=== PATIENT | male | born 1960 | race Caucasian/White ===

== ENCOUNTER 2017-01-04 17:56 | Observation (INO) | payer MEDICAID ==
[2017-01-04 17:56] VITALS: BMI 23.6
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
[2017-01-04] MEDS ORDERED: Multivitamin (MVI) 10 ML, Thiamine 100 MG, Folic Acid 1 MG in Dextrose 5% In Water 1,00... IV ONE (18:23)
[2017-01-04 19:35] LABS: ADD MANUAL DIFF? NO
[2017-01-04 19:42] LABS: BASO # 0.07 K/mm3 (0.0-2.0); BASO % 2.6 % (0.0-3.0); EOS % 1.5 % (1.5-5.0); GRAN # 1.14 (1.4-6.5); GRAN % 41.9 % (50.0-68.0); HEMATOCRIT 41.3 % (42.0-52.0); LYMPH % 37.1 % (22.0-35.0); MEAN CELL VOLUME 97.6 fL (80.0-105.0); MEAN CORPUSCULAR HGB CONC 34.9 g/dl (31.0-37.0); MONO # 0.5 (0.1-0.6); MONO % 16.9 % (1.0-6.0); PLATELET COUNT 93 10^3/uL (120.0-450.0); RED CELL DISTRIBUTION WIDTH 13.8 % (11.5-14.5)
[2017-01-04 19:47] LABS: WHITE BLOOD COUNT 2.7 10^3/ul (4.5-11.0)
[2017-01-04 19:55] LABS: ALKALINE PHOSPHATASE 103 U/L (38-133); ALT/SGPT 132 U/L (7-56); AST/SGOT 217 U/L (15-59); BILIRUBIN,TOTAL 0.8 mg/dL (0.2-1.3); BLOOD UREA NITROGEN 5 mg/dL (7-21); CALCIUM 8.8 mg/dL (8.4-10.5); CARBON DIOXIDE 30 mmol/L (21-33); CHLORIDE 94 mmol/L (98-107); GFR AFRICAN-AMERICAN > 60; GLUCOSE,RANDOM 95 mg/dL (70-110); LIPASE 144 U/L (23-300); MAGNESIUM 1.8 mg/dL (1.7-2.2); POTASSIUM 3.9 mmol/L (3.6-5.0); SODIUM 134 mmol/L (132-148); TOTAL PROTEIN 8.3 g/dL (5.8-8.3)
[2017-01-04 22:03] VITALS: RESP 18
[2017-01-05 03:13] VITALS: O2SAT 95
[2017-01-05 05:14] VITALS: BP 147/87; PULSE 88; TEMP 98.1
== END 2017-01-05 06:31 | disposition home or self-care (01) ==
LOC: ED 17:56 → EROBSV 18:23
PROVIDERS: ADMIT Emergency Medicine; ATTEND Emergency Medicine
DX: F10.129 Alcohol abuse with intoxication, unspecified (principal); Y90.8 Blood alcohol level of 240 mg/100 ml or more
CPT/HCPCS: 36415; 80053; 80320; 83690; 83735; 83880; 85025; 99285; G0378; J3411; J7070

== ENCOUNTER 2017-01-27 00:33 | Inpatient (IN) | payer MEDICAID ==
[2017-01-27 00:44] VITALS: BMI 22.9
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
[2017-01-27 01:43] LABS: INR 0.98 (0.93-1.08); PARTIAL THROMBOPLASTIN TIME 29.2 Seconds (23.7-30.8)
[2017-01-27 01:47] LABS: ALKALINE PHOSPHATASE 120 U/L (38-133); ALT/SGPT 136 U/L (7-56); AST/SGOT 217 U/L (15-59); BILIRUBIN,TOTAL 0.9 mg/dL (0.2-1.3); BLOOD UREA NITROGEN 7 mg/dL (7-21); CALCIUM 8.8 mg/dL (8.4-10.5); CARBON DIOXIDE 30 mmol/L (21-33); CHLORIDE 95 mmol/L (98-107); GFR AFRICAN-AMERICAN > 60; GLUCOSE,RANDOM 97 mg/dL (70-110); HEMATOCRIT 44.7 % (42.0-52.0); MEAN CELL VOLUME 97.6 fL (80.0-105.0); MEAN CORPUSCULAR HEMOGLOBIN 34.3 pg (25.0-35.0); MEAN CORPUSCULAR HGB CONC 35.1 g/dl (31.0-37.0); PLATELET COUNT 89 10^3/uL (120.0-450.0); POTASSIUM 4.4 mmol/L (3.6-5.0); SODIUM 135 mmol/L (132-148); TOTAL PROTEIN 8.6 g/dL (5.8-8.3)
[2017-01-27 01:58] LABS: MEAN PLATELET VOLUME 12.2 fl (7.0-11.0); WHITE BLOOD COUNT 2.8 10^3/ul (4.5-11.0)
[2017-01-27 02:04] LABS: TROPONIN I < 0.01 ng/mL
[2017-01-27 02:40] LABS: BAND 4 % (0-2); BASOPHIL 4 % (0.0-1.0); EOSINOPHIL 2 % (0.0-3.0); NEUTROPHIL 32 % (50.0-70.0); PLATELET ESTIMATE LOW (NORMAL)
[2017-01-27] MEDS ORDERED: Multivitamin (MVI) 10 ML, Thiamine 100 MG, Folic Acid 1 MG in Sodium Chloride 0.9% 1,00... IV ONE (03:24)
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
[2017-01-27 04:46] LABS: URINE BILIRUBIN NEGATIVE (NEGATIVE); URINE BLOOD TRACE-LYSED (NEGATIVE); URINE GLUCOSE (UA) NEGATIVE (NEGATIVE); URINE KETONE NEGATIVE (NEGATIVE); URINE LEUKOCYTE ESTERASE NEGATIVE Leu/uL (NEGATIVE); URINE PROTEIN NEGATIVE mg/dL (<30 mg/dL); URINE UROBILINOGEN 0.2 E.U./dL (<1 E.U./dL)
[2017-01-27 04:51] LABS: URINE APPEARANCE SL CLOUDY (CLEAR); URINE COLOR LIGHT YELLOW (YELLOW)
[2017-01-27 04:53] LABS: MAGNESIUM 1.7 mg/dL (1.7-2.2); PHOSPHOROUS 3.3 mg/dL (2.5-4.5)
[2017-01-27 05:09] LABS: URINE EPITHELIAL CELLS 0 - 2 /hpf (0-5); URINE RBC 0 - 2 /hpf (0-2); URINE WBC 0 - 2 /hpf (0-6)
[2017-01-27 07:08] LABS: TROPONIN I 0.02 ng/mL
--- NOTE | 2017-01-27 08:12 | RAD ---
HISTORY: Chest pain COMPARISON: 07/24/2016 FINDINGS: LUNGS: The lungs are hyperinflated and there is peribronchial thickening with chronic changes in both lungs. There is no focal consolidation. PLEURA: No significant pleural effusion identified, no pneumothorax apparent. CARDIOVASCULAR: Normal. OSSEOUS STRUCTURES: No significant abnormalities. VISUALIZED UPPER ABDOMEN: Normal. OTHER FINDINGS: None. IMPRESSION: No active pulmonary disease. COPD.
[2017-01-27] MEDS: Enoxaparin 40 mg Syringe SC SCH (09:08)
--- NOTE | 2017-01-27 09:49 | CARD ---
APPROVED REPORT EKG Measurement Heart [id number] <Conclusion> Normal sinus rhythm ST elevation, probably due to early repolarization No change
--- NOTE | 2017-01-27 10:01 | CARD ---
APPROVED REPORT EKG Measurement Heart [id number] <Conclusion> Normal sinus rhythm Prolonged QT ST elevation, probably early repolarization No change
[2017-01-27] MEDS: Sodium Chloride 0.9% 1,000 ML IV SCH ×2 (13:10→20:24)
[2017-01-28] MEDS: Sodium Chloride 0.9% 1,000 ML IV SCH (04:09)
[2017-01-28 07:40] LABS: ADD MANUAL DIFF? NO
[2017-01-28 07:46] LABS: BASO # 0.02 K/mm3 (0.0-2.0); BASO % 0.6 % (0.0-3.0); EOS % 1.2 % (1.5-5.0); GRAN # 2.36 (1.4-6.5); GRAN % 69.2 % (50.0-68.0); HEMATOCRIT 42.6 % (42.0-52.0); LYMPH # 0.6 (1.2-3.4); LYMPH % 16.4 % (22.0-35.0); MEAN CELL VOLUME 98.6 fL (80.0-105.0); MEAN CORPUSCULAR HEMOGLOBIN 34.3 pg (25.0-35.0); MEAN CORPUSCULAR HGB CONC 34.7 g/dl (31.0-37.0); MEAN PLATELET VOLUME 12.1 fl (7.0-11.0); MONO # 0.4 (0.1-0.6); MONO % 12.6 % (1.0-6.0); PLATELET COUNT 73 10^3/uL (120.0-450.0); RED CELL DISTRIBUTION WIDTH 13.9 % (11.5-14.5); WHITE BLOOD COUNT 3.4 10^3/ul (4.5-11.0)
[2017-01-28 08:01] LABS: ALKALINE PHOSPHATASE 111 U/L (38-133); ALT/SGPT 122 U/L (7-56); AST/SGOT 170 U/L (15-59); BILIRUBIN,TOTAL 1.5 mg/dL (0.2-1.3); BLOOD UREA NITROGEN 8 mg/dL (7-21); CARBON DIOXIDE 30 mmol/L (21-33); CHLORIDE 97 mmol/L (95-110); GFR AFRICAN-AMERICAN > 60; GLUCOSE,RANDOM 83 mg/dL (70-110); MAGNESIUM 1.7 mg/dL (1.7-2.2); PHOSPHOROUS 3.3 mg/dL (2.5-4.5); POTASSIUM 3.8 mmol/L (3.6-5.0); SODIUM 137 mmol/L (132-148); TOTAL PROTEIN 7.9 g/dL (5.8-8.3)
--- NOTE | 2017-01-28 09:30 | CON ---
DATE: 01/28/2017 INDICATIONS: Chest pain. HISTORY OF PRESENT ILLNESS: This is a 56-year-old multiple substance abuser admitted through the Emergency Room with chest pain described as left-sided, occurring for several months on and off and was apparently described as sharp. There is no chest pain today. There was no orthopnea, PND, syncope, presyncope , lightheadedness, dizziness or vertigo. There was no fever, chills, cough, sputum production, hemoptysis, abdominal pain, nausea, vomiting, diarrhea, constipation, melena. PAST MEDICAL HISTORY: Complex. He has a long history of alcohol abuse and also cigarette smoking and other drug abuse in the past. He drinks on a daily basis. He has had alcohol withdrawal. He has a history of variceal bleeding, portal hypertension, seizure disorder, intracranial hemorrhage, hepatitis B, thrombocytopenia; but no rheumatic fever, myocardial infarction, congestive heart failure, arrhythmia, stroke, TIA, diabetes or gout. MEDICATIONS AT TIME OF ADMISSION: Included multivitamin, Protonix and vitamin B1. CURRENT MEDICATIONS: Include aspirin, Ativan, folic acid, Keppra, Lovenox, Pepcid, multivitamin, thiamine. ALLERGIES: There are no known medication allergies. SOCIAL HISTORY: He is a smoker. He drinks alcohol daily. There is a history of drug abuse in the past. He is . He lives at home. 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 REVIEW OF SYSTEMS: A 10-point review of systems is otherwise unremarkable except as noted above. FAMILY HISTORY: Unknown. PHYSICAL EXAMINATION: GENERAL: He is a well-developed male lying in bed on telemetry, in no acute distress. VITAL SIGNS: Unremarkable. He is in sinus rhythm at 60 beats per minute. Blood pressure 171/103, prior to that 135/84; respirations 18, O2 sat 97% on nasal cannula. HEENT: Reveals no neck vein distention, thyromegaly, or carotid bruits. Mucous membranes are moist. Conjunctivae are pink. NECK: Supple. CHEST: Lung roth clear. HEART: Revealed normal first and second heart sounds. ABDOMEN: Soft, bowel sounds present. No mass, organomegaly, tenderness, rebound, or guarding. EXTREMITIES: Revealed no cyanosis, clubbing, or edema. NEUROLOGIC: Awake, alert and oriented. PSYCHIATRIC: Normal as to mood and affect. SKIN: Warm and dry. No rash or cellulitis. LABORATORY AND IMAGING: A chest x-ray revealed no active pulmonary disease, COPD findings. Two EKGs yesterday show sinus rhythm with J point elevation; unchanged from previous EKGs. White count low at 3400, hemoglobin 14.8, hematocrit 42.6, platelet count low at 73,000. PT, INR, PTT unremarkable. Electrolytes, BUN, creatinine, blood sugar unremarkable. LFTs are abnormal Troponins are negative x 3. Total cholesterol 154, triglycerides 98, LDL 57, HDL 72. TSH is elevated at 5.01. Urinalysis is noted. Toxic screen is noted. Alcohol level was 354. Hepatitis was negative. IMPRESSION: The patient is a 56-year-old alcoholic with complaints of chest pain, but negative enzymes and an unchanged electrocardiogram demonstrated J point elevation and chronic ST elevations. At this point, I agree with current plans. He is on telemetry. He can be out of bed. An echocardiogram is ordered. Nuclear stress test would be appropriate ; this can be arranged on an outpatient basis. He needs treatment for alcoholism and detoxification. He should avoid multiple substance abuse in the future. I will check on his echocardiogram. I will follow along with you and make additional recommendations based on his clinical course. Case discussed with Dr. Trejo. David Birmingham MD cc: [phone] TT: 01/28/2017 09:29:21 Confirmation # [id number] Dictation # [id number] yudith LEOS
[2017-01-28] MEDS: Enoxaparin 40 mg Syringe SC SCH (11:07)
[2017-01-28] MEDS: Multivitamin With Minerals Tab PO SCH (11:08)
--- NOTE | 2017-01-28 16:18 | CARD ---
APPROVED REPORT EXAM: Two-dimensional and M-mode echocardiogram with Doppler and color Doppler. INDICATION Chest Pain 2D DIMENSIONS Left Atrium (2D)3.4 (1.6-4.0cm)IVSd1.3 (0.7-1.1cm) LVDd3.7 (3.9-5.9cm)PWd1.2 (0.7-1.1cm) LVDs2.8 (2.5-4.0cm)FS (%) 25.7 % LVEF (%)51.3 (>50%) M-Mode DIMENSIONS Aortic Root2.80 (2.2-3.7cm)Aortic Cusp Exc.1.10 (1.5-2.0cm) Aortic Valve AoV Peak Jgpwtrov649.0cm/Ramez Peak GR.4mmHg Mitral Valve MV E Zwjcyyha26.1cm/sMV A Oqxlspoe03.8cm/sE/A ratio0.6 TDI E/Lateral E'0.0E/Medial E'0.0 LEFT VENTRICLE The left ventricle is normal size. There is mild concentric left ventricular hypertrophy. The left ventricular function is normal. The left ventricular ejection fraction is within the normal range. There is normal LV segmental wall motion. RIGHT VENTRICLE The right ventricle is normal size. The right ventricular systolic function is normal. ATRIA The left atrium size is normal. The right atrium size is normal. The interatrial septum is intact with no evidence for an atrial septal defect. AORTIC VALVE The aortic valve is normal in structure. No aortic regurgitation is present. There is no aortic valvular stenosis. MITRAL VALVE The mitral valve is normal in structure. Mitral regurgitation is trace. TRICUSPID VALVE The tricuspid valve is normal in structure. There is trace tricuspid regurgitation. PULMONIC VALVE The pulmonary valve is normal in structure. GREAT VESSELS The aortic root is normal in size. The IVC is normal in size and collapses >50% with inspiration. PERICARDIAL EFFUSION There is no pleural effusion. There is no pericardial effusion. <Conclusion> Normal chamber size. Normal LV systolic function. Mild concentric LVH. No valvular abnormalities noted.
--- NOTE | 2017-01-28 16:57 | CP.PCM.PN ---
Addendum entered and electronically signed by Duglas Jean DO 01/28/17 17:12: Patient became agitated and developed alcohol withdrawal symptoms. He was given ativan and due to instability, required sitter. Patient was seen trying to crawl out of bed and stumbling around in the room. His medical condition was discussed with him and he sat back in the bed. Per PT, he was not steady on his feet. Original Note: <Duglas Jean - Last Filed: 01/28/17 16:51> Subjective - Date & Time of Evaluation Date of Evaluation: 01/28/17 Time of Evaluation: 09:10 - Subjective Subjective: Dr. Jean PGY 1 Hospitalist note Patient seen and evaluated at bedside. He was eating breakfast and requesting to go home. He was made aware that physical therapy needed to evaluate him and he was scheduled for an echocardiogram. The patient stated he understood. He reports his chest pain was improved. He denied any shakes or withdrawal symptoms. He also notes the abrasion on his hand was less tender today. He also denies any fever, chills, nausea, vomiting, diarrhea, or dysuria. Per nursing, no adverse events over night. Objective - Vital Signs/Intake and Output Vital Signs (last 24 hours): Temp Pulse Resp BP Pulse Ox 98.2 F 72 19 152/91 H 97 01/28/17 12:00 01/28/17 12:00 01/28/17 12:00 01/28/17 12:00 01/28/17 06:00 Intake and Output: 01/28/17 01/28/17 06:59 18:59 Intake Total 920 840 Output Total 750 900 Balance 170 -60 - Medications Medications: Current Medications Enoxaparin Sodium (Lovenox) 40 mg SC DAILY [facility] PRN Reason: Protocol Last Admin: 01/28/17 11:07 Dose: 40 mg Famotidine (Pepcid) 40 mg PO HS [facility] Last Admin: 01/27/17 21:55 Dose: 40 mg Folic Acid (Folic Acid) 1 mg PO DAILY [facility] Last Admin: 01/28/17 11:08 Dose: 1 mg Sodium Chloride (Sodium Chloride 0.9%) 1,000 mls @ 100 mls/hr IV .Q10H [facility] Last Admin: 01/28/17 04:09 Dose: 100 mls/hr Levetiracetam (Keppra) 500 mg PO BID [facility] Last Admin: 01/28/17 11:08 Dose: 500 mg Lorazepam (Ativan) 2 mg IVP Q2H PRN; Protocol PRN Reason: Symptoms of alcohol withdrawl Last Admin: 01/28/17 13:58 Dose: 2 mg Lorazepam (Ativan) 2 mg IVP Q4H [facility] PRN Reason: Protocol Last Admin: 01/28/17 16:29 Dose: 2 mg Multivitamins/Minerals (Therapeutic-M Tab) 1 tab PO DAILY [facility] Last Admin: 01/28/17 11:08 Dose: 1 tab Mupirocin (Bactroban Ointment) 1 gm TOP BID [facility] Last Admin: 01/28/17 11:18 Dose: 1 applic Nicotine (Nicoderm Cq) 1 patch TD DAILY [facility] Last Admin: 01/28/17 15:59 Dose: 1 patch Thiamine HCl (Vitamin B1 Tab) 100 mg PO DAILY [facility] Last Admin: 01/28/17 11:08 Dose: 100 mg - Labs Labs: 01/28/17 07:00 01/28/17 07:00 PT 10.6 Seconds (9.9-11.8) 01/27/17 01:20 INR 0.98 (0.93-1.08) 01/27/17 01:20 APTT 29.2 Seconds (23.7-30.8) 01/27/17 01:20 - Constitutional Appears: Non-toxic, No Acute Distress - Head Exam Head Exam: ATRAUMATIC, NORMOCEPHALIC - Eye Exam Eye Exam: EOMI, Normal appearance, PERRL Pupil Exam: NORMAL ACCOMODATION, PERRL - ENT Exam ENT Exam: Mucous Membranes Moist. absent: Normal Exam (poor dentition) - Neck Exam Neck Exam: Normal Inspection. absent: Tenderness - Respiratory Exam Respiratory Exam: Clear to Ausculation Bilateral, NORMAL BREATHING PATTERN. absent: Rales, Rhonchi, Wheezes - Cardiovascular Exam Cardiovascular Exam: REGULAR RHYTHM, +S1, +S2. absent: Gallop, Rubs, Murmur - GI/Abdominal Exam GI & Abdominal Exam: Soft, Normal Bowel Sounds. absent: Guarding, Tenderness - Extremities Exam Extremities Exam: Normal Capillary Refill. absent: Normal Inspection (abrasion on right hand.) - Back Exam Back Exam: NORMAL INSPECTION. absent: rash noted, tenderness - Neurological Exam Neurological Exam: Alert, Awake, CN II-XII Intact, Oriented x3 - Psychiatric Exam Psychiatric exam: Normal Affect, Normal Mood - Skin Skin Exam: Dry, Intact, Normal Color, Warm Assessment and Plan - Assessment and Plan (Free Text) Assessment: 56yo male with history of hepatitis B, portal hypertension, variceal bleed and chronic etoh abuse presents c/o left-sided chest pain for the past 3 months. Patient scheduled for echo and cardiac stress test. Plan: 1. Chest pain r/o ACS * Cardiology consulted, help appreciated * Troponin negative x3 * CXR revealed no active disease * EKG reviewed; normal sinus rhythm at 83bpm with ST elevation likely due to early repolarization * Repeat EKG showed NSR with ST elevation probably due to early repolarization, no change from prior EKG * Echocardiogram showed normal chamber size, normal LV systolic function, mild concentric LVH [see full report] * TSH mildy elevated at 5.01, recommend repeat in 6-8 weeks * A1c 5.1 * Lipid panel shows: Tri 98, Chol 154, LDL 57, HDL 72 * Urinalysis shows trace blood * UDS positive for alcohol * Magnesium, phosphorus wnl * Stress test scheduled for tomorrow 2. Alcohol intoxication/withdrawal * Alcohol level 354 on arrival * [facility] protocol * Librium held due to thrombocytopenia * Ativan 2q4 scheduled and 2q2 PRN * Seizure/Aspiration precautions * Normal saline @100mls hr * Folic acid/thiamin/multivitamin * PT eval for gait stability 3. Leukopenia * yesterday WBC 2.8, currently 3.4 * likely due to chronic alcohol abuse 4. Thrombocytopenia * likely secondary to alcohol abuse * initially 89, decreased to 73 * continue to monitor for bleeding 5. Abrasion * Bactraban ointment * nurse bandaging 6 . Transaminitis * AST/ALT 170/122 * Improved from yesterday * continue to monitor * patient denies any GI symptoms 7. Nicotine Abuse * Nicoderm patch * counselled on cessation 8. GI/DVT prophylaxis * Protonix/lovenox Patient seen and case discussed with attending physician. <Marian Trejo - Last Filed: 01/28/17 17:45> Objective - Vital Signs/Intake and Output Vital Signs (last 24 hours): Temp Pulse Resp BP Pulse Ox 98.2 F 72 19 152/91 H 97 01/28/17 12:00 01/28/17 12:00 01/28/17 12:00 01/28/17 12:00 01/28/17 06:00 Intake and Output: 01/28/17 01/28/17 06:59 18:59 Intake Total 920 840 Output Total 750 900 Balance 170 -60 - Medications Medications: Current Medications Enoxaparin Sodium (Lovenox) 40 mg SC DAILY [facility] PRN Reason: Protocol Last Admin: 01/28/17 11:07 Dose: 40 mg Famotidine (Pepcid) 40 mg PO HS [facility] Last Admin: 01/27/17 21:55 Dose: 40 mg Folic Acid (Folic Acid) 1 mg PO DAILY [facility] Last Admin: 01/28/17 11:08 Dose: 1 mg Sodium Chloride (Sodium Chloride 0.9%) 1,000 mls @ 100 mls/hr IV .Q10H [facility] Last Admin: 01/28/17 04:09 Dose: 100 mls/hr Levetiracetam (Keppra) 500 mg PO BID [facility] Last Admin: 01/28/17 11:08 Dose: 500 mg Lorazepam (Ativan) 2 mg IVP Q2H PRN; Protocol PRN Reason: Symptoms of alcohol withdrawl Last Admin: 01/28/17 13:58 Dose: 2 mg Lorazepam (Ativan) 2 mg IVP Q4H [facility] PRN Reason: Protocol Last Admin: 01/28/17 16:29 Dose: 2 mg Multivitamins/Minerals (Therapeutic-M Tab) 1 tab PO DAILY [facility] Last Admin: 01/28/17 11:08 Dose: 1 tab Mupirocin (Bactroban Ointment) 1 gm TOP BID [facility] Last Admin: 01/28/17 11:18 Dose: 1 applic Nicotine (Nicoderm Cq) 1 patch TD DAILY [facility] Last Admin: 01/28/17 15:59 Dose: 1 patch Thiamine HCl (Vitamin B1 Tab) 100 mg PO DAILY [facility] Last Admin: 01/28/17 11:08 Dose: 100 mg - Labs Labs: 01/28/17 07:00 01/28/17 07:00 PT 10.6 Seconds (9.9-11.8) 01/27/17 01:20 INR 0.98 (0.93-1.08) 01/27/17 01:20 APTT 29.2 Seconds (23.7-30.8) 01/27/17 01:20 Attending/Attestation - Attestation I have personally seen and examined this patient.: Yes I have fully participated in the care of the patient.: Yes I have reviewed all pertinent clinical information, including history, physical exam and plan: Yes Notes (Text): 01/28/17 17:37 56 year old male with past medical history of chronic etoh abuse and seizure disorder who presented with alcohol intoxication and chest pain. Serial cardiac enzymes are negative and ACS is ruled out. Cardiology evaluation was appreciated who recommended stress test which can be done as outpatient. Echocardiogram was reviewed as above. Today he has some tremor with gait instability. He is on ativan for alcohol withdrawal. PT evaluation is requested. Continue with multivitamin, folic acid and thiamine. He was counselled on alcohol abstinence. He is on keppra for history of seizures. Elevated LFTs likely secondary to chronic ETOH abuse. LFTs are slowly improving. Will continue to monitor. Marian Trejo MD Hospitalist.
--- NOTE | 2017-01-28 19:30 | CP.PCM.PN ---
Subjective - Date & Time of Evaluation Date of Evaluation: 01/28/17 Time of Evaluation: 19:16 - Subjective Subjective: Patient seen at the request of his RN who stated patient is agitated inspite of getting a total of 6 mg of ativan since 1:58 pm today, last dose of 2mg given at 5:44pm. Patient had tried to get out of the bed and his gait was unsteady. He is being treated for ETOH withdrawal. VS 172/103, HR 110/min, temp 99.4f, RR 22/min O/E,Pt is alert ,awake ,unco-operative,is noted to have fine tremors Lungs clear CVS Tachycardic Impression ETOH withdrawal and agitation Plan Christopher restraint Sedation with Ativan as already ordered. Objective - Vital Signs/Intake and Output Vital Signs (last 24 hours): Temp Pulse Resp BP Pulse Ox 98 F 65 20 188/106 H 97 01/28/17 17:41 01/28/17 17:41 01/28/17 17:41 01/28/17 17:41 01/28/17 06:00 Intake and Output: 01/28/17 01/29/17 18:59 06:59 Intake Total 840 Output Total 900 Balance -60 - Medications Medications: Current Medications Enoxaparin Sodium (Lovenox) 40 mg SC DAILY [facility] PRN Reason: Protocol Last Admin: 01/28/17 11:07 Dose: 40 mg Famotidine (Pepcid) 40 mg PO HS [facility] Last Admin: 01/27/17 21:55 Dose: 40 mg Folic Acid (Folic Acid) 1 mg PO DAILY [facility] Last Admin: 01/28/17 11:08 Dose: 1 mg Sodium Chloride (Sodium Chloride 0.9%) 1,000 mls @ 100 mls/hr IV .Q10H [facility] Last Admin: 01/28/17 04:09 Dose: 100 mls/hr Levetiracetam (Keppra) 500 mg PO BID [facility] Last Admin: 01/28/17 17:40 Dose: 500 mg Lorazepam (Ativan) 2 mg IVP Q2H PRN; Protocol PRN Reason: Symptoms of alcohol withdrawl Last Admin: 01/28/17 13:58 Dose: 2 mg Lorazepam (Ativan) 2 mg IVP Q4H [facility] PRN Reason: Protocol Last Admin: 01/28/17 16:29 Dose: 2 mg Multivitamins/Minerals (Therapeutic-M Tab) 1 tab PO DAILY [facility] Last Admin: 01/28/17 11:08 Dose: 1 tab Mupirocin (Bactroban Ointment) 1 gm TOP BID [facility] Last Admin: 01/28/17 17:40 Dose: 1 applic Nicotine (Nicoderm Cq) 1 patch TD DAILY [facility] Last Admin: 01/28/17 15:59 Dose: 1 patch Thiamine HCl (Vitamin B1 Tab) 100 mg PO DAILY [facility] Last Admin: 01/28/17 11:08 Dose: 100 mg - Labs Labs: 01/28/17 07:00 01/28/17 07:00 PT 10.6 Seconds (9.9-11.8) 01/27/17 01:20 INR 0.98 (0.93-1.08) 01/27/17 01:20 APTT 29.2 Seconds (23.7-30.8) 01/27/17 01:20
[2017-01-29 07:47] LABS: ADD MANUAL DIFF? NO
[2017-01-29 07:52] LABS: BASO # 0.02 K/mm3 (0.0-2.0); BASO % 0.4 % (0.0-3.0); EOS % 0.8 % (1.5-5.0); GRAN % 75.9 % (50.0-68.0); HEMATOCRIT 46.9 % (42.0-52.0); LYMPH # 0.6 (1.2-3.4); LYMPH % 12.4 % (22.0-35.0); MEAN CELL VOLUME 97.9 fL (80.0-105.0); MEAN CORPUSCULAR HEMOGLOBIN 34.4 pg (25.0-35.0); MEAN CORPUSCULAR HGB CONC 35.2 g/dl (31.0-37.0); MEAN PLATELET VOLUME 12.4 fl (7.0-11.0); MONO # 0.5 (0.1-0.6); MONO % 10.5 % (1.0-6.0); PLATELET COUNT 74 10^3/uL (120.0-450.0); RED CELL DISTRIBUTION WIDTH 13.5 % (11.5-14.5); WHITE BLOOD COUNT 4.8 10^3/ul (4.5-11.0)
[2017-01-29 08:56] LABS: ALKALINE PHOSPHATASE 120 U/L (38-133); ALT/SGPT 229 U/L (7-56); AST/SGOT 318 U/L (15-59); BILIRUBIN,TOTAL 2.2 mg/dL (0.2-1.3); BLOOD UREA NITROGEN 7 mg/dL (7-21); CALCIUM 10.3 mg/dL (8.4-10.5); CARBON DIOXIDE 27 mmol/L (21-33); CHLORIDE 103 mmol/L (98-107); GFR AFRICAN-AMERICAN > 60; GLUCOSE,RANDOM 103 mg/dL (70-110); MAGNESIUM 1.9 mg/dL (1.7-2.2); PHOSPHOROUS 2.5 mg/dL (2.5-4.5); POTASSIUM 3.7 mmol/L (3.6-5.0); SODIUM 143 mmol/L (132-148); TOTAL PROTEIN 9.6 g/dL (5.8-8.3)
[2017-01-29] MEDS: Enoxaparin 40 mg Syringe SC SCH (09:42)
[2017-01-29] MEDS: Multivitamin With Minerals Tab PO SCH (09:43)
--- NOTE | 2017-01-29 14:02 | PN ---
DATE: 01/29/2017 SUBJECTIVE: The patient is seen lying in bed on telemetry. He is currently in wrist restraints and a Noble vest. He has received some sedation recently and is somnolent. CURRENT MEDICATIONS: Include Ativan p.r.n., clonidine p.r.n., Geodon p.r.n., Keppra 500 mg b.i.d., L ovenox, Nicoderm patch, Pepcid. OBJECTIVE: GENERAL: He is a disheveled=appearing middle-aged man. VITAL SIGNS: His blood pressure is 140/96 with a pulse of 88 in sinus, respirations are 16. He is a febrile. HEENT: No JVD. CHEST: Bilateral rhonchi heard. HEART: PMI in normal position. No pathologic murmur or gallops noted. ABDOMEN: Soft, nontender, normoactive bowel sounds. EXTREMITIES: No edema. DIAGNOSTIC DATA: Potassium 3.7, BUN and creatinine are 7 and 0.8. Hemoglobin and hematocrit ae 16.5 and 46.9 with white count of 4.8, platelet count of 74,000. AST and ALT 318 and 229. Bilirubin 2.2 . IMPRESSION: 1. Recent chest pain with no evidence of cardiac ischemia on EKG or blood work. 2. History of alcohol abuse. 3. History of portal hypertension and esophageal varices. 4. History of seizure disorder. 5. Thrombocytopenia likely secondary to liver disease. RECOMMENDATIONS: At this time, conservative cardiac management is advised. If he has symptoms sugge stive of cardiac ischemia, would not pursue further workup with stress testing as pain is likely not due to a cardiac source. Observation for impending potential delirium tremens is advised. We will be continue along and follow as needed. Lenny Turcios MD cc: [id number] TT: 01/29/2017 14:01:24 Confirmation # [id number] Dictation # [id number] tn
--- NOTE | 2017-01-29 17:25 | CP.PCM.PN ---
<Duglas Jean - Last Filed: 01/29/17 17:21> Subjective - Date & Time of Evaluation Date of Evaluation: 01/29/17 Time of Evaluation: 07:45 - Subjective Subjective: Dr. Jean PGY 1 Hospitalist note Patient seen and evaluated at bedside. He is agitated in bed and tells me the year is 1973 and we are at his sister's home. A thorough review of systems could not be obtained as the patient was confused even after redirection. Per nursing, patient's DT's worsened over night requiring him to need medical restraints for his safety. Patient was noted to be unsteady when standing prior to the DT's and continues to try crawling out of the bed and demanding a cigarette. Objective - Vital Signs/Intake and Output Vital Signs (last 24 hours): Temp Pulse Resp BP Pulse Ox 97.4 F L 88 21 144/95 H 98 01/29/17 12:43 01/29/17 12:43 01/29/17 12:43 01/29/17 12:43 01/29/17 05:28 Intake and Output: 01/29/17 01/29/17 06:59 18:59 Intake Total 0 Output Total 450 Balance -450 - Medications Medications: Current Medications Clonidine HCl (Catapres) 0.1 mg PO BID PRN PRN Reason: Systolic Blood Pressure Last Admin: 01/29/17 06:28 Dose: 0.1 mg Enoxaparin Sodium (Lovenox) 40 mg SC DAILY [facility] PRN Reason: Protocol Last Admin: 01/29/17 09:42 Dose: 40 mg Famotidine (Pepcid) 40 mg PO HS [facility] Last Admin: 01/28/17 22:25 Dose: 40 mg Folic Acid (Folic Acid) 1 mg PO DAILY [facility] Last Admin: 01/29/17 09:42 Dose: 1 mg Sodium Chloride (Sodium Chloride 0.9%) 1,000 mls @ 100 mls/hr IV .Q10H [facility] Last Admin: 01/28/17 04:09 Dose: 100 mls/hr Levetiracetam (Keppra) 500 mg PO BID [facility] Last Admin: 01/29/17 09:42 Dose: 500 mg Lorazepam (Ativan) 2 mg IVP Q2H PRN; Protocol PRN Reason: Symptoms of alcohol withdrawl Last Admin: 01/29/17 04:26 Dose: 2 mg Lorazepam (Ativan) 2 mg IVP Q4H [facility] PRN Reason: Protocol Last Admin: 01/29/17 13:46 Dose: Not Given Multivitamins/Minerals (Therapeutic-M Tab) 1 tab PO DAILY [facility] Last Admin: 01/29/17 09:43 Dose: 1 tab Mupirocin (Bactroban Ointment) 1 gm TOP BID [facility] Last Admin: 01/29/17 09:41 Dose: 1 applic Nicotine (Nicoderm Cq) 1 patch TD DAILY [facility] Last Admin: 01/29/17 09:42 Dose: 1 patch Thiamine HCl (Vitamin B1 Tab) 100 mg PO DAILY [facility] Last Admin: 01/29/17 09:43 Dose: 100 mg Ziprasidone (Geodon Inj) 10 mg IM ONCE PRN; Protocol PRN Reason: Agitation - Labs Labs: 01/29/17 06:30 01/29/17 08:35 PT 10.6 Seconds (9.9-11.8) 01/27/17 01:20 INR 0.98 (0.93-1.08) 01/27/17 01:20 APTT 29.2 Seconds (23.7-30.8) 01/27/17 01:20 - Constitutional Appears: Agitated - Head Exam Head Exam: ATRAUMATIC, NORMOCEPHALIC - Eye Exam Eye Exam: EOMI, Normal appearance, PERRL Pupil Exam: NORMAL ACCOMODATION, PERRL - ENT Exam ENT Exam: Mucous Membranes Moist. absent: Normal Oropharynx (poor dentition) - Respiratory Exam Respiratory Exam: Clear to Ausculation Bilateral, NORMAL BREATHING PATTERN. absent: Rales, Rhonchi, Wheezes - Cardiovascular Exam Cardiovascular Exam: Tachycardia, +S1, +S2. absent: Gallop, Rubs, Murmur - GI/Abdominal Exam GI & Abdominal Exam: Soft, Normal Bowel Sounds. absent: Tenderness - Extremities Exam Extremities Exam: Normal Capillary Refill. absent: Normal Inspection (abrasion on right hand healing), Pedal Edema, Tenderness - Neurological Exam Neurological Exam: Altered - Psychiatric Exam Psychiatric exam: Agitated - Skin Skin Exam: Dry, Normal Color, Warm Assessment and Plan - Assessment and Plan (Free Text) Assessment: 56yo male with history of portal hypertension, variceal bleed and chronic alcohol abuse presents c/o left-sided chest pain for the past 3 months. Patient had echo performed and scheduled for stress test; however has developed delerium tremens requiring restraints. Plan: 1. Chest pain r/o ACS * Cardiology consulted, help appreciated * Troponin negative x3 * CXR revealed no active disease * EKG reviewed; normal sinus rhythm at 83bpm with ST elevation likely due to early repolarization * Repeat EKG showed NSR with ST elevation probably due to early repolarization, no change from prior EKG * Echocardiogram showed normal chamber size, normal LV systolic function, mild concentric LVH [see full report] * TSH mildy elevated at 5.01, recommend repeat in 6-8 weeks * A1c 5.1 * Lipid panel shows: Tri 98, Chol 154, LDL 57, HDL 72 * Urinalysis shows trace blood * UDS positive for alcohol * Magnesium, phosphorus wnl * Stress test scheduled for tomorrow 2. Alcohol intoxication/withdrawal * Alcohol level 354 on arrival * CIWA protocol * Librium held due to thrombocytopenia * Ativan 2q4 scheduled and 2q2 PRN * Seizure/Aspiration precautions * Normal saline @100mls hr * Folic acid/thiamin/multivitamin * Currently requiring restraints and 1:1 sitter * Geodon for severe agitation * PT eval for gait stability 3. Leukopenia * initial WBC 2.8, currently 4.8 * likely due to chronic alcohol abuse 4. Thrombocytopenia * likely secondary to alcohol abuse * initially 89, decreased to 73 * continue to monitor for bleeding 5. Abrasion * Bactraban ointment * nurse bandaging 6 . Transaminitis * AST/ALT 318/229 * likely due to alcohol withdrawals * continue to trend 7. Nicotine Abuse * Nicoderm patch * counselled on cessation 8. GI/DVT prophylaxis * Protonix/lovenox Patient seen and case discussed with attending physician. <Marian Trejo - Last Filed: 01/30/17 06:51> Objective - Vital Signs/Intake and Output Vital Signs (last 24 hours): Temp Pulse Resp BP Pulse Ox 97.8 F 80 20 162/104 H 96 01/30/17 06:00 01/30/17 06:29 01/30/17 06:00 01/30/17 06:29 01/30/17 06:00 Intake and Output: 01/29/17 01/30/17 18:59 06:59 Intake Total 1080 Output Total 400 Balance 680 - Medications Medications: Current Medications Clonidine HCl (Catapres) 0.1 mg PO BID PRN PRN Reason: Systolic Blood Pressure Last Admin: 01/30/17 06:29 Dose: 0.1 mg Enoxaparin Sodium (Lovenox) 40 mg SC DAILY [facility] PRN Reason: Protocol Last Admin: 01/29/17 09:42 Dose: 40 mg Famotidine (Pepcid) 40 mg PO HS [facility] Last Admin: 01/29/17 22:20 Dose: Not Given Folic Acid (Folic Acid) 1 mg PO DAILY [facility] Last Admin: 01/29/17 09:42 Dose: 1 mg Sodium Chloride (Sodium Chloride 0.9%) 1,000 mls @ 100 mls/hr IV .Q10H [facility] Last Admin: 01/28/17 04:09 Dose: 100 mls/hr Levetiracetam (Keppra) 500 mg PO BID [facility] Last Admin: 01/29/17 17:42 Dose: 500 mg Lorazepam (Ativan) 2 mg IVP Q2H PRN; Protocol PRN Reason: Symptoms of alcohol withdrawl Last Admin: 01/29/17 04:26 Dose: 2 mg Lorazepam (Ativan) 2 mg IVP Q4H [facility] PRN Reason: Protocol Last Admin: 01/30/17 06:18 Dose: 2 mg Multivitamins/Minerals (Therapeutic-M Tab) 1 tab PO DAILY [facility] Last Admin: 01/29/17 09:43 Dose: 1 tab Mupirocin (Bactroban Ointment) 1 gm TOP BID [facility] Last Admin: 01/29/17 17:38 Dose: 1 applic Nicotine (Nicoderm Cq) 1 patch TD DAILY [facility] Last Admin: 01/29/17 09:42 Dose: 1 patch Thiamine HCl (Vitamin B1 Tab) 100 mg PO DAILY [facility] Last Admin: 01/29/17 09:43 Dose: 100 mg Ziprasidone (Geodon Inj) 10 mg IM ONCE PRN; Protocol PRN Reason: Agitation - Labs Labs: 01/29/17 06:30 01/29/17 08:35 PT 10.6 Seconds (9.9-11.8) 01/27/17 01:20 INR 0.98 (0.93-1.08) 01/27/17 01:20 APTT 29.2 Seconds (23.7-30.8) 01/27/17 01:20 Attending/Attestation - Attestation I have personally seen and examined this patient.: Yes I have fully participated in the care of the patient.: Yes I have reviewed all pertinent clinical information, including history, physical exam and plan: Yes Notes (Text): 01/29/17 56 year old male with past medical history of chronic etoh abuse and seizure disorder who presented with alcohol intoxication and chest pain. Serial cardiac enzymes are negative and ACS is ruled out. Cardiology evaluation was appreciated who recommended outpatient stress test. Echocardiogram was reviewed as above. Hospital course was complicated with alcohol withdrawal / delirium. Overnight he had been agitated and confused. He is on 1:1 observation, restraints as needed. This morning he is still confused but can be re-oriented. He is on ativan [facility] and prn. Geodon prn added for severe agitation. Continue with multivitamin, folic acid and thiamine. PT following for gait instability. He was counselled on alcohol abstinence. He is on keppra for history of seizures. Elevated LFTs likely secondary to chronic ETOH abuse. Hepatitis panel was negative. Will continue to monitor. Marian Trejo MD Hospitalist.
[2017-01-30 08:13] LABS: ADD MANUAL DIFF? NO
[2017-01-30 08:32] LABS: BASO # 0.02 K/mm3 (0.0-2.0); BASO % 0.5 % (0.0-3.0); EOS # 0.1 (0.0-0.7); EOS % 1.8 % (1.5-5.0); GRAN # 2.57 (1.4-6.5); GRAN % 66.8 % (50.0-68.0); HEMATOCRIT 43.4 % (42.0-52.0); LYMPH # 0.6 (1.2-3.4); LYMPH % 16.1 % (22.0-35.0); MEAN CELL VOLUME 99.1 fL (80.0-105.0); MEAN CORPUSCULAR HEMOGLOBIN 34.7 pg (25.0-35.0); MEAN PLATELET VOLUME 12.8 fl (7.0-11.0); MONO # 0.6 (0.1-0.6); MONO % 14.8 % (1.0-6.0); PLATELET COUNT 74 10^3/uL (120.0-450.0); RED CELL DISTRIBUTION WIDTH 13.9 % (11.5-14.5); WHITE BLOOD COUNT 3.9 10^3/ul (4.5-11.0)
[2017-01-30 08:47] LABS: ALB/GLOB RATIO 1.1 (1.1-1.8); ALKALINE PHOSPHATASE 101 U/L (38-133); ALT/SGPT 214 U/L (7-56); AST/SGOT 311 U/L (15-59); BLOOD UREA NITROGEN 12 mg/dL (7-21); CALCIUM 9.8 mg/dL (8.4-10.5); CARBON DIOXIDE 26 mmol/L (21-33); CHLORIDE 101 mmol/L (98-107); GFR AFRICAN-AMERICAN > 60; GLUCOSE,RANDOM 84 mg/dL (70-110); MAGNESIUM 1.9 mg/dL (1.7-2.2); PHOSPHOROUS 4.4 mg/dL (2.5-4.5); POTASSIUM 3.9 mmol/L (3.6-5.0); SODIUM 139 mmol/L (132-148); TOTAL PROTEIN 8.1 g/dL (5.8-8.3)
[2017-01-30] MEDS: Multivitamin With Minerals Tab PO SCH (10:50)
[2017-01-30] MEDS: Enoxaparin 40 mg Syringe SC SCH (10:52)
--- NOTE | 2017-01-30 17:12 | CP.PCM.PN ---
<Duglas Jean - Last Filed: 01/30/17 17:09> Subjective - Date & Time of Evaluation Date of Evaluation: 01/30/17 Time of Evaluation: 09:05 - Subjective Subjective: Dr. Jean PGY 1 Hospitalist note Patient seen and evaluated at bedside with sitter present. The patient is resting comfortably with senia vest in place and wrist restraints undone. He has no recollection of the events yesterday and currently can tell me his name and location. He reports his chest pain has resolved. He denies any nausea, vomiting, chest pain, SOB, fever, chills, or weakness. He would like to walk with PT. Objective - Vital Signs/Intake and Output Vital Signs (last 24 hours): Temp Pulse Resp BP Pulse Ox 98.2 F 91 H 21 140/95 H 96 01/30/17 11:58 01/30/17 14:00 01/30/17 11:58 01/30/17 11:58 01/30/17 06:00 Intake and Output: 01/30/17 01/30/17 06:59 18:59 Intake Total 1080 Output Total 400 Balance 680 - Medications Medications: Current Medications Amlodipine Besylate (Norvasc) 5 mg PO DAILY [facility] Last Admin: 01/30/17 10:50 Dose: 5 mg Clonidine HCl (Catapres) 0.1 mg PO BID PRN PRN Reason: Systolic Blood Pressure Last Admin: 01/30/17 06:29 Dose: 0.1 mg Enoxaparin Sodium (Lovenox) 40 mg SC DAILY [facility] PRN Reason: Protocol Last Admin: 01/30/17 10:52 Dose: 40 mg Famotidine (Pepcid) 40 mg PO HS [facility] Last Admin: 01/29/17 22:20 Dose: Not Given Folic Acid (Folic Acid) 1 mg PO DAILY [facility] Last Admin: 01/30/17 10:52 Dose: 1 mg Sodium Chloride (Sodium Chloride 0.9%) 1,000 mls @ 100 mls/hr IV .Q10H [facility] Last Admin: 01/28/17 04:09 Dose: 100 mls/hr Levetiracetam (Keppra) 500 mg PO BID [facility] Last Admin: 01/30/17 10:50 Dose: 500 mg Lorazepam (Ativan) 2 mg IVP Q2H PRN; Protocol PRN Reason: Symptoms of alcohol withdrawl Last Admin: 01/29/17 04:26 Dose: 2 mg Lorazepam (Ativan) 1 mg IVP Q4H [facility] PRN Reason: Protocol Last Admin: 01/30/17 14:08 Dose: 1 mg Multivitamins/Minerals (Therapeutic-M Tab) 1 tab PO DAILY [facility] Last Admin: 01/30/17 10:50 Dose: 1 tab Mupirocin (Bactroban Ointment) 1 gm TOP BID [facility] Last Admin: 01/30/17 10:52 Dose: 1 applic Nicotine (Nicoderm Cq) 1 patch TD DAILY [facility] Last Admin: 01/30/17 10:51 Dose: 1 patch Thiamine HCl (Vitamin B1 Tab) 100 mg PO DAILY [facility] Last Admin: 01/30/17 10:50 Dose: 100 mg Ziprasidone (Geodon Inj) 10 mg IM ONCE PRN; Protocol PRN Reason: Agitation - Labs Labs: 01/30/17 07:00 01/30/17 07:20 PT 10.6 Seconds (9.9-11.8) 01/27/17 01:20 INR 0.98 (0.93-1.08) 01/27/17 01:20 APTT 29.2 Seconds (23.7-30.8) 01/27/17 01:20 - Constitutional Appears: Non-toxic, No Acute Distress, Older Than Stated Age - Head Exam Head Exam: ATRAUMATIC, NORMOCEPHALIC - Eye Exam Eye Exam: EOMI, Normal appearance, PERRL Pupil Exam: NORMAL ACCOMODATION, PERRL - ENT Exam ENT Exam: Mucous Membranes Moist. absent: Normal Oropharynx (poor dentition) - Respiratory Exam Respiratory Exam: Clear to Ausculation Bilateral, NORMAL BREATHING PATTERN. absent: Chest Wall Tenderness, Rales, Rhonchi, Wheezes - Cardiovascular Exam Cardiovascular Exam: REGULAR RHYTHM, +S1, +S2. absent: Gallop, Rubs, Murmur - GI/Abdominal Exam GI & Abdominal Exam: Soft, Normal Bowel Sounds. absent: Tenderness - Extremities Exam Extremities Exam: Normal Capillary Refill, Normal Inspection. absent: Pedal Edema, Tenderness - Neurological Exam Neurological Exam: Altered, Awake, CN II-XII Intact. absent: Alert, Oriented x3 - Psychiatric Exam Psychiatric exam: Flat Affect - Skin Skin Exam: Dry, Intact, Warm Assessment and Plan - Assessment and Plan (Free Text) Assessment: 56yo male with history of portal hypertension, variceal bleed and chronic alcohol abuse presents c/o left-sided chest pain for the past 3 months. Patient had echo performed and scheduled for stress test; however has developed delerium tremens requiring restraints. Patient no longer requiring restraints and more oriented today. Found to continue to have HTN. Plan: 1. Chest pain r/o ACS * Cardiology consulted, help appreciated * Troponin negative x3 * CXR revealed no active disease * EKG reviewed; normal sinus rhythm at 83bpm with ST elevation likely due to early repolarization * Repeat EKG showed NSR with ST elevation probably due to early repolarization, no change from prior EKG * Echocardiogram showed normal chamber size, normal LV systolic function, mild concentric LVH [see full report] * TSH mildy elevated at 5.01, recommend repeat in 6-8 weeks * A1c 5.1 * Lipid panel shows: Tri 98, Chol 154, LDL 57, HDL 72 * Urinalysis shows trace blood * UDS positive for alcohol * Magnesium, phosphorus wnl * Stress test to be performed as an outpatient. 2. Alcohol intoxication/withdrawal * Alcohol level 354 on arrival * CIWA protocol * Librium held due to thrombocytopenia * Ativan dose reduced to 1q4 scheduled and 2q2 PRN due to somnolence. * Seizure/Aspiration precautions * Normal saline @100mls hr * Folic acid/thiamin/multivitamin * Keppra 500mg PO BID for hx of seziures * No longer requiring restraints * Cntinue 1:1 sitter * Geodon for severe agitation * PT eval for gait stability 3. Leukopenia * initial WBC 2.8, currently 3.9 * likely due to chronic alcohol abuse 4. Thrombocytopenia * likely secondary to alcohol abuse * initially 89, decreased to 77 * continue to monitor for bleeding 5. Abrasion * Bactraban ointment * nurse bandaging 6 . Transaminitis * AST/ALT 311/214 * likely due to alcohol withdrawals * continue to trend 7. HTN * BP was 162/104 * Start Norvasc 5mg PO daily * Catapres 0.1 mg PO BID PRN * possibly secondary to alcohol withdrawals 8. Nicotine Abuse * Nicoderm patch * counselled on cessation 9. GI/DVT prophylaxis * Protonix/lovenox Patient seen and case discussed with attending physician. <Neil,Anwar A - Last Filed: 01/31/17 06:47> Objective - Vital Signs/Intake and Output Vital Signs (last 24 hours): Temp Pulse Resp BP Pulse Ox 97.9 F 75 20 132/76 97 01/31/17 05:27 01/31/17 05:27 01/31/17 05:27 01/31/17 05:27 01/31/17 05:27 Intake and Output: 01/30/17 01/31/17 18:59 06:59 Intake Total 240 Output Total 700 Balance -460 - Medications Medications: Current Medications Amlodipine Besylate (Norvasc) 5 mg PO DAILY [facility] Last Admin: 01/30/17 10:50 Dose: 5 mg Clonidine HCl (Catapres) 0.1 mg PO BID PRN PRN Reason: Systolic Blood Pressure Last Admin: 01/30/17 06:29 Dose: 0.1 mg Enoxaparin Sodium (Lovenox) 40 mg SC DAILY [facility] PRN Reason: Protocol Last Admin: 01/30/17 10:52 Dose: 40 mg Famotidine (Pepcid) 40 mg PO HS [facility] Last Admin: 01/30/17 21:20 Dose: 40 mg Folic Acid (Folic Acid) 1 mg PO DAILY [facility] Last Admin: 01/30/17 10:52 Dose: 1 mg Sodium Chloride (Sodium Chloride 0.9%) 1,000 mls @ 100 mls/hr IV .Q10H [facility] Last Admin: 01/28/17 04:09 Dose: 100 mls/hr Levetiracetam (Keppra) 500 mg PO BID [facility] Last Admin: 01/30/17 17:16 Dose: 500 mg Lorazepam (Ativan) 2 mg IVP Q2H PRN; Protocol PRN Reason: Symptoms of alcohol withdrawl Last Admin: 01/29/17 04:26 Dose: 2 mg Lorazepam (Ativan) 1 mg IVP Q4H [facility] PRN Reason: Protocol Last Admin: 01/31/17 05:16 Dose: 1 mg Multivitamins/Minerals (Therapeutic-M Tab) 1 tab PO DAILY [facility] Last Admin: 01/30/17 10:50 Dose: 1 tab Mupirocin (Bactroban Ointment) 1 gm TOP BID [facility] Last Admin: 04/13/17 17:17 Dose: 1 applic Nicotine (Nicoderm Cq) 1 patch TD DAILY [facility] Last Admin: 01/30/17 10:51 Dose: 1 patch Thiamine HCl (Vitamin B1 Tab) 100 mg PO DAILY [facility] Last Admin: 01/30/17 10:50 Dose: 100 mg Ziprasidone (Geodon Inj) 10 mg IM ONCE PRN; Protocol PRN Reason: Agitation - Labs Labs: 01/30/17 07:00 01/30/17 07:20 PT 10.6 Seconds (9.9-11.8) 01/27/17 01:20 INR 0.98 (0.93-1.08) 01/27/17 01:20 APTT 29.2 Seconds (23.7-30.8) 01/27/17 01:20 Attending/Attestation - Attestation I have personally seen and examined this patient.: Yes I have fully participated in the care of the patient.: Yes I have reviewed all pertinent clinical information, including history, physical exam and plan: Yes Notes (Text): 01/30/17 56 year old male with past medical history of chronic etoh abuse and seizure disorder who presented with alcohol intoxication and chest pain. Serial cardiac enzymes were negative and ACS was ruled out. He was seen by cardiology who had recommended outpatient stress test. Echocardiogram was reviewed as above. Hospital course was complicated with alcohol withdrawal / delirium for which he was requiring restraints, 1:1 observation, and ativan. This morning he is doing better. Can begin to taper ativan and monitor off restraints. Continue with multivitamin, folic acid and thiamine. PT following for gait instability. He was counselled on alcohol abstinence. He is on keppra for history of seizures. Elevated LFTs likely secondary to chronic ETOH abuse. Hepatitis panel was negative. Will continue to monitor. Marain Trejo MD Hospitalist.
[2017-01-31 00:14] VITALS: TEMP 97.9
[2017-01-31 05:28] VITALS: O2SAT 97
[2017-01-31 07:19] LABS: ADD MANUAL DIFF? NO
[2017-01-31 07:22] LABS: BASO # 0.02 K/mm3 (0.0-2.0); BASO % 0.5 % (0.0-3.0); EOS # 0.1 (0.0-0.7); EOS % 1.6 % (1.5-5.0); GRAN # 2.18 (1.4-6.5); HEMATOCRIT 43.3 % (42.0-52.0); LYMPH # 0.8 (1.2-3.4); LYMPH % 21.4 % (22.0-35.0); MEAN CELL VOLUME 98.4 fL (80.0-105.0); MEAN CORPUSCULAR HEMOGLOBIN 34.5 pg (25.0-35.0); MEAN CORPUSCULAR HGB CONC 35.1 g/dl (31.0-37.0); MEAN PLATELET VOLUME 12.8 fl (7.0-11.0); MONO # 0.6 (0.1-0.6); MONO % 16.5 % (1.0-6.0); PLATELET COUNT 73 10^3/uL (120.0-450.0); RED CELL DISTRIBUTION WIDTH 13.6 % (11.5-14.5); WHITE BLOOD COUNT 3.6 10^3/ul (4.5-11.0)
[2017-01-31 07:39] LABS: ALKALINE PHOSPHATASE 103 U/L (38-133); ALT/SGPT 190 U/L (7-56); AST/SGOT 242 U/L (15-59); BILIRUBIN,TOTAL 1.6 mg/dL (0.2-1.3); BLOOD UREA NITROGEN 12 mg/dL (7-21); CALCIUM 9.4 mg/dL (8.4-10.5); CARBON DIOXIDE 27 mmol/L (21-33); CHLORIDE 101 mmol/L (98-107); GFR AFRICAN-AMERICAN > 60; GLUCOSE,RANDOM 93 mg/dL (70-110); POTASSIUM 3.6 mmol/L (3.6-5.0); SODIUM 136 mmol/L (132-148); TOTAL PROTEIN 7.9 g/dL (5.8-8.3)
[2017-01-31] MEDS: Multivitamin With Minerals Tab PO SCH (10:59)
[2017-01-31] MEDS: Enoxaparin 40 mg Syringe SC SCH (11:01)
[2017-01-31 11:59] VITALS: BP 135/87; PULSE 80; RESP 18
--- NOTE | 2017-01-31 12:59 | CP.PCM.DIS ---
<Duglas Jean - Last Filed: 02/01/17 16:22> Provider - Provider Date of Admission: 01/28/17 14:26 Attending physician: Marian Trejo MD Consults: Dr. David Birmingham Time Spent in preparation of Discharge (in minutes): 35 Hospital Course - Lab Results Lab Results: Most Recent Lab Values WBC 3.6 10^3/ul (4.5-11.0) L 01/31/17 06:55 RBC 4.40 10^6/uL (3.5-6.1) 01/31/17 06:55 Hgb 15.2 gm/dL (14.0-18.0) 01/31/17 06:55 Hct 43.3 % (42.0-52.0) 01/31/17 06:55 MCV 98.4 fL (80.0-105.0) 01/31/17 06:55 MCH 34.5 pg (25.0-35.0) 01/31/17 06:55 MCHC 35.1 g/dl (31.0-37.0) 01/31/17 06:55 RDW 13.6 % (11.5-14.5) 01/31/17 06:55 Plt Count 73 10^3/uL (120.0-450.0) L 01/31/17 06:55 MPV 12.8 fl (7.0-11.0) H 01/31/17 06:55 Gran % 60.0 % (50.0-68.0) 01/31/17 06:55 Lymph % (Auto) 21.4 % (22.0-35.0) L 01/31/17 06:55 Bradley % (Auto) 16.5 % (1.0-6.0) H 01/31/17 06:55 Eos % (Auto) 1.6 % (1.5-5.0) 01/31/17 06:55 Baso % (Auto) 0.5 % (0.0-3.0) 01/31/17 06:55 Gran # 2.18 (1.4-6.5) 01/31/17 06:55 Lymph # 0.8 (1.2-3.4) L 01/31/17 06:55 Bradley # 0.6 (0.1-0.6) 01/31/17 06:55 Eos # 0.1 (0.0-0.7) 01/31/17 06:55 Baso # 0.02 K/mm3 (0.0-2.0) 01/31/17 06:55 Neutrophils % (Manual) 32 % (50.0-70.0) L 01/27/17 01:20 Band Neutrophils % 4 % (0-2) H 01/27/17 01:20 Lymphocytes % (Manual) 43 % (22.0-35.0) H 01/27/17 01:20 Monocytes % (Manual) 12 % (1.0-6.0) H 01/27/17 01:20 Eosinophils % (Manual) 2 % (0.0-3.0) 01/27/17 01:20 Basophils % (Manual) 4 % (0.0-1.0) H 01/27/17 01:20 Platelet Evaluation Low (NORMAL) 01/27/17 01:20 PT 10.6 Seconds (9.9-11.8) 01/27/17 01:20 INR 0.98 (0.93-1.08) 01/27/17 01:20 APTT 29.2 Seconds (23.7-30.8) 01/27/17 01:20 Sodium 136 mmol/L (132-148) 01/31/17 06:30 Potassium 3.6 mmol/L (3.6-5.0) 01/31/17 06:30 Chloride 101 mmol/L (98-107) 01/31/17 06:30 Carbon Dioxide 27 mmol/L (21-33) 01/31/17 06:30 Anion Gap 12 (10-20) 01/31/17 06:30 BUN 12 mg/dL (7-21) 01/31/17 06:30 Creatinine 0.8 mg/dL (0.5-1.4) 01/31/17 06:30 Est GFR ( Amer) > 60 01/31/17 06:30 Est GFR (Non-Af Amer) > 60 01/31/17 06:30 Random Glucose 93 mg/dL (70-110) 01/31/17 06:30 Hemoglobin A1c 5.4 % (4.2-6.5) 01/27/17 01:20 Calcium 9.4 mg/dL (8.4-10.5) 01/31/17 06:30 Phosphorus 4.4 mg/dL (2.5-4.5) 01/30/17 07:20 Magnesium 1.9 mg/dL (1.7-2.2) 01/30/17 07:20 Total Bilirubin 1.6 mg/dL (0.2-1.3) H 01/31/17 06:30 AST 242 U/L (15-59) H 01/31/17 06:30 ALT 190 U/L (7-56) H 01/31/17 06:30 Alkaline Phosphatase 103 U/L (38-133) 01/31/17 06:30 Lactate Dehydrogenase 886 U/L (333-699) H 01/27/17 01:20 Total Creatine Kinase 538 U/L (35-230) H 01/27/17 01:20 CK-MB (CK-2) 4.3 ng/mL (0.0-3.6) H 01/27/17 01:20 CK-MB (CK-2) % Cancelled 01/27/17 01:20 Troponin I < 0.01 ng/mL D 01/27/17 11:40 Total Protein 7.9 g/dL (5.8-8.3) 01/31/17 06:30 Albumin 3.9 g/dL (3.0-4.8) 01/31/17 06:30 Globulin 4.0 gm/dL 01/31/17 06:30 Albumin/Globulin Ratio 1.0 (1.1-1.8) L 01/31/17 06:30 Triglycerides 98 mg/dL (35-160) 01/27/17 06:30 Cholesterol 154 mg/dL (130-200) 01/27/17 06:30 LDL Cholesterol Direct 57 mg/dL (0-129) 01/27/17 06:30 HDL Cholesterol 72 mg/dL (29-60) H 01/27/17 06:30 TSH 3rd Generation 5.01 mIU/mL (0.46-4.68) H 01/27/17 01:20 Urine Color Light yellow (YELLOW) 01/27/17 04:30 Urine Appearance Sl cloudy (CLEAR) 01/27/17 04:30 Urine pH 6.0 (4.7-8.0) 01/27/17 04:30 Ur Specific Meacham <= 1.005 (1.005-1.035) 01/27/17 04:30 Urine Protein Negative mg/dL (<30 mg/dL) 01/27/17 04:30 Urine Glucose (UA) Negative mg/dL (NEGATIVE) 01/27/17 04:30 Urine Ketones Negative mg/dL (NEGATIVE) 01/27/17 04:30 Urine Blood Trace-lysed (NEGATIVE) H 01/27/17 04:30 Urine Nitrate Negative (NEGATIVE) 01/27/17 04:30 Urine Bilirubin Negative (NEGATIVE) 01/27/17 04:30 Urine Urobilinogen 0.2 E.U./dL (<1 E.U./dL) 01/27/17 04:30 Ur Leukocyte Esterase Negative Gabby/uL (NEGATIVE) 01/27/17 04:30 Urine RBC 0 - 2 /hpf (0-2) 01/27/17 04:30 Urine WBC 0 - 2 /hpf (0-6) 01/27/17 04:30 Ur Epithelial Cells 0 - 2 /hpf (0-5) 01/27/17 04:30 Urine Opiates Screen Negative (NEGATIVE) 01/27/17 04:30 Urine Methadone Screen Negative (NEGATIVE) 01/27/17 04:30 Ur Barbiturates Screen Negative (NEGATIVE) 01/27/17 04:30 Ur Phencyclidine Scrn Negative (NEGATIVE) 01/27/17 04:30 Ur Amphetamines Screen Negative (NEGATIVE) 01/27/17 04:30 U Benzodiazepines Scrn Negative (NEGATIVE) 01/27/17 04:30 U Oth Cocaine Metabols Negative (NEGATIVE) 01/27/17 04:30 U Cannabinoids Screen Negative (NEGATIVE) 01/27/17 04:30 Alcohol, Quantitative 354 mg/dL (0-10) H* 01/27/17 01:20 Hepatitis A IgM Ab Negative (NEGATIVE) 01/27/17 11:40 Hep Bs Antigen Negative (NEGATIVE) 01/27/17 11:40 Hep B Core IgM Ab Negative (NEGATIVE) 01/27/17 11:40 Hepatitis C Antibody Negative (NEGATIVE) 01/27/17 11:40 - Hospital Course Hospital Course: HPI: Patient is a 56yo male with past medical history of etoh abuse, history of variceal bleed (esophageal), portal hypertension and hepatitis B that presented to [facility] c/o left-sided chest pain. Patient reports that the chest pain has been ongoing for approximately the past 3 months, intermittent and sharp in quality. He states that he occasionally uses baby aspirin which he reports relieves his pain. He reported that the pain is reproducible to palpation. Patient also admits to daily alcohol use of approximately 5 beers per day. He reported that his PMD is Dr. Alvarez and that he last followed up with her approximately 2 months ago. He also reported that if he stops drinking he begins to develop tremors and go through withdrawal. In the ED, his vitals were as follows: temperature 97.6F, heart rate 77bpm, BP 144/104, RR 18, O2 sat 94% on room air. He denied abdominal pain, nausea, vomiting, fever, chills, cough, dysuria, frequency, urgency, focal weakness, numbness, tingling. Patient is a 56 y/o M with history of alcohol abuse who presented with complaint of left sided chest pain. Initial EKG showed normal sinus rhythm at 83bpm with ST elevation likely due to early repolarization. A repeat EKG showed NSR with ST elevation probably due to early repolarization, no change from prior EKG. Cardiology was consutled. His cardiac enzymes were negative. A chest x-ray showed no active disease. An Echocardiogram showed normal chamber size, normal LV systolic function, mild concentric LVH. His TSH was mildy elevated at 5.01. A lipid panel showed: Tri 98, Chol 154, LDL 57, HDL 72. Per cardiology , he would need an outpatient stress test. On arrival, his alcohol level was 354. He was placed on Librium and Ativan and placed on seizure precuations. Due to thrombocytopenia, Librium was stopped and he was kept on Ativan taper. He began to go through withdrawals requiring a sitter and restraints. His DT's improved and he was evaluated by physical therapy who determined his gait was stable and could ambulate independently. He was determined medically stable for discharge. He was discharged with prescriptions for Keppra, multivitamin, thiamine, folic acid, iron supplement, and Norvasc. He was advised to: take medications as prescribed; follow up with your primary care physician and Dr. Birmingham the waste chopper upon discharge; refrain from alcohol, tobacco, or drug use; would need a stress test scheduled; and if your condition worsens or new symptoms occur, please return to the emergency room. He verbalized understanding and was discharged home. This is a brief summary of the patient's stay at this facility. For more detail see patient's full chart. - Date & Time of H&P Date of H&P: 01/27/17 Time of H&P: 04:07 Discharge Exam - Head Exam Head Exam: ATRAUMATIC, NORMOCEPHALIC - Eye Exam Eye Exam: EOMI, Normal appearance, PERRL Pupil Exam: NORMAL ACCOMODATION - ENT Exam ENT Exam: Mucous Membranes Moist. absent: Normal Oropharynx (poor dentitino) - Respiratory Exam Respiratory Exam: Clear to PA & Lateral, NORMAL BREATHING PATTERN. absent: Rales, Rhonchi, Wheezes - Cardiovascular Exam Cardiovascular Exam: REGULAR RHYTHM, +S1, +S2. absent: Gallop, Rubs, Systolic Murmur - GI/Abdominal Exam GI & Abdominal Exam: Normal Bowel Sounds, Soft. absent: Tenderness - Extremities Exam Extremities exam: normal capillary refill, pedal pulses present Additional comments: abrasion healing on right hand - Neurological Exam Neurological exam: Alert, CN II-XII Intact, Oriented x3 - Psychiatric Exam Psychiatric exam: Normal Affect, Normal Mood - Skin Skin Exam: Dry, Normal Color, Warm Discharge Plan - Discharge Medications Prescriptions: Multivitamin [Daily Tg] 1 each PO DAILY #30 tablet Folic Acid 1 mg PO DAILY #30 tab levETIRAcetam [Keppra] 500 mg PO BID #60 tab amLODIPine [Norvasc] 5 mg PO DAILY #30 tab Pantoprazole Sodium [Protonix] 40 mg PO BID #60 ect Ferrous Fumarate/Iron Ps Cplx [Tandem Dual Action Capsule] 106 mg PO DAILY #30 capsule Thiamine [Vitamin B1 Tab] 100 mg PO BID #30 tab - Follow Up Plan Condition: STABLE Disposition: HOME/ ROUTINE Instructions: Chest Pain (DC), How to Stop Smoking (DC), Cigarette Smoking and Your Health (GEN), Alcohol Use Disorder (DC), Chest Pain (GEN) Additional Instructions: You are medically stable for discharge. You are discharged with prescriptions for Keppra, multivitamin, thiamine, folic acid, iron supplement, and Norvasc. Please take medications as prescribed. Please follow up with your primary care physician and Dr. Birmingham the waste chopper upon discharge. You will need to be scheduled for an outpatient cardiac stress test. Please refrain from alcohol, tobacco, or drug use. If your condition worsens or new symptoms occur, please return to the emergency room. Referrals: David Birmingham MD [Staff Provider] - <Marian Trejo - Last Filed: 02/01/17 17:32> Provider - Provider Date of Admission: 01/28/17 14:26 Attending physician: Marian Trejo MD Hospital Course - Lab Results Lab Results: Most Recent Lab Values WBC 3.6 10^3/ul (4.5-11.0) L 01/31/17 06:55 RBC 4.40 10^6/uL (3.5-6.1) 01/31/17 06:55 Hgb 15.2 gm/dL (14.0-18.0) 01/31/17 06:55 Hct 43.3 % (42.0-52.0) 01/31/17 06:55 MCV 98.4 fL (80.0-105.0) 01/31/17 06:55 MCH 34.5 pg (25.0-35.0) 01/31/17 06:55 MCHC 35.1 g/dl (31.0-37.0) 01/31/17 06:55 RDW 13.6 % (11.5-14.5) 01/31/17 06:55 Plt Count 73 10^3/uL (120.0-450.0) L 01/31/17 06:55 MPV 12.8 fl (7.0-11.0) H 01/31/17 06:55 Gran % 60.0 % (50.0-68.0) 01/31/17 06:55 Lymph % (Auto) 21.4 % (22.0-35.0) L 01/31/17 06:55 Bradley % (Auto) 16.5 % (1.0-6.0) H 01/31/17 06:55 Eos % (Auto) 1.6 % (1.5-5.0) 01/31/17 06:55 Baso % (Auto) 0.5 % (0.0-3.0) 01/31/17 06:55 Gran # 2.18 (1.4-6.5) 01/31/17 06:55 Lymph # 0.8 (1.2-3.4) L 01/31/17 06:55 Bradley # 0.6 (0.1-0.6) 01/31/17 06:55 Eos # 0.1 (0.0-0.7) 01/31/17 06:55 Baso # 0.02 K/mm3 (0.0-2.0) 01/31/17 06:55 Neutrophils % (Manual) 32 % (50.0-70.0) L 01/27/17 01:20 Band Neutrophils % 4 % (0-2) H 01/27/17 01:20 Lymphocytes % (Manual) 43 % (22.0-35.0) H 01/27/17 01:20 Monocytes % (Manual) 12 % (1.0-6.0) H 01/27/17 01:20 Eosinophils % (Manual) 2 % (0.0-3.0) 01/27/17 01:20 Basophils % (Manual) 4 % (0.0-1.0) H 01/27/17 01:20 Platelet Evaluation Low (NORMAL) 01/27/17 01:20 PT 10.6 Seconds (9.9-11.8) 01/27/17 01:20 INR 0.98 (0.93-1.08) 01/27/17 01:20 APTT 29.2 Seconds (23.7-30.8) 01/27/17 01:20 Sodium 136 mmol/L (132-148) 01/31/17 06:30 Potassium 3.6 mmol/L (3.6-5.0) 01/31/17 06:30 Chloride 101 mmol/L (98-107) 01/31/17 06:30 Carbon Dioxide 27 mmol/L (21-33) 01/31/17 06:30 Anion Gap 12 (10-20) 01/31/17 06:30 BUN 12 mg/dL (7-21) 01/31/17 06:30 Creatinine 0.8 mg/dL (0.5-1.4) 01/31/17 06:30 Est GFR ( Amer) > 60 01/31/17 06:30 Est GFR (Non-Af Amer) > 60 01/31/17 06:30 Random Glucose 93 mg/dL (70-110) 01/31/17 06:30 Hemoglobin A1c 5.4 % (4.2-6.5) 01/27/17 01:20 Calcium 9.4 mg/dL (8.4-10.5) 01/31/17 06:30 Phosphorus 4.4 mg/dL (2.5-4.5) 01/30/17 07:20 Magnesium 1.9 mg/dL (1.7-2.2) 01/30/17 07:20 Total Bilirubin 1.6 mg/dL (0.2-1.3) H 01/31/17 06:30 AST 242 U/L (15-59) H 01/31/17 06:30 ALT 190 U/L (7-56) H 01/31/17 06:30 Alkaline Phosphatase 103 U/L (38-133) 01/31/17 06:30 Lactate Dehydrogenase 886 U/L (333-699) H 01/27/17 01:20 Total Creatine Kinase 538 U/L (35-230) H 01/27/17 01:20 CK-MB (CK-2) 4.3 ng/mL (0.0-3.6) H 01/27/17 01:20 CK-MB (CK-2) % Cancelled 01/27/17 01:20 Troponin I < 0.01 ng/mL D 01/27/17 11:40 Total Protein 7.9 g/dL (5.8-8.3) 01/31/17 06:30 Albumin 3.9 g/dL (3.0-4.8) 01/31/17 06:30 Globulin 4.0 gm/dL 01/31/17 06:30 Albumin/Globulin Ratio 1.0 (1.1-1.8) L 01/31/17 06:30 Triglycerides 98 mg/dL (35-160) 01/27/17 06:30 Cholesterol 154 mg/dL (130-200) 01/27/17 06:30 LDL Cholesterol Direct 57 mg/dL (0-129) 01/27/17 06:30 HDL Cholesterol 72 mg/dL (29-60) H 01/27/17 06:30 TSH 3rd Generation 5.01 mIU/mL (0.46-4.68) H 01/27/17 01:20 Urine Color Light yellow (YELLOW) 01/27/17 04:30 Urine Appearance Sl cloudy (CLEAR) 01/27/17 04:30 Urine pH 6.0 (4.7-8.0) 01/27/17 04:30 Ur Specific Meacham <= 1.005 (1.005-1.035) 01/27/17 04:30 Urine Protein Negative mg/dL (<30 mg/dL) 01/27/17 04:30 Urine Glucose (UA) Negative mg/dL (NEGATIVE) 01/27/17 04:30 Urine Ketones Negative mg/dL (NEGATIVE) 01/27/17 04:30 Urine Blood Trace-lysed (NEGATIVE) H 01/27/17 04:30 Urine Nitrate Negative (NEGATIVE) 01/27/17 04:30 Urine Bilirubin Negative (NEGATIVE) 01/27/17 04:30 Urine Urobilinogen 0.2 E.U./dL (<1 E.U./dL) 01/27/17 04:30 Ur Leukocyte Esterase Negative Gabby/uL (NEGATIVE) 01/27/17 04:30 Urine RBC 0 - 2 /hpf (0-2) 01/27/17 04:30 Urine WBC 0 - 2 /hpf (0-6) 01/27/17 04:30 Ur Epithelial Cells 0 - 2 /hpf (0-5) 01/27/17 04:30 Urine Opiates Screen Negative (NEGATIVE) 01/27/17 04:30 Urine Methadone Screen Negative (NEGATIVE) 01/27/17 04:30 Ur Barbiturates Screen Negative (NEGATIVE) 01/27/17 04:30 Ur Phencyclidine Scrn Negative (NEGATIVE) 01/27/17 04:30 Ur Amphetamines Screen Negative (NEGATIVE) 01/27/17 04:30 U Benzodiazepines Scrn Negative (NEGATIVE) 01/27/17 04:30 U Oth Cocaine Metabols Negative (NEGATIVE) 01/27/17 04:30 U Cannabinoids Screen Negative (NEGATIVE) 01/27/17 04:30 Alcohol, Quantitative 354 mg/dL (0-10) H* 01/27/17 01:20 Hepatitis A IgM Ab Negative (NEGATIVE) 01/27/17 11:40 Hep Bs Antigen Negative (NEGATIVE) 01/27/17 11:40 Hep B Core IgM Ab Negative (NEGATIVE) 01/27/17 11:40 Hepatitis C Antibody Negative (NEGATIVE) 01/27/17 11:40 Attending/Attestation - Attestation I have personally seen and examined this patient.: Yes I have fully participated in the care of the patient.: Yes I have reviewed all pertinent clinical information, including history, physical exam and plan: Yes Notes (Text): 01/31/17 56 year old male with past medical history of chronic etoh abuse and seizure disorder who presented with alcohol intoxication and chest pain. Serial cardiac enzymes were negative and ACS was ruled out. He was seen by cardiology who had recommended outpatient stress test. Echocardiogram was reviewed as above. His chest pain resolved. Hospital course was complicated with alcohol withdrawal / delirium for which he required restraints, 1:1 observation, and ativan. His symptoms improved adn his ativan was tapered. He was on multivitamin, folic acid and thiamine. He was counselled on alcohol abstinence. He initially has gait instability but this also improved with physical therapy. He is on keppra for history of seizures. He had elevated LFTs likely secondary to chronic ETOH abuse. Hepatitis panel was negative. Patient is discharged home to follow up with his pmd. Follow up with cardiology for outpatient stress test. Counselled on alcohol abstinence. Monitor LFTs closely as outpatient. Marian Trejo MD Hospitalist.
== END 2017-01-31 17:42 | disposition home or self-care (01) | DRG 750 ==
LOC: ED 00:33 → ERH 02:58 → CCU 07:15 → 2RSO 21:50 → OBSVTOIN 01-28 14:26 → 2RSO 01-28 16:56
PROVIDERS: ADMIT Internal Medicine; ATTEND Internal Medicine
DX: F10.231 Alcohol dependence with withdrawal delirium (principal); B19.10 Unspecified viral hepatitis B without hepatic coma; D69.59 Other secondary thrombocytopenia; R07.89 Other chest pain; K76.6 Portal hypertension; I85.10 Secondary esophageal varices without bleeding; G40.909 Epilepsy, unspecified, not intractable, without status epilepticus; Y90.8 Blood alcohol level of 240 mg/100 ml or more; J45.909 Unspecified asthma, uncomplicated; I10 Essential (primary) hypertension; D64.9 Anemia, unspecified; F12.90 Cannabis use, unspecified, uncomplicated; F14.90 Cocaine use, unspecified, uncomplicated; F17.210 Nicotine dependence, cigarettes, uncomplicated; R26.9 Unspecified abnormalities of gait and mobility; D72.819 Decreased white blood cell count, unspecified; Z86.74 Personal history of sudden cardiac arrest; Z78.1 Physical restraint status

== ENCOUNTER 2017-02-18 14:10 | Observation (INO) | payer MEDICAID ==
[2017-02-18 14:19] VITALS: BMI 23.6
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
--- NOTE | 2017-02-18 14:47 | CT ---
PROCEDURE: CT HEAD WITHOUT CONTRAST. HISTORY: ETOH; fell and hit head; h/o cerebral bleed COMPARISON: None available. TECHNIQUE: Axial computed tomography images were obtained through the head/brain without intravenous contrast. Radiation dose: Total exam DLP = 688.78 mGy-cm. This CT exam was performed using one or more of the following dose reduction techniques: Automated exposure control, adjustment of the mA and/or kV according to patient size, and/or use of iterative reconstruction technique. FINDINGS: HEMORRHAGE: No intracranial hemorrhage. BRAIN: There is a right inferior frontal lobe encephalomalacia, sequela of remote trauma. There is an old lacunar infarction in the right anterior limb of the internal capsule. There are mild chronic microangiopathic changes. There is no mass, mass effect or abnormal extra-axial fluid collection. VENTRICLES: There is moderate global parenchymal volume loss and proportionate enlargement of the ventricles and cortical sulci, advanced for the patient's age. CALVARIUM: There is no calvarial fracture. There is a small left frontal scalp hematoma and mild left periorbital soft tissue swelling. PARANASAL SINUSES: Unremarkable as visualized. No significant inflammatory changes. MASTOID AIR CELLS: Unremarkable as visualized. No inflammatory changes. OTHER FINDINGS: None. IMPRESSION: No acute intracranial abnormality. Small left frontal scalp hematoma and mild left periorbital soft tissue swelling. Right inferior frontal lobe encephalomalacia, sequela of remote injury. Mild chronic microangiopathic changes and old lacunar infarction in the right anterior limb of internal capsule. Moderate global parenchymal volume loss, advanced for the patient's age.
--- NOTE | 2017-02-18 14:55 | RAD ---
PROCEDURE: Left Knee Radiographs. HISTORY: Pain. COMPARISON: None. FINDINGS: BONES: Normal. No fracture. JOINTS: Normal. No osteoarthritis. JOINT EFFUSION: None. OTHER FINDINGS: None. IMPRESSION: Normal radiographs of the left knee.
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
[2017-02-18 15:28] LABS: ADD MANUAL DIFF? NO
[2017-02-18 15:42] LABS: BASO # 0.02 K/mm3 (0.0-2.0); BASO % 0.5 % (0.0-3.0); EOS # 0.1 (0.0-0.7); EOS % 3.1 % (1.5-5.0); GRAN # 2.43 (1.4-6.5); GRAN % 57.6 % (50.0-68.0); HEMATOCRIT 41.7 % (42.0-52.0); LYMPH # 1.2 (1.2-3.4); LYMPH % 28.3 % (22.0-35.0); MEAN CELL VOLUME 95.6 fL (80.0-105.0); MEAN CORPUSCULAR HEMOGLOBIN 34.6 pg (25.0-35.0); MEAN CORPUSCULAR HGB CONC 36.2 g/dl (31.0-37.0); MEAN PLATELET VOLUME 12.6 fl (7.0-11.0); MONO # 0.4 (0.1-0.6); MONO % 10.5 % (1.0-6.0); PLATELET COUNT 152 10^3/uL (120.0-450.0); RED CELL DISTRIBUTION WIDTH 13.2 % (11.5-14.5); WHITE BLOOD COUNT 4.2 10^3/ul (4.5-11.0)
[2017-02-18 15:45] LABS: ALB/GLOB RATIO 1.1 (1.1-1.8); ALKALINE PHOSPHATASE 74 U/L (38-133); ALT/SGPT 59 U/L (7-56); AST/SGOT 72 U/L (15-59); BILIRUBIN,TOTAL 0.8 mg/dL (0.2-1.3); BLOOD UREA NITROGEN 4 mg/dL (7-21); CALCIUM 8.9 mg/dL (8.4-10.5); CARBON DIOXIDE 23 mmol/L (21-33); CHLORIDE 98 mmol/L (98-107); GFR AFRICAN-AMERICAN > 60; GLUCOSE,RANDOM 90 mg/dL (70-110); LIPASE 160 U/L (23-300); MAGNESIUM 1.7 mg/dL (1.7-2.2); SODIUM 135 mmol/L (132-148); TOTAL PROTEIN 8.2 g/dL (5.8-8.3)
[2017-02-18 15:47] LABS: POTASSIUM 4.1 mmol/L (3.6-5.0)
[2017-02-18 15:49] LABS: INR 0.99 (0.93-1.08); PARTIAL THROMBOPLASTIN TIME 28.8 Seconds (23.7-30.8)
[2017-02-18 15:57] LABS: TROPONIN I < 0.01 ng/mL
[2017-02-18 15:57] LABS: URINE BILIRUBIN NEGATIVE (NEGATIVE); URINE BLOOD NEGATIVE (NEGATIVE); URINE GLUCOSE (UA) NEGATIVE (NEGATIVE); URINE KETONE NEGATIVE (NEGATIVE); URINE LEUKOCYTE ESTERASE NEGATIVE Leu/uL (NEGATIVE); URINE PROTEIN NEGATIVE mg/dL (<30 mg/dL); URINE UROBILINOGEN 0.2 E.U./dL (<1 E.U./dL)
[2017-02-18 15:59] LABS: URINE APPEARANCE CLEAR (CLEAR); URINE COLOR YELLOW (YELLOW)
[2017-02-18] MEDS ORDERED: Folic Acid 1 MG, Thiamine 100 MG, Multivitamin (MVI) 10 ML in Dextrose 5%/0.45% NS 1,00... IV ONE (16:49)
[2017-02-18 18:02] VITALS: BP 132/71; PULSE 75
--- NOTE | 2017-02-18 19:43 | CARD ---
APPROVED REPORT EKG Measurement Heart [id number] <Conclusion> Normal sinus rhythm Early repolarization Normal ECG
[2017-02-18 20:47] VITALS: RESP 16; TEMP 98.1; O2SAT 98
[2017-02-18 20:59] LABS: TROPONIN I 0.01 ng/mL
== END 2017-02-18 21:03 | disposition home or self-care (01) ==
LOC: ED 14:10 → EROBSV 14:15
PROVIDERS: ADMIT Emergency Medicine; ATTEND Emergency Medicine
DX: S09.90XA Unspecified injury of head, initial encounter (principal); V19.3XXA Pedal cyclist (driver) (passenger) injured in unspecified nontraffic accident, initial encounter; Y93.55 Activity, bike riding; R07.89 Other chest pain; F10.129 Alcohol abuse with intoxication, unspecified; Y90.8 Blood alcohol level of 240 mg/100 ml or more; F17.210 Nicotine dependence, cigarettes, uncomplicated
CPT/HCPCS: 70450; 72125; 73562; 80053; 80320; 80324; 80345; 80346; 80349; 80353; 80358; 80361; 81003; 82550; 83615; 83690; 83735; 83992; 84484; 85025; 85610; 85730; 93005; 99285; G0378; J3411; J7042

== ENCOUNTER 2017-03-02 04:08 | Emergency (ER) | payer MEDICAID ==
[2017-03-02 04:08] VITALS: BMI 23.6
[2017-03-02 04:19] VITALS: TEMP 97.9
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
[2017-03-02 04:58] LABS: ADD MANUAL DIFF? NO
[2017-03-02 05:12] LABS: ALKALINE PHOSPHATASE 166 U/L (38-133); ALT/SGPT 61 U/L (7-56); AST/SGOT 82 U/L (15-59); BILIRUBIN,TOTAL 0.9 mg/dL (0.2-1.3); BLOOD UREA NITROGEN 5 mg/dL (7-21); CALCIUM 9.1 mg/dL (8.4-10.5); CARBON DIOXIDE 30 mmol/L (21-33); CHLORIDE 100 mmol/L (98-107); GFR AFRICAN-AMERICAN > 60; GLUCOSE,RANDOM 90 mg/dL (70-110); POTASSIUM 4.9 mmol/L (3.6-5.0); SODIUM 140 mmol/L (132-148); TOTAL PROTEIN 8.8 g/dL (5.8-8.3)
[2017-03-02 05:27] LABS: BASO # 0.04 K/mm3 (0.0-2.0); BASO % 1.1 % (0.0-3.0); EOS # 0.2 (0.0-0.7); EOS % 4.7 % (1.5-5.0); GRAN # 1.19 (1.4-6.5); GRAN % 31.3 % (50.0-68.0); LYMPH # 1.8 (1.2-3.4); LYMPH % 47.4 % (22.0-35.0); MEAN CELL VOLUME 98.7 fL (80.0-105.0); MEAN CORPUSCULAR HEMOGLOBIN 35.2 pg (25.0-35.0); MEAN CORPUSCULAR HGB CONC 35.7 g/dl (31.0-37.0); MEAN PLATELET VOLUME 12.5 fl (7.0-11.0); MONO # 0.6 (0.1-0.6); MONO % 15.5 % (1.0-6.0); PLATELET COUNT 77 10^3/uL (120.0-450.0); RED CELL DISTRIBUTION WIDTH 13.5 % (11.5-14.5); WHITE BLOOD COUNT 3.8 10^3/ul (4.5-11.0)
--- NOTE | 2017-03-02 06:49 | CT ---
EXAM: CT Head Without Intravenous Contrast CLINICAL HISTORY: 56 years old, male; Pain; Headache; Headache not specified; Additional info: IVORY. HX stroke TECHNIQUE: Axial computed tomography images of the head/brain without intravenous contrast. This CT exam was performed using one or more of the following dose reduction techniques: automated exposure control, adjustment of the mA and/or kV according to patient size, and/or use of iterative reconstruction technique. COMPARISON: CT - HEAD W/O CONTRAST 02/18/2017 2:28:27 PM FINDINGS: Brain: Moderate atrophy. No intracranial hemorrhage. No mass. Mild encephalomalacia within RIGHT frontal region. Few scattered foci of decreased attenuation within periventricular/subcortical white matter. Chronic lacunar infarcts within basal ganglia/internal capsule. No definite edema. Ventricles: No hydrocephalus. Bones/joints: No acute fracture. Soft tissues: Unremarkable. Vasculature: Mild atherosclerotic disease of intracranial arteries. Few foci of air about cavernous sinus, nonspecific but possibly iatrogenic. Sinuses: No acute sinusitis. Mastoid air cells: No mastoid effusion. Orbits: Unremarkable as visualized. IMPRESSION: 1. Nonspecific white matter changes. 2. Incidental/non-acute findings are described above.
[2017-03-02 06:56] VITALS: BP 106/75; PULSE 63; RESP 19; O2SAT 98
== END 2017-03-02 07:00 | disposition home or self-care (01) ==
LOC: ED 04:08
DX: F10.10 Alcohol abuse, uncomplicated (principal)

== ENCOUNTER 2017-05-11 23:01 | Observation (INO) | payer MEDICAID ==
[2017-05-11 23:02] VITALS: BMI 23.6
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
[2017-05-12 00:12] LABS: BASO # 0.05 K/mm3 (0.0-2.0); BASO % 1.2 % (0.0-3.0); EOS # 0.1 (0.0-0.7); EOS % 2.6 % (1.5-5.0); GRAN # 1.71 (1.4-6.5); GRAN % 40.7 % (50.0-68.0); HEMOGLOBIN 14.1 gm/dL (14.0-18.0); LYMPH # 1.7 (1.2-3.4); LYMPH % 40.7 % (22.0-35.0); MEAN CELL VOLUME 99.7 fL (80.0-105.0); MEAN CORPUSCULAR HEMOGLOBIN 35.5 pg (25.0-35.0); MEAN CORPUSCULAR HGB CONC 35.6 g/dl (31.0-37.0); MEAN PLATELET VOLUME 12.6 fl (7.0-11.0); MONO # 0.6 (0.1-0.6); MONO % 14.8 % (1.0-6.0); PLATELET COUNT 109 10^3/uL (120.0-450.0); RBC 3.97 10^6/uL (3.5-6.1); RED CELL DISTRIBUTION WIDTH 13.3 % (11.5-14.5); WHITE BLOOD COUNT 4.2 10^3/ul (4.5-11.0)
[2017-05-12 00:17] LABS: URINE BILIRUBIN NEGATIVE (NEGATIVE); URINE BLOOD NEGATIVE (NEGATIVE); URINE GLUCOSE (UA) NEGATIVE (NEGATIVE); URINE LEUKOCYTE ESTERASE NEGATIVE Leu/uL (NEGATIVE); URINE NITRATE NEGATIVE (NEGATIVE); URINE PROTEIN NEGATIVE mg/dL (<30 mg/dL); URINE UROBILINOGEN 0.2 E.U./dL (<1 E.U./dL)
[2017-05-12 00:18] LABS: URINE APPEARANCE CLEAR (CLEAR); URINE COLOR STRAW (YELLOW)
[2017-05-12 00:39] LABS: ALB/GLOB RATIO 1.2 (1.1-1.8); ALBUMIN 4.3 g/dL (3.0-4.8); ALT/SGPT 54 U/L (7-56); AST/SGOT 106 U/L (15-59); BLOOD UREA NITROGEN 4 mg/dL (7-21); CALCIUM 8.8 mg/dL (8.4-10.5); GFR AFRICAN-AMERICAN > 60; GFR NON-AFRICAN AMERICAN > 60; MAGNESIUM 1.6 mg/dL (1.7-2.2)
[2017-05-12 00:53] LABS: TROPONIN I < 0.01 ng/mL
[2017-05-12 06:00] VITALS: RESP 18; TEMP 97.8
[2017-05-12 06:01] VITALS: BP 140/76; PULSE 74; O2SAT 96
--- NOTE | 2017-05-12 09:23 | RAD ---
HISTORY: cp COMPARISON: 01/27/2017 FINDINGS: LUNGS: No active pulmonary disease. PLEURA: No significant pleural effusion identified, no pneumothorax apparent. CARDIOVASCULAR: Normal. OSSEOUS STRUCTURES: No significant abnormalities. VISUALIZED UPPER ABDOMEN: Normal. OTHER FINDINGS: None. IMPRESSION: No active disease.
--- NOTE | 2017-05-12 21:14 | CARD ---
APPROVED REPORT EKG Measurement Heart [id number] <Conclusion> Normal sinus rhythm Early repolarization Normal ECG
== END 2017-05-12 06:03 | disposition home or self-care (01) ==
LOC: ED 23:01 → EROBSV 05-12 00:50
PROVIDERS: ADMIT Emergency Medicine; ATTEND Emergency Medicine
DX: F10.20 Alcohol dependence, uncomplicated (principal); R07.89 Other chest pain
CPT/HCPCS: 71010; 80053; 81003; 82550; 82553; 83615; 83735; 84484; 85025; 93005; 99284; G0378

== ENCOUNTER 2017-05-13 21:44 | Observation (INO) | payer MEDICAID ==
[2017-05-13 21:44] VITALS: BMI 23.6
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
[2017-05-13 22:56] LABS: HEMOGLOBIN 15.7 gm/dL (14.0-18.0); MEAN CELL VOLUME 101.1 fL (80.0-105.0); MEAN CORPUSCULAR HEMOGLOBIN 35.7 pg (25.0-35.0); MEAN CORPUSCULAR HGB CONC 35.3 g/dl (31.0-37.0); MEAN PLATELET VOLUME 11.6 fl (7.0-11.0); RBC 4.4 10^6/uL (3.5-6.1); RED CELL DISTRIBUTION WIDTH 13.6 % (11.5-14.5); WHITE BLOOD COUNT 3.3 10^3/ul (4.5-11.0)
[2017-05-13 23:04] LABS: ALB/GLOB RATIO 1.3 (1.1-1.8); ALBUMIN 4.6 g/dL (3.0-4.8); ALT/SGPT 76 U/L (7-56); AST/SGOT 113 U/L (15-59); BLOOD UREA NITROGEN 6 mg/dL (7-21); CALCIUM 9.4 mg/dL (8.4-10.5); GFR AFRICAN-AMERICAN > 60; GFR NON-AFRICAN AMERICAN > 60
[2017-05-13 23:05] LABS: INR 0.96 (0.93-1.08); PARTIAL THROMBOPLASTIN TIME 27.4 Seconds (23.7-30.8); PROTHROMBIN TIME 10.4 Seconds (9.9-11.8)
[2017-05-13 23:33] LABS: CK-MB 2.9 ng/mL (0.0-3.6); TROPONIN I < 0.01 ng/mL
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
[2017-05-14 06:46] LABS: URINE APPEARANCE CLEAR (CLEAR); URINE BILIRUBIN NEGATIVE (NEGATIVE); URINE BLOOD NEGATIVE (NEGATIVE); URINE COLOR STRAW (YELLOW); URINE GLUCOSE (UA) NEGATIVE (NEGATIVE); URINE LEUKOCYTE ESTERASE NEGATIVE Leu/uL (NEGATIVE); URINE NITRATE NEGATIVE (NEGATIVE); URINE PROTEIN NEGATIVE mg/dL (<30 mg/dL); URINE UROBILINOGEN 0.2 E.U./dL (<1 E.U./dL)
[2017-05-14] MEDS: Pantoprazole 40 mg EC Tab PO SCH (07:04)
--- NOTE | 2017-05-14 07:30 | RAD ---
HISTORY: chest pain COMPARISON: 05/11/2017 FINDINGS: LUNGS: No active pulmonary disease. PLEURA: No significant pleural effusion identified, no pneumothorax apparent. CARDIOVASCULAR: Normal. OSSEOUS STRUCTURES: No significant abnormalities. VISUALIZED UPPER ABDOMEN: Normal. OTHER FINDINGS: None. IMPRESSION: No active disease. No interval change
[2017-05-14 07:56] LABS: HEMOGLOBIN 14.6 gm/dL (14.0-18.0); MEAN CELL VOLUME 100.7 fL (80.0-105.0); MEAN CORPUSCULAR HEMOGLOBIN 35.2 pg (25.0-35.0); MEAN CORPUSCULAR HGB CONC 34.9 g/dl (31.0-37.0); PLATELET COUNT 93 10^3/uL (120.0-450.0); RBC 4.15 10^6/uL (3.5-6.1); RED CELL DISTRIBUTION WIDTH 13.7 % (11.5-14.5)
[2017-05-14 08:02] LABS: WHITE BLOOD COUNT 2.1 10^3/ul (4.5-11.0)
[2017-05-14 08:07] LABS: ALB/GLOB RATIO 1.2 (1.1-1.8); ALBUMIN 4.2 g/dL (3.0-4.8); ALT/SGPT 74 U/L (7-56); AST/SGOT 119 U/L (15-59); BLOOD UREA NITROGEN 4 mg/dL (7-21); GFR AFRICAN-AMERICAN > 60; GFR NON-AFRICAN AMERICAN > 60; HDL CHOLESTEROL 84 mg/dL (29-60); MAGNESIUM 1.6 mg/dL (1.7-2.2)
[2017-05-14 08:17] LABS: LDL CHOLESTEROL 68 mg/dL (0-129)
[2017-05-14 08:23] LABS: TROPONIN I < 0.01 ng/mL
[2017-05-14 09:14] LABS: BASOPHIL 1 % (0.0-1.0); EOSINOPHIL 7 % (0.0-3.0); LYMPHOCYTE 32 % (22.0-35.0); MONOCYTE 16 % (1.0-6.0); NEUTROPHIL 44 % (50.0-70.0); PLATELET ESTIMATE LOW (NORMAL)
[2017-05-14] MEDS: Multivitamin Therapeutic Tab PO SCH (09:22)
[2017-05-14] MEDS: Magnesium Oxide 400 mg Tab UD PO SCH (10:38)
--- NOTE | 2017-05-14 17:29 | CARD ---
APPROVED REPORT EKG Measurement Heart [id number] <Conclusion> Normal sinus rhythm Early repolarization vs pericarditis Normal ECG
--- NOTE | 2017-05-14 17:39 | CARD ---
APPROVED REPORT EKG Measurement Heart [id number] [id number] <Conclusion> Normal sinus rhythm Early repolarization vs pericarditis Normal ECG
--- NOTE | 2017-05-14 21:58 | CP.PCM.PN ---
<REFUGIO DOMINGUEZ - Last Filed: 05/14/17 21:53> Subjective - Date & Time of Evaluation Date of Evaluation: 05/14/17 Time of Evaluation: 11:00 - Subjective Subjective: Medicine Progress Note: Pt seen and assessed at bedside. Pt reports that he has continued R sided rib pain that is worse with deep inhalation. He reports no change in his cough but that the cough exacerbates the pain in his ribs. Pt denies headache, fever, changes in vision, shortness of breath, palpitations, abdominal pain, N/V or diarrhea. Objective - Vital Signs/Intake and Output Vital Signs (last 24 hours): Temp Pulse Resp BP Pulse Ox 98 F 113 H 18 156/84 H 97 05/14/17 18:00 05/14/17 18:00 05/14/17 18:00 05/14/17 18:00 05/14/17 18:00 Intake and Output: 05/14/17 05/15/17 18:59 06:59 Intake Total 480 Output Total 675 Balance -195 - Medications Medications: Current Medications Amlodipine Besylate (Norvasc) 5 mg PO DAILY [facility] Last Admin: 05/14/17 14:53 Dose: 5 mg Aspirin (Ecotrin) 81 mg PO DAILY [facility] Last Admin: 05/14/17 09:22 Dose: 81 mg Folic Acid (Folic Acid) 1 mg PO DAILY [facility] Last Admin: 05/14/17 09:21 Dose: 1 mg Heparin Sodium (Porcine) (Heparin) 5,000 units SC Q8 [facility] PRN Reason: Protocol Last Admin: 05/14/17 21:46 Dose: 5,000 units Levetiracetam (Keppra) 500 mg PO BID [facility] Last Admin: 05/14/17 17:19 Dose: 500 mg Lorazepam (Ativan) 1 mg IVP Q4 PRN; Protocol PRN Reason: Symptoms of alcohol withdrawl Last Admin: 05/14/17 21:46 Dose: 1 mg Magnesium Oxide (Mag-Ox) 400 mg PO DAILY [facility] Last Admin: 05/14/17 10:38 Dose: 400 mg Multivitamins (Thera Tab) 1 tab PO 0800 [facility] Last Admin: 05/14/17 09:22 Dose: 1 tab Pantoprazole Sodium (Protonix Ec Tab) 40 mg PO 0600 [facility] Last Admin: 05/14/17 07:04 Dose: 40 mg Thiamine HCl (Vitamin B1 Tab) 50 mg PO DAILY [facility] Last Admin: 05/14/17 09:21 Dose: 50 mg - Labs Labs: 05/14/17 07:20 05/14/17 07:20 PT 10.4 Seconds (9.9-11.8) 05/13/17 22:45 INR 0.96 (0.93-1.08) 05/13/17 22:45 APTT 27.4 Seconds (23.7-30.8) 05/13/17 22:45 - Constitutional Appears: No Acute Distress - Head Exam Head Exam: NORMAL INSPECTION, NORMOCEPHALIC Additional comments: [place] along R temporal laceration without signs of infection - Eye Exam Eye Exam: EOMI, Normal appearance - ENT Exam ENT Exam: Mucous Membranes Moist, Normal Exam - Neck Exam Neck Exam: Full ROM - Respiratory Exam Respiratory Exam: Chest Wall Tenderness, Wheezes, NORMAL BREATHING PATTERN. absent: Rales, Rhonchi, Respiratory Distress Additional comments: End expiratory wheezes in bilateral upper lobes; R lateral chest wall pain on deep inspiration - Cardiovascular Exam Cardiovascular Exam: REGULAR RHYTHM, RRR, +S1, +S2. absent: Tachycardia - GI/Abdominal Exam GI & Abdominal Exam: Normal Bowel Sounds. absent: Distended, Guarding, Tenderness - Extremities Exam Extremities Exam: Normal Capillary Refill - Neurological Exam Neurological Exam: Alert, Awake, Normal Gait, Oriented x3 - Psychiatric Exam Psychiatric exam: Normal Affect, Normal Mood - Skin Skin Exam: Diaphoretic, Dry, Intact, Warm Assessment and Plan - Assessment and Plan (Free Text) Assessment: Mr. Contreras is a 56 year old male, whose past medical history includes alcohol abuse, intracranial hemorrhage, seizure disorder, esophageal varices, and Hepatitis B, who presented with chest pain. Plan: 1. Chest pain -Troponin negative x3 -CXR showed no active disease -EKG showed nonspecific st, t wave changes -TSH, A1c, Lipid Panel, Magnesium, and Phosphorus all WNL -cont norvasc, ASA 2. History of alcohol abuse/withdrawal - 72 hours since last drink - ETOH level: 23 - ativan 1mg PRN - folate/thiamin/multivitamin - CIWA protocol 3. SIRS - blood culture, urine culture pending - UA negative - afebrile since admission 4. History of Seizures - continue home keppra - seizure precautions 5. History of Hypertension - cont home norvasc - will cont to monitor 6. Leukopenia, Thrombocytopenia - cont to monitor with daily CBC 7. Transaminitis -will cont to monitor with daily CMP 8. GI/DVT Prophylaxis - protonix/heparin Patient seen and case discussed in detail with attending, Dr. Rangel. <Claire LEW,[facility] - Last Filed: 05/15/17 15:48> Objective - Vital Signs/Intake and Output Vital Signs (last 24 hours): Temp Pulse Resp BP Pulse Ox 98 F 112 H 18 152/104 H 95 05/15/17 11:30 05/15/17 13:46 05/15/17 11:30 05/15/17 13:46 05/15/17 06:00 Intake and Output: 05/15/17 05/15/17 06:59 18:59 Intake Total 480 Balance 480 - Labs Labs: 05/15/17 07:30 05/15/17 07:30 PT 10.4 Seconds (9.9-11.8) 05/13/17 22:45 INR 0.96 (0.93-1.08) 05/13/17 22:45 APTT 27.4 Seconds (23.7-30.8) 05/13/17 22:45 Attending/Attestation - Attestation I have personally seen and examined this patient.: Yes I have fully participated in the care of the patient.: Yes I have reviewed all pertinent clinical information, including history, physical exam and plan: Yes Notes (Text): 05/15/17 15:39 Patient was seen and examined with medical records coder. 56 year old male, whose past medical history of alcohol abuse, seizure disorder , esophageal varices, , Hepatitis B, non compliance with medication is admitted with chest pain, EKG is negative for ischemic changes, has history of non diagnostic stress test 2 month back, will monitor in tele, will get cardiology consult.Troponins are normal.We will also watch alcohol for withdrawal.Neutropenia and thrombocytopenia is due to alcohol abuse and underlying chronic liver disease. Management plan was discussed in detail with patient Education was provided. 05/15/17 15:47
[2017-05-15] MEDS: Pantoprazole 40 mg EC Tab PO SCH (05:17)
[2017-05-15 06:02] VITALS: RESP 18; O2SAT 95
[2017-05-15 07:53] LABS: BASO # 0.03 K/mm3 (0.0-2.0); BASO % 0.8 % (0.0-3.0); EOS # 0.1 (0.0-0.7); EOS % 1.4 % (1.5-5.0); GRAN # 2.24 (1.4-6.5); GRAN % 62.4 % (50.0-68.0); HEMOGLOBIN 15.9 gm/dL (14.0-18.0); LYMPH # 0.6 (1.2-3.4); LYMPH % 17.3 % (22.0-35.0); MEAN CELL VOLUME 100.2 fL (80.0-105.0); MEAN CORPUSCULAR HEMOGLOBIN 35.2 pg (25.0-35.0); MEAN CORPUSCULAR HGB CONC 35.1 g/dl (31.0-37.0); MONO # 0.7 (0.1-0.6); MONO % 18.1 % (1.0-6.0); PLATELET COUNT 89 10^3/uL (120.0-450.0); RBC 4.52 10^6/uL (3.5-6.1); RED CELL DISTRIBUTION WIDTH 13.2 % (11.5-14.5); WHITE BLOOD COUNT 3.6 10^3/ul (4.5-11.0)
[2017-05-15 08:08] LABS: ALB/GLOB RATIO 1.2 (1.1-1.8); ALBUMIN 4.5 g/dL (3.0-4.8); ALT/SGPT 70 U/L (7-56); AST/SGOT 97 U/L (15-59); BLOOD UREA NITROGEN 6 mg/dL (7-21); CALCIUM 9.7 mg/dL (8.4-10.5); GFR AFRICAN-AMERICAN > 60; GFR NON-AFRICAN AMERICAN > 60; MAGNESIUM 1.5 mg/dL (1.7-2.2)
[2017-05-15] MEDS: Multivitamin Therapeutic Tab PO SCH (08:13)
--- NOTE | 2017-05-15 09:18 | CON ---
DATE: 05/15/2017 INDICATIONS: Chest pain. HISTORY OF PRESENT ILLNESS: This is a 56-year-old male who is known to me from a prior admission, admitted with left-sided chest pain in the setting of alcohol withdrawal. This morning, he is sedated, having been tremulous during the night. Information from the chart and my prior consultation, he had a left-sided chest pain. This morning, this seems improved. There are no events of myocardial infarction by enzymes or EKG. He had a stress test following of the last admission. This is a non-nuclear stress test, which was unremarkable. There is no orthopnea, PND, syncope, presyncope, lightheadedness, dizziness or vertigo. There is no abdominal pain, nausea, vomiting, diarrhea, constipation or melena. There is no fever, chills, cough, sputum production or hemoptysis. PAST MEDICAL HISTORY: Notable for hypertension, multiple substance abuse including cigarette smoking, alcohol, and drugs in the past. He has known varices with variceal bleeding. He has known portal hypertension, a history of hepatitis B and intracranial hemorrhage, a history of seizures and thrombocytopenia. There is no history of rheumatic fever, myocardial infarction, congestive heart failure, diabetes or gout. MEDICATIONS: At the time of admission include multivitamin, folic acid, Keppra, amlodipine, Protonix, iron supplementation and thiamine. ALLERGIES: NO MEDICATION ALLERGIES REPORTED. SOCIAL HISTORY: He smokes, he drinks. He denies current drug use. He lives at home. 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 FAMILY HISTORY: Noncontributory. He is adopted. REVIEW OF SYSTEMS: A 10-point review of systems limited by somnolence, but otherwise unremarkable except as noted above. PHYSICAL EXAMINATION: GENERAL: He is a well-developed male, lying in bed, in no acute distress. VITAL SIGNS: Notable for sinus rhythm at 64 beats per minute, he is afebrile, blood pressure 137/68, respirations 18-20, O2 saturation 94% to 97% on room air. HEENT AND NECK: Reveals no neck vein distention, thyromegaly or carotid bruits. Mucous membranes are moist. Conjunctivae pink. Neck is supple. LUNGS: Nance are clear. HEART: Examination of the heart revealed normal first and second heart sounds. EXTREMITIES: Revealed no cyanosis, clubbing or edema. Abrasions on the legs are noted. NEUROLOGICAL: He is sedated. PSYCHIATRIC: Sedated. SKIN: Warm and dry. Abrasions of the lower extremities. LABORATORY AND IMAGING: A portable chest x-ray revealed no active disease, no interval change. EKG demonstrated regular sinus rhythm, early repolarization changes, no change from the prior EKG. White count today 3600, hemoglobin 15.9, hematocrit 45.3 and platelet count low at 89,000. PT/INR and PTT unremarkable. Electrolytes, BUN, creatinine and blood sugar unremarkable. Elevated LFTs noted. Magnesium 1.5. Three troponins are negative. Initial CK was 266. Total cholesterol 164, triglycerides 34, LDL 68. TSH normal. Urinalysis noted. IMPRESSION: Tl Contreras is a 56-year-old male admitted for chest pain in the setting of alcohol withdrawal. He had had prior admissions for chest pain and a fairly recent non-nuclear stress test (non-nuclear because the insurance company denied a nuclear stress test). PLAN: At this point, I agree with current plans. He is being treated with sedatives for impending alcohol withdrawal. He is getting aspirin, subcutaneous heparin, magnesium supplementation, amlodipine, Protonix, multivitamin and thiamine. He is getting Ativan. I will review his old records and follow along with you. Obviously, he needs to discontinue smoking and alcohol abuse. If chest pain continues, we can consider a nuclear stress test as an inpatient. Blood cultures and urine cultures are pending. David Birmingham MD MTDD
[2017-05-15] MEDS: Magnesium Oxide 400 mg Tab UD PO SCH (09:55)
[2017-05-15] MEDS ORDERED: Magnesium Sulfate 2 GM in Sodium Chloride 0.9% 100 ML IVPB ONE (10:40)
[2017-05-15 11:35] VITALS: TEMP 98
[2017-05-15 13:46] VITALS: BP 152/104; PULSE 112
--- NOTE | 2017-05-15 20:52 | CARD ---
APPROVED REPORT EKG Measurement Heart [id number] [id number] <Conclusion> Sinus tachycardia Otherwise normal ECG
== END 2017-05-15 15:06 | disposition left against medical advice (07) ==
LOC: ED 21:44 → ERH 23:36 → 2RSO 05-14 06:43
PROVIDERS: ADMIT Internal Medicine; ATTEND Internal Medicine
DX: R07.89 Other chest pain (principal); F10.239 Alcohol dependence with withdrawal, unspecified; I10 Essential (primary) hypertension; K76.6 Portal hypertension; B19.10 Unspecified viral hepatitis B without hepatic coma; G40.909 Epilepsy, unspecified, not intractable, without status epilepticus; I85.00 Esophageal varices without bleeding; D69.6 Thrombocytopenia, unspecified; D70.9 Neutropenia, unspecified; K21.9 Gastro-esophageal reflux disease without esophagitis; F17.210 Nicotine dependence, cigarettes, uncomplicated; Z91.14 Patient's other noncompliance with medication regimen
CPT/HCPCS: 36415; 71010; 80053; 80061; 81003; 82550; 82553; 83036; 83615; 83735; 84100; 84443; 84484; 85025; 85027; 85610; 85730; 87040; 87086; 93005; 99284; G0378; J1644; J2060; J3475

== ENCOUNTER 2017-06-11 01:59 | Observation (INO) | payer MEDICAID ==
[2017-06-11 01:59] VITALS: BMI 23.6
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
[2017-06-11 02:38] VITALS: BP 135/80; PULSE 83; RESP 18; TEMP 98.9; O2SAT 96
== END 2017-06-11 06:23 | disposition home or self-care (01) ==
LOC: ED 01:59 → EROBSV 02:25
PROVIDERS: ADMIT Emergency Medicine; ATTEND Emergency Medicine
DX: F10.129 Alcohol abuse with intoxication, unspecified (principal); F17.210 Nicotine dependence, cigarettes, uncomplicated
CPT/HCPCS: 99283; G0378

== ENCOUNTER 2017-07-12 00:08 | Emergency (ER) | payer MEDICAID ==
[2017-07-12 00:08] VITALS: BMI 23.6
[2017-07-12 00:24] VITALS: TEMP 97.7
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
[2017-07-12 02:09] LABS: BASO # 0.02 K/mm3 (0.0-2.0); BASO % 0.5 % (0.0-3.0); EOS # 0.1 (0.0-0.7); GRAN # 1.8 (1.4-6.5); GRAN % 49.1 % (50.0-68.0); LYMPH # 1.3 (1.2-3.4); LYMPH % 35.7 % (22.0-35.0); MEAN CELL VOLUME 100.2 fl (80.0-105.0); MEAN CORPUSCULAR HEMOGLOBIN 35.5 pg (25.0-35.0); MEAN CORPUSCULAR HGB CONC 35.4 g/dl (31.0-37.0); MEAN PLATELET VOLUME 11.8 fl (7.0-11.0); MONO # 0.4 (0.1-0.6); MONO % 11.7 % (1.0-6.0); RED CELL DISTRIBUTION WIDTH 13.4 % (11.5-14.5); WHITE BLOOD COUNT 3.7 10^3/ul (4.5-11.0)
--- NOTE | 2017-07-12 02:20 | CT ---
EXAM: CT Head Without Intravenous Contrast EXAM DATE/TIME: 07/12/2017 1:02 AM CLINICAL HISTORY: The patient age is 56 years old and is male; Pain; Headache; Additional info: R/O ich Facility exam id and description: Ct heads head w/o contrast TECHNIQUE: Axial computed tomography images of the head/brain without intravenous contrast. All CT scans at this facility use one or more dose reduction techniques, viz.: automated exposure control; ma/kV adjustment per patient size (including targeted exams where dose is matched to indication; i.e. head); or iterative reconstruction technique. COMPARISON: CT - HEAD W/O CONTRAST 03/02/2017 6:09:40 AM FINDINGS: Brain: Small hypodense chronic lacunar infarcts are identified within the bilateral basal ganglia. There are scattered foci of hypodensity within the cerebral white matter, likely representing small vessel ischemic disease in a patient this age. The acuity of the white matter disease is indeterminate. There is stable hypodense encephalomalacia within the inferior right frontal lobe, consistent with old infarct or brain insult. Minimal encephalomalacia is visualized within the inferior left frontal lobe. The white-childress differentiation is otherwise preserved demonstrating no acute territorial type infarct. There is prominence of the ventricles and sulci, compatible with atrophy. No acute intracranial hemorrhage is seen. Midline shift: There is no midline shift. Ventricles: See above. Bones/joints: The calvarium demonstrates no evidence for a depressed fracture. Soft tissues: No acute abnormality. Vasculature: There is atherosclerotic calcification of the cavernous internal carotid arteries and distal vertebral arteries. Sinuses: Unremarkable as visualized. No acute sinusitis. Mastoid air cells: No mastoid effusion. IMPRESSION: 1. No acute intracranial hemorrhage or acute territorial type infarct. 2. Small hypodense chronic lacunar infarcts are identified within the bilateral basal ganglia. 3. There are scattered foci of hypodensity within the cerebral white matter, likely representing small vessel ischemic disease in a patient this age. 4. Stable atrophy. 5. There is stable hypodense encephalomalacia within the inferior right frontal lobe, consistent with old infarct or brain insult. Minimal encephalomalacia is visualized within the inferior left frontal lobe.
[2017-07-12 02:22] LABS: ALB/GLOB RATIO 1.3 (1.1-1.8); ALKALINE PHOSPHATASE 107 U/L (38-126); ALT/SGPT 83 U/L (7-56); AST/SGOT 138 U/L (17-59); BILIRUBIN,TOTAL 0.8 mg/dL (0.2-1.3); BLOOD UREA NITROGEN 6 mg/dL (7-21); CALCIUM 9.1 mg/dL (8.4-10.5); CARBON DIOXIDE 28 mmol/L (21-33); CHLORIDE 103 mmol/L (98-107); GFR AFRICAN-AMERICAN > 60; GLUCOSE,RANDOM 87 mg/dL (70-110); MAGNESIUM 1.5 mg/dL (1.7-2.2); POTASSIUM 4.1 mmol/L (3.6-5.0); SODIUM 144 mmol/L (132-148); TOTAL PROTEIN 7.8 g/dL (5.8-8.3)
[2017-07-12 02:34] LABS: TROPONIN I < 0.01 ng/mL
[2017-07-12 05:49] VITALS: BP 122/70; PULSE 82; RESP 17; O2SAT 97
--- NOTE | 2017-07-12 08:34 | RAD ---
HISTORY: chest pain COMPARISON: 05/13/2017. FINDINGS: LUNGS: The lungs are well inflated and clear. PLEURA: No significant pleural effusion identified, no pneumothorax apparent. CARDIOVASCULAR: Normal. OSSEOUS STRUCTURES: No significant abnormalities. VISUALIZED UPPER ABDOMEN: Normal. OTHER FINDINGS: None. IMPRESSION: No active pulmonary disease.
--- NOTE | 2017-07-12 19:32 | CARD ---
APPROVED REPORT EKG Measurement Heart [id number] <Conclusion> Normal sinus rhythm Early repolarization vs pericarditis
== END 2017-07-12 05:55 | disposition home or self-care (01) ==
LOC: ED 00:08
DX: F10.129 Alcohol abuse with intoxication, unspecified (principal); Y90.8 Blood alcohol level of 240 mg/100 ml or more; I10 Essential (primary) hypertension; G40.909 Epilepsy, unspecified, not intractable, without status epilepticus; Z86.73 Personal history of transient ischemic attack (TIA), and cerebral infarction without residual deficits; F17.210 Nicotine dependence, cigarettes, uncomplicated

== ENCOUNTER 2017-10-28 16:44 | Emergency (ER) | payer MEDICAID ==
[2017-10-28 16:45] VITALS: BMI 23.6
[2017-10-28 17:34] VITALS: BP 128/73; PULSE 87; RESP 18; TEMP 98.3; O2SAT 98
--- NOTE | 2017-10-28 18:16 | RAD ---
HISTORY: chest pain COMPARISON: Chest x-ray performed 07/12/17 TECHNIQUE: Chest, one view. FINDINGS: LUNGS: Bilateral hilar prominence. 9 mm nodular density at the level of the left lower chest 4th anterior rib ; pulmonary nodule is not excluded. Please note that chest x-ray has limited sensitivity for the detection of pulmonary masses. PLEURA: No significant pleural effusion identified. No definite pneumothorax . CARDIOVASCULAR: Heart size appears within normal limits. OSSEOUS STRUCTURES: Degenerative changes of the spine. Chronic deformity of the left distal clavicle. VISUALIZED UPPER ABDOMEN: Unremarkable. OTHER FINDINGS: None. IMPRESSION: Bilateral hilar prominence. 9 mm nodular density at the level of the left lower chest 4th anterior rib ; pulmonary nodule is not excluded. Recommend CT of the chest with IV contrast for further evaluation if indicated.
[2017-10-28 18:42] LABS: BASO # 0.07 K/mm3 (0.0-2.0); BASO % 1.3 % (0.0-3.0); EOS # 0.1 (0.0-0.7); EOS % 1.5 % (1.5-5.0); GRAN # 3.22 (1.4-6.5); HEMOGLOBIN 14.3 g/dL (14.0-18.0); LYMPH # 1.4 (1.2-3.4); LYMPH % 25.6 % (22.0-35.0); MEAN CELL VOLUME 101.5 fl (80.0-105.0); MEAN CORPUSCULAR HGB CONC 34.5 g/dl (31.0-37.0); MEAN PLATELET VOLUME 12.1 fl (7.0-11.0); MONO # 0.6 (0.1-0.6); MONO % 10.6 % (1.0-6.0); RBC 4.09 10^6/uL (3.5-6.1); RED CELL DISTRIBUTION WIDTH 13.7 % (11.5-14.5); WHITE BLOOD COUNT 5.3 10^3/ul (4.5-11.0)
[2017-10-28 18:48] LABS: ALB/GLOB RATIO 1.1 (1.1-1.8); ALBUMIN 4.3 g/dL (3.0-4.8); ALT/SGPT 53 U/L (7-56); AST/SGOT 79 U/L (17-59); BLOOD UREA NITROGEN 5 mg/dL (7-21); CALCIUM 9.3 mg/dL (8.4-10.5); GFR AFRICAN-AMERICAN > 60; GFR NON-AFRICAN AMERICAN > 60; MAGNESIUM 1.8 mg/dL (1.7-2.2)
[2017-10-28 19:00] LABS: URINE BILIRUBIN NEGATIVE (NEGATIVE); URINE BLOOD NEGATIVE (NEGATIVE); URINE GLUCOSE (UA) NEGATIVE (NEGATIVE); URINE LEUKOCYTE ESTERASE NEGATIVE Leu/uL (NEGATIVE); URINE NITRATE NEGATIVE (NEGATIVE); URINE PROTEIN NEGATIVE mg/dL (<30 mg/dL); URINE UROBILINOGEN 0.2 E.U./dL (<1 E.U./dL)
[2017-10-28 19:00] LABS: TROPONIN I < 0.01 ng/mL
[2017-10-28 19:05] LABS: URINE APPEARANCE CLEAR (CLEAR); URINE COLOR YELLOW (YELLOW)
[2017-10-28 19:19] LABS: CK-MB 2.5 ng/mL (0.0-3.6)
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
--- NOTE | 2017-10-28 21:44 | CARD ---
APPROVED REPORT EKG Measurement Heart [id number] <Conclusion> Normal sinus rhythm Early repolarization vs pericarditis
== END 2017-10-28 19:20 | disposition home or self-care (01) ==
LOC: ED 16:44
DX: R07.89 Other chest pain (principal); F17.210 Nicotine dependence, cigarettes, uncomplicated; I10 Essential (primary) hypertension; Z86.73 Personal history of transient ischemic attack (TIA), and cerebral infarction without residual deficits

== ENCOUNTER 2017-10-29 22:19 | Observation (INO) | payer MEDICAID ==
[2017-10-29 22:19] VITALS: BMI 23.6
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
[2017-10-30] LABS: MEAN CELL VOLUME 102.4 fl (80.0-105.0); MEAN CORPUSCULAR HEMOGLOBIN 34.2 pg (25.0-35.0); MEAN CORPUSCULAR HGB CONC 33.4 g/dl (31.0-37.0); RBC 4.09 10^6/uL (3.5-6.1); RED CELL DISTRIBUTION WIDTH 13.7 % (11.5-14.5); WHITE BLOOD COUNT 6.8 10^3/ul (4.5-11.0)
[2017-10-30 00:06] LABS: INR 0.92 (0.93-1.08); PARTIAL THROMBOPLASTIN TIME 35.5 Seconds (25.1-36.5); PROTHROMBIN TIME 10.5 SECONDS (9.4-12.5)
[2017-10-30 00:15] LABS: TROPONIN I < 0.01 ng/mL
[2017-10-30 00:19] LABS: ALB/GLOB RATIO 1.1 (1.1-1.8); ALBUMIN 4.4 g/dL (3.0-4.8); ALT/SGPT 68 U/L (7-56); AST/SGOT 98 U/L (17-59); BLOOD UREA NITROGEN 8 mg/dL (7-21); CALCIUM 9.3 mg/dL (8.4-10.5); GFR AFRICAN-AMERICAN > 60; GFR NON-AFRICAN AMERICAN > 60
[2017-10-30 01:31] LABS: CK-MB 1.9 ng/mL (0.0-3.6)
[2017-10-30] MEDS ORDERED: Potassium Chloride 20 mEq ER Tab PO STA (02:41)
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
[2017-10-30 05:58] LABS: BASO # 0.04 K/mm3 (0.0-2.0); BASO % 0.9 % (0.0-3.0); EOS # 0.1 (0.0-0.7); EOS % 2.6 % (1.5-5.0); GRAN # 2.63 (1.4-6.5); GRAN % 62.3 % (50.0-68.0); HEMOGLOBIN 13.3 g/dL (14.0-18.0); LYMPH # 0.9 (1.2-3.4); MEAN CELL VOLUME 101.8 fl (80.0-105.0); MEAN CORPUSCULAR HEMOGLOBIN 33.8 pg (25.0-35.0); MEAN CORPUSCULAR HGB CONC 33.3 g/dl (31.0-37.0); MEAN PLATELET VOLUME 12.3 fl (7.0-11.0); MONO # 0.6 (0.1-0.6); MONO % 13.2 % (1.0-6.0); RBC 3.93 10^6/uL (3.5-6.1); RED CELL DISTRIBUTION WIDTH 13.8 % (11.5-14.5); WHITE BLOOD COUNT 4.2 10^3/ul (4.5-11.0)
[2017-10-30 06:03] LABS: ALB/GLOB RATIO 1.2 (1.1-1.8); ALBUMIN 4.1 g/dL (3.0-4.8); ALT/SGPT 61 U/L (7-56); AST/SGOT 86 U/L (17-59); BLOOD UREA NITROGEN 7 mg/dL (7-21); CALCIUM 9.4 mg/dL (8.4-10.5); GFR AFRICAN-AMERICAN > 60; GFR NON-AFRICAN AMERICAN > 60
[2017-10-30 06:12] LABS: TROPONIN I < 0.01 ng/mL
[2017-10-30] MEDS: Pantoprazole 40 mg EC Tab PO SCH (06:31)
--- NOTE | 2017-10-30 08:22 | RAD ---
HISTORY: chest pain COMPARISON: 10/28/2017 FINDINGS: LUNGS: No active pulmonary disease. PLEURA: No significant pleural effusion identified, no pneumothorax apparent. CARDIOVASCULAR: Normal. OSSEOUS STRUCTURES: No significant abnormalities. VISUALIZED UPPER ABDOMEN: Normal. OTHER FINDINGS: None. IMPRESSION: No active disease.
[2017-10-30] MEDS: Multivitamin With Minerals Tab PO SCH (12:54)
--- NOTE | 2017-10-30 17:59 | CARD ---
APPROVED REPORT EKG Measurement Heart [id number] <Conclusion> Normal sinus rhythm Voltage criteria for left ventricular hypertrophy Inferior infarct, age undetermined Abnormal ECG
[2017-10-31 04:59] VITALS: BP 147/83; RESP 20; TEMP 98.1; O2SAT 96
[2017-10-31] MEDS: Pantoprazole 40 mg EC Tab PO SCH (05:53)
[2017-10-31 06:35] LABS: BASO # 0.03 K/mm3 (0.0-2.0); BASO % 0.6 % (0.0-3.0); EOS # 0.1 (0.0-0.7); EOS % 2.4 % (1.5-5.0); GRAN # 2.83 (1.4-6.5); GRAN % 61.3 % (50.0-68.0); HEMOGLOBIN 14.2 g/dL (14.0-18.0); LYMPH # 0.9 (1.2-3.4); LYMPH % 18.4 % (22.0-35.0); MEAN CELL VOLUME 103.4 fl (80.0-105.0); MEAN CORPUSCULAR HEMOGLOBIN 34.3 pg (25.0-35.0); MEAN CORPUSCULAR HGB CONC 33.2 g/dl (31.0-37.0); MEAN PLATELET VOLUME 12.8 fl (7.0-11.0); MONO # 0.8 (0.1-0.6); MONO % 17.3 % (1.0-6.0); RBC 4.14 10^6/uL (3.5-6.1); RED CELL DISTRIBUTION WIDTH 13.9 % (11.5-14.5); WHITE BLOOD COUNT 4.6 10^3/ul (4.5-11.0)
[2017-10-31 07:09] LABS: ALB/GLOB RATIO 1.1 (1.1-1.8); ALBUMIN 4.1 g/dL (3.0-4.8); ALT/SGPT 52 U/L (7-56); AST/SGOT 66 U/L (17-59); BLOOD UREA NITROGEN 10 mg/dL (7-21); CALCIUM 9.6 mg/dL (8.4-10.5); GFR AFRICAN-AMERICAN > 60; GFR NON-AFRICAN AMERICAN > 60
[2017-10-31] MEDS: Multivitamin With Minerals Tab PO SCH (08:37)
[2017-10-31 11:41] VITALS: PULSE 58
--- NOTE | 2017-10-31 12:22 | CP.PCM.DIS ---
<Dennys Dobbs - Last Filed: 10/31/17 12:19> Provider - Provider Date of Admission: 10/30/17 01:32 Attending physician: Chiqui Rangel MD Primary care physician: Clair Alvarez MD Time Spent in preparation of Discharge (in minutes): 45 Diagnosis - Discharge Diagnosis (1) Atypical chest pain Status: Chronic Priority: Medium (2) Alcoholism Status: Chronic Priority: Medium (3) Hepatitis B Status: Chronic Priority: Medium Hospital Course - Lab Results Lab Results: Most Recent Lab Values WBC 4.6 10^3/ul (4.5-11.0) 10/31/17 05:30 RBC 4.14 10^6/uL (3.5-6.1) 10/31/17 05:30 Hgb 14.2 g/dL (14.0-18.0) 10/31/17 05:30 Hct 42.8 % (42.0-52.0) 10/31/17 05:30 MCV 103.4 fl (80.0-105.0) 10/31/17 05:30 MCH 34.3 pg (25.0-35.0) 10/31/17 05:30 MCHC 33.2 g/dl (31.0-37.0) 10/31/17 05:30 RDW 13.9 % (11.5-14.5) 10/31/17 05:30 Plt Count 125 10^3/uL (120.0-450.0) 10/31/17 05:30 MPV 12.8 fl (7.0-11.0) H 10/31/17 05:30 Gran % 61.3 % (50.0-68.0) 10/31/17 05:30 Lymph % (Auto) 18.4 % (22.0-35.0) L 10/31/17 05:30 [place] % (Auto) 17.3 % (1.0-6.0) H 10/31/17 05:30 Eos % (Auto) 2.4 % (1.5-5.0) 10/31/17 05:30 Baso % (Auto) 0.6 % (0.0-3.0) 10/31/17 05:30 Gran # 2.83 (1.4-6.5) 10/31/17 05:30 Lymph # 0.9 (1.2-3.4) L 10/31/17 05:30 [place] # 0.8 (0.1-0.6) H 10/31/17 05:30 Eos # 0.1 (0.0-0.7) 10/31/17 05:30 Baso # 0.03 K/mm3 (0.0-2.0) 10/31/17 05:30 PT 10.5 SECONDS (9.4-12.5) 10/29/17 23:39 INR 0.92 (0.93-1.08) L 10/29/17 23:39 APTT 35.5 Seconds (25.1-36.5) 10/29/17 23:39 Sodium 141 mmol/L (132-148) 10/31/17 05:30 Potassium 4.6 mmol/L (3.6-5.0) 10/31/17 05:30 Chloride 105 mmol/L (98-107) 10/31/17 05:30 Carbon Dioxide 27 mmol/L (21-33) 10/31/17 05:30 Anion Gap 13 (10-20) 10/31/17 05:30 BUN 10 mg/dL (7-21) 10/31/17 05:30 Creatinine 0.9 mg/dl (0.8-1.5) 10/31/17 05:30 Est GFR ( Amer) > 60 10/31/17 05:30 Est GFR (Non-Af Amer) > 60 10/31/17 05:30 Random Glucose 95 mg/dL (70-110) 10/31/17 05:30 Calcium 9.6 mg/dL (8.4-10.5) 10/31/17 05:30 Total Bilirubin 0.8 mg/dL (0.2-1.3) 10/31/17 05:30 AST 66 U/L (17-59) H D 10/31/17 05:30 ALT 52 U/L (7-56) 10/31/17 05:30 Alkaline Phosphatase 68 U/L (38-126) 10/31/17 05:30 Lactate Dehydrogenase 620 U/L (333-699) 10/29/17 23:39 Total Creatine Kinase 279 U/L (35-230) H 10/29/17 23:39 CK-MB (CK-2) 1.9 ng/mL (0.0-3.6) 10/29/17 23:39 CK-MB (CK-2) % Cancelled 10/29/17 23:39 Troponin I < 0.01 ng/mL 10/30/17 12:16 Total Protein 7.7 g/dL (5.8-8.3) 10/31/17 05:30 Albumin 4.1 g/dL (3.0-4.8) 10/31/17 05:30 Globulin 3.6 gm/dL 10/31/17 05:30 Albumin/Globulin Ratio 1.1 (1.1-1.8) 10/31/17 05:30 - Hospital Course Hospital Course: Patient is a 56 year old male with a past medical history significant for alcohol abuse/withdrawal, history of esophageal variceal bleed, portal hypertension, hepatitis B, intracranial hemorrhage, and seizure disorder who was admitted for evaluation and treatment of intermittent chest tightness with associated intermittent shortness of breath. With the use of physical examinations, lab work, and imaging the patient was diagnosed with and treated for atypical chest pain along with the patients chronic medical conditions. During their hospital stay the patient was seen by cardiology and their recommendations were both appreciated and utilized in the care for this patient. During their hospital stay the patient underwent chest xray and electrocardiogram which were reviewed, appreciated, and utilized in the management of the patients clinical course. The chest xray showed no active disease. Acute coronary syndrome was ruled out. Patient was treated with benzodiazepines amongst other empiric/therapeutic medications At this time the patient is medically stable for discharge. Patient understands and appreciates discharge plan. Patient instructed to follow up with primary care physicians and referrals within three to five days from discharge. Furthermore, the patient is instructed to take medications as prescribed and to return to emergency room for evaluation of intractable headache, fever, chills, dizziness, chest pain, shortness of breath, abdominal pain, nausea, vomiting, diarrhea, constipation, and urinary symptoms. This is a brief summary of the patients hospital course. Please see patient chart for full details. Discharge Exam - Head Exam Head Exam: ATRAUMATIC, NORMAL INSPECTION, NORMOCEPHALIC - Additional Findings Additional findings: - Constitutional Appears: Non-toxic, No Acute Distress - Head Exam Head Exam: ATRAUMATIC, NORMAL INSPECTION, NORMOCEPHALIC - Eye Exam Eye Exam: EOMI, Normal appearance - Neck Exam Neck exam: Positive for: Full Rom, Normal Inspection. Negative for: Lymphadenopathy, Meningismus, Tenderness, Thyromegaly - Respiratory Exam Respiratory Exam: Clear to Auscultation Bilateral, NORMAL BREATHING PATTERN. - Cardiovascular Exam Cardiovascular Exam: REGULAR RHYTHM, RRR, +S1, +S2. - GI/Abdominal Exam GI & Abdominal Exam: Normal Bowel Sounds - Extremities Exam Extremities exam: Positive for: full ROM, normal capillary refill, normal inspection, pedal pulses present. - Neurological Exam Neurological exam: Alert, CN II-XII Intact, Normal Gait, Oriented x3 - Psychiatric Exam Psychiatric exam: Normal Affect, Normal Mood - Skin Skin Exam: Dry, Intact, Normal Color, Warm Discharge Plan - Discharge Medications Prescriptions: Folic Acid 1 mg PO DAILY 7 Days tab Thiamine [Vitamin B1 Tab] 50 mg PO DAILY 7 Days tab - Follow Up Plan Condition: STABLE Disposition: HOME/ ROUTINE Patient education suggested?: Yes Instructions: Chest Pain (DC), How to Stop Smoking (DC), Cigarette Smoking and Your Health (GEN), Alcohol Intoxication (DC), Abuse of Alcohol (DC), Dyspnea ( GEN) Additional Instructions: Patient Instructions: 1. Take medications as prescribed. 2. Follow up with PMD and technology education instructor within three to five days from discharge. 3. Return to the emergency room for evaluation of intractable headache, fever, chills, dizziness, chest pain, shortness of breath, abdominal pain, nausea, vomiting, diarrhea, constipation, and urinary symptoms. Referrals: Clair Alvarez MD [Primary Care Provider] - <Chiqui Rangel - Last Filed: 10/31/17 17:16> Provider - Provider Date of Admission: 10/30/17 01:32 Attending physician: Chiqui Rangel MD Primary care physician: Clair Alvarez MD Hospital Course - Lab Results Lab Results: Most Recent Lab Values WBC 4.6 10^3/ul (4.5-11.0) 10/31/17 05:30 RBC 4.14 10^6/uL (3.5-6.1) 10/31/17 05:30 Hgb 14.2 g/dL (14.0-18.0) 10/31/17 05:30 Hct 42.8 % (42.0-52.0) 10/31/17 05:30 MCV 103.4 fl (80.0-105.0) 10/31/17 05:30 MCH 34.3 pg (25.0-35.0) 10/31/17 05:30 MCHC 33.2 g/dl (31.0-37.0) 10/31/17 05:30 RDW 13.9 % (11.5-14.5) 10/31/17 05:30 Plt Count 125 10^3/uL (120.0-450.0) 10/31/17 05:30 MPV 12.8 fl (7.0-11.0) H 10/31/17 05:30 Gran % 61.3 % (50.0-68.0) 10/31/17 05:30 Lymph % (Auto) 18.4 % (22.0-35.0) L 10/31/17 05:30 [place] % (Auto) 17.3 % (1.0-6.0) H 10/31/17 05:30 Eos % (Auto) 2.4 % (1.5-5.0) 10/31/17 05:30 Baso % (Auto) 0.6 % (0.0-3.0) 10/31/17 05:30 Gran # 2.83 (1.4-6.5) 10/31/17 05:30 Lymph # 0.9 (1.2-3.4) L 10/31/17 05:30 [place] # 0.8 (0.1-0.6) H 10/31/17 05:30 Eos # 0.1 (0.0-0.7) 10/31/17 05:30 Baso # 0.03 K/mm3 (0.0-2.0) 10/31/17 05:30 PT 10.5 SECONDS (9.4-12.5) 10/29/17 23:39 INR 0.92 (0.93-1.08) L 10/29/17 23:39 APTT 35.5 Seconds (25.1-36.5) 10/29/17 23:39 Sodium 141 mmol/L (132-148) 10/31/17 05:30 Potassium 4.6 mmol/L (3.6-5.0) 10/31/17 05:30 Chloride 105 mmol/L (98-107) 10/31/17 05:30 Carbon Dioxide 27 mmol/L (21-33) 10/31/17 05:30 Anion Gap 13 (10-20) 10/31/17 05:30 BUN 10 mg/dL (7-21) 10/31/17 05:30 Creatinine 0.9 mg/dl (0.8-1.5) 10/31/17 05:30 Est GFR ( Amer) > 60 10/31/17 05:30 Est GFR (Non-Af Amer) > 60 10/31/17 05:30 Random Glucose 95 mg/dL (70-110) 10/31/17 05:30 Calcium 9.6 mg/dL (8.4-10.5) 10/31/17 05:30 Total Bilirubin 0.8 mg/dL (0.2-1.3) 10/31/17 05:30 AST 66 U/L (17-59) H D 10/31/17 05:30 ALT 52 U/L (7-56) 10/31/17 05:30 Alkaline Phosphatase 68 U/L (38-126) 10/31/17 05:30 Lactate Dehydrogenase 620 U/L (333-699) 10/29/17 23:39 Total Creatine Kinase 279 U/L (35-230) H 10/29/17 23:39 CK-MB (CK-2) 1.9 ng/mL (0.0-3.6) 10/29/17 23:39 CK-MB (CK-2) % Cancelled 10/29/17 23:39 Troponin I < 0.01 ng/mL 10/30/17 12:16 Total Protein 7.7 g/dL (5.8-8.3) 10/31/17 05:30 Albumin 4.1 g/dL (3.0-4.8) 10/31/17 05:30 Globulin 3.6 gm/dL 10/31/17 05:30 Albumin/Globulin Ratio 1.1 (1.1-1.8) 10/31/17 05:30 Attending/Attestation - Attestation I have personally seen and examined this patient.: Yes I have fully participated in the care of the patient.: Yes I have reviewed all pertinent clinical information, including history, physical exam and plan: Yes Notes (Text): 10/31/17 17:13 Patient was seen and examined with medical chemist. Agreed with resident assessment and plan. 56 year old male with a past medical history significant for alcohol abuse/ withdrawal, history of esophageal variceal bleed, portal hypertension, hepatitis B, intracranial hemorrhage, and seizure disorder was admitted with atypical chest pain, has chest wall tenderness, patient was monitored in telemetry, serial troponins are normal.Patient was evaluated by cardiology, no inpatient work up is needed.Patient will be discharged home and will follow up with PCP and cardiology.There is no sign of alcohol withdrawal at this time. Prognosis is guarded due to non compliance and ongoing alcohol abuse. Management plan was discussed in detail with patient Education was provided.
--- NOTE | 2017-11-03 08:38 | CON ---
DATE: 10/31/2017 LOCATION: The patient is in room 367, bed 1. REASON FOR CONSULTATION: Chest pain. HISTORY OF PRESENT ILLNESS: A 56-year-old male who is known to have tobacco abuse, alcohol abuse, admitted with chest pain on the left chest at a localized point. He states this pain is off and on since last more than 1 year. It had no relation with exertion. When he touches the area, he has a pain, sometimes it is dull, sometimes it is sharp. Denies any shortness of breath, nausea, vomiting associated with this episode. Denies any relation to exertion. No PND. No swelling of the legs. PAST MEDICAL HISTORY: Positive for hypertension, multiple substance abuse including tobacco abuse, alcohol abuse and known to have varices with variceal bleeding, known portal hypertension, history of hepatitis B and intracranial hemorrhage, history of seizure disorder and thrombocytopenia. ALLERGIES: PATIENT DENIES ANY ALLERGIES. PERSONAL HISTORY: As mentioned. Patient has tobacco abuse, alcohol abuse. He has previous history of using drugs. Denies now using drugs. FAMILY HISTORY: Not significant. HOME MEDICATIONS: Included vitamin B1 50 mg daily, folic acid 1 mg daily. REVIEW OF SYSTEMS: All the system reviewed, positive as mentioned in the history. PHYSICAL EXAMINATION: VITAL SIGNS: Blood pressure 147/83, respirations 20, pulse 61, temperature 98.1. HEENT: Head: Normocephalic. Eyes: Pupils are normal. Conjunctivae normal. Nose and throat normal. NECK: JVP low. Carotids are equal. THORAX: AP diameter is normal. LUNGS: Clear. CARDIOVASCULAR: S1, S2. ABDOMEN: Soft. No tenderness. No organomegaly. EXTREMITIES: No clubbing, no cyanosis. No edema. LABORATORY DATA: WBC 4.6, hemoglobin 14.2, hematocrit 42.8, platelets 125. Sodium 141, potassium 4.6, BUN 10, creatinine 0.9. AST 66, ALT 52, total protein 7.7, albumin 4.1, troponin x3 negative. Chest x-ray, no active disease. EKG shows sinus rhythm, voltage criteria for LVH. Q in III and aVF suggestive of old inferior wall AL, ST-T change of early repolarization. DIAGNOSIS: Patient has tenderness to the area of the pain, so patient's chest pain is musculoskeletal. Patient had a stress test on 03/07/2017, which was negative. Echocardiogram was done on 01/28/2017, which showed normal chamber sizes, normal left ventricular systolic function, mild concentric left ventricular hypertrophy, no significant valvular disease. Patient has history of tobacco abuse, alcohol abuse, hepatitis B, esophageal varices, history of esophageal varices bleeding. In the past had thrombocytopenia, now the platelet count is normal. Patient is getting folic acid 1 mg daily, Protonix 40 daily, thiamine 50 daily. I will suggest to treat musculoskeletal chest pain symptomatically with analgesics. We will continue to . Chiqui Pisano MD
== END 2017-10-31 18:44 | disposition home or self-care (01) ==
LOC: ED 22:19 → ERH 10-30 01:32 → 3RNO 10-30 17:40
PROVIDERS: ADMIT Internal Medicine; ATTEND Internal Medicine
DX: R07.89 Other chest pain (principal); F10.20 Alcohol dependence, uncomplicated; B19.10 Unspecified viral hepatitis B without hepatic coma; I85.00 Esophageal varices without bleeding; K76.6 Portal hypertension; G40.909 Epilepsy, unspecified, not intractable, without status epilepticus; E87.6 Hypokalemia; Z91.19 Patient's noncompliance with other medical treatment and regimen; Z87.891 Personal history of nicotine dependence; Z86.73 Personal history of transient ischemic attack (TIA), and cerebral infarction without residual deficits
CPT/HCPCS: 36415; 71045; 80053; 82550; 82553; 83615; 84484; 85025; 85027; 85610; 85730; 93005; 99285; G0378; J2060; J2405

== ENCOUNTER 2017-11-07 18:50 | Emergency (ER) | payer MEDICAID ==
[2017-11-07 18:50] VITALS: BMI 23.6
--- NOTE | 2017-11-07 19:25 | ED PDOC ---
Arrival/HPI - General Chief Complaint: Chest Pain Time Seen by Provider: 11/07/17 19:08 Historian: Patient - History of Present Illness Narrative History of Present Illness (Text): 11/07/17 19:17 A 56 year old male smoker, whose past medical history includes alcohol abuse, intracranial hemorrhage, seizure disorder, esophageal varices, and hepatitis B, presents to the emergency department complaining of sharp chest pain. Patient reports he normally experiences chest pain every day which comes and goes. Today , patient states chest pain feels sharp and describes it as a squeezing sensation. Patient takes aspiring and medications prescribed to him. PMD: Dr. Alvarez Past Medical History - Provider Review Nursing Documentation Reviewed: Yes - Infectious Disease Hx of Infectious Diseases: None - Tetanus Immunization Tetanus Immunization: Unknown - Cardiac Hx Cardiac Disorders: Yes Hx Hypertension: Yes - Pulmonary Hx Respiratory Disorders: Yes Hx Asthma: Yes - Neurological Hx Neurological Disorder: Yes Hx Seizures: Yes Other/Comment: Intracranial Hemmorhage - HEENT Hx HEENT Disorder: No - Renal Hx Renal Disorder: No - Endocrine/Metabolic Hx Endocrine Disorders: No - Hematological/Oncological Hx Blood Disorders: Yes Hx Anemia: Yes Hx Hepatitis B: Yes (carrier) - Integumentary Hx Dermatological Disorder: No - Musculoskeletal/Rheumatological Hx Musculoskeletal Disorders: Yes Hx Arthritis: Yes Hx Falls: No Hx Fractures: Yes (jaw/ wrist) - Gastrointestinal Hx Gastrointestinal Disorders: Yes Other/Comment: GI Bleed - Genitourinary/Gynecological Hx Genitourinary Disorders: No - Psychiatric Hx Psychophysiologic Disorder: No Hx Substance Use: No - Past Surgical History Past Surgical History: No Previous - Surgical History Hx Orthopedic Surgery: Yes Other/Comment: Tonsils removed - Anesthesia Hx Anesthesia: Yes Hx Anesthesia Reactions: No Hx Malignant Hyperthermia: No - Suicidal Assessment Feels Threatened In Home Enviroment: No Family/Social History - Physician Review Nursing Documentation Reviewed: Yes Family/Social History: No Known Family HX Smoking Status: Heavy Smoker > 10 Cigarettes Daily Hx Alcohol Use: Yes Hx Substance Use: No Hx Substance Use Treatment: No Allergies/Home Meds Allergies/Adverse Reactions: Allergies No Known Allergies Allergy (Verified 10/28/17 17:14) Review of Systems - Review of Systems Constitutional: Normal Eyes: Normal ENT: Normal Respiratory: Normal Cardiovascular: Chest Pain (sharp squeezing chest pain (L-side)) Gastrointestinal: Normal Genitourinary Male: Normal Musculoskeletal: Normal Skin: Normal Neurological: Normal Endocrine: Normal Hemo/Lymphatic: Normal Psychiatric: Normal Physical Exam Vital Signs Temp Pulse Resp BP Pulse Ox 11/07/17 18:54 97.2 F L 82 18 118/80 99 Appearance: Positive for: Well-Appearing (well hydrated), Other (poor hygiene). No: Non-Toxic (mildly intoxicated) Mental Status: Positive for: Alert and Oriented X 3 - Systems Exam Respiratory/Chest: Present: Clear to Auscultation, Good Air Exchange. No: Respiratory Distress, Accessory Muscle Use Cardiovascular: Present: Regular Rate and Rhythm, Normal S1, S2. No: Murmurs Abdomen: Present: Normal Bowel Sounds. No: Tenderness, Distention, Peritoneal Signs Neurological: Present: GCS=15, CN II-XII Intact, Speech Normal, Gait Normal ( ambulatory with stable gait), Other (no neurological deficits) Skin: Present: Warm, Dry, Normal Color. No: Rashes Psychiatric: Present: Alert, Oriented x 3 Medical Decision Making ED Course and Treatment: 11/07/17 19:19 Impression: 56 year old male with sharp left-sided chest pain. No acute findings on physical examination. Plan: -- Labs -- Reassess and disposition Prior Visits: Notes and results from previous visits were reviewed. Patient was last seen in the emergency department on 10/29/2017 for intermittent chest tightness. Patient was admitted. Progress Notes: - Lab Interpretations Narrative Lab Interpretation (Text): 11/07/17 20:34 Non-cardiac chest pain. Patient is awake ambulatory and stable. Says he has had a recent stress test and was told his heart is fine. Lab Results: 11/07/17 19:20 11/07/17 19:20 Lab Results 11/07/17 19:20: Alcohol, Quantitative 279 H 11/07/17 19:20: Sodium 141, Potassium 4.4, Chloride 100, Carbon Dioxide 29, Anion Gap 16, BUN 6 L, Creatinine 0.7 L, Est GFR ( Amer) > 60, Est GFR ( Non-Af Amer) > 60, Random Glucose 96, Calcium 9.4, Total Bilirubin 0.6, AST 81 H D, ALT 58 H, Alkaline Phosphatase 77, Troponin I < 0.01, Total Protein 8.2, Albumin 4.4, Globulin 3.8, Albumin/Globulin Ratio 1.2 11/07/17 19:20: WBC 5.4, RBC 4.10, Hgb 14.1, Hct 41.8 L, MCV 102.0, MCH 34.4, MCHC 33.7, RDW 13.6, Plt Count 163, MPV 11.6 H, Gran % 60.0, Lymph % (Auto) 24.6 , [place] % (Auto) 12.1 H, Eos % (Auto) 2.2, Baso % (Auto) 1.1, Gran # 3.26, Lymph # 1.3, [place] # 0.7 H, Eos # 0.1, Baso # 0.06 - Medication Orders Current Medication Orders: Discontinued Medications Al Hydrox/Mg Hydrox/Simethicone (Maalox Plus 30 Ml) 30 ml PO STAT STA Stop: 11/07/17 19:29 Last Admin: 11/07/17 19:49 Dose: 30 ml - Scribe Statement The provider has reviewed the documentation as recorded by the Willow Wesley Provider Scribe Attestation: All medical record entries made by the Rejiibsiria were at my direction and personally dictated by me. I have reviewed the chart and agree that the record accurately reflects my personal performance of the history, physical exam, medical decision making, and the department course for this patient. I have also personally directed, reviewed, and agree with the discharge instructions and disposition. Disposition/Present on Arrival - Present on Arrival Any Indicators Present on Arrival: No History of DVT/PE: No History of Uncontrolled Diabetes: No Urinary Catheter: No History of Decub. Ulcer: No History Surgical Site Infection Following: None - Disposition Have Diagnosis and Disposition been Completed?: Yes Diagnosis: Chest pain not due to acute coronary syndrome, Alcoholism /alcohol abuse Disposition: HOME/ ROUTINE Disposition Time: 20:45 Patient Plan: Discharge Condition: STABLE Discharge Instructions (ExitCare): Chest Pain (ED) Referrals: Clair Alvarez MD [Primary Care Provider] - Follow up with primary Forms: [employer] ([place]an)
[2017-11-07] MEDS ORDERED: Alum-Mag Hydrox-Simethicone Susp (30 mL) PO STA (19:28)
[2017-11-07 19:40] LABS: BASO # 0.06 K/mm3 (0.0-2.0); BASO % 1.1 % (0.0-3.0); EOS # 0.1 (0.0-0.7); EOS % 2.2 % (1.5-5.0); GRAN # 3.26 (1.4-6.5); HEMOGLOBIN 14.1 g/dL (14.0-18.0); LYMPH # 1.3 (1.2-3.4); LYMPH % 24.6 % (22.0-35.0); MEAN CORPUSCULAR HEMOGLOBIN 34.4 pg (25.0-35.0); MEAN CORPUSCULAR HGB CONC 33.7 g/dl (31.0-37.0); MEAN PLATELET VOLUME 11.6 fl (7.0-11.0); MONO # 0.7 (0.1-0.6); MONO % 12.1 % (1.0-6.0); RBC 4.1 10^6/uL (3.5-6.1); RED CELL DISTRIBUTION WIDTH 13.6 % (11.5-14.5); WHITE BLOOD COUNT 5.4 10^3/ul (4.5-11.0)
[2017-11-07 19:51] LABS: ALB/GLOB RATIO 1.2 (1.1-1.8); ALBUMIN 4.4 g/dL (3.0-4.8); ALT/SGPT 58 U/L (7-56); AST/SGOT 81 U/L (17-59); BLOOD UREA NITROGEN 6 mg/dL (7-21); CALCIUM 9.4 mg/dL (8.4-10.5); GFR AFRICAN-AMERICAN > 60; GFR NON-AFRICAN AMERICAN > 60
[2017-11-07 20:01] LABS: TROPONIN I < 0.01 ng/mL
[2017-11-07 20:43] VITALS: RESP 17; O2SAT 98
[2017-11-07 22:30] VITALS: BP 115/82; PULSE 86; TEMP 98
--- NOTE | 2017-11-11 07:22 | CARD ---
APPROVED REPORT EKG Measurement Heart [id number] <Conclusion> Normal sinus rhythm Minimal voltage criteria for LVH, may be normal variant Early repolarization
== END 2017-11-07 22:34 | disposition home or self-care (01) ==
LOC: ED 18:50
DX: R07.9 Chest pain, unspecified (principal); F10.20 Alcohol dependence, uncomplicated; I10 Essential (primary) hypertension; F17.210 Nicotine dependence, cigarettes, uncomplicated

== ENCOUNTER 2017-11-11 20:47 | Emergency (ER) | payer MEDICAID ==
[2017-11-11 20:48] VITALS: BMI 23.6
[2017-11-11 21:05] VITALS: BP 122/81; PULSE 75; RESP 18; TEMP 97.8; O2SAT 96
== END 2017-11-12 01:20 | disposition left against medical advice (07) ==
LOC: ED 20:47
DX: Z02.89 Encounter for other administrative examinations (principal); R10.9 Unspecified abdominal pain

== ENCOUNTER 2017-11-14 17:08 | Emergency (ER) | payer MEDICAID ==
[2017-11-14 17:08] VITALS: BMI 23.6
[2017-11-14 17:23] VITALS: TEMP 97.8
--- NOTE | 2017-11-14 17:34 | ED PDOC ---
Arrival/HPI - General Chief Complaint: Chest Pain Time Seen by Provider: 11/14/17 17:13 Historian: Patient - History of Present Illness Narrative History of Present Illness (Text): 11/14/17 17:27 A 56 year old male, whose past medical history includes alcohol abuse, intracranial hemorrhage, seizure disorder, esophageal varices, and hepatitis B, presents to the emergency department complaining of chst pain. Patient reports having cardiac catheter procedure performed 11/10, which showed 80% blockage of LCx. Patient also notes experiencing groin pain. No other complaints mentioned by patient. PMD: Dr. Alvarez Past Medical History - Provider Review Nursing Documentation Reviewed: Yes - Infectious Disease Hx of Infectious Diseases: None - Tetanus Immunization Tetanus Immunization: Unknown - Cardiac Hx Cardiac Disorders: Yes Hx Hypertension: Yes - Pulmonary Hx Respiratory Disorders: Yes Hx Asthma: Yes - Neurological Hx Neurological Disorder: Yes Hx Seizures: Yes Other/Comment: Intracranial Hemmorhage - HEENT Hx HEENT Disorder: No - Renal Hx Renal Disorder: No - Endocrine/Metabolic Hx Endocrine Disorders: No - Hematological/Oncological Hx Blood Disorders: Yes Hx Anemia: Yes Hx Hepatitis B: Yes (carrier) - Integumentary Hx Dermatological Disorder: No - Musculoskeletal/Rheumatological Hx Musculoskeletal Disorders: Yes Hx Arthritis: Yes Hx Falls: No Hx Fractures: Yes (jaw/ wrist) - Gastrointestinal Hx Gastrointestinal Disorders: Yes Other/Comment: GI Bleed - Genitourinary/Gynecological Hx Genitourinary Disorders: No - Psychiatric Hx Psychophysiologic Disorder: No Hx Substance Use: No - Past Surgical History Past Surgical History: No Previous - Surgical History Hx Cardiac Catheterization: Yes (4 days ago with stent) Hx Orthopedic Surgery: Yes Other/Comment: Tonsils removed - Anesthesia Hx Anesthesia: Yes Hx Anesthesia Reactions: No Hx Malignant Hyperthermia: No - Suicidal Assessment Feels Threatened In Home Enviroment: No Family/Social History - Physician Review Nursing Documentation Reviewed: Yes Family/Social History: No Known Family HX Smoking Status: Heavy Smoker > 10 Cigarettes Daily Hx Alcohol Use: Yes Hx Substance Use: No Hx Substance Use Treatment: No Allergies/Home Meds Allergies/Adverse Reactions: Allergies No Known Allergies Allergy (Verified 10/28/17 17:14) Home Medications: Home Meds Medication Instructions Recorded Confirmed Levetiracetam [Keppra] 750 mg PO DAILY 11/11/17 11/14/17 Montelukast [Singulair] 10 mg PO DAILY 11/11/17 11/14/17 Ranitidine HCl [Sunmark Acid 150 mg PO BID 11/11/17 11/14/17 Principal Account Clerk] Aspirin [Ecotrin] 81 mg PO DAILY 11/14/17 11/14/17 Atorvastatin [Lipitor] 40 mg PO DAILY 11/14/17 11/14/17 Clopidogrel [Plavix] 75 mg PO DAILY 11/14/17 11/14/17 Metoprolol Tartrate [Lopressor] 25 mg PO BID 11/14/17 11/14/17 Review of Systems - Physician Review All systems were reviewed & negative as marked: Yes - Review of Systems Cardiovascular: Chest Pain Genitourinary Male: Other (groin pain) Physical Exam Vital Signs Reviewed: Yes Vital Signs Temp Pulse Resp BP Pulse Ox 11/14/17 19:31 80 20 114/65 96 11/14/17 17:52 92 H 135/90 11/14/17 17:08 97.8 F 101 H 22 137/90 98 Temperature: Afebrile Blood Pressure: Normal Pulse: Regular Respiratory Rate: Normal Appearance: Positive for: Unkept, Other (smells of tobacco) Pain Distress: None Mental Status: Positive for: Alert and Oriented X 3 - Systems Exam Head: Present: Atraumatic, Normocephalic Pupils: Present: PERRL Extroacular Muscles: Present: EOMI Conjunctiva: Present: Normal Mouth: Present: Moist Mucous Membranes Neck: Present: Normal Range of Motion Respiratory/Chest: Present: Clear to Auscultation, Good Air Exchange. No: Respiratory Distress, Accessory Muscle Use Cardiovascular: Present: Regular Rate and Rhythm, Normal S1, S2. No: Murmurs Abdomen: Present: Normal Bowel Sounds. No: Tenderness, Distention, Peritoneal Signs Genitourinary Male: Present: Other (tender, swollen right groin) Back: Present: Normal Inspection Upper Extremity: Present: Normal Inspection. No: Cyanosis, Edema Lower Extremity: Present: Normal Inspection. No: Edema Neurological: Present: GCS=15, CN II-XII Intact, Speech Normal Skin: Present: Warm, Dry, Normal Color. No: Rashes Psychiatric: Present: Alert, Oriented x 3, Normal Insight, Normal Concentration Medical Decision Making ED Course and Treatment: 11/14/17 17:30 Impression: 56 year old male with chest pain and groin pain. Plan: -- Chest X-ray -- Lower Extremity Ultrasound -- Labs -- Aspirin -- Lopressor -- Nitrostat -- Zofran -- Oxycodone -- Reassess and disposition Prior Visits: Notes and results from previous visits were reviewed. Patient was last seen in the emergency department on 11/07/2017 for sharp chest pain. Patient was d/c home. Progress Notes: 11/14/2017 18:40 Lower Extremity Ultrasound IMPRESSION: 1. No sonographic evidence for pseudoaneurysm or AV fistula in the right groin. Dictator: Marc Elizabeth MD EKG: Ordered, reviewed, and independently interpreted the EKG. Rate : 89 BPM Rhythm : Sinus rhythm with occasional premature ventricular complexes. Interpretation : No ST-segment elevations or depressions, no T-wave inversions, normal intervals. Comparison : No previous EKG for comparison. - Lab Interpretations Lab Results: 11/14/17 17:50 11/14/17 17:50 Lab Results 11/14/17 20:05: Lactate Dehydrogenase Pending, Total Creatine Kinase Pending, Troponin I 0.03 D 11/14/17 17:50: Sodium 134, Potassium 4.1, Chloride 98, Carbon Dioxide 30, Anion Gap 10, BUN 7, Creatinine 0.7 L, Est GFR ( Amer) > 60, Est GFR (Non -Af Amer) > 60, Random Glucose 95, Calcium 9.1, Total Bilirubin 0.5, AST 63 H D , ALT 50, Alkaline Phosphatase 79, Lactate Dehydrogenase 555, Total Creatine Kinase 441 H, CK-MB (CK-2) 3.2, CK-MB (CK-2) % Cancelled, Troponin I 0.02 D, NT -Pro-B Natriuret Pep 81.9, Total Protein 7.5, Albumin 4.0, Globulin 3.5, Albumin /Globulin Ratio 1.2 11/14/17 17:50: PT 11.9, INR 1.04 11/14/17 17:50: WBC 5.6, RBC 3.67, Hgb 12.6 L, Hct 36.6 L, MCV 99.7, MCH 34.3, MCHC 34.4, RDW 12.9, Plt Count 139, MPV 12.4 H, Gran % 73.5 H, Lymph % (Auto) 11.9 L, [place] % (Auto) 12.8 H, Eos % (Auto) 1.1 L, Baso % (Auto) 0.7, Gran # 4.12 , Lymph # 0.7 L, [place] # 0.7 H, Eos # 0.1, Baso # 0.04 - RAD Interpretation Radiology Orders: 11/14/17 17:29 CHEST PORTABLE [RAD] Stat DUPLEX LOWER EXT ART RT LMTD [US] Stat - Medication Orders Current Medication Orders: Discontinued Medications Aspirin (Aspirin Chewable) 324 mg PO STAT STA Stop: 11/14/17 17:37 Last Admin: 11/14/17 17:49 Dose: 324 mg Metoprolol Tartrate (Lopressor) 25 mg PO STAT STA Stop: 11/14/17 17:37 Last Admin: 11/14/17 17:52 Dose: 25 mg [facility] Pulse and Blood Pressure Document 11/14/17 17:52 MS (Rec: 11/14/17 17:52 [place] [id number] Pulse Pulse Rate (60-90) 92 Blood Pressure Blood Pressure (100/60-150/90) 135/90 Nitroglycerin (Nitrostat Sl Tab) 0.4 mg SL STAT STA Stop: 11/14/17 17:37 Last Admin: 11/14/17 17:53 Dose: 0.4 mg Ondansetron HCl (Zofran Odt) 4 mg PO STAT STA Stop: 11/14/17 17:37 Last Admin: 11/14/17 17:51 Dose: 4 mg Oxycodone/Acetaminophen (Percocet 5/325 Mg Tab) 2 tab PO STAT STA Stop: 11/14/17 17:37 Last Admin: 11/14/17 17:51 Dose: 2 tab MAR Pain Assessment Document 11/14/17 17:51 MS (Rec: 11/14/17 17:52 MS [id number]) Pain Reassessment Is this a pain reassessment? No Sleep Is patient sleeping during reassessment? No Presence of Pain Presence of Pain Yes Pain Scale Used Pain Scale Used Numeric Location Pain Location Body Site Chest Description Description Intermittent - PA / ESOL TEACHER / Resident Statement MD/DO has reviewed & agrees with the documentation as recorded. - Scribe Statement The provider has reviewed the documentation as recorded by the Willow Wesley Provider Scribe Attestation: All medical record entries made by the Scribe were at my direction and personally dictated by me. I have reviewed the chart and agree that the record accurately reflects my personal performance of the history, physical exam, medical decision making, and the department course for this patient. I have also personally directed, reviewed, and agree with the discharge instructions and disposition. Disposition/Present on Arrival - Present on Arrival Any Indicators Present on Arrival: No History of DVT/PE: No History of Uncontrolled Diabetes: No Urinary Catheter: No History of Decub. Ulcer: No History Surgical Site Infection Following: None - Disposition Have Diagnosis and Disposition been Completed?: Yes Diagnosis: Atypical chest pain, Coronary artery disease, Hematoma of groin Disposition: HOME/ ROUTINE Disposition Time: 20:51 Patient Plan: Discharge Condition: GOOD Discharge Instructions (ExitCare): Chest Pain (ED), Hematoma (ED) Additional Instructions: Mr Contreras- So sorry that you are not feeling well. You just have a hematoma in your groin. Your EKG's and CXR as well as blood work are normal Follow up with your docotor next week. Return to us if worse. Koby- Dr. Juan Smith Forms: [employer] (Bahamian)
[2017-11-14] MEDS ORDERED: Oxycodone/Acetaminophen 5/325 mg Tab PO STA (17:36)
[2017-11-14 17:59] LABS: BASO # 0.04 K/mm3 (0.0-2.0); BASO % 0.7 % (0.0-3.0); EOS # 0.1 (0.0-0.7); EOS % 1.1 % (1.5-5.0); GRAN # 4.12 (1.4-6.5); GRAN % 73.5 % (50.0-68.0); HEMOGLOBIN 12.6 g/dL (14.0-18.0); LYMPH # 0.7 (1.2-3.4); LYMPH % 11.9 % (22.0-35.0); MEAN CELL VOLUME 99.7 fl (80.0-105.0); MEAN CORPUSCULAR HEMOGLOBIN 34.3 pg (25.0-35.0); MEAN CORPUSCULAR HGB CONC 34.4 g/dl (31.0-37.0); MEAN PLATELET VOLUME 12.4 fl (7.0-11.0); MONO # 0.7 (0.1-0.6); MONO % 12.8 % (1.0-6.0); RBC 3.67 10^6/uL (3.5-6.1); RED CELL DISTRIBUTION WIDTH 12.9 % (11.5-14.5); WHITE BLOOD COUNT 5.6 10^3/ul (4.5-11.0)
[2017-11-14 18:04] LABS: INR 1.04 (0.93-1.08); PROTHROMBIN TIME 11.9 SECONDS (9.4-12.5)
[2017-11-14 18:18] LABS: B-TYPE NATRIURETIC PEPTIDE 81.9 pg/mL (0-450); TROPONIN I 0.02 ng/mL
--- NOTE | 2017-11-14 18:42 | US ---
PROCEDURE: Duplex arterial ultrasound of the right groin. HISTORY: Recent cardiac catheterization. Pain and pulsatile mass in the right groin. Evaluate for pseudoaneurysm or fistula. PHYSICIAN(S): Marc Elizabeth MD. FINDINGS: The exam is limited by edema and hematoma. No sonographic evidence of pseudoaneurysm or AV fistula seen. Limited imaging of the right common femoral artery and vein are patent and normal. IMPRESSION: 1. No sonographic evidence for pseudoaneurysm or AV fistula in the right groin.
[2017-11-14 18:43] LABS: ALB/GLOB RATIO 1.2 (1.1-1.8); ALT/SGPT 50 U/L (7-56); AST/SGOT 63 U/L (17-59); BLOOD UREA NITROGEN 7 mg/dL (7-21); CALCIUM 9.1 mg/dL (8.4-10.5); GFR AFRICAN-AMERICAN > 60; GFR NON-AFRICAN AMERICAN > 60
[2017-11-14 18:45] LABS: CK-MB 3.2 ng/mL (0.0-3.6)
[2017-11-14 19:31] VITALS: BP 114/65; PULSE 80; RESP 20; O2SAT 96
[2017-11-14 20:43] LABS: TROPONIN I 0.03 ng/mL
--- NOTE | 2017-11-15 08:24 | RAD ---
HISTORY: Chest pain COMPARISON: 10/30/2017. FINDINGS: LUNGS: The lungs are well inflated and clear. PLEURA: No significant pleural effusion identified, no pneumothorax apparent. CARDIOVASCULAR: Normal. OSSEOUS STRUCTURES: No significant abnormalities. VISUALIZED UPPER ABDOMEN: Normal. OTHER FINDINGS: None. IMPRESSION: No active pulmonary disease.
--- NOTE | 2017-11-15 16:05 | CARD ---
APPROVED REPORT EKG Measurement Heart [id number] <Conclusion> Sinus rhythm with occasional premature ventricular complexes Otherwise normal ECG
== END 2017-11-14 21:18 | disposition home or self-care (01) ==
LOC: ED 17:08
DX: I25.10 Atherosclerotic heart disease of native coronary artery without angina pectoris (principal); R07.89 Other chest pain; S30.1XXA Contusion of abdominal wall, initial encounter; X58.XXXA Exposure to other specified factors, initial encounter; Y92.9 Unspecified place or not applicable; I10 Essential (primary) hypertension; F17.210 Nicotine dependence, cigarettes, uncomplicated

== ENCOUNTER 2017-11-14 23:43 | Emergency (ER) | payer MEDICAID ==
[2017-11-14 23:44] VITALS: BMI 23.6
[2017-11-15 00:59] VITALS: BP 124/76; PULSE 72; RESP 18; O2SAT 98
--- NOTE | 2017-11-15 01:26 | ED PDOC ---
Arrival/HPI - General Chief Complaint: Chest Pain Time Seen by Provider: 11/14/17 23:45 Historian: Patient - History of Present Illness Narrative History of Present Illness (Text): 11/14/17 23:45 56 year old male, whose past medical history includes alcohol abuse, intracranial hemorrhage, seizure disorder, esophageal varices, and hepatitis B, presents to the Emergency department complaining of chest pain for the past several days. Patient has no other complaints. Patient was seen in the [facility] ER several hours ago for the same complaint. A complete work up was done as well as a Troponin x2 with negative results. Patient denies any fevers, chills, shortness of breath, abdominal pain, nausea, vomiting, diarrhea, back pain, neck pain, urinary/bowel changes, headache, dizziness, or any other complaint. PMD: Dr. Alvarez Time/Duration: Other (several days) Symptom Course: Unchanged Activities at Onset: Light Context: Home Past Medical History - Provider Review Nursing Documentation Reviewed: Yes - Infectious Disease Hx of Infectious Diseases: None - Tetanus Immunization Tetanus Immunization: Unknown - Cardiac Hx Cardiac Disorders: Yes Hx Hypertension: Yes - Pulmonary Hx Respiratory Disorders: Yes Hx Asthma: Yes - Neurological Hx Neurological Disorder: Yes Hx Seizures: Yes Other/Comment: Intracranial Hemmorhage - HEENT Hx HEENT Disorder: No - Renal Hx Renal Disorder: No - Endocrine/Metabolic Hx Endocrine Disorders: No - Hematological/Oncological Hx Blood Disorders: Yes Hx Anemia: Yes Hx Hepatitis B: Yes (carrier) - Integumentary Hx Dermatological Disorder: No - Musculoskeletal/Rheumatological Hx Musculoskeletal Disorders: Yes Hx Arthritis: Yes Hx Falls: No Hx Fractures: Yes (jaw/ wrist) - Gastrointestinal Hx Gastrointestinal Disorders: Yes Other/Comment: GI Bleed - Genitourinary/Gynecological Hx Genitourinary Disorders: No - Psychiatric Hx Psychophysiologic Disorder: No Hx Substance Use: No - Past Surgical History Past Surgical History: No Previous - Surgical History Hx Cardiac Catheterization: Yes (4 days ago with stent) Hx Orthopedic Surgery: Yes Other/Comment: Tonsils removed - Anesthesia Hx Anesthesia: Yes Hx Anesthesia Reactions: No Hx Malignant Hyperthermia: No - Suicidal Assessment Feels Threatened In Home Enviroment: No Family/Social History - Physician Review Nursing Documentation Reviewed: Yes Family/Social History: No Known Family HX Smoking Status: Heavy Smoker > 10 Cigarettes Daily Hx Alcohol Use: Yes Hx Substance Use: No Hx Substance Use Treatment: No Allergies/Home Meds Allergies/Adverse Reactions: Allergies No Known Allergies Allergy (Verified 10/28/17 17:14) Home Medications: Home Meds Medication Instructions Recorded Confirmed Levetiracetam [Keppra] 750 mg PO DAILY 11/11/17 11/15/17 Montelukast [Singulair] 10 mg PO DAILY 11/11/17 11/15/17 Ranitidine HCl [Sunmark Acid 150 mg PO BID 11/11/17 11/15/17 Facility Practice Specialist] Aspirin [Ecotrin] 81 mg PO DAILY 11/14/17 11/15/17 Atorvastatin [Lipitor] 40 mg PO DAILY 11/14/17 11/15/17 Clopidogrel [Plavix] 75 mg PO DAILY 11/14/17 11/15/17 Metoprolol Tartrate [Lopressor] 25 mg PO BID 11/14/17 11/15/17 Review of Systems - Physician Review All systems were reviewed & negative as marked: Yes - Review of Systems Constitutional: absent: Fevers, Other Respiratory: absent: SOB Cardiovascular: Chest Pain Gastrointestinal: absent: Abdominal Pain, Diarrhea, Nausea, Vomiting Genitourinary Male: absent: Dysuria, Frequency, Hematuria Musculoskeletal: absent: Back Pain, Neck Pain Neurological: absent: Headache, Dizziness Physical Exam Vital Signs Reviewed: Yes Vital Signs Pulse Resp BP Pulse Ox 11/15/17 00:58 72 18 124/76 98 11/15/17 00:26 72 Blood Pressure: Normal Pulse: Regular Respiratory Rate: Normal Appearance: Positive for: Well-Appearing, Non-Toxic, Comfortable Pain Distress: None Mental Status: Positive for: Alert and Oriented X 3 - Systems Exam Head: Present: Atraumatic, Normocephalic Pupils: Present: PERRL Extroacular Muscles: Present: EOMI Conjunctiva: Present: Normal Mouth: Present: Moist Mucous Membranes Neck: Present: Normal Range of Motion Respiratory/Chest: Present: Clear to Auscultation, Good Air Exchange. No: Respiratory Distress, Accessory Muscle Use Cardiovascular: Present: Regular Rate and Rhythm, Normal S1, S2. No: Murmurs Abdomen: Present: Normal Bowel Sounds. No: Tenderness, Distention, Peritoneal Signs Back: Present: Normal Inspection Upper Extremity: Present: Normal Inspection, Other (Multiple hospital bandages on wrist. ). No: Cyanosis, Edema Lower Extremity: Present: Normal Inspection. No: Edema Neurological: Present: GCS=15, CN II-XII Intact, Speech Normal Skin: Present: Warm, Dry, Normal Color. No: Rashes Psychiatric: Present: Alert, Oriented x 3, Normal Insight, Normal Concentration Medical Decision Making ED Course and Treatment: 11/14/17 23:56 Impression: 56 year old male presents complaining of chest pain that began several days ago. Patient was recently seen a few hours with a full work up done. Plan: -- EKG -- Reassess and disposition Prior Visits: Notes and results from previous visits were reviewed. Patient was last seen in the emergency department on 11/14/17 presents complaining of chest pain. Patient was discharged. Progress Notes: Patient states he was here couple days ago and [place] [facility] [place]. Records do not show this. EKG shows NSR at 72 BPM. Interpreted by me. - EKG Interpretation Interpreted by ED Physician: Yes Type: 12 lead EKG - Scribe Statement The provider has reviewed the documentation as recorded by the Rejiibsiria Duron Provider Scribe Attestation: All medical record entries made by the Scribe were at my direction and personally dictated by me. I have reviewed the chart and agree that the record accurately reflects my personal performance of the history, physical exam, medical decision making, and the department course for this patient. I have also personally directed, reviewed, and agree with the discharge instructions and disposition. Disposition/Present on Arrival - Present on Arrival Any Indicators Present on Arrival: No History of DVT/PE: No History of Uncontrolled Diabetes: No Urinary Catheter: No History of Decub. Ulcer: No History Surgical Site Infection Following: None - Disposition Have Diagnosis and Disposition been Completed?: Yes Diagnosis: Non-cardiac chest pain Disposition: HOME/ ROUTINE Disposition Time: 00:45 Condition: STABLE Discharge Instructions (ExitCare): Chest Pain (ED) Additional Instructions: Thank you for letting us take care of you today. The emergency medical care you received today was directed at your acute symptoms. If you were prescribed any medication, please fill it and take as directed. It may take several days for your symptoms to resolve. Return to the Emergency Department if your symptoms worsen, do not improve, or if you have any other problems. Please contact your doctor or call one of the physicians/clinics you have been referred to that are listed on the Patient Visit Information form that is included in your discharge packet. Bring any paperwork you were given at discharge with you along with any medications you are taking to your follow up visit. Our treatment cannot replace ongoing medical care by a primary care provider (PCP) outside of the emergency department. Thank you for allowing the [facility] team to be part of your care today. Follow up with your primary doctor and your cartographic drafter in 2-3 days for re- evaluation and further management. Referrals: Clair Alvarez MD [Primary Care Provider] - Follow up with primary Forms: [employer] (Azeri)
--- NOTE | 2017-11-15 15:57 | CARD ---
APPROVED REPORT EKG Measurement Heart [id number] <Conclusion> Normal sinus rhythm Possible Left atrial enlargement ST elevation, Early repolarization vs pericarditis vs injury Borderline ECG
== END 2017-11-15 01:30 | disposition home or self-care (01) ==
LOC: ED 23:43
DX: R07.89 Other chest pain (principal); I10 Essential (primary) hypertension; F17.210 Nicotine dependence, cigarettes, uncomplicated

== ENCOUNTER 2017-11-16 20:53 | Observation (INO) | payer MEDICAID ==
[2017-11-16 20:56] VITALS: BMI 22.9
[2017-11-16] MEDS ORDERED: Nitroglycerin 2% Ointment Foilpak UD TOP STA (21:19)
--- NOTE | 2017-11-16 21:25 | ED PDOC ---
Arrival/HPI - General Chief Complaint: Chest Pain Time Seen by Provider: 11/16/17 20:57 Historian: Patient - History of Present Illness Narrative History of Present Illness (Text): 11/16/17 21:22 pt p/w + substernal/left sided chest pain since he was discharged from the hospital recently; pt states pain today was severe and worse with + lightheadedness/weakness/dizziness, + sob, + diaphoresis, + nausea, no vomiting ; pt states this pain felt worse than before; pt denied LOC, no fever/chills, no palpitations, no abd pain, no numbness/tingling, no urinary/bowel changes, no fall/trauma/sick contact, 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 pt states he drank some alcohol prior to ED arrival Time/Duration: Prior to Arrival Symptom Onset: Gradual Symptom Course: Worsening Quality: Tightness, Stabbing Severity Level: 8, Severe Activities at Onset: Other (walking) Context: Walking Past Medical History - Provider Review Nursing Documentation Reviewed: Yes - Travel History Have you recently traveled outside [place] w/in the past 3 mons?: No - Past History Past History: No Previous - Infectious Disease Hx of Infectious Diseases: None - Tetanus Immunization Tetanus Immunization: Unknown - Cardiac Hx Cardiac Disorders: Yes Hx Hypertension: Yes - Pulmonary Hx Respiratory Disorders: Yes Hx Asthma: Yes - Neurological Hx Neurological Disorder: Yes Hx Seizures: Yes Other/Comment: Intracranial Hemmorhage - HEENT Hx HEENT Disorder: No - Renal Hx Renal Disorder: No - Endocrine/Metabolic Hx Endocrine Disorders: No - Hematological/Oncological Hx Blood Disorders: Yes Hx Anemia: Yes Hx Hepatitis B: Yes (carrier) - Integumentary Hx Dermatological Disorder: No - Musculoskeletal/Rheumatological Hx Musculoskeletal Disorders: Yes Hx Arthritis: Yes Hx Falls: No Hx Fractures: Yes (jaw/ wrist) - Gastrointestinal Hx Gastrointestinal Disorders: Yes Other/Comment: GI Bleed - Genitourinary/Gynecological Hx Genitourinary Disorders: No - Psychiatric Hx Psychophysiologic Disorder: No Hx Substance Use: No - Past Surgical History Past Surgical History: No Previous - Surgical History Hx Cardiac Catheterization: Yes (4 days ago with stent) Hx Orthopedic Surgery: Yes Hx Tonsillectomy: Yes - Anesthesia Hx Anesthesia: Yes Hx Anesthesia Reactions: No Hx Malignant Hyperthermia: No - Suicidal Assessment Feels Threatened In Home Enviroment: No Family/Social History - Physician Review Nursing Documentation Reviewed: Yes Family/Social History: No Known Family HX Smoking Status: Heavy Smoker > 10 Cigarettes Daily Hx Alcohol Use: Yes (heavy drinker) Hx Substance Use: No Hx Substance Use Treatment: No Allergies/Home Meds Allergies/Adverse Reactions: Allergies No Known Allergies Allergy (Verified 10/28/17 17:14) Home Medications: Home Meds Medication Instructions Recorded Confirmed Levetiracetam [Keppra] 750 mg PO DAILY 11/11/17 11/16/17 Montelukast [Singulair] 10 mg PO DAILY 11/11/17 11/16/17 Ranitidine HCl [Sunmark Acid 150 mg PO BID 11/11/17 11/16/17 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] Aspirin [Ecotrin] 81 mg PO DAILY 11/14/17 11/16/17 Atorvastatin [Lipitor] 40 mg PO DAILY 11/14/17 11/16/17 Clopidogrel [Plavix] 75 mg PO DAILY 11/14/17 11/16/17 Metoprolol Tartrate [Lopressor] 25 mg PO BID 11/14/17 11/16/17 Review of Systems - Review of Systems Constitutional: Fatigue Eyes: Normal ENT: Normal Respiratory: SOB Cardiovascular: Chest Pain Gastrointestinal: Normal Genitourinary Male: Normal Musculoskeletal: Normal Skin: Normal Neurological: Dizziness Endocrine: Diaphoresis Hemo/Lymphatic: Normal Psychiatric: Normal Physical Exam Vital Signs Reviewed: Yes Vital Signs Temp Pulse Resp BP Pulse Ox 11/16/17 23:06 88 18 120/75 98 11/16/17 21:11 98.1 F 83 18 134/86 99 Temperature: Afebrile Blood Pressure: Normal Pulse: Regular Respiratory Rate: Normal Appearance: Positive for: Well-Appearing, Other (mildly uncomfortable, resting in bed, alert/awake, GCS = 15, oriented x 3, + mild ETOH noted on breath, cooperative, follows commands with ease) Pain Distress: None Mental Status: Positive for: Alert and Oriented X 3 - Systems Exam Head: Present: Atraumatic, Normocephalic Pupils: Present: PERRL, Other (no photophobia, sclera anicteric) Extroacular Muscles: Present: EOMI Conjunctiva: Present: Normal Ears: Present: Normal Mouth: Present: Other (fair dentitions, no drooling/stridor, no exudate/lesions , uvula/tongue are midline) Pharnyx: Present: Normal Nose (External): Present: Atraumatic Nose (Internal): Present: Normal Inspection Neck: Present: Normal Range of Motion, Trachea Midline. No: MIDLINE TENDERNESS Respiratory/Chest: Present: Clear to Auscultation, Good Air Exchange, Tender to Palpation (noted to left chest wall region, no crepitus), Other (CTA b/l, no w/r /r, no accessory muscle use noted, no tachypenia) Cardiovascular: Present: Regular Rate and Rhythm, Normal S1, S2. No: Murmurs Abdomen: Present: Normal Bowel Sounds, Other (well nourished male, no focal tenderness, no masses/rebound/guarding/rigidity, no kaye's sign, no mcburney' s point tenderness) Back: Present: Normal Inspection Upper Extremity: Present: Normal Inspection, Normal ROM, NORMAL PULSES, Neurovascularly Intact, Capillary Refill < 2s Lower Extremity: Present: Normal Inspection, NORMAL PULSES, Neurovascularly Intact Neurological: Present: GCS=15, CN II-XII Intact, Speech Normal Skin: Present: Warm, Normal Color Psychiatric: Present: Alert Medical Decision Making ED Course and Treatment: 11/16/17 21:24 Impression: chest pain - atypical vs ACS i have consider all the differential diagnosis regarding pt's chief medical complaints/clinical findings, including but are not limited to: chest pain A/P: chest pain - labs - iv - xray - ekg - acs eval - observe - supportive care 11/16/17 22:21 pt currently with intermittent chest pain I spoke to Dr Alvarez, pt's PCP, and would like patient admitted to hospitalists 22:[address] NELSON, he would like to see patient prior to admission Dr nelson is currently at bedside 11/16/17 23:20 Dr nelson states he does not see a reason to admit the patient, i told him i disagree due to pt's moderate-high risk factor for ACS; Dr nelson express disagreement, Dr nelson can discharge patient if he feels patient can be discharged home 11/16/17 23:22 pt is made aware of his medical results pt is in agreement with my recommendation for admission/observation Re-evaluation Time: 23:13 Reassessment Condition: Unchanged - Lab Interpretations Lab Results: 11/16/17 22:00 Lab Results 11/16/17 22:00: Alcohol, Quantitative 237 H 11/16/17 22:00: Urine Opiates Screen Negative, Urine Methadone Screen Negative, Ur Barbiturates Screen Negative, Ur Phencyclidine Scrn Negative, Ur Amphetamines Screen Negative, U Benzodiazepines Scrn Negative, U Oth Cocaine Metabols Negative, U Cannabinoids Screen Negative 11/16/17 22:00: Sodium 140, Potassium 4.2, Chloride 100, Carbon Dioxide 28, Anion Gap 16, BUN 8, Creatinine 0.7 L, Est GFR ( Amer) > 60, Est GFR (Non -Af Amer) > 60, Random Glucose 76, Calcium 9.6, Magnesium 1.8, Total Bilirubin 0.6, AST 65 H, ALT 60 H, Alkaline Phosphatase 77, Lactate Dehydrogenase 565, Total Creatine Kinase 200, Troponin I 0.01 D, NT-Pro-B Natriuret Pep 218, Total Protein 7.6, Albumin 4.0, Globulin 3.5, Albumin/Globulin Ratio 1.1 I have reviewed the lab results: Yes Interpretation: Abnormal lab values (+ ETOH) - RAD Interpretation Narrative RAD Interpretations (Text): 11/16/17 23:16 CXR - hyperinflation no widen mediastinum Radiology Orders: 11/16/17 21:19 CHEST PORTABLE [RAD] Stat Metal Tile Lather: ED Physician - EKG Interpretation EKG Interpretation (Text): 11/16/17 21:25 NSR at 85 bpm, normal axis, no ectopy, diffuse faint ST elevation are noted, abnl EKG; unchanged compare with old ekg 10/2017 Interpreted by ED Physician: Yes Type: 12 lead EKG Comparison: Similar to previous EKG - Medication Orders Current Medication Orders: Discontinued Medications Aspirin (Aspirin) 325 mg PO STAT STA Stop: 11/16/17 21:20 Last Admin: 11/16/17 22:13 Dose: 325 mg Nitroglycerin (Nitro-Bid 2% Oint) 1 ea TOP STAT STA Stop: 11/16/17 21:20 Last Admin: 11/16/17 22:13 Dose: 1 ea Disposition/Present on Arrival - Present on Arrival Any Indicators Present on Arrival: No History of DVT/PE: No History of Uncontrolled Diabetes: No Urinary Catheter: No History of Decub. Ulcer: No History Surgical Site Infection Following: None - Disposition Have Diagnosis and Disposition been Completed?: Yes Diagnosis: Chest pain with moderate risk for cardiac etiology, Alcohol intoxication Disposition: HOSPITALIZED Disposition Time: 23:19 Patient Plan: Observation Patient Problems: Current Active Problems Problem Status Onset Chest pain with moderate risk for cardiac etiology Acute Condition: STABLE Discharge Instructions (ExitCare): Chest Pain (ED) Forms: [employer] (Pashto)
[2017-11-16 22:29] LABS: ALB/GLOB RATIO 1.1 (1.1-1.8); ALT/SGPT 60 U/L (7-56); AST/SGOT 65 U/L (17-59); BLOOD UREA NITROGEN 8 mg/dL (7-21); CALCIUM 9.6 mg/dL (8.4-10.5); GFR AFRICAN-AMERICAN > 60; GFR NON-AFRICAN AMERICAN > 60; MAGNESIUM 1.8 mg/dL (1.7-2.2)
[2017-11-16 22:38] LABS: BARBITURATES, UR NEGATIVE (NEGATIVE); BENZODIAZEPINES, UR NEGATIVE (NEGATIVE); OPIATES, UR NEGATIVE (NEGATIVE); PHENCYCLIDINE, UR NEGATIVE (NEGATIVE)
[2017-11-16 22:43] LABS: BASO # 0.05 K/mm3 (0.0-2.0); BASO % 0.8 % (0.0-3.0); EOS # 0.1 (0.0-0.7); EOS % 1.3 % (1.5-5.0); GRAN # 3.78 (1.4-6.5); GRAN % 59.1 % (50.0-68.0); HEMOGLOBIN 12.5 g/dL (14.0-18.0); LYMPH # 1.7 (1.2-3.4); LYMPH % 26.1 % (22.0-35.0); MEAN CELL VOLUME 101.6 fl (80.0-105.0); MEAN CORPUSCULAR HEMOGLOBIN 33.2 pg (25.0-35.0); MEAN CORPUSCULAR HGB CONC 32.7 g/dl (31.0-37.0); MEAN PLATELET VOLUME 12.8 fl (7.0-11.0); MONO # 0.8 (0.1-0.6); MONO % 12.7 % (1.0-6.0); RBC 3.76 10^6/uL (3.5-6.1); RED CELL DISTRIBUTION WIDTH 13.3 % (11.5-14.5); WHITE BLOOD COUNT 6.4 10^3/ul (4.5-11.0)
[2017-11-16 22:47] LABS: B-TYPE NATRIURETIC PEPTIDE 218 pg/mL (0-450); TROPONIN I 0.01 ng/mL
[2017-11-16 23:02] LABS: URINE BILIRUBIN NEGATIVE (NEGATIVE); URINE BLOOD NEGATIVE (NEGATIVE); URINE GLUCOSE (UA) NEGATIVE (NEGATIVE); URINE LEUKOCYTE ESTERASE NEGATIVE Leu/uL (NEGATIVE); URINE NITRATE NEGATIVE (NEGATIVE); URINE PROTEIN NEGATIVE mg/dL (<30 mg/dL); URINE UROBILINOGEN 0.2 E.U./dL (<1 E.U./dL)
[2017-11-16 23:10] LABS: URINE APPEARANCE CLEAR (CLEAR); URINE COLOR YELLOW (YELLOW)
[2017-11-16] MEDS ORDERED: Multivitamin (MVI) 10 ML, Thiamine 100 MG, Folic Acid 1 MG in Sodium Chloride 0.9% 1,00... IV ONE (23:49)
--- NOTE | 2017-11-16 23:55 | CP.PCM.HP ---
<Bladimir Hendrickson - Last Filed: 11/17/17 00:06> History of Present Illness - History of Present Illness History of Present Illness: 56 year old male whose past medical history includes ETOH abuse, history of variceal bleed, portal hypertension, hepatitis B, intracranial hemorrhage, seizure disorder who presents to the Emergency department complaining of localized left sided chest pain which is reproducible on palpation. He states he was walking on [place] around 5 pm in the afternoon when he felt a stabbing sensation in the left side of his chest which did not radiate, and was a 6/10 for pain severity. He says he has felt similar symptoms before. He stated the pain is now currently reduced and feels more like a dull pain. He did not take anything to alleviate the pain and he had no additional symptoms such as shortness of breath, nausea, vomiting, excessive sweating, dizziness. PMD: Dr. Alvarez PMH: Alcohol abuse/withdrawal, history of esophageal variceal bleed, portal hypertension, hepatitis B, intracranial hemorrhage, and seizure disorder PSH: tonsillectomy, jaw repair Family History: Adopted; unknown to patient Social History: admits to smoking 10 cigarettes a day for past 20 years , chronic alcohol use (2 beers a day), and denies illicit drug use Allergies: NKDA Home Medications: As per MAR Present on Admission - Present on Admission Any Indicators Present on Admission: No Review of Systems - Constitutional Constitutional: absent: Chills, Excessive Sweating, Fever, Headache - EENT Eyes: absent: Blurred Vision, Change in Vision Ears: absent: Dizziness Nose/Mouth/Throat: absent: Nasal Congestion - Cardiovascular Cardiovascular: Chest Pain. absent: Dyspnea - Respiratory Respiratory: absent: Cough, Dyspnea - Gastrointestinal Gastrointestinal: absent: Abdominal Pain, Nausea, Vomiting - Genitourinary Genitourinary: absent: Difficulty Urinating - Musculoskeletal Additional comments: Pain on oeft side of chest, increases with palpation - Neurological Neurological: absent: Dizziness, Loss of Vision, Paresthesias, Tingling, Vertigo , Weakness Past Patient History - Infectious Disease Hx of Infectious Diseases: None - Tetanus Immunizations Tetanus Immunization: Unknown - Past Social History Smoking Status: Heavy Smoker > 10 Cigarettes Daily - CARDIAC Hx Cardiac Disorders: Yes Hx Hypertension: Yes - PULMONARY Hx Respiratory Disorders: Yes Hx Asthma: Yes - NEUROLOGICAL Hx Neurological Disorder: Yes Hx Seizures: Yes Other/Comment: Intracranial Hemmorhage - HEENT Hx HEENT Problems: No - RENAL Hx Chronic Kidney Disease: No - ENDOCRINE/METABOLIC Hx Endocrine Disorders: No - HEMATOLOGICAL/ONCOLOGICAL Hx Blood Disorders: Yes Hx Anemia: Yes Hx Hepatitis B: Yes (carrier) - INTEGUMENTARY Hx Dermatological Problems: No - MUSCULOSKELETAL/RHEUMATOLOGICAL Hx Musculoskeletal Disorders: Yes Hx Arthritis: Yes Hx Falls: No Hx Fractures: Yes (jaw/ wrist) - GASTROINTESTINAL Hx Gastrointestinal Disorders: Yes Other/Comment: GI Bleed - GENITOURINARY/GYNECOLOGICAL Hx Genitourinary Disorders: No - PSYCHIATRIC Hx Psychophysiologic Disorder: No Hx Substance Use: No - SURGICAL HISTORY Hx Cardiac Catheterization: Yes (4 days ago with stent) Hx Orthopedic Surgery: Yes Hx Tonsillectomy: Yes - ANESTHESIA Hx Anesthesia: Yes Hx Anesthesia Reactions: No Hx Malignant Hyperthermia: No Meds Allergies/Adverse Reactions: Allergies Allergy/AdvReac Type Severity Reaction Status Date / Time No Known Allergies Allergy Verified 10/28/17 17:14 Physical Exam - Constitutional Appears: Non-toxic, No Acute Distress, Unkempt - Head Exam Head Exam: ATRAUMATIC, NORMAL INSPECTION - Eye Exam Eye Exam: Normal appearance - ENT Exam ENT Exam: Mucous Membranes Moist - Neck Exam Neck exam: Negative for: Lymphadenopathy - Respiratory Exam Respiratory Exam: Clear to Auscultation Bilateral, NORMAL BREATHING PATTERN - Cardiovascular Exam Cardiovascular Exam: REGULAR RHYTHM - GI/Abdominal Exam GI & Abdominal Exam: Soft. absent: Tenderness - Extremities Exam Extremities exam: Negative for: normal inspection - Neurological Exam Neurological exam: Alert, Oriented x3 - Additional Findings Additional findings: Chest pain reproiducible when palpated with digit Results - Vital Signs Recent Vital Signs: Last Vital Signs Temp 98.1 F 11/16/17 21:11 Pulse 88 11/16/17 23:06 Resp 18 11/16/17 23:06 BP 120/75 11/16/17 23:06 Pulse Ox 98 11/16/17 23:06 - Labs Result Diagrams: 11/16/17 22:00 11/16/17 22:00 Assessment & Plan - Assessment and Plan (Free Text) Assessment: 56 year old male whose past medical history includes ETOH abuse, history of variceal bleed, portal hypertension, hepatitis B, intracranial hemorrhage, seizure disorder who presents to the Emergency department complaining of localized left sided chest pain which is reproducible on palpation. Plan: 1. Chest Pain-likely muscoskeletal, rule out ACS -Chest X-Ray pending official read -EKG showing NSR, no changes from prior EKG -Initial troponin negative with two serial troponins Q6H pending -ASA 325mg PO STAT given in ED -AM EKG -Heart Healthy Diet -Nitroglycerine patch given in ED -continue home metoprolol -Aspirin 81mg -pain was reproducible when palpated -Motrin PRN 2. History of Alcohol Abuse -alcohol level 237 -Banana bag -CIWA protocol -Ativan PRN -Fall and Seizure precautions -monitor for signs of withdrawal -Magnesium and Phosphate levels pending 3. Seizure disorder-Chronic -continue Keppra 4. Groin Discomfort -CT without contrast pending GI/DVT Prophylaxis -Protonix -SCD <Enzo Ruiz Q - Last Filed: 11/17/17 00:26> Results - Vital Signs Recent Vital Signs: Last Vital Signs Temp 98.1 F 11/16/17 21:11 Pulse 88 11/16/17 23:06 Resp 18 11/16/17 23:06 BP 120/75 11/16/17 23:06 Pulse Ox 98 11/16/17 23:06 - Labs Result Diagrams: 11/16/17 22:00 11/16/17 22:00 Attending/Attestation - Attestation I have personally seen and examined this patient.: Yes I have fully participated in the care of the patient.: Yes I have reviewed all pertinent clinical information: Yes Notes (Text): 11/17/17 00:24 56 y/o male with a PMHx Alcoholism, Seizure disorder, Hep B, Esophageal varices , Htn presents to the ED the 7th time this month with the complaint of chest pain. Patient was admitted 2.5 weeks ago, ruled out for ACS, evaluated by cardiology and sent home with the diagnosis of musculoskeletal chest pain. He has had a stress test in 02/2017 which was negative. He has never mounted a positive troponin in the past 5 years. Initially the plan was to discharge him home, however the patient reports that he underwent a cardiac catheterization less than 1 week ago at [facility]. He reports increased pain to the groin site and there is slight ecchymoses and tenderness present. This was worked up by Dr. Hickman (ED Physician) 2 days prior with an ultrasound that did not reveal any large hematoma and he was sent home. The patient however is a poor historian and continuously changes his story stating that he did have a catheterization done with placement of 1 stent, however reports he was never given a card indicating the type of stent or location of said stent. He also reports worsening of his groin pain which needs to be evaluated further. I also believe the patient is malingering as he repeatedly changed his story and constantly asked for food during the history and physical. He will be placed on observation for a noncontrast CT of his right groin to evaluate for any possible growing hematoma that needs to be monitored, ruled out with serial markers and managed for his comorbidities. In reviewing his EKG there are no acute changes when comparing to previous EKG's from last year. It would be ideal to locate and secure the cardiac catherization records from [facility] to obtain some clarity on whether the patient actually did have a stent placed or if he is being untruthful. This could help avoid future unnecessary admissions if we can document that catheterization in his discharge summary. In all likelihood this chest pain may be musculoskeletal in nature as it was reproducible with point tenderness and he stated it worsens with inspiration.
[2017-11-17 04:37] LABS: BASO # 0.04 K/mm3 (0.0-2.0); EOS # 0.2 (0.0-0.7); EOS % 3.7 % (1.5-5.0); GRAN # 1.92 (1.4-6.5); GRAN % 46.8 % (50.0-68.0); HEMOGLOBIN 12.1 g/dL (14.0-18.0); LYMPH # 1.5 (1.2-3.4); LYMPH % 35.5 % (22.0-35.0); MEAN CELL VOLUME 100.8 fl (80.0-105.0); MEAN CORPUSCULAR HEMOGLOBIN 33.9 pg (25.0-35.0); MEAN CORPUSCULAR HGB CONC 33.6 g/dl (31.0-37.0); MEAN PLATELET VOLUME 11.8 fl (7.0-11.0); MONO # 0.5 (0.1-0.6); RBC 3.57 10^6/uL (3.5-6.1); RED CELL DISTRIBUTION WIDTH 13.2 % (11.5-14.5); WHITE BLOOD COUNT 4.1 10^3/ul (4.5-11.0)
[2017-11-17 04:52] LABS: ALB/GLOB RATIO 1.1 (1.1-1.8); ALBUMIN 3.6 g/dL (3.0-4.8); ALT/SGPT 55 U/L (7-56); AST/SGOT 53 U/L (17-59); BLOOD UREA NITROGEN 5 mg/dL (7-21); CALCIUM 9.5 mg/dL (8.4-10.5); GFR AFRICAN-AMERICAN > 60; GFR NON-AFRICAN AMERICAN > 60; MAGNESIUM 1.8 mg/dL (1.7-2.2)
[2017-11-17 05:01] LABS: TROPONIN I < 0.01 ng/mL
[2017-11-17] MEDS: Pantoprazole 40 mg EC Tab PO SCH (06:46)
--- NOTE | 2017-11-17 08:37 | RAD ---
HISTORY: chest pain COMPARISON: 11/14/2017. FINDINGS: LUNGS: The lungs are hyperinflated and there is peribronchial thickening with chronic changes in both lungs. No focal consolidation. PLEURA: No significant pleural effusion identified, no pneumothorax apparent. CARDIOVASCULAR: Normal. OSSEOUS STRUCTURES: No significant abnormalities. VISUALIZED UPPER ABDOMEN: Normal. OTHER FINDINGS: None. IMPRESSION: No active pulmonary disease. COPD.
--- NOTE | 2017-11-17 09:21 | CT ---
PROCEDURE: CT Abdomen and Pelvis without intravenous contrast HISTORY: groin pain ?hematoma COMPARISON: None. TECHNIQUE: Without. Contrast Dose: Radiation dose: Total exam DLP = 466 mGy-cm. This CT exam was performed using one or more of the following dose reduction techniques: Automated exposure control, adjustment of the mA and/or kV according to patient size, and/or use of iterative reconstruction technique. FINDINGS: LOWER THORAX: Unremarkable. LIVER: Unremarkable. No gross lesion or ductal dilatation. GALLBLADDER AND BILE DUCTS: Unremarkable. PANCREAS: Unremarkable. No gross lesion or ductal dilatation. SPLEEN: Unremarkable. ADRENALS: Unremarkable. No mass. KIDNEYS AND URETERS: Unremarkable. No hydronephrosis. No solid mass. VASCULATURE: There is loss of the normal fat planes around the right femoral artery and vein most likely due to a small amount of edema and hemorrhage at the site of recent catheterization. Small lymph nodes are also seen in the right inguinal region. There is no evidence of a significant hematoma. BOWEL: Unremarkable. No obstruction. No gross mural thickening. APPENDIX: Unremarkable. Normal appendix. PERITONEUM: Unremarkable. No free fluid. No free air. LYMPH NODES: Unremarkable. No enlarged lymph nodes. BLADDER: Unremarkable. REPRODUCTIVE: Unremarkable. BONES: No acute fracture. OTHER FINDINGS: None. IMPRESSION: There is loss of the normal fat planes around the right femoral artery and vein most likely due to a small amount of edema and hemorrhage at the site of recent catheterization. Small lymph nodes are also seen in the right inguinal region. There is no evidence of a significant hematoma.
--- NOTE | 2017-11-17 17:21 | CARD ---
APPROVED REPORT EKG Measurement Heart [id number] <Conclusion> Normal sinus rhythm Minimal voltage criteria for LVH, may be normal variant Borderline ECG
--- NOTE | 2017-11-17 19:04 | CP.PCM.PN ---
<Montserrat Youngblood - Last Filed: 11/17/17 19:00> Subjective - Date & Time of Evaluation Date of Evaluation: 11/17/17 Time of Evaluation: 07:30 - Subjective Subjective: Montserrat Youngblood Do PGY1 - IM Progress Note Patient seen and examined at bedside. No acute events overnight. Patient reports some mild left sided chest/rib pain, reproducible with palpation. Denies shortness of breath, abdominal pain, diaphoresis. Patient reports recent cardiac catheterization with stent placements at [facility] 4 days ago. He is also complaining of right groin pain from the procedure done at [facility]. Objective - Vital Signs/Intake and Output Vital Signs (last 24 hours): Temp Pulse Resp BP Pulse Ox 97.9 F 74 19 126/80 97 11/17/17 16:00 11/17/17 16:00 11/17/17 16:00 11/17/17 16:00 11/17/17 16:00 - Medications Medications: Current Medications Aspirin (Ecotrin) 81 mg PO DAILY [facility] Last Admin: 11/17/17 09:39 Dose: 81 mg Atorvastatin Calcium (Lipitor) 40 mg PO DAILY [facility] Last Admin: 11/17/17 09:39 Dose: 40 mg Clopidogrel Bisulfate (Plavix) 75 mg PO DAILY [facility] Last Admin: 11/17/17 13:41 Dose: 75 mg Heparin Sodium (Porcine) (Heparin) 5,000 units SC Q12 [facility] PRN Reason: Protocol Last Admin: 11/17/17 09:38 Dose: 5,000 units Ibuprofen (Motrin Tab) 400 mg PO Q6H PRN PRN Reason: Pain, Mild (1-3) Last Admin: 11/17/17 00:38 Dose: 400 mg Levetiracetam (Keppra) 750 mg PO DAILY [facility] Last Admin: 11/17/17 09:39 Dose: 750 mg Lorazepam (Ativan) 1 mg IVP Q4H PRN; Protocol PRN Reason: Anxiety Metoprolol Tartrate (Lopressor) 25 mg PO BID [facility] Last Admin: 11/17/17 17:01 Dose: 25 mg Montelukast Sodium (Singulair) 10 mg PO HS [facility] Pantoprazole Sodium (Protonix Ec Tab) 40 mg PO 0600 [facility] Last Admin: 11/17/17 06:46 Dose: 40 mg Thiamine HCl (Vitamin B1 Tab) 100 mg PO DAILY [facility] Last Admin: 11/17/17 13:41 Dose: 100 mg - Constitutional Appears: Non-toxic, No Acute Distress - Head Exam Head Exam: ATRAUMATIC, NORMOCEPHALIC - Eye Exam Eye Exam: EOMI, Normal appearance, PERRL - ENT Exam ENT Exam: Mucous Membranes Moist - Neck Exam Neck Exam: Normal Inspection - Respiratory Exam Respiratory Exam: Clear to Ausculation Bilateral, NORMAL BREATHING PATTERN - Cardiovascular Exam Cardiovascular Exam: RRR, +S1, +S2 Additional comments: Left sided chest tenderness; reproduces the same chest pain he is complaining of - GI/Abdominal Exam GI & Abdominal Exam: Soft, Normal Bowel Sounds. absent: Tenderness - Extremities Exam Extremities Exam: absent: Calf Tenderness, Pedal Edema - Neurological Exam Neurological Exam: Alert, Awake, Oriented x3 Additional comments: Faint tremor - Psychiatric Exam Psychiatric exam: Normal Affect, Normal Mood - Skin Skin Exam: Dry, Intact, Normal Color Assessment and Plan - Assessment and Plan (Free Text) Assessment: 56 year old male whose past medical history includes ETOH abuse, history of variceal bleed, portal hypertension, hepatitis B, intracranial hemorrhage, seizure disorder who presents to the Emergency department complaining of localized left sided chest pain which is reproducible on palpation. Plan: 1. Chest Pain-likely muscoskeletal, rule out ACS -Chest X-Ray negative -EKG showing NSR, no changes from prior EKG; repeat EKG unchanged -Troponins negative x3 -Continue ASA, statin, BB, plavix -Will request record from [facility] -pain was reproducible when palpated -Motrin PRN -Cardiology consulted; recs appreciated 2. History of Alcohol Abuse -Patient appears to have very mild symptoms of withdrawal -Banana bag -CIWA protocol -Ativan PRN; has not yet required it -Fall and Seizure precautions -Magnesium and Phosphate levels wnl 3. Seizure disorder-Chronic -continue Keppra 4. Groin Discomfort -CT shows small post-op hemorrhage; no significant hematoma GI/DVT Prophylaxis -Protonix -SCD <Leander Ceballos - Last Filed: 11/18/17 15:43> Objective - Vital Signs/Intake and Output Vital Signs (last 24 hours): Temp Pulse Resp BP Pulse Ox 97.6 F 143 H 18 136/85 96 11/18/17 08:44 11/18/17 14:18 11/18/17 08:44 11/18/17 09:03 11/18/17 08:44 Intake and Output: 11/18/17 11/18/17 06:59 18:59 Intake Total 420 120 Balance 420 120 - Labs Labs: 11/18/17 05:45 11/18/17 05:45 Attending/Attestation - Attestation I have personally seen and examined this patient.: Yes I have fully participated in the care of the patient.: Yes I have reviewed all pertinent clinical information, including history, physical exam and plan: Yes Notes (Text): I have seen and examined the patient at bedside. Agree with the above note with the following additions/ exceptions: Briefly this is 56 year old male with history of alcohol abuse, variceal bleed, portal hypertension, Hep B (known and untreated), intracranial hemorrhage, seizure disorder who came for evaluation of left sided reproducible chest pain. Cardiac iso and ekg did not show any changes. Continue aspirin, plavix, beta damaso and statins. Record reviewed from [facility] [place].Patient had TIMBO placed in [facility]. Will discuss with paper cup machine tender. Will monitor patient for alcohol withdrawal. Continue ativan prn. PT eval pending. CT pelvis revealed small post op hemorrhage. Upon discharge patient will follow up with Dr Wheatley and PMD of choice. Dr Leander Ceballos
--- NOTE | 2017-11-17 19:45 | CON ---
DATE: CARDIOLOGY CONSULT REASON FOR CONSULTATION: Chest pain. HISTORY OF PRESENT ILLNESS: The patient is a 56-year-old male, who has a history of ETOH abuse, history of portal hypertension, variceal bleed, history of hepatitis C, questionable history of intracranial hemorrhage in the past. Most recent CAT scan revealed encephalomalacia of the anterior right frontal lobe, history of seizure disorder and history of thrombocytopenia in the past. The patient states that he underwent coronary stenting at [facility] few days ago and he is on medications. He claims to be compliant with the medications, but does not other medications. He present because of chest discomfort. At this time, the patient is chest pain free. SOCIAL HISTORY: The patient is smoker and ETOH abuser. PAST MEDICAL HISTORY: Portal hypertension, variceal bleed, hepatitis B, intracranial hemorrhage with residual right frontal lobe encephalomalacia and seizure disorder. MEDICATIONS: Ativan 1 mg intravenous q. 4 hours p.r.n., aspirin 81 mg once a day, subcutaneous heparin 5000 units q. 12 hours, Keppra 750 mg once a day, Lipitor 40 mg once a day, Lopressor 25 mg once a day. PHYSICAL EXAMINATION: GENERAL: The patient is a middle-aged male who does not appear to be in acute distress. VITAL SIGNS: Blood pressure 103/62, heart rate 81, temperature 97.6, respirations 20. HEENT: Normocephalic. CHEST: Clear. HEART: S1, S2 regular. EXTREMITIES: No edema. LABORATORY DATA: Hemoglobin and hematocrit are 12.1 and 36, white count 4.1, platelet counts 162,000. SMA-7 is within normal limits except for BUN and creatinine of 5 and 0.7. Three sets of troponins are not elevated. Alcohol level on admission is 237. Urine drug screen is negative. EKG revealed sinus rhythm with nonspecific lateral ST segment changes, minimal voltage criteria for LVH. Abdomen and pelvis CT scan revealed around the right femoral artery and vein most likely due to small amount of edema and hemorrhage at the site of recent catheterization. There is no evidence of significant hematoma. Recent Duplex of the lower extremity on 11/14, during the most recent admission revealed no sonographic evidence for pseudoaneurysm or AV fistula in the right groin. ASSESSMENT: 1. Coronary artery disease with history of recent coronary stenting according to the patient. 2. Alcohol intoxication. 3. Portal hypertension. CONDITIONS: Continue aspirin 81 mg once a day, subcutaneous heparin 5000 units q. 12 hours, Lipitor 40 mg once daily, Lopressor 25 mg once a day, Protonix 40 mg p.o. once a day, start Plavix 75 mg once a day. Obtained PCI report from [facility]. Start thiamine 100 mg orally once a day. Rory Godwin MD
[2017-11-18] MEDS: Pantoprazole 40 mg EC Tab PO SCH (05:46)
[2017-11-18 06:31] LABS: BASO # 0.06 K/mm3 (0.0-2.0); BASO % 1.2 % (0.0-3.0); EOS # 0.2 (0.0-0.7); GRAN # 2.86 (1.4-6.5); GRAN % 58.1 % (50.0-68.0); HEMOGLOBIN 12.5 g/dL (14.0-18.0); LYMPH # 1.2 (1.2-3.4); LYMPH % 24.5 % (22.0-35.0); MEAN CELL VOLUME 101.8 fl (80.0-105.0); MEAN CORPUSCULAR HGB CONC 32.4 g/dl (31.0-37.0); MEAN PLATELET VOLUME 12.4 fl (7.0-11.0); MONO # 0.7 (0.1-0.6); MONO % 13.2 % (1.0-6.0); RBC 3.79 10^6/uL (3.5-6.1); RED CELL DISTRIBUTION WIDTH 13.4 % (11.5-14.5); WHITE BLOOD COUNT 4.9 10^3/ul (4.5-11.0)
[2017-11-18 07:06] LABS: ALB/GLOB RATIO 1.1 (1.1-1.8); ALBUMIN 3.7 g/dL (3.0-4.8); ALT/SGPT 60 U/L (7-56); AST/SGOT 50 U/L (17-59); BLOOD UREA NITROGEN 10 mg/dL (7-21); CALCIUM 9.8 mg/dL (8.4-10.5); GFR AFRICAN-AMERICAN > 60; GFR NON-AFRICAN AMERICAN > 60; MAGNESIUM 1.7 mg/dL (1.7-2.2)
[2017-11-18 08:46] VITALS: BP 136/85; RESP 18; TEMP 97.6; O2SAT 96
[2017-11-18 14:18] VITALS: PULSE 143
--- NOTE | 2017-11-18 16:26 | CP.PCM.DIS ---
Provider - Provider Date of Admission: 11/16/17 23:18 Attending physician: Leander Ceballos MD Primary care physician: Clair Alvarez MD Consults: Cardio: Tato Time Spent in preparation of Discharge (in minutes): 45 Diagnosis - Discharge Diagnosis (1) Alcohol intoxication Status: Acute (2) Chest pain Status: Acute Hospital Course - Lab Results Lab Results: Most Recent Lab Values WBC 4.9 10^3/ul (4.5-11.0) 11/18/17 05:45 RBC 3.79 10^6/uL (3.5-6.1) 11/18/17 05:45 Hgb 12.5 g/dL (14.0-18.0) L 11/18/17 05:45 Hct 38.6 % (42.0-52.0) L 11/18/17 05:45 MCV 101.8 fl (80.0-105.0) 11/18/17 05:45 MCH 33.0 pg (25.0-35.0) 11/18/17 05:45 MCHC 32.4 g/dl (31.0-37.0) 11/18/17 05:45 RDW 13.4 % (11.5-14.5) 11/18/17 05:45 Plt Count 182 10^3/uL (120.0-450.0) 11/18/17 05:45 MPV 12.4 fl (7.0-11.0) H 11/18/17 05:45 Gran % 58.1 % (50.0-68.0) 11/18/17 05:45 Lymph % (Auto) 24.5 % (22.0-35.0) 11/18/17 05:45 Leon % (Auto) 13.2 % (1.0-6.0) H 11/18/17 05:45 Eos % (Auto) 3.0 % (1.5-5.0) 11/18/17 05:45 Baso % (Auto) 1.2 % (0.0-3.0) 11/18/17 05:45 Gran # 2.86 (1.4-6.5) 11/18/17 05:45 Lymph # 1.2 (1.2-3.4) 11/18/17 05:45 Leon # 0.7 (0.1-0.6) H 11/18/17 05:45 Eos # 0.2 (0.0-0.7) 11/18/17 05:45 Baso # 0.06 K/mm3 (0.0-2.0) 11/18/17 05:45 Sodium 143 mmol/L (132-148) 11/18/17 05:45 Potassium 4.0 mmol/L (3.6-5.0) 11/18/17 05:45 Chloride 106 mmol/L (98-107) 11/18/17 05:45 Carbon Dioxide 28 mmol/L (21-33) 11/18/17 05:45 Anion Gap 14 (10-20) 11/18/17 05:45 BUN 10 mg/dL (7-21) 11/18/17 05:45 Creatinine 0.8 mg/dl (0.8-1.5) 11/18/17 05:45 Est GFR ( Amer) > 60 11/18/17 05:45 Est GFR (Non-Af Amer) > 60 11/18/17 05:45 Random Glucose 87 mg/dL (70-110) 11/18/17 05:45 Calcium 9.8 mg/dL (8.4-10.5) 11/18/17 05:45 Phosphorus 4.1 mg/dL (2.5-4.5) 11/18/17 05:45 Magnesium 1.7 mg/dL (1.7-2.2) 11/18/17 05:45 Total Bilirubin 0.7 mg/dL (0.2-1.3) 11/18/17 05:45 AST 50 U/L (17-59) 11/18/17 05:45 ALT 60 U/L (7-56) H 11/18/17 05:45 Alkaline Phosphatase 78 U/L (38-126) 11/18/17 05:45 Lactate Dehydrogenase 565 U/L (333-699) 11/16/17 22:00 Total Creatine Kinase 200 U/L (35-230) 11/16/17 22:00 Troponin I < 0.01 ng/mL 11/17/17 10:00 NT-Pro-B Natriuret Pep 218 pg/mL (0-450) 11/16/17 22:00 Total Protein 6.9 g/dL (5.8-8.3) 11/18/17 05:45 Albumin 3.7 g/dL (3.0-4.8) 11/18/17 05:45 Globulin 3.3 gm/dL 11/18/17 05:45 Albumin/Globulin Ratio 1.1 (1.1-1.8) 11/18/17 05:45 Urine Color Yellow (YELLOW) 11/16/17 22:00 Urine Appearance Clear (CLEAR) 11/16/17 22:00 Urine pH 6.0 (4.7-8.0) 11/16/17 22:00 Ur Specific [place] <= 1.005 (1.005-1.035) 11/16/17 22:00 Urine Protein Negative mg/dL (<30 mg/dL) 11/16/17 22:00 Urine Glucose (UA) Negative mg/dL (NEGATIVE) 11/16/17 22:00 Urine Ketones Negative mg/dL (NEGATIVE) 11/16/17 22:00 Urine Blood Negative (NEGATIVE) 11/16/17 22:00 Urine Nitrate Negative (NEGATIVE) 11/16/17 22:00 Urine Bilirubin Negative (NEGATIVE) 11/16/17 22:00 Urine Urobilinogen 0.2 E.U./dL (<1 E.U./dL) 11/16/17 22:00 Ur Leukocyte Esterase Negative Gabby/uL (NEGATIVE) 11/16/17 22:00 Urine Opiates Screen Negative (NEGATIVE) 11/16/17 22:00 Urine Methadone Screen Negative (NEGATIVE) 11/16/17 22:00 Ur Barbiturates Screen Negative (NEGATIVE) 11/16/17 22:00 Ur Phencyclidine Scrn Negative (NEGATIVE) 11/16/17 22:00 Ur Amphetamines Screen Negative (NEGATIVE) 11/16/17 22:00 U Benzodiazepines Scrn Negative (NEGATIVE) 11/16/17 22:00 U Oth Cocaine Metabols Negative (NEGATIVE) 11/16/17 22:00 U Cannabinoids Screen Negative (NEGATIVE) 11/16/17 22:00 Alcohol, Quantitative 237 mg/dL (0-10) H 11/16/17 22:00 - Hospital Course Hospital Course: 56 year old male whose past medical history includes ETOH abuse, history of variceal bleed, portal hypertension, hepatitis B, intracranial hemorrhage, seizure disorder, and CAD s/p stent last week who initially presented to the ER complaining of left sided chest pain. At the time, chest pain was reproducible on exam, and initial troponin was negative, but given patient's questionable cardiac history, he was admitted to r/o ACS. Patient was acutely intoxicated at that time and was acting as a poor historian. During his admission, he was also monitored and treated for alcohol withdrawal. Yesterday, his records were requested from [facility] and obtained today, which revealed that he had a stent placed on 11/10/2016. He had returned to their ER complaining of chest pain, and was eventually discharged on the after ACS had been ruled out. He presented here that same day, intoxicated, unsure of whether he had taken his medications and was not providing a thorough history. Today, his chest pain is slightly better, serial troponins have been negative, and repeat EKGs show no changes. He was instructed to adhere to his medications strictly, and the importance of compliance was stressed repeatedly, and the consequences of noncompliance explained repeatedly as well. During his hospitalization, the patient also endorsed hematochezia, though his H&H remained stable, and he refused rectal exam and reported a history of hemorrhoids. Patient was given instructions on follow up. All questions were answered to his satisfaction and he was discharged to home. Discharge Exam - Head Exam Head Exam: ATRAUMATIC, NORMOCEPHALIC - Eye Exam Eye Exam: EOMI, Normal appearance, PERRL - ENT Exam ENT Exam: Mucous Membranes Moist - Neck Exam Neck exam: Normal Inspection - Respiratory Exam Respiratory Exam: Chest Wall Tenderness, Clear to PA & Lateral, UNREMARKABLE - Cardiovascular Exam Cardiovascular Exam: REGULAR RHYTHM, RRR, +S1, +S2. absent: JVD - GI/Abdominal Exam GI & Abdominal Exam: Normal Bowel Sounds, Soft. absent: Tenderness - Extremities Exam Extremities exam: full ROM, normal inspection, pedal pulses present - Neurological Exam Neurological exam: Alert, Oriented x3 - Psychiatric Exam Psychiatric exam: Normal Affect, Normal Mood - Skin Skin Exam: Dry, Intact, Normal Color Discharge Plan - Follow Up Plan Condition: STABLE Disposition: HOME/ ROUTINE Instructions: Chest Pain (DC), Anemia (DC) Additional Instructions: 1. Continue to take Aspirin, Plavix, Metoprolol, Atorvastatin and Keppra daily 2. Follow up with your roll dough divider with 1-2 weeks 3. Follow up with your primary care doctor within one week, or with the [facility] clinic 4. Abstain from alcohol completely as discussed 5. For any new or worsening concerns, contact your PCP immediately or return to the ER Referrals: Clair Alvarez MD [Primary Care Provider] -
== END 2017-11-18 14:21 | disposition home or self-care (01) ==
LOC: ED 20:53 → ERH 23:18 → 3RNO 23:45 → ERH 11-17 00:30 → 3RNO 11-17 01:36 → INTOOBSV 11-17 14:59 → OBSVTOIN 11-17 14:59
PROVIDERS: ADMIT Internal Medicine; ATTEND Hospitalist
DX: R07.89 Other chest pain (principal); F10.239 Alcohol dependence with withdrawal, unspecified; Y90.8 Blood alcohol level of 240 mg/100 ml or more; I25.10 Atherosclerotic heart disease of native coronary artery without angina pectoris; K76.6 Portal hypertension; I85.00 Esophageal varices without bleeding; G40.909 Epilepsy, unspecified, not intractable, without status epilepticus; Z86.19 Personal history of other infectious and parasitic diseases; Z95.5 Presence of coronary angioplasty implant and graft
CPT/HCPCS: 36415; 71045; 74176; 80053; 80320; 80324; 80345; 80346; 80349; 80353; 80358; 80361; 81003; 82550; 83615; 83735; 83880; 83992; 84100; 84484; 85025; 93005; 99285; G0378; J1644; J3411; J7040

== ENCOUNTER 2017-11-19 14:29 | Emergency (ER) | payer MEDICAID ==
[2017-11-19 14:57] VITALS: BMI 24.3
[2017-11-19 14:58] VITALS: BP 138/74; PULSE 101; RESP 18; TEMP 98.1; O2SAT 96
[2017-11-19] MEDS ORDERED: Aspirin 325 mg EC Tablets PO STA (15:45)
[2017-11-19] MEDS ORDERED: Nitroglycerin 2% Ointment Foilpak UD TOP STA (15:48)
[2017-11-19] MEDS ORDERED: Folic Acid 1 MG, Thiamine 100 MG, Multivitamin (MVI) 10 ML in Dextrose 5% In Water 1,00... IV ONE (15:49)
[2017-11-19 16:02] LABS: BASO # 0.06 K/mm3 (0.0-2.0); BASO % 0.9 % (0.0-3.0); EOS # 0.1 (0.0-0.7); GRAN # 5.23 (1.4-6.5); GRAN % 74.6 % (50.0-68.0); HEMOGLOBIN 14.1 g/dL (14.0-18.0); LYMPH # 1.3 (1.2-3.4); LYMPH % 19.1 % (22.0-35.0); MEAN CELL VOLUME 102.4 fl (80.0-105.0); MEAN CORPUSCULAR HEMOGLOBIN 34.5 pg (25.0-35.0); MEAN CORPUSCULAR HGB CONC 33.7 g/dl (31.0-37.0); MEAN PLATELET VOLUME 12.1 fl (7.0-11.0); MONO # 0.3 (0.1-0.6); MONO % 4.4 % (1.0-6.0); RBC 4.09 10^6/uL (3.5-6.1); RED CELL DISTRIBUTION WIDTH 13.7 % (11.5-14.5)
[2017-11-19 16:12] LABS: INR 0.93 (0.93-1.08); PARTIAL THROMBOPLASTIN TIME 31.6 Seconds (25.1-36.5); PROTHROMBIN TIME 10.6 SECONDS (9.4-12.5)
--- NOTE | 2017-11-20 16:21 | CARD ---
APPROVED REPORT EKG Measurement Heart [id number] <Conclusion> Normal sinus rhythm Normal ECG
--- NOTE | 2017-12-12 12:42 | ED PDOC ---
Arrival/HPI - General Chief Complaint: Chest Pain Time Seen by Provider: 11/19/17 14:59 - History of Present Illness Narrative History of Present Illness (Text): 56 y/o undomiciled male w/ pmhx of Hep B, chronic alcoholism, variceal bleed, portal hypertension, CAD s/p pci presented c/o chest pain , at times postprandially exacerbated and induced, alternately reproducibl e w/ direct palpation and shoulder girdle movement, pt denying any exertional exacerbation, nor associated palpitations/MONCADA//Diaphoresis/hhemoptysis/hematochezia, and states that the pain is dissimilar to past episodes of ACS. Pt. also hungry and asking for food and drinks, HPI often difficult to obtain as patient sleepy and not interested in waking for interview. 12/12/17 12:36 Past Medical History - Provider Review Nursing Documentation Reviewed: Yes - Past History Past History: No Previous - Infectious Disease Hx of Infectious Diseases: None - Tetanus Immunization Tetanus Immunization: Unknown - Cardiac Hx Cardiac Disorders: Yes Hx Hypertension: Yes - Pulmonary Hx Respiratory Disorders: Yes Hx Asthma: Yes - Neurological Hx Neurological Disorder: Yes Hx Seizures: Yes Other/Comment: Intracranial Hemmorhage - HEENT Hx HEENT Disorder: No - Renal Hx Renal Disorder: No - Endocrine/Metabolic Hx Endocrine Disorders: No - Hematological/Oncological Hx Blood Disorders: Yes Hx Anemia: Yes Hx Hepatitis B: Yes (carrier) - Integumentary Hx Dermatological Disorder: No - Musculoskeletal/Rheumatological Hx Falls: Yes - Gastrointestinal Hx Gastrointestinal Disorders: Yes Other/Comment: GI Bleed - Genitourinary/Gynecological Hx Genitourinary Disorders: No - Psychiatric Hx Psychophysiologic Disorder: No Hx Substance Use: No - Past Surgical History Past Surgical History: No Previous - Surgical History Hx Cardiac Catheterization: Yes (4 days ago with stent) Hx Orthopedic Surgery: Yes Hx Tonsillectomy: Yes - Anesthesia Hx Anesthesia: Yes Hx Anesthesia Reactions: No Hx Malignant Hyperthermia: No - Suicidal Assessment Feels Threatened In Home Enviroment: No Family/Social History - Physician Review Nursing Documentation Reviewed: Yes Family/Social History: No Known Family HX Smoking Status: Current Some Days Smoker Hx Alcohol Use: Yes Hx Substance Use: No Hx Substance Use Treatment: No Allergies/Home Meds Allergies/Adverse Reactions: Allergies No Known Allergies Allergy (Verified 11/19/17 18:50) Home Medications: Home Meds Medication Instructions Recorded Confirmed Levetiracetam [Keppra] 750 mg PO DAILY 11/11/17 11/19/17 Montelukast [Singulair] 10 mg PO DAILY 11/11/17 11/19/17 Ranitidine HCl [Acid Social Services Technician] 150 mg PO BID 11/11/17 11/19/17 Aspirin [Ecotrin] 81 mg PO DAILY 11/14/17 11/19/17 Atorvastatin [Lipitor] 40 mg PO DAILY 11/14/17 11/19/17 Clopidogrel [Plavix] 75 mg PO DAILY 11/14/17 11/19/17 Metoprolol Tartrate [Lopressor] 25 mg PO BID 11/14/17 11/19/17 Review of Systems - Physician Review All systems were reviewed & negative as marked: Yes - Review of Systems Constitutional: Normal Eyes: Normal ENT: Normal Respiratory: Normal Cardiovascular: Chest Pain Gastrointestinal: Abdominal Pain Genitourinary Male: Normal Musculoskeletal: Normal Skin: Normal Neurological: Normal Endocrine: Normal Hemo/Lymphatic: Normal Psychiatric: Normal Physical Exam Vital Signs Reviewed: Yes Vital Signs Temp Pulse Resp BP Pulse Ox 11/19/17 14:57 98.1 F 101 H 18 138/74 96 Temperature: Afebrile Blood Pressure: Normal Pulse: Regular Respiratory Rate: Normal Appearance: Positive for: Well-Appearing, Non-Toxic, Comfortable Pain Distress: None Mental Status: Positive for: Alert and Oriented X 3 - Systems Exam Head: Present: Atraumatic, Normocephalic Pupils: Present: PERRL Extroacular Muscles: Present: EOMI Conjunctiva: Present: Normal Mouth: Present: Moist Mucous Membranes, Other (+etob) Neck: Present: Normal Range of Motion Respiratory/Chest: Present: Clear to Auscultation, Good Air Exchange. No: Respiratory Distress, Accessory Muscle Use Cardiovascular: Present: Regular Rate and Rhythm, Normal S1, S2, Other (ttp llsb , reproducible with shoulder girdle movement ). No: Murmurs Abdomen: Present: Normal Bowel Sounds, Other (mild xiphosternal discomfort w/ deep palpation ). No: Tenderness, Distention, Peritoneal Signs Back: Present: Normal Inspection Upper Extremity: Present: Normal Inspection. No: Cyanosis, Edema Lower Extremity: Present: Normal Inspection. No: Edema Neurological: Present: GCS=15, CN II-XII Intact, Speech Normal, Motor Func Grossly Intact, Normal Sensory Function, Normal Cerebellar Funct Skin: Present: Warm, Dry, Normal Color. No: Rashes Psychiatric: Present: Alert, Oriented x 3, Normal Insight, Normal Concentration Medical Decision Making ED Course and Treatment: nsr @93 , qtc:457 mS, no new acute ischemic st-t segment changes, no arrythmogenic intervals. CXR(-): acute rib fracture, and airspace disease. 11/19/17 12:47 11/19/17 12:50 Pt expressing desire to leave and had to be counseled on the importance of awaiting resultation of investigation and observation on telemetry monitors which he was receiving. - Lab Interpretations Lab Results: 11/19/17 15:50 Lab Results 11/19/17 15:50: PT 10.6, INR 0.93, APTT 31.6 11/19/17 15:50: WBC 7.0 D, RBC 4.09, Hgb 14.1, Hct 41.9 L, MCV 102.4, MCH 34.5 , MCHC 33.7, RDW 13.7, Plt Count 227, MPV 12.1 H, Gran % 74.6 H, Lymph % (Auto) 19.1 L, [place] % (Auto) 4.4, Eos % (Auto) 1.0 L, Baso % (Auto) 0.9, Gran # 5.23, Lymph # (Auto) 1.3, [place] # (Auto) 0.3, Eos # (Auto) 0.1, Baso # (Auto) 0.06 - Medication Orders Current Medication Orders: Discontinued Medications Aspirin (Ecotrin) 325 mg PO STAT STA Stop: 11/19/17 15:46 Clopidogrel Bisulfate (Plavix) 300 mg PO STAT STA Stop: 11/19/17 15:46 Folic Acid 1 mg/ Thiamine HCl 100 mg/ Multivitamins/Vitamin C 10 ml/ Dextrose 1 ,011.2 mls @ 100 mls/hr IV ONCE ONE Stop: 11/20/17 01:55 Nitroglycerin (Nitro-Bid 2% Oint) 1 ea TOP STAT STA Stop: 11/19/17 15:49 Disposition/Present on Arrival - Present on Arrival Any Indicators Present on Arrival: No History of DVT/PE: No History of Uncontrolled Diabetes: No Urinary Catheter: No History of Decub. Ulcer: No History Surgical Site Infection Following: None - Disposition Have Diagnosis and Disposition been Completed?: Yes Diagnosis: Chest pain Disposition: AGAINST MEDICAL ADVICE Disposition Time: 16:15 Patient Plan: Discharge Condition: STABLE Discharge Instructions (ExitCare): Chest Pain (ED) Referrals: Dwain Barrera MD [Primary Care Provider] - Follow up with primary Forms: [employer] (Ugandan)
== END 2017-11-19 16:11 | disposition left against medical advice (07) ==
LOC: ED 14:29
DX: R07.9 Chest pain, unspecified (principal); I10 Essential (primary) hypertension; F17.210 Nicotine dependence, cigarettes, uncomplicated

== ENCOUNTER 2017-11-19 18:41 | Emergency (ER) | payer MEDICAID ==
[2017-11-19 18:42] VITALS: BMI 24.3
[2017-11-19 18:55] VITALS: BP 121/64; PULSE 100; RESP 16; TEMP 98.6; O2SAT 99
== END 2017-11-19 19:40 | disposition left against medical advice (07) ==
LOC: ED 18:41
DX: Z02.89 Encounter for other administrative examinations (principal); R42 Dizziness and giddiness

== ENCOUNTER 2017-11-20 22:35 | Emergency (ER) | payer MEDICAID ==
[2017-11-20 22:36] VITALS: BMI 24.3
[2017-11-20 22:46] VITALS: BP 126/68; PULSE 88; RESP 18; TEMP 98.1; O2SAT 99
--- NOTE | 2017-11-20 22:46 | ED PDOC ---
Arrival/HPI - General Chief Complaint: Medical Clearance Time Seen by Provider: 11/20/17 22:40 Historian: Patient - History of Present Illness Narrative History of Present Illness (Text): 11/20/17 22:43 56yo male bib BLS for homelessness . Patient was picked up from the street. Patient denies any somatic complaint in ED. He has being seen in this ED multiple times. the last time was yesterday twice. Past Medical History - Provider Review Nursing Documentation Reviewed: Yes - Past History Past History: No Previous - Infectious Disease Hx of Infectious Diseases: None - Tetanus Immunization Tetanus Immunization: Unknown - Cardiac Hx Cardiac Disorders: Yes Hx Hypertension: Yes - Pulmonary Hx Respiratory Disorders: Yes Hx Asthma: Yes - Neurological Hx Neurological Disorder: Yes Hx Seizures: Yes Other/Comment: Intracranial Hemmorhage - HEENT Hx HEENT Disorder: No - Renal Hx Renal Disorder: No - Endocrine/Metabolic Hx Endocrine Disorders: No - Hematological/Oncological Hx Blood Disorders: Yes Hx Anemia: Yes Hx Hepatitis B: Yes (carrier) - Integumentary Hx Dermatological Disorder: No - Musculoskeletal/Rheumatological Hx Falls: Yes - Gastrointestinal Hx Gastrointestinal Disorders: Yes Other/Comment: GI Bleed - Genitourinary/Gynecological Hx Genitourinary Disorders: No - Psychiatric Hx Psychophysiologic Disorder: No Hx Substance Use: No - Past Surgical History Past Surgical History: No Previous - Surgical History Hx Cardiac Catheterization: Yes (stents) Hx Orthopedic Surgery: Yes Hx Tonsillectomy: Yes - Anesthesia Hx Anesthesia: Yes Hx Anesthesia Reactions: No Hx Malignant Hyperthermia: No - Suicidal Assessment Feels Threatened In Home Enviroment: No Family/Social History - Physician Review Nursing Documentation Reviewed: Yes Family/Social History: Unknown Family HX Smoking Status: Current Some Days Smoker Hx Alcohol Use: Yes Hx Substance Use: No Hx Substance Use Treatment: No Allergies/Home Meds Allergies/Adverse Reactions: Allergies No Known Allergies Allergy (Verified 11/19/17 18:50) Home Medications: Home Meds Medication Instructions Recorded Confirmed Levetiracetam [Keppra] 750 mg PO DAILY 11/11/17 11/19/17 Montelukast [Singulair] 10 mg PO DAILY 11/11/17 11/19/17 Ranitidine HCl [Acid Food And Beverage Server] 150 mg PO BID 11/11/17 11/19/17 Aspirin [Ecotrin] 81 mg PO DAILY 11/14/17 11/19/17 Atorvastatin [Lipitor] 40 mg PO DAILY 11/14/17 11/19/17 Clopidogrel [Plavix] 75 mg PO DAILY 11/14/17 11/19/17 Metoprolol Tartrate [Lopressor] 25 mg PO BID 11/14/17 11/19/17 Review of Systems - Physician Review All systems were reviewed & negative as marked: Yes - Review of Systems Constitutional: Normal, Other (Homeless) Eyes: Normal ENT: Normal Respiratory: Normal Cardiovascular: Normal Gastrointestinal: Normal Genitourinary Male: Normal Musculoskeletal: Normal Skin: Normal Neurological: Normal Endocrine: Normal Hemo/Lymphatic: Normal Psychiatric: Normal Physical Exam Vital Signs Reviewed: Yes Temperature: Afebrile Blood Pressure: Normal Pulse: Regular Respiratory Rate: Normal Appearance: Positive for: Well-Appearing, Non-Toxic, Comfortable Pain Distress: None Mental Status: Positive for: Alert and Oriented X 3 - Systems Exam Head: Present: Atraumatic, Normocephalic Pupils: Present: PERRL Extroacular Muscles: Present: EOMI Conjunctiva: Present: Normal Mouth: Present: Moist Mucous Membranes Neck: Present: Normal Range of Motion Respiratory/Chest: Present: Clear to Auscultation, Good Air Exchange. No: Respiratory Distress, Accessory Muscle Use Cardiovascular: Present: Regular Rate and Rhythm, Normal S1, S2. No: Murmurs Abdomen: Present: Normal Bowel Sounds. No: Tenderness, Distention, Peritoneal Signs Back: Present: Normal Inspection Upper Extremity: Present: Normal Inspection. No: Cyanosis, Edema Lower Extremity: Present: Normal Inspection. No: Edema Neurological: Present: GCS=15, CN II-XII Intact, Speech Normal Skin: Present: Warm, Dry, Normal Color. No: Rashes Psychiatric: Present: Alert, Oriented x 3, Normal Insight, Normal Concentration Disposition/Present on Arrival - Present on Arrival Any Indicators Present on Arrival: No History of DVT/PE: No History of Uncontrolled Diabetes: No Urinary Catheter: No History Surgical Site Infection Following: None - Disposition Have Diagnosis and Disposition been Completed?: Yes Diagnosis: Homeless Disposition: HOME/ ROUTINE Disposition Time: 22:50 Patient Plan: Discharge Condition: STABLE Additional Instructions: Go to a detention Return to ED for any new symptoms follow up with your doctor Referrals: [facility] [place] [Outside] - Follow up with primary
--- NOTE | 2017-11-21 16:13 | CARD ---
APPROVED REPORT EKG Measurement Heart [id number] <Conclusion> Sinus tachycardia Minimal voltage criteria for LVH, may be normal variant ST elevation, consider early repolarization, pericarditis, or injury Abnormal ECG
== END 2017-11-20 23:30 | disposition home or self-care (01) ==
LOC: ED 22:35
DX: Z59.0 Homelessness (principal); I10 Essential (primary) hypertension

== ENCOUNTER 2018-01-20 20:31 | Inpatient (IN) | payer MEDICAID ==
--- NOTE | 2018-01-20 20:58 | ED PDOC ---
Arrival/HPI - General Chief Complaint: Chest Pain Time Seen by Provider: 01/20/18 20:48 Historian: Patient - History of Present Illness Narrative History of Present Illness (Text): 01/20/18 21:02 pt p/w + near 1 month onset of left sided chest pain/pressure, waxing and waning , at most pain is 10/10; pt states over the last few days noted worsening pain, with increasing exertional sob, + lightheadedness, and noted sometimes with pain radiating to left arm; pt felt mild left arm numbness/tingling as well; pt states no LOC, no wheezing, no fever/chills/sweats, no palpitations, no abd pain , no n/v, no focal weakness, no urinary/bowel changes, no fall/trauma/sick contact, no travel; pt does admit to drinking alcohol daily; pt also smokes daily; pt was last seen by his cardiologists > 6 months ago and was told he was to f/u in another 6months; pt states no jitteriness, no other complaints pt denied SI/HI pt denied hallucinations pt is here for further eval pt's without other complaints. PCP: Dr Alvarez cards: [facility] – [place], [place]? Time/Duration: Other (1 month) Symptom Onset: Gradual Symptom Course: Worsening Quality: Tightness, Cramping Severity Level: 10, Severe Activities at Onset: Rest Context: Home Past Medical History - Provider Review Nursing Documentation Reviewed: Yes - Travel History Have you recently traveled outside [place] w/in the past 3 mons?: No - Past History Past History: No Previous - Infectious Disease Hx of Infectious Diseases: None - Tetanus Immunization Tetanus Immunization: Unknown - Cardiac Hx Cardiac Disorders: Yes Hx Hypertension: Yes - Pulmonary Hx Respiratory Disorders: Yes Hx Asthma: Yes - Neurological Hx Neurological Disorder: Yes Hx Seizures: Yes Other/Comment: Intracranial Hemmorhage - HEENT Hx HEENT Disorder: No - Renal Hx Renal Disorder: No - Endocrine/Metabolic Hx Endocrine Disorders: No - Hematological/Oncological Hx Blood Disorders: Yes Hx Anemia: Yes Hx Hepatitis B: Yes (carrier) - Integumentary Hx Dermatological Disorder: No - Musculoskeletal/Rheumatological Hx Falls: Yes - Gastrointestinal Hx Gastrointestinal Disorders: Yes Other/Comment: GI Bleed - Genitourinary/Gynecological Hx Genitourinary Disorders: No - Psychiatric Hx Psychophysiologic Disorder: No Hx Substance Use: No - Past Surgical History Past Surgical History: No Previous - Surgical History Hx Cardiac Catheterization: Yes (stents) - Anesthesia Hx Anesthesia: Yes Hx Anesthesia Reactions: No Hx Malignant Hyperthermia: No - Suicidal Assessment Feels Threatened In Home Enviroment: No Family/Social History - Physician Review Nursing Documentation Reviewed: Yes Family/Social History: No Known Family HX Smoking Status: Current Some Days Smoker Hx Alcohol Use: Yes (drinks daily) Hx Substance Use: No Hx Substance Use Treatment: No Allergies/Home Meds Allergies/Adverse Reactions: Allergies No Known Allergies Allergy (Verified 01/20/18 20:52) Home Medications: Home Meds Medication Instructions Recorded Confirmed Levetiracetam [Keppra] 750 mg PO DAILY 11/11/17 01/20/18 Montelukast [Singulair] 10 mg PO DAILY 11/11/17 01/20/18 Ranitidine HCl [Acid Automation Operator] 150 mg PO BID 11/11/17 01/20/18 Aspirin [Ecotrin] 81 mg PO DAILY 11/14/17 01/20/18 Atorvastatin [Lipitor] 40 mg PO DAILY 11/14/17 01/20/18 Clopidogrel [Plavix] 75 mg PO DAILY 11/14/17 01/20/18 Metoprolol Tartrate [Lopressor] 25 mg PO BID 11/14/17 01/20/18 Review of Systems - Review of Systems Constitutional: Normal Eyes: Normal ENT: Normal Respiratory: SOB Cardiovascular: Chest Pain Gastrointestinal: Normal Genitourinary Male: Normal Musculoskeletal: Normal Skin: Normal Neurological: Dizziness Endocrine: Normal Hemo/Lymphatic: Normal Psychiatric: Normal Physical Exam Vital Signs Reviewed: Yes Vital Signs Temp Pulse Resp BP Pulse Ox 01/20/18 20:58 97.9 F 90 14 143/96 H 96 Temperature: Afebrile Blood Pressure: Hypertensive Pulse: Regular Respiratory Rate: Normal Appearance: Positive for: Well-Appearing, Non-Toxic, Uncomfortable, Other (+ resting in bed, cooperative, + etoh on breath, NAD, uncomfortable, alerta/wake, GCS = 15; oriented x 3) Pain Distress: None Mental Status: Positive for: Alert and Oriented X 3 - Systems Exam Head: Present: Atraumatic, Normocephalic, Other (mild bi-temporal wasting) Pupils: Present: PERRL, Other (no photophobia, sclera anicteric) Extroacular Muscles: Present: EOMI Conjunctiva: Present: Normal Ears: Present: Normal Mouth: Present: Moist Mucous Membranes, Other (poor dentitions, no drooling/ stridor, no exudate/lesions) Pharnyx: Present: Normal Nose (External): Present: Atraumatic Nose (Internal): Present: Normal Inspection Neck: Present: Normal Range of Motion, Trachea Midline, Other (no step off, no midline tenderness). No: Meningeal Signs, MIDLINE TENDERNESS, JVD Respiratory/Chest: Present: Clear to Auscultation, Good Air Exchange, Other ( coarse basiliar breath sounds, no w/r/r, no tachypenia, no accessory muscle use noted) Cardiovascular: Present: Regular Rate and Rhythm, Normal S1, S2. No: Murmurs Abdomen: Present: Normal Bowel Sounds, Other (well nourished male, no focal tenderness, no masses/rebound/guarding/rigidity) Back: Present: Normal Inspection. No: CVA Tenderness, Midline Tenderness Upper Extremity: Present: Normal Inspection, Normal ROM, NORMAL PULSES, Neurovascularly Intact, Capillary Refill < 2s Lower Extremity: Present: Normal Inspection, NORMAL PULSES, Normal ROM, Neurovascularly Intact, Other (+ ambulatory, no pitting edema noted b/l) Neurological: Present: GCS=15, CN II-XII Intact, Other (slightly slurr speech, no facial asymmetries) Skin: Present: Warm, Dry, Normal Color, Other (cap refill < 1sec, no ulcertions , no petechiae, no rashes) Psychiatric: Present: Alert, Oriented x 3 Medical Decision Making ED Course and Treatment: 01/20/18 21:02 Impression: chest pain, etoh i have consider all the differential diagnosis regarding pt's chief medical complaints/clinical findings, including but are not limited to: chest pain, r/o acs A/P: chest pain, etoh? - labs - iv - xray - observe - supportive care 01/20/18 22:37 pt is re-eval, pt states he doesnt feel like he needs to stay any longer, as the ED is too noisy for him and is making him uncomfortable pt is made aware of his medical results, and i made patient aware that he is acutely intoxicated and for the moment is not deem able to leave AMA pt expressed understanding pt states his cp is less noticeable but remains i recommend the patient that given his cardiac risk factors, that he should be admitted to the hospital pt now agrees pt is made aware of his medical results pt agrees with admission [id number] Alvarez, made aware, would like the hospitalists to admit I spoke to Dr Pryor, hospitalists sales compensation analyst, made aware, will see patient, will admit patient; would like pt to be given plavix in the ED as pt likely has not been compliant with his medication regiment Re-evaluation Time: 22:30 Reassessment Condition: Improving,but remains with symptoms - Lab Interpretations Lab Results: 01/20/18 21:33 01/20/18 21:33 Lab Results 01/20/18 22:10: Urine Opiates Screen Negative, Urine Methadone Screen Negative, Ur Barbiturates Screen Negative, Ur Phencyclidine Scrn Negative, Ur Amphetamines Screen Negative, U Benzodiazepines Scrn Negative, U Oth Cocaine Metabols Negative, U Cannabinoids Screen Negative 01/20/18 22:10: Urine Color Yellow, Urine Appearance Clear, Urine pH 6.5, Ur Specific [place] <= 1.005, Urine Protein Negative, Urine Glucose (UA) Negative, Urine Ketones Negative, Urine Blood Negative, Urine Nitrate Negative, Urine Bilirubin Negative, Urine Urobilinogen 0.2, Ur Leukocyte Esterase Negative 01/20/18 21:33: Alcohol, Quantitative 398 H* 01/20/18 21:33: Sodium 148, Potassium 4.5, Chloride 104, Carbon Dioxide 33, Anion Gap 16, BUN 5 L, Creatinine 0.8, Est GFR ( Amer) > 60, Est GFR (Non -Af Amer) > 60, Random Glucose 95, Calcium 9.5, Magnesium 2.0, Total Bilirubin 0.5, AST 73 H D, ALT 33, Alkaline Phosphatase 84, Lactate Dehydrogenase 622, Total Creatine Kinase 392 H, CK-MB (CK-2) 2.1, CK-MB (CK-2) % Cancelled, Troponin I < 0.01, NT-Pro-B Natriuret Pep 44.1, Total Protein 8.5 H, Albumin 4.4 , Globulin 4.2, Albumin/Globulin Ratio 1.1 01/20/18 21:33: PT 10.6, INR 0.93, APTT 32.4 04/03/18 21:33: WBC 3.1 L D, RBC 4.55, Hgb 13.4 L, Hct 39.8 L, MCV 87.5 D, MCH 29.5, MCHC 33.7, RDW 15.5 H, Plt Count 171, MPV 11.1 H, Gran % 40.9 L, Lymph % ( Auto) 42.1 H, [place] % (Auto) 12.2 H, Eos % (Auto) 3.2, Baso % (Auto) 1.6, Gran # 1.27 L, Lymph # (Auto) 1.3, [place] # (Auto) 0.4, Eos # (Auto) 0.1, Baso # (Auto) 0.05 I have reviewed the lab results: Yes Interpretation: All labs normal - RAD Interpretation Narrative RAD Interpretations (Text): 01/20/18 21:58 hyperinflation no free air flattening of diaphragm Radiology Orders: 01/20/18 20:59 CHEST PORTABLE [RAD] Stat Lead Auditor: ED Physician - EKG Interpretation EKG Interpretation (Text): 01/20/18 21:54 NSR at 95 bpm, RAD, no ectopy, no st-t changes, ABNL EKG; unchanged compare with old ekg 11/2017 Interpreted by ED Physician: Yes Type: 12 lead EKG Comparison: Similar to previous EKG - Medication Orders Current Medication Orders: Clopidogrel Bisulfate (Plavix) 300 mg PO STAT STA Stop: 01/20/18 23:14 Discontinued Medications Aspirin (Ecotrin) 81 mg PO STAT STA Stop: 01/20/18 20:59 Last Admin: 01/20/18 21:25 Dose: 81 mg Multivitamins/Vitamin C 10 ml/Thiamine HCl 100 mg/ Folic Acid 1 mg/ Dextrose 1, 011.2 mls @ 1,000 mls/hr IV .Q1H1M ONE Stop: 01/20/18 22:00 Last Admin: 01/20/18 21:55 Dose: 1,000 mls/hr eMAR Start Stop Document 01/20/18 21:55 CNR (Rec: 01/20/18 21:56 CNR [id number]) Intravenous Solution Start Date 01/20/18 Start Time 21:56 Lorazepam (Ativan) 2 mg IVP ONCE ONE PRN Reason: Protocol Stop: 01/20/18 22:22 Last Admin: 01/20/18 22:36 Dose: 2 mg IVP Administration Document 01/20/18 22:36 CNR (Rec: 01/20/18 22:36 CNR [id number]) Charges for Administration # of IVP Administrations 1 Nitroglycerin (Nitrostat Sl Tab) 0.4 mg SL STAT STA Stop: 01/20/18 20:59 Last Admin: 01/20/18 21:26 Dose: 0.4 mg Disposition/Present on Arrival - Present on Arrival Any Indicators Present on Arrival: No History of DVT/PE: No History of Uncontrolled Diabetes: No Urinary Catheter: No History Surgical Site Infection Following: None - Disposition Have Diagnosis and Disposition been Completed?: Yes Diagnosis: Chest pain with moderate risk for cardiac etiology, Alcohol intoxication, Alcohol dependence Disposition: HOSPITALIZED Disposition Time: 23:00 Patient Plan: Admission, Observation Patient Problems: Current Active Problems Problem Status Onset Chest pain with moderate risk for cardiac etiology Acute Condition: STABLE
[2018-01-20] MEDS ORDERED: Multivitamin (MVI) 10 ML, Thiamine 100 MG, Folic Acid 1 MG in Dextrose 5% In Water 1,00... IV ONE (21:00)
[2018-01-20 21:37] LABS: BASO # 0.05 K/mm3 (0.0-2.0); BASO % 1.6 % (0.0-3.0); EOS # 0.1 (0.0-0.7); EOS % 3.2 % (1.5-5.0); GRAN # 1.27 (1.4-6.5); GRAN % 40.9 % (50.0-68.0); HEMOGLOBIN 13.4 g/dL (14.0-18.0); LYMPH # 1.3 (1.2-3.4); LYMPH % 42.1 % (22.0-35.0); MEAN CELL VOLUME 87.5 fl (80.0-105.0); MEAN CORPUSCULAR HEMOGLOBIN 29.5 pg (25.0-35.0); MEAN CORPUSCULAR HGB CONC 33.7 g/dl (31.0-37.0); MEAN PLATELET VOLUME 11.1 fl (7.0-11.0); MONO # 0.4 (0.1-0.6); MONO % 12.2 % (1.0-6.0); RBC 4.55 10^6/uL (3.5-6.1); RED CELL DISTRIBUTION WIDTH 15.5 % (11.5-14.5); WHITE BLOOD COUNT 3.1 10^3/ul (4.5-11.0)
[2018-01-20 21:52] LABS: ALB/GLOB RATIO 1.1 (1.1-1.8); ALBUMIN 4.4 g/dL (3.0-4.8); ALT/SGPT 33 U/L (7-56); AST/SGOT 73 U/L (17-59); BLOOD UREA NITROGEN 5 mg/dL (7-21); CALCIUM 9.5 mg/dL (8.4-10.5); GFR AFRICAN-AMERICAN > 60; GFR NON-AFRICAN AMERICAN > 60
[2018-01-20 22:04] LABS: B-TYPE NATRIURETIC PEPTIDE 44.1 pg/mL (0-450); TROPONIN I < 0.01 ng/mL
[2018-01-20 22:10] LABS: CK-MB 2.1 ng/mL (0.0-3.6)
[2018-01-20 22:25] LABS: INR 0.93 (0.93-1.08); PARTIAL THROMBOPLASTIN TIME 32.4 Seconds (25.1-36.5); PROTHROMBIN TIME 10.6 SECONDS (9.4-12.5)
[2018-01-20 22:40] LABS: PH,URINE 6.5 (4.7-8.0); URINE BILIRUBIN NEGATIVE (NEGATIVE); URINE BLOOD NEGATIVE (NEGATIVE); URINE GLUCOSE (UA) NEGATIVE (NEGATIVE); URINE LEUKOCYTE ESTERASE NEGATIVE Leu/uL (NEGATIVE); URINE PROTEIN NEGATIVE mg/dL (<30 mg/dL); URINE UROBILINOGEN 0.2 E.U./dL (<1 E.U./dL)
[2018-01-20 22:59] LABS: BARBITURATES, UR NEGATIVE (NEGATIVE); BENZODIAZEPINES, UR NEGATIVE (NEGATIVE); OPIATES, UR NEGATIVE (NEGATIVE); PHENCYCLIDINE, UR NEGATIVE (NEGATIVE); URINE APPEARANCE CLEAR (CLEAR); URINE COLOR YELLOW (YELLOW)
[2018-01-20] MEDS ORDERED: Multivitamin (MVI) 10 ML, Thiamine 100 MG, Folic Acid 1 MG in Sodium Chloride 0.9% 1,00... IV ONE (23:11)
--- NOTE | 2018-01-20 23:27 | CP.PCM.HP ---
<Alvin Tim - Last Filed: 01/21/18 01:15> History of Present Illness - History of Present Illness History of Present Illness: CC: Chest Pain Pt is a 57 yo M with PMh of CAD s/p stents, EtOH abuse/withdrawal, esophageal variceal bleed, portal HTN, hepatitis B, intracranial hemorrhage, and seizures [place] [facility] [place] for the past week. Pt states that he went to his PMD Dr. Alvarez one week ago complaining of intermittent chest pain in the left lower chest. Pt was instructed to follow up with his powder loader, which he did not. Today, patient was cleaning his house when the chest pain became worse. In the ED, patient states that chest pain is improved with administration of nitroglycerin but still present. He states that the chest pain starts in left lower chest and radiates to left arm. Pt admits to drinking 4-20 oz beers daily. Pt denied SOB, n/v/d, abdominal pain, fever, chills, IVORY, dizziness, tremors, changes in BM, dysuria, or hematuria. Of note, patient states he had 1 stent placed 2 weeks ago, but cannot recall the powder loader's name. Catherization was likely done at [facility] [place], but patient's is unsure at this time. Per old chart, patient had stent placed in October 2017. PMD: Kim PMH: CAD s/p stents (2 weeks ago), EtOH abuse/withdrawal, esophageal variceal bleed, portal HTN, hepatitis B, intracranial hemorrhage, and seizures Surg: Tonsillectomy, jaw repair, cardiac catherization All: NKDA SH: 1/2 ppd for 20 yrs, 4-20 oz beers daily, denies illicit drug use FHx: unknown Medications as per MAR Present on Admission - Present on Admission Any Indicators Present on Admission: No Review of Systems - Review of Systems Review of Systems: 12 point ROS reviewed and is negative other than what is stated in HPI. Past Patient History - Infectious Disease Hx of Infectious Diseases: None - Tetanus Immunizations Tetanus Immunization: Unknown - Past Social History Smoking Status: Current Some Days Smoker - CARDIAC Hx Cardiac Disorders: Yes Hx Hypertension: Yes - PULMONARY Hx Respiratory Disorders: Yes Hx Asthma: Yes - NEUROLOGICAL Hx Neurological Disorder: Yes Hx Seizures: Yes Other/Comment: Intracranial Hemmorhage - HEENT Hx HEENT Problems: No - RENAL Hx Chronic Kidney Disease: No - ENDOCRINE/METABOLIC Hx Endocrine Disorders: No - HEMATOLOGICAL/ONCOLOGICAL Hx Blood Disorders: Yes Hx Anemia: Yes Hx Hepatitis B: Yes (carrier) - INTEGUMENTARY Hx Dermatological Problems: No - MUSCULOSKELETAL/RHEUMATOLOGICAL Hx Falls: Yes - GASTROINTESTINAL Hx Gastrointestinal Disorders: Yes Other/Comment: GI Bleed - GENITOURINARY/GYNECOLOGICAL Hx Genitourinary Disorders: No - PSYCHIATRIC Hx Psychophysiologic Disorder: No Hx Substance Use: No - SURGICAL HISTORY Hx Cardiac Catheterization: Yes (stents) - ANESTHESIA Hx Anesthesia: Yes Hx Anesthesia Reactions: No Hx Malignant Hyperthermia: No Meds Allergies/Adverse Reactions: Allergies Allergy/AdvReac Type Severity Reaction Status Date / Time No Known Allergies Allergy Verified 01/20/18 20:52 Physical Exam - Constitutional Appears: No Acute Distress - Head Exam Head Exam: NORMAL INSPECTION - Eye Exam Eye Exam: Normal appearance - ENT Exam ENT Exam: Mucous Membranes Moist - Neck Exam Neck exam: Positive for: Normal Inspection - Respiratory Exam Respiratory Exam: Clear to Auscultation Bilateral. absent: Rales, Rhonchi, Wheezes - Cardiovascular Exam Cardiovascular Exam: RRR, +S1, +S2. absent: Diastolic murmur, Gallop, Rubs, Systolic Murmur Additional comments: Reproducible pain left lower chest - GI/Abdominal Exam GI & Abdominal Exam: Soft. absent: Distended, Guarding, Rebound, Tenderness - Extremities Exam Extremities exam: Positive for: normal inspection - Back Exam Back exam: NORMAL INSPECTION - Neurological Exam Neurological exam: Alert, CN II-XII Intact, Oriented x3 - Psychiatric Exam Psychiatric exam: Normal Affect, Normal Mood - Skin Skin Exam: Dry, Intact, Normal Color, Warm Results - Vital Signs Recent Vital Signs: Last Vital Signs Temp 97.9 F 01/20/18 20:58 Pulse 90 01/20/18 20:58 Resp 14 01/20/18 20:58 BP 143/96 H 01/20/18 20:58 Pulse Ox 96 01/20/18 20:58 - Labs Result Diagrams: 01/20/18 21:33 01/20/18 21:33 Labs: Laboratory Results - last 24 hr 01/20/18 01/20/18 01/20/18 21:33 21:33 21:33 WBC 3.1 L D RBC 4.55 Hgb 13.4 L Hct 39.8 L MCV 87.5 D MCH 29.5 MCHC 33.7 RDW 15.5 H Plt Count 171 MPV 11.1 H Gran % 40.9 L Lymph % (Auto) 42.1 H [place] % (Auto) 12.2 H Eos % (Auto) 3.2 Baso % (Auto) 1.6 Gran # 1.27 L Lymph # (Auto) 1.3 [place] # (Auto) 0.4 Eos # (Auto) 0.1 Baso # (Auto) 0.05 PT 10.6 INR 0.93 APTT 32.4 Sodium 148 Potassium 4.5 Chloride 104 Carbon Dioxide 33 Anion Gap 16 BUN 5 L Creatinine 0.8 Est GFR ( Amer) > 60 Est GFR (Non-Af Amer) > 60 Random Glucose 95 Calcium 9.5 Magnesium 2.0 Total Bilirubin 0.5 AST 73 H D ALT 33 Alkaline Phosphatase 84 Lactate Dehydrogenase 622 Total Creatine Kinase 392 H CK-MB (CK-2) 2.1 CK-MB (CK-2) % Cancelled Troponin I < 0.01 NT-Pro-B Natriuret Pep 44.1 Total Protein 8.5 H Albumin 4.4 Globulin 4.2 Albumin/Globulin Ratio 1.1 Urine Color Urine Appearance Urine pH Ur Specific [place] Urine Protein Urine Glucose (UA) Urine Ketones Urine Blood Urine Nitrate Urine Bilirubin Urine Urobilinogen Ur Leukocyte Esterase Urine Opiates Screen Urine Methadone Screen Ur Barbiturates Screen Ur Phencyclidine Scrn Ur Amphetamines Screen U Benzodiazepines Scrn U Oth Cocaine Metabols U Cannabinoids Screen Alcohol, Quantitative 01/20/18 01/20/18 01/20/18 21:33 22:10 22:10 WBC RBC Hgb Hct MCV MCH MCHC RDW Plt Count MPV Gran % Lymph % (Auto) [place] % (Auto) Eos % (Auto) Baso % (Auto) Gran # Lymph # (Auto) [place] # (Auto) Eos # (Auto) Baso # (Auto) PT INR APTT Sodium Potassium Chloride Carbon Dioxide Anion Gap BUN Creatinine Est GFR ( Amer) Est GFR (Non-Af Amer) Random Glucose Calcium Magnesium Total Bilirubin AST ALT Alkaline Phosphatase Lactate Dehydrogenase Total Creatine Kinase CK-MB (CK-2) CK-MB (CK-2) % Troponin I NT-Pro-B Natriuret Pep Total Protein Albumin Globulin Albumin/Globulin Ratio Urine Color Yellow Urine Appearance Clear Urine pH 6.5 Ur Specific [place] <= 1.005 Urine Protein Negative Urine Glucose (UA) Negative Urine Ketones Negative Urine Blood Negative Urine Nitrate Negative Urine Bilirubin Negative Urine Urobilinogen 0.2 Ur Leukocyte Esterase Negative Urine Opiates Screen Negative Urine Methadone Screen Negative Ur Barbiturates Screen Negative Ur Phencyclidine Scrn Negative Ur Amphetamines Screen Negative U Benzodiazepines Scrn Negative U Oth Cocaine Metabols Negative U Cannabinoids Screen Negative Alcohol, Quantitative 398 H* Assessment & Plan - Assessment and Plan (Free Text) Assessment: 57 yo M with PMH of CAD s/p stents (2 weeks ago), EtOH abuse/withdrawal, esophageal variceal bleed, portal HTN, hepatitis B, intracranial hemorrhage, and seizures admitted for CP r/o ACS and likely EtOH withdrawal. Plan: 1. Chest pain r/o ACS - EKG showed NSR, no changes from past EKG - Troponin negative x1, will trend x2 - CXR showed no active disease - Echo from 01/28/17 showed EF 51.3% - Plavix 300 mg given in ED as patient is likely noncompliant with medications - Cont dual antiplatelet therapy: Plavix and ASA - Cont Lipitor - Cont Metoprolol - Nitrostat q6h prn - Cardiology consulted 2. EtOH abuse and impending withdrawal - EtOH level 398 - CIWA protocol - Ativan 2 mg q6h itzel - Ativan 1 mg q2h prn for alcohol withdrawal - Banana bag - Fall and aspiration precautions 3. H/o Seizures - Keppra lvl ordered due to questionable medication compliance - Cont Keppra 750 mg PO daily - Seizure precautions GI/DVT PPx - Protonix - SCDs Pt seen and discussed in detail with Dr. Pryor. Bubba Tim, PGY1 <Vangie Pryor - Last Filed: 01/21/18 02:05> Results - Vital Signs Recent Vital Signs: Last Vital Signs Temp 97.9 F 01/21/18 00:49 Pulse 106 H 01/21/18 00:49 Resp 20 01/21/18 00:49 BP 143/89 01/21/18 00:49 Pulse Ox 100 01/20/18 23:36 - Labs Result Diagrams: 01/20/18 21:33 01/20/18 21:33 Attending/Attestation - Attestation I have personally seen and examined this patient.: Yes I have fully participated in the care of the patient.: Yes I have reviewed all pertinent clinical information: Yes Notes (Text): 01/21/18 02:02 Addendum:Reproducible chest pain is noted to be in the L costochondral area. Agree with documentation and orders placed.
[2018-01-21] MEDS: Nitroglycerin 2% Ointment Foilpak UD TOP SCH ×4 (00:59→18:12)
[2018-01-21 01:43] VITALS: BMI 23.6
[2018-01-21 03:52] LABS: HEMOGLOBIN 13.5 g/dL (14.0-18.0); MEAN CELL VOLUME 87.7 fl (80.0-105.0); MEAN CORPUSCULAR HEMOGLOBIN 29.2 pg (25.0-35.0); MEAN CORPUSCULAR HGB CONC 33.3 g/dl (31.0-37.0); MEAN PLATELET VOLUME 11.5 fl (7.0-11.0); RBC 4.63 10^6/uL (3.5-6.1); RED CELL DISTRIBUTION WIDTH 15.8 % (11.5-14.5)
[2018-01-21 04:00] LABS: WHITE BLOOD COUNT 2.7 10^3/ul (4.5-11.0)
[2018-01-21 04:03] LABS: ALB/GLOB RATIO 1.1 (1.1-1.8); ALBUMIN 4.3 g/dL (3.0-4.8); ALT/SGPT 35 U/L (7-56); AST/SGOT 79 U/L (17-59); BLOOD UREA NITROGEN 6 mg/dL (7-21); CALCIUM 9.6 mg/dL (8.4-10.5); GFR AFRICAN-AMERICAN > 60; GFR NON-AFRICAN AMERICAN > 60
[2018-01-21 04:14] LABS: TROPONIN I < 0.01 ng/mL
[2018-01-21] MEDS: Pantoprazole 40 mg EC Tab PO SCH (05:48)
[2018-01-21] MEDS: Multivitamin Therapeutic Tab PO SCH (09:05)
--- NOTE | 2018-01-21 09:12 | RAD ---
HISTORY: chest pain COMPARISON: 11/16/2017 FINDINGS: LUNGS: No active pulmonary disease. PLEURA: No significant pleural effusion identified, no pneumothorax apparent. CARDIOVASCULAR: Normal. OSSEOUS STRUCTURES: No significant abnormalities. VISUALIZED UPPER ABDOMEN: Normal. OTHER FINDINGS: None. IMPRESSION: No active disease.
--- NOTE | 2018-01-21 12:55 | CON ---
DATE: CARDIOLOGY CONSULTATION REASON FOR CONSULTATION: Chest pain and alcohol intoxication. HISTORY OF PRESENT ILLNESS: The patient is a 57-year-old male who stated he underwent coronary stenting last month at [facility]. The patient presents because of alcohol intoxication. His alcohol level was 398 and was reporting left shoulder pain. The patient claims to have been compliant with his antiplatelet therapy regimen since discharge. At this moment, the patient denies any chest pain. The patient also has a history of seizure disorder. MEDICATIONS: Ativan 1 mg intravenously every 2 hours p.r.n., aspirin 81 mg once a day, folic acid 1 mg once a day, Keppra 750 mg daily, Lopressor 25 mg once a day, Lipitor 40 mg once a day, Nicoderm patch, Plavix 75 mg once a day, thiamine 100 mg p.o. daily. REVIEW OF SYSTEMS: No nausea or vomiting. No fever or chills. PHYSICAL EXAMINATION: GENERAL: The patient is a middle-aged male, who does not appear to be in any distress. VITAL SIGNS: Blood pressure 146/93, heart rate 89, temperature 97, respirations 19. HEENT: Normocephalic. CHEST: Clear. HEART: S1 and S2 regular. EXTREMITIES: No edema. LABORATORY DATA: Hemoglobin and hematocrit 13.5 and 40.6, white count 2.7, platelet count 160,000. SMA-7 on admission is within normal limits except for BUN of 5. Three sets of troponins are negative. EKG revealed sinus rhythm with early repolarization pattern. This was a similar pattern that was seen in an earlier EKG on 11/20/2017. ASSESSMENT: 1. Chest pain, myocardial infarction ruled out. 2. History of coronary stenting about a month ago as per the patient's history. 3. Alcohol intoxication. 4. Seizure disorder. RECOMMENDATIONS: Continue current aspirin, Plavix, Lipitor and Lopressor therapy. Continue p.r.n. Ativan as well as Keppra. Case was discussed with Dr. Rangel and the rest of the medical team. No invasive cardiac workup is indicated at this time. Rory Godwin MD
--- NOTE | 2018-01-21 20:59 | CARD ---
APPROVED REPORT EKG Measurement Heart [id number] <Conclusion> arm lead reversal, Normal sinus rhythm Early repolarization pattern vs pericarditis Borderline ECG
[2018-01-22] MEDS: Nitroglycerin 2% Ointment Foilpak UD TOP SCH ×3 (00:46→12:19)
[2018-01-22 05:30] VITALS: O2SAT 99
[2018-01-22] MEDS: Pantoprazole 40 mg EC Tab PO SCH (06:02)
[2018-01-22 06:56] LABS: HEMOGLOBIN 11.6 g/dL (14.0-18.0); MEAN CELL VOLUME 87.5 fl (80.0-105.0); MEAN CORPUSCULAR HEMOGLOBIN 28.5 pg (25.0-35.0); MEAN CORPUSCULAR HGB CONC 32.6 g/dl (31.0-37.0); MEAN PLATELET VOLUME 11.5 fl (7.0-11.0); RBC 4.07 10^6/uL (3.5-6.1); RED CELL DISTRIBUTION WIDTH 15.7 % (11.5-14.5); WHITE BLOOD COUNT 5.2 10^3/ul (4.5-11.0)
[2018-01-22 07:19] LABS: ALB/GLOB RATIO 1.1 (1.1-1.8); ALBUMIN 3.8 g/dL (3.0-4.8); ALT/SGPT 30 U/L (7-56); AST/SGOT 53 U/L (17-59); BLOOD UREA NITROGEN 7 mg/dL (7-21); CALCIUM 9.9 mg/dL (8.4-10.5); GFR AFRICAN-AMERICAN > 60; GFR NON-AFRICAN AMERICAN > 60
[2018-01-22] MEDS: Multivitamin Therapeutic Tab PO SCH (09:59)
--- NOTE | 2018-01-22 11:00 | CARD ---
APPROVED REPORT EKG Measurement Heart [id number] <Conclusion> Normal sinus rhythm Early repolarization pattern vs pericarditis Abnormal ECG
[2018-01-22 12:16] VITALS: RESP 16; TEMP 98.7
[2018-01-22 13:44] VITALS: BP 135/88; PULSE 71
--- NOTE | 2018-01-22 20:21 | CP.PCM.DIS ---
Provider - Provider Date of Admission: 01/21/18 15:23 Attending physician: Chiqui Rangel MD Primary care physician: Clair Alvarez MD Consults: Cardio: Tato Time Spent in preparation of Discharge (in minutes): 45 Diagnosis - Discharge Diagnosis (1) Alcohol intoxication Status: Acute (2) Chest pain Status: Acute Hospital Course - Lab Results Lab Results: Most Recent Lab Values WBC 5.2 10^3/ul (4.5-11.0) D 01/22/18 06:00 RBC 4.07 10^6/uL (3.5-6.1) 01/22/18 06:00 Hgb 11.6 g/dL (14.0-18.0) L 01/22/18 06:00 Hct 35.6 % (42.0-52.0) L 01/22/18 06:00 MCV 87.5 fl (80.0-105.0) 01/22/18 06:00 MCH 28.5 pg (25.0-35.0) 01/22/18 06:00 MCHC 32.6 g/dl (31.0-37.0) 01/22/18 06:00 RDW 15.7 % (11.5-14.5) H 01/22/18 06:00 Plt Count 141 10^3/uL (120.0-450.0) 01/22/18 06:00 MPV 11.5 fl (7.0-11.0) H 01/22/18 06:00 Gran % 40.9 % (50.0-68.0) L 01/20/18 21:33 Lymph % (Auto) 42.1 % (22.0-35.0) H 01/20/18 21:33 [place] % (Auto) 12.2 % (1.0-6.0) H 01/20/18 21:33 Eos % (Auto) 3.2 % (1.5-5.0) 01/20/18 21:33 Baso % (Auto) 1.6 % (0.0-3.0) 01/20/18 21:33 Gran # 1.27 (1.4-6.5) L 01/20/18 21:33 Lymph # (Auto) 1.3 (1.2-3.4) 01/20/18 21:33 [place] # (Auto) 0.4 (0.1-0.6) 01/20/18 21:33 Eos # (Auto) 0.1 (0.0-0.7) 01/20/18 21:33 Baso # (Auto) 0.05 K/mm3 (0.0-2.0) 01/20/18 21:33 PT 10.6 SECONDS (9.4-12.5) 01/20/18 21:33 INR 0.93 (0.93-1.08) 01/20/18 21:33 APTT 32.4 Seconds (25.1-36.5) 01/20/18 21:33 Sodium 139 mmol/L (132-148) 01/22/18 06:00 Potassium 3.5 mmol/L (3.6-5.0) L 01/22/18 06:00 Chloride 103 mmol/L (98-107) 01/22/18 06:00 Carbon Dioxide 29 mmol/L (21-33) 01/22/18 06:00 Anion Gap 10 (10-20) 01/22/18 06:00 BUN 7 mg/dL (7-21) 01/22/18 06:00 Creatinine 0.8 mg/dl (0.8-1.5) 01/22/18 06:00 Est GFR ( Amer) > 60 01/22/18 06:00 Est GFR (Non-Af Amer) > 60 01/22/18 06:00 Random Glucose 87 mg/dL (70-110) 01/22/18 06:00 Calcium 9.9 mg/dL (8.4-10.5) 01/22/18 06:00 Phosphorus 3.6 mg/dL (2.5-4.5) 01/21/18 03:35 Magnesium 2.0 mg/dL (1.7-2.2) 01/21/18 03:35 Total Bilirubin 1.7 mg/dL (0.2-1.3) H 01/22/18 06:00 AST 53 U/L (17-59) 01/22/18 06:00 ALT 30 U/L (7-56) 01/22/18 06:00 Alkaline Phosphatase 87 U/L (38-126) 01/22/18 06:00 Lactate Dehydrogenase 622 U/L (333-699) 01/20/18 21:33 Total Creatine Kinase 392 U/L (35-230) H 01/20/18 21:33 CK-MB (CK-2) 2.1 ng/mL (0.0-3.6) 01/20/18 21:33 CK-MB (CK-2) % Cancelled 01/20/18 21:33 Troponin I < 0.01 ng/mL 01/21/18 09:10 NT-Pro-B Natriuret Pep 44.1 pg/mL (0-450) 01/20/18 21:33 Total Protein 7.4 g/dL (5.8-8.3) 01/22/18 06:00 Albumin 3.8 g/dL (3.0-4.8) 01/22/18 06:00 Globulin 3.6 gm/dL 01/22/18 06:00 Albumin/Globulin Ratio 1.1 (1.1-1.8) 01/22/18 06:00 Urine Color Yellow (YELLOW) 01/20/18 22:10 Urine Appearance Clear (CLEAR) 01/20/18 22:10 Urine pH 6.5 (4.7-8.0) 01/20/18 22:10 Ur Specific [place] <= 1.005 (1.005-1.035) 01/20/18 22:10 Urine Protein Negative mg/dL (<30 mg/dL) 01/20/18 22:10 Urine Glucose (UA) Negative mg/dL (NEGATIVE) 01/20/18 22:10 Urine Ketones Negative mg/dL (NEGATIVE) 01/20/18 22:10 Urine Blood Negative (NEGATIVE) 01/20/18 22:10 Urine Nitrate Negative (NEGATIVE) 01/20/18 22:10 Urine Bilirubin Negative (NEGATIVE) 01/20/18 22:10 Urine Urobilinogen 0.2 E.U./dL (<1 E.U./dL) 01/20/18 22:10 Ur Leukocyte Esterase Negative [place]/uL (NEGATIVE) 01/20/18 22:10 Urine Opiates Screen Negative (NEGATIVE) 01/20/18 22:10 Urine Methadone Screen Negative (NEGATIVE) 01/20/18 22:10 Ur Barbiturates Screen Negative (NEGATIVE) 01/20/18 22:10 Ur Phencyclidine Scrn Negative (NEGATIVE) 01/20/18 22:10 Ur Amphetamines Screen Negative (NEGATIVE) 01/20/18 22:10 U Benzodiazepines Scrn Negative (NEGATIVE) 01/20/18 22:10 U Oth Cocaine Metabols Negative (NEGATIVE) 01/20/18 22:10 U Cannabinoids Screen Negative (NEGATIVE) 01/20/18 22:10 Alcohol, Quantitative 398 mg/dL (0-10) H* 01/20/18 21:33 - Hospital Course Hospital Course: Pt is a 57 yo M with PMh of CAD s/p stents, EtOH abuse/withdrawal, esophageal variceal bleed, portal HTN, hepatitis B, intracranial hemorrhage, and seizures presents to [facility] [place] due to CP for the past week. Patient was seen by cardiology and worked up for cardiac causes of chest pain. ACS was ruled out with serial troponins and repeat EKG, which were all negative. Patient was also acutely intoxicated on admission, and was treated for intoxication and then withdrawal. Today, patient was feeling better overall, requesting to leave. Patient was informed that he still had some signs of withdrawal, and would benefit from staying in the hospital for further observation and safety. Patient insisted on leaving, AMA. Patient was awake and alert, understanding of his current situation, as well as the risks and possible consequences of leaving the hospital, and the benefits of staying. Patient initially attempted to elope, with peripheral IV line and monitoring coordinator still attached, though was found in the stairwell of the hospital and brought back to his room. Patient was evaluated at the time of his AMA request and was deemed to have appropriate judgement and insight into his current medical and social situation. Patient verbalized understanding and acceptance of the risks and potential consequences of leaving AMA, and signed out and left the hospital. Discharge Exam - Head Exam Head Exam: NORMAL INSPECTION - Eye Exam Eye Exam: EOMI, Normal appearance, PERRL - ENT Exam ENT Exam: Mucous Membranes Moist - Neck Exam Neck exam: Normal Inspection - Respiratory Exam Respiratory Exam: Clear to PA & Lateral, NORMAL BREATHING PATTERN - Cardiovascular Exam Cardiovascular Exam: RRR, +S1, +S2 - GI/Abdominal Exam GI & Abdominal Exam: Normal Bowel Sounds, Soft. absent: Tenderness - Extremities Exam Extremities exam: normal inspection - Neurological Exam Neurological exam: Alert, CN II-XII Intact Additional comments: Patient was awake and alert, aware of situation, comprehending instructions and discussing plans - Psychiatric Exam Psychiatric exam: Normal Affect, Normal Mood - Skin Skin Exam: Dry, Intact, Normal Color Discharge Plan - Follow Up Plan Condition: STABLE Disposition: AGAINST MEDICAL ADVICE Instructions: Chest Pain (DC), Alcohol Abuse and Alcoholism (DC)
== END 2018-01-22 16:45 | disposition left against medical advice (07) | DRG 749 ==
LOC: ED 20:31 → ERH 22:34 → 3RSO 01-21 00:31 → OBSVTOIN 01-21 15:23
PROVIDERS: ADMIT Internal Medicine; ATTEND Internal Medicine
DX: F10.229 Alcohol dependence with intoxication, unspecified (principal); B19.10 Unspecified viral hepatitis B without hepatic coma; R07.9 Chest pain, unspecified; Y90.8 Blood alcohol level of 240 mg/100 ml or more; K76.6 Portal hypertension; I25.10 Atherosclerotic heart disease of native coronary artery without angina pectoris; G40.909 Epilepsy, unspecified, not intractable, without status epilepticus; Z79.82 Long term (current) use of aspirin; Z91.14 Patient's other noncompliance with medication regimen; Z95.5 Presence of coronary angioplasty implant and graft

== ENCOUNTER 2018-02-18 03:55 | Observation (INO) | payer MEDICAID ==
[2018-02-18 03:56] VITALS: BMI 23.6
[2018-02-18 05:48] LABS: HEMOGLOBIN 12.3 g/dL (14.0-18.0); MEAN CELL VOLUME 84.8 fl (80.0-105.0); MEAN CORPUSCULAR HEMOGLOBIN 28.3 pg (25.0-35.0); MEAN CORPUSCULAR HGB CONC 33.3 g/dl (31.0-37.0); MEAN PLATELET VOLUME 10.9 fl (7.0-11.0); RBC 4.35 10^6/uL (3.5-6.1); RED CELL DISTRIBUTION WIDTH 17.4 % (11.5-14.5); WHITE BLOOD COUNT 3.8 10^3/ul (4.5-11.0)
[2018-02-18 05:59] LABS: INR 0.98 (0.93-1.08); PARTIAL THROMBOPLASTIN TIME 31.7 Seconds (25.1-36.5); PROTHROMBIN TIME 11.3 SECONDS (9.4-12.5)
--- NOTE | 2018-02-18 06:00 | ED PDOC ---
Arrival/HPI - General Chief Complaint: Chest Pain Time Seen by Provider: 02/18/18 04:25 Historian: Patient - History of Present Illness Narrative History of Present Illness (Text): 02/18/18 05:20 Tl Contreras is a 56 year old male, whose past medical history includes alcohol abuse, intracranial hemorrhage, seizure disorder, esophageal varices, and hepatitis B, who presents to the Emergency department complaining of intermittent chest pain radiating to his left arm since yesterday. Patient was admitted to the hospital on 01/20/2018 for similar complaints and discharged home, but states chest pain returned. Patient also reports some associated parethesias to the left arm. Patient denies any fever, chills, nausea, vomiting , diarrhea, urinary symptoms, back pain, neck pain, headache, dizziness, or any other complaints. Symptom Onset: Gradual Symptom Course: Unchanged Activities at Onset: Light Context: Home Past Medical History - Provider Review Nursing Documentation Reviewed: Yes - Past History Past History: No Previous - Infectious Disease Hx of Infectious Diseases: None - Tetanus Immunization Tetanus Immunization: Unknown - Cardiac Hx Cardiac Disorders: Yes Hx Hypertension: Yes - Pulmonary Hx Respiratory Disorders: Yes Hx Asthma: Yes - Neurological Hx Neurological Disorder: Yes Hx Seizures: Yes Other/Comment: Intracranial Hemmorhage - HEENT Hx HEENT Disorder: No - Renal Hx Renal Disorder: No - Endocrine/Metabolic Hx Endocrine Disorders: No - Hematological/Oncological Hx Blood Disorders: Yes Hx Anemia: Yes Hx Hepatitis B: Yes (carrier) - Integumentary Hx Dermatological Disorder: No - Musculoskeletal/Rheumatological Hx Falls: Yes - Gastrointestinal Hx Gastrointestinal Disorders: Yes Other/Comment: GI Bleed - Genitourinary/Gynecological Hx Genitourinary Disorders: No - Psychiatric Hx Psychophysiologic Disorder: No Hx Substance Use: No - Past Surgical History Past Surgical History: No Previous - Surgical History Hx Cardiac Catheterization: Yes (stents) - Anesthesia Hx Anesthesia: Yes Hx Anesthesia Reactions: No Hx Malignant Hyperthermia: No - Suicidal Assessment Feels Threatened In Home Enviroment: No Family/Social History - Physician Review Nursing Documentation Reviewed: Yes Family/Social History: Unknown Family HX Smoking Status: Current Some Days Smoker Hx Alcohol Use: Yes (PT ADMITS TO 2 BEERS DAILY) Hx Substance Use: No Hx Substance Use Treatment: No Allergies/Home Meds Allergies/Adverse Reactions: Allergies No Known Allergies Allergy (Verified 01/20/18 20:52) Home Medications: Home Meds Medication Instructions Recorded Confirmed Levetiracetam [Keppra] 750 mg PO DAILY 11/11/17 02/18/18 Montelukast [Singulair] 10 mg PO DAILY 11/11/17 02/18/18 Ranitidine HCl [Acid Truck Engine Technician] 150 mg PO BID 11/11/17 02/18/18 Aspirin [Ecotrin] 81 mg PO DAILY 11/14/17 02/18/18 Atorvastatin [Lipitor] 40 mg PO DAILY 11/14/17 02/18/18 Clopidogrel [Plavix] 75 mg PO DAILY 11/14/17 02/18/18 Metoprolol Tartrate [Lopressor] 25 mg PO BID 11/14/17 02/18/18 Review of Systems - Physician Review All systems were reviewed & negative as marked: Yes - Review of Systems Constitutional: Normal. absent: Fevers Eyes: Normal ENT: Normal Respiratory: Normal. absent: SOB, Cough Cardiovascular: Chest Pain Gastrointestinal: Normal. absent: Abdominal Pain, Diarrhea, Nausea, Vomiting Genitourinary Male: Normal. absent: Dysuria, Frequency, Hematuria, Urinary Output Changes Musculoskeletal: Normal. absent: Back Pain, Neck Pain Skin: Normal. absent: Rash Neurological: Normal. absent: Headache, Dizziness Endocrine: Normal Hemo/Lymphatic: Normal Psychiatric: Normal Physical Exam Vital Signs Reviewed: Yes Vital Signs Temp Pulse Resp BP Pulse Ox 02/18/18 07:49 98.1 F 68 18 111/62 95 02/18/18 06:38 61 16 95 02/18/18 04:35 70 20 115/74 95 Temperature: Afebrile Blood Pressure: Normal Pulse: Regular Respiratory Rate: Normal Appearance: Positive for: Well-Appearing, Non-Toxic, Comfortable Pain Distress: None Mental Status: Positive for: Alert and Oriented X 3 - Systems Exam Head: Present: Atraumatic, Normocephalic Pupils: Present: PERRL Extroacular Muscles: Present: EOMI Conjunctiva: Present: Normal Mouth: Present: Moist Mucous Membranes Neck: Present: Normal Range of Motion Respiratory/Chest: Present: Clear to Auscultation, Good Air Exchange. No: Respiratory Distress, Accessory Muscle Use Cardiovascular: Present: Regular Rate and Rhythm, Normal S1, S2. No: Murmurs Abdomen: No: Tenderness, Distention, Peritoneal Signs Back: Present: Normal Inspection Upper Extremity: Present: Normal Inspection. No: Cyanosis, Edema Lower Extremity: Present: Normal Inspection. No: Edema Neurological: Present: GCS=15, CN II-XII Intact, Speech Normal Skin: Present: Warm, Dry, Normal Color. No: Rashes Psychiatric: Present: Alert, Oriented x 3, Normal Insight, Normal Concentration Medical Decision Making ED Course and Treatment: 02/18/18 05:20 Impression: 57 year old male complaining of chest pain radiating to left arm for since yesterday. Plan: -- EKG -- Chest X-ray -- Labs, cardiac enzymes, alcohol level -- Reassess and disposition Prior Visits: Notes and results from previous visits were reviewed. Progress Notes: Reviewed EKG, NSR at 65 bpm. Early repolarization. Non-specific T wave changes. 02/18/18 06:00 Chest X-ray reviewed, shows no acute processes. 02/18/18 06:[address] Pryor, who is aware and agrees with plan. - Lab Interpretations Lab Results: 02/18/18 05:21 02/18/18 05:21 Lab Results 02/18/18 05:21: Alcohol, Quantitative 283 H 02/18/18 05:21: WBC 3.8 L D, RBC 4.35, Hgb 12.3 L, Hct 36.9 L, MCV 84.8, MCH 28.3, MCHC 33.3, RDW 17.4 H, Plt Count 184, MPV 10.9 02/18/18 05:21: Sodium 147, Potassium 3.7, Chloride 104, Carbon Dioxide 26, Anion Gap 20, BUN 6 L, Creatinine 0.7 L, Est GFR ( Amer) > 60, Est GFR ( Non-Af Amer) > 60, Random Glucose 66 L, Calcium 8.8, Total Bilirubin 0.6, AST 72 H D, ALT 42, Alkaline Phosphatase 99, Lactate Dehydrogenase 572, Total Creatine Kinase 477 H, CK-MB (CK-2) 3.4, CK-MB (CK-2) % Cancelled, Troponin I 0.01, Total Protein 7.7, Albumin 4.3, Globulin 3.4, Albumin/Globulin Ratio 1.2 02/18/18 05:21: PT 11.3, INR 0.98, APTT 31.7 I have reviewed the lab results: Yes - RAD Interpretation Radiology Orders: 02/18/18 05:00 CHEST PORTABLE [RAD] Stat Area Manager: ED Physician - EKG Interpretation Interpreted by ED Physician: Yes Type: 12 lead EKG - Medication Orders Current Medication Orders: Discontinued Medications Albuterol/Ipratropium (Duoneb 3 Mg/0.5 Mg (3 Ml) Ud) 3 ml IH Q2H PRN PRN Reason: Shortness of Breath Aspirin (Aspirin) 325 mg PO ONCE STA Stop: 02/18/18 05:02 Last Admin: 02/18/18 05:24 Dose: 325 mg Aspirin (Ecotrin) 81 mg PO DAILY [facility] Atorvastatin Calcium (Lipitor) 40 mg PO DAILY [facility] Folic Acid (Folic Acid) 1 mg PO DAILY [facility] Heparin Sodium (Porcine) (Heparin) 5,000 units SC Q12 [facility] PRN Reason: Protocol Multivitamins/Vitamin C 10 ml/Thiamine HCl 100 mg/ Folic Acid 1 mg/ Sodium Chloride 1,011.2 mls @ 100 mls/hr IV .[id number] [facility] Levetiracetam (Keppra) 500 mg PO BID [facility] Lorazepam (Ativan) 2 mg IVP Q4H PRN PRN Reason: Symptoms of alcohol withdrawl Metoprolol Tartrate (Lopressor) 25 mg PO BID [facility] Montelukast Sodium (Singulair) 10 mg PO DAILY [facility] Multivitamins/Minerals (Therapeutic-M Tab) 1 tab PO DAILY [facility] Nicotine (Nicoderm Cq) 1 patch TD DAILY [facility] Ondansetron HCl (Zofran Inj) 4 mg IVP Q6H PRN PRN Reason: Nausea/Vomiting Pantoprazole Sodium (Protonix Ec Tab) 40 mg PO ACB [facility] Thiamine HCl (Vitamin B1 Tab) 100 mg PO DAILY [facility] - Scribe Statement The provider has reviewed the documentation as recorded by the Willow Joyce Provider Scribe Attestation: All medical record entries made by the Scribsiria were at my direction and personally dictated by me. I have reviewed the chart and agree that the record accurately reflects my personal performance of the history, physical exam, medical decision making, and the department course for this patient. I have also personally directed, reviewed, and agree with the discharge instructions and disposition. Disposition/Present on Arrival - Present on Arrival Any Indicators Present on Arrival: No History of DVT/PE: No History of Uncontrolled Diabetes: No Urinary Catheter: No History of Decub. Ulcer: No History Surgical Site Infection Following: None - Disposition Have Diagnosis and Disposition been Completed?: Yes Diagnosis: Alcohol intoxication, Chest pain with moderate risk for cardiac etiology Disposition: HOSPITALIZED Disposition Time: 06:22 Condition: STABLE
[2018-02-18 06:38] VITALS: O2SAT 95
[2018-02-18 07:00] LABS: TROPONIN I 0.01 ng/mL
[2018-02-18 07:06] LABS: ALB/GLOB RATIO 1.2 (1.1-1.8); ALBUMIN 4.3 g/dL (3.0-4.8); ALT/SGPT 42 U/L (7-56); AST/SGOT 72 U/L (17-59); BLOOD UREA NITROGEN 6 mg/dL (7-21); CALCIUM 8.8 mg/dL (8.4-10.5); GFR AFRICAN-AMERICAN > 60; GFR NON-AFRICAN AMERICAN > 60
[2018-02-18 07:11] LABS: CK-MB 3.4 ng/mL (0.0-3.6)
[2018-02-18 07:49] VITALS: BP 111/62; PULSE 68; RESP 18; TEMP 98.1
[2018-02-18] MEDS ORDERED: Albuterol-Ipratrop 3 mg / 0.5 (3 ml) UD IH PRN (07:52)
[2018-02-18] MEDS ORDERED: Multivitamin (MVI) 10 ML, Thiamine 100 MG, Folic Acid 1 MG in Sodium Chloride 0.9% 1,00... IV SCH (08:00)
--- NOTE | 2018-02-18 08:11 | CP.PCM.HP ---
Addendum entered and electronically signed by Amanda Downey DO 02/18/18 09: 30: Patient was transferred to floor and wanted to leave AMA. Discussed risks of leaving the hospital without finishing medical evaluation. Patient reports he understood and signed AMA form. Spouse was with patient and confirmed he had stent placement at [facility] and is currently taking Plavix. Original Note: <Amanda Downey - Last Filed: 02/18/18 08:18> History of Present Illness - History of Present Illness History of Present Illness: H&P for HospitalistCullen PGY2 This is a 57yo M with PMH HTN, EtOH abuse, GI bleed secondary to esophageal varices, questionable Hep B, intracranial hemorrhage, seizures, portal HTN, CAD who came to ED for chest pain x 12hrs. Patient reports drinking 3-4 large beers about 12 hours ago and started having L sided chest pain. He states it does not radiate and is intermittent. He reports that he had stents placed about 4 weeks [facility] and may be on Plavix but did not have the medication with him. Patient does have history of ICH and GI bleed. He had a stress test in January 2017 which was normal and an Echo in January 2017 which showed EF of 51% and borderline LVH. The medication he had with him today was Metoprolol 25mg BID prescribed 10/2017 AND Metoprolol 50mg BID prescribed 11/2017, ASA 81mg, Keppra 500mg BID and Lipitor 40mg daily. Patient denies shortness of breath, nausea/vomiting/diarrhea , fever/chills, tremors, seizure-like activity, dysuria, or hematuria. In ED, alcohol level was noted to be >200. His last drink was about 12 hours ago. Patient was admitted to [facility] 2 weeks ago for similar symptoms, but left AMA. Past medical history: CAD with questionable stent placement at [facility] [place] about 1 month ago, EtOH abuse, esophageal variceal bleed, portal HTN, possible hepatitis B, intracranial hemorrhage, and seizures Past Surgical History: Tonsillectomy, jaw repair, possible cardiac catherization ? Meds: Metoprolol 25mg BID prescribed 10/2017 AND Metoprolol 50mg BID prescribed , ASA 81mg, Keppra 500mg BID and Lipitor 40mg daily Allergie: VIRGIL SH: Smokes 1/2 ppd x >20yrs, drinks 3-4 large beers per day, denies illicit drug use. Patient denies being homeless Present on Admission - Present on Admission Any Indicators Present on Admission: No Review of Systems - Review of Systems All systems: reviewed and no additional remarkable complaints except Review of Systems: 12 Point ROS reviewed as per HPI Past Patient History - Infectious Disease Hx of Infectious Diseases: None - Tetanus Immunizations Tetanus Immunization: Unknown - Past Social History Smoking Status: Current Some Days Smoker - CARDIAC Hx Cardiac Disorders: Yes Hx Hypertension: Yes - PULMONARY Hx Respiratory Disorders: Yes Hx Asthma: Yes - NEUROLOGICAL Hx Neurological Disorder: Yes Hx Seizures: Yes Other/Comment: Intracranial Hemmorhage - HEENT Hx HEENT Problems: No - RENAL Hx Chronic Kidney Disease: No - ENDOCRINE/METABOLIC Hx Endocrine Disorders: No - HEMATOLOGICAL/ONCOLOGICAL Hx Blood Disorders: Yes Hx Anemia: Yes Hx Hepatitis B: Yes (carrier) - INTEGUMENTARY Hx Dermatological Problems: No - MUSCULOSKELETAL/RHEUMATOLOGICAL Hx Falls: Yes - GASTROINTESTINAL Hx Gastrointestinal Disorders: Yes Other/Comment: GI Bleed - GENITOURINARY/GYNECOLOGICAL Hx Genitourinary Disorders: No - PSYCHIATRIC Hx Psychophysiologic Disorder: No Hx Substance Use: No - SURGICAL HISTORY Hx Cardiac Catheterization: Yes (stents) - ANESTHESIA Hx Anesthesia: Yes Hx Anesthesia Reactions: No Hx Malignant Hyperthermia: No Meds Allergies/Adverse Reactions: Allergies Allergy/AdvReac Type Severity Reaction Status Date / Time No Known Allergies Allergy Verified 01/20/18 20:52 Physical Exam - Constitutional Appears: No Acute Distress - Head Exam Head Exam: ATRAUMATIC, NORMAL INSPECTION, NORMOCEPHALIC - Eye Exam Eye Exam: Normal appearance, PERRL Pupil Exam: NORMAL ACCOMODATION, PERRL - ENT Exam ENT Exam: Mucous Membranes Moist - Neck Exam Neck exam: Positive for: Normal Inspection - Respiratory Exam Respiratory Exam: Clear to Auscultation Bilateral, NORMAL BREATHING PATTERN. absent: Rales, Rhonchi, Wheezes - Cardiovascular Exam Cardiovascular Exam: REGULAR RHYTHM, +S1, +S2. absent: Gallop, Rubs, Systolic Murmur Additional comments: pain to palpation of L chest - GI/Abdominal Exam GI & Abdominal Exam: Normal Bowel Sounds, Soft, Tenderness (mild epigastric ). absent: Mass, Rebound, Rigid - Extremities Exam Extremities exam: Positive for: normal inspection. Negative for: calf tenderness, pedal edema - Neurological Exam Neurological exam: Alert, CN II-XII Intact, Oriented x3 Additional comments: no tremors noted - Psychiatric Exam Psychiatric exam: Normal Affect, Normal Mood - Skin Skin Exam: Dry, Warm Results - Vital Signs Recent Vital Signs: Last Vital Signs Temp 98.1 F 02/18/18 07:49 Pulse 68 02/18/18 07:49 Resp 18 02/18/18 07:49 BP 111/62 02/18/18 07:49 Pulse Ox 95 02/18/18 07:49 - Labs Result Diagrams: 02/18/18 05:21 02/18/18 05:21 Assessment & Plan - Assessment and Plan (Free Text) Assessment: This is a 57yo M with PMH HTN, EtOH abuse, GI bleed secondary to esophageal varices, questionable Hep B, intracranial hemorrhage, seizures, portal HTN, CAD admitted for Chest pain r/o ACS and alcohol withdrawal. Plan: 1. Chest pain r/o ACS - EKG showed NSR @65 - Troponin <0.01 x 1- will trend - Cardio consulted - Echo 2016 showed EF 51% - Stress test 2017 was normal - Questionable stent placement at [facility] 4weeks ago - Unclear if patient needs to be on Plavix - Continue ASA, Lipitor, Metoprolol - Will check TSH, Lipid panel, HgbA1c 2. Alcohol withdrawal - [facility] protocol - Ativan 2q4 prn - Patient counseled on alcohol cessation - Banana bag then multivitamin, thiamine, folic acid 3. Hx of Seizures - Continue Keppra 500 BID 4. Possible hx of Hep B - Hep panel was last done 2012 and was indeterminate - Will recheck 5. Tobacco abuse - Nicotine patch - Counseled on alcohol cessation 6. Hx of esophageal varices and ICH - Hgb stable, no overt signs of bleeding GI ppx: Protonix DVT ppx: Heparin SC Case seen, discussed and reviewed with attending. Franklin Downey PGY2 <Chiqui Rangel - Last Filed: 02/18/18 13:37> Results - Vital Signs Recent Vital Signs: Last Vital Signs Temp 98.1 F 02/18/18 07:49 Pulse 68 02/18/18 07:49 Resp 18 02/18/18 07:49 BP 111/62 02/18/18 07:49 Pulse Ox 95 02/18/18 07:49 - Labs Result Diagrams: 02/18/18 05:21 02/18/18 05:21 Labs: Laboratory Results - last 24 hr 02/18/18 08:45 Hepatitis A IgM Ab Negative Hep Bs Antigen Negative Hep B Core IgM Ab Negative Hepatitis C Antibody Negative Attending/Attestation - Attestation I have personally seen and examined this patient.: Yes I have fully participated in the care of the patient.: Yes I have reviewed all pertinent clinical information: Yes Notes (Text): 02/18/18 13:35 Medical record note made by the resident after discussion with my direction and input after the patient was personally seen and examined by me. I have reviewed the chart and agree that the record accurately reflects by personal performance of the history, physical exam, data review, and medical decision-making, in the course for the patient. I have also personally directed the plan of care. 57 yrs old male with PMH of CAD s/p stents ?, EtOH abuse, esophageal varices, portal HTN, hepatitis B, , and seizures was admitted for Chest pain. Patient has chest wall tenderness, EKG is negative for ischemic changes.Initial troponins were normal.Patient was admitted in telemetry but he has refused to stay in the hospital. He is alert,awake and has decided to leave the hospital against medical advice.He understood the risk of leaving the hospital. Prognosis is guarded due to non compliance and ongoing smoking and alcohol abuse.
--- NOTE | 2018-02-18 09:20 | RAD ---
HISTORY: Chest pain. COMPARISON: 01/20/2018 FINDINGS: LUNGS: No active pulmonary disease. PLEURA: No significant pleural effusion identified, no pneumothorax apparent. CARDIOVASCULAR: No radiographic findings to suggest acute or significant cardiovascular disease. OSSEOUS STRUCTURES: No significant abnormalities. VISUALIZED UPPER ABDOMEN: Normal. OTHER FINDINGS: None. IMPRESSION: No active disease. No significant interval change compared to the prior examination(s).
[2018-02-18] MEDS ORDERED: Multivitamin With Minerals Tab PO SCH (10:00)
[2018-02-18 12:23] LABS: HEPATITIS B SURFACE AG Negative (NEGATIVE)
[2018-02-18 12:29] LABS: HEPATITIS A IGM NEGATIVE (NEGATIVE); HEPATITIS B CORE AB NEGATIVE (NEGATIVE)
[2018-02-18 12:41] LABS: HEPATITIS C ANTIBODY NEGATIVE (NEGATIVE)
--- NOTE | 2018-02-18 19:20 | CARD ---
APPROVED REPORT EKG Measurement Heart [id number] <Conclusion> Normal sinus rhythm Early repolarization Normal ECG
[2018-02-19] MEDS ORDERED: Pantoprazole 40 mg EC Tab PO SCH (07:30)
== END 2018-02-18 09:40 | disposition left against medical advice (07) ==
LOC: ED 03:55 → ERH 06:23 → 2RNO 08:07
PROVIDERS: ADMIT Internal Medicine; ATTEND Internal Medicine
DX: F10.129 Alcohol abuse with intoxication, unspecified (principal); R07.9 Chest pain, unspecified; F17.210 Nicotine dependence, cigarettes, uncomplicated; I25.10 Atherosclerotic heart disease of native coronary artery without angina pectoris; G40.909 Epilepsy, unspecified, not intractable, without status epilepticus; Z91.19 Patient's noncompliance with other medical treatment and regimen; Z95.5 Presence of coronary angioplasty implant and graft; Z79.82 Long term (current) use of aspirin; Y90.8 Blood alcohol level of 240 mg/100 ml or more
CPT/HCPCS: 71045; 80053; 80074; 80320; 82550; 82553; 83615; 84484; 85027; 85610; 85730; 93005; 99283; G0378

== ENCOUNTER 2018-02-20 21:15 | Inpatient (IN) | payer MEDICAID ==
--- NOTE | 2018-02-20 22:27 | ED PDOC ---
Arrival/HPI - General Historian: Patient - General Chief Complaint: Chest Pain Time Seen by Provider: 02/20/18 21:39 - History of Present Illness Narrative History of Present Illness (Text): 02/20/18 22:13 57 yo M with PMH of HTN, EtOH abuse, GI bleed secondary to esophageal varices, questionable Hep B, intracranial hemorrhage, seizures, portal HTN, CAD presents to ER complaining of chest pain since yesterday. Pain is left sided, intermittent, nonexertional, no particular exacerbating or remitting factors. Pain started when he was sitting at home. Today, pain recurred while he was at home, and his girlfriend called EMS. He admits to current chest pain, stabbing in nature, intermittently radiating to left arm and left leg. He denies shortness of breath or palpitations. He has had this pain before. He also reports that he had two 16oz beers earlier today, last drink was about 8 hours ago. (Montserrat Youngblood) Past Medical History - Provider Review Nursing Documentation Reviewed: Yes - Travel History Have you recently traveled outside [place] w/in the past 3 mons?: No - Past History Past History: No Previous - Infectious Disease Hx of Infectious Diseases: None - Tetanus Immunization Tetanus Immunization: Unknown - Cardiac Hx Cardiac Disorders: Yes Hx Hypertension: Yes - Pulmonary Hx Respiratory Disorders: Yes Hx Asthma: Yes - Neurological Hx Neurological Disorder: Yes Hx Seizures: Yes Other/Comment: Intracranial Hemmorhage - HEENT Hx HEENT Disorder: No - Renal Hx Renal Disorder: No - Endocrine/Metabolic Hx Endocrine Disorders: No - Hematological/Oncological Hx Blood Disorders: Yes Hx Anemia: Yes Hx Hepatitis B: Yes (carrier) - Integumentary Hx Dermatological Disorder: No - Musculoskeletal/Rheumatological Hx Falls: Yes - Gastrointestinal Hx Gastrointestinal Disorders: Yes Other/Comment: GI Bleed - Genitourinary/Gynecological Hx Genitourinary Disorders: No - Psychiatric Hx Psychophysiologic Disorder: No Hx Substance Use: No - Past Surgical History Past Surgical History: No Previous - Surgical History Hx Cardiac Catheterization: Yes (stents) - Anesthesia Hx Anesthesia: Yes Hx Anesthesia Reactions: No Hx Malignant Hyperthermia: No - Suicidal Assessment Feels Threatened In Home Enviroment: No Family/Social History - Physician Review Nursing Documentation Reviewed: Yes Family/Social History: Unknown Family HX Smoking Status: Current Some Days Smoker Hx Alcohol Use: Yes (PT ADMITS TO 2 BEERS DAILY) Hx Substance Use: No Hx Substance Use Treatment: No Allergies/Home Meds Allergies/Adverse Reactions: Allergies No Known Allergies Allergy (Verified 01/20/18 20:52) Home Medications: Home Meds Medication Instructions Recorded Confirmed Levetiracetam [Keppra] 750 mg PO DAILY 11/11/17 02/21/18 Montelukast [Singulair] 10 mg PO DAILY 11/11/17 02/21/18 Ranitidine HCl [Acid Production Intern] 150 mg PO BID 11/11/17 02/21/18 Aspirin [Ecotrin] 81 mg PO DAILY 11/14/17 02/21/18 Atorvastatin [Lipitor] 40 mg PO DAILY 11/14/17 02/21/18 Clopidogrel [Plavix] 75 mg PO DAILY 11/14/17 02/21/18 Metoprolol Tartrate [Lopressor] 25 mg PO BID 11/14/17 02/21/18 Review of Systems - Review of Systems Constitutional: Normal Eyes: Normal ENT: Normal Respiratory: Normal Cardiovascular: Chest Pain Gastrointestinal: Normal Genitourinary Male: Normal Musculoskeletal: Normal Skin: Normal Neurological: Normal Endocrine: Normal Hemo/Lymphatic: Normal Psychiatric: Normal Physical Exam Appearance: Positive for: Well-Appearing, Non-Toxic, Comfortable Pain Distress: None Mental Status: Positive for: Alert and Oriented X 3 - Systems Exam Head: Present: Atraumatic, Normocephalic Pupils: Present: PERRL Extroacular Muscles: Present: EOMI Conjunctiva: Present: Normal Mouth: Present: Moist Mucous Membranes Neck: Present: Normal Range of Motion Respiratory/Chest: Present: Clear to Auscultation, Good Air Exchange, Tender to Palpation Cardiovascular: Present: Regular Rate and Rhythm, Normal S1, S2 Abdomen: Present: Normal Bowel Sounds. No: Tenderness, Distention Upper Extremity: Present: Normal Inspection. No: Cyanosis, Edema Lower Extremity: Present: Normal Inspection. No: Edema, CALF TENDERNESS Neurological: Present: GCS=15, CN II-XII Intact, Speech Normal Skin: Present: Warm, Dry, Normal Color Psychiatric: Present: Alert, Oriented x 3, Normal Insight, Normal Concentration Vital Signs Temp Pulse Resp BP Pulse Ox 02/21/18 02:57 80 14 113/56 L 94 L 02/21/18 02:01 87 18 112/58 L 95 05/04/18 23:59 98.5 F 91 H 18 125/69 94 L Medical Decision Making ED Course and Treatment: 02/20/18 23:56 Patient Seen With Resident: In agreement with resident note which contains more details about the patient. Patient was seen and evaluated with resident. Came up with plan and treatment together. 57 year old male presents complaining of intermittent left sided chest pain that began yesterday. Plan: -- EKG -- Labs -- Chest X-ray (Lenny Hernandez) 02/20/18 22:37 Impression: Chest pain Differential diagnoses: ACS, costochondritis; less likely pneumonia Plan: -- Labs: CBC, CMP, Cardiac ISO -- EKG -- CXR -- Reassess and dispo 02/21/18 00:39 Progress notes: -- EKG shows NSR @ 100bpm -- Trop negative -- Labs remarkable for elevated CK -- Ordered 1L NS IVF 02/21/18 04:16 -- Repeat CK remains elevated -- Ordered 250ml/hr NS -- Discussed case with Dr. Mandel who accepts patient to hospitalist service for rhabdomyolysis and chest pain (Montserrat Youngblood) - Lab Interpretations Lab Results: 02/20/18 23:30 02/20/18 23:30 Lab Results 02/21/18 02:22: Total Creatine Kinase 1136 H, CK-MB (CK-2) 3.6, CK-MB (CK-2) % Cancelled 02/20/18 23:30: Sodium 142, Potassium 3.7, Chloride 103, Carbon Dioxide 27, Anion Gap 17, BUN 5 L, Creatinine 0.8, Est GFR ( Amer) > 60, Est GFR (Non -Af Amer) > 60, Random Glucose 81, Calcium 8.5, Total Bilirubin 0.7, AST 101 H D , ALT 41, Alkaline Phosphatase 94, Lactate Dehydrogenase 734 H, Total Creatine Kinase 1277 H, CK-MB (CK-2) 4.0 H, CK-MB (CK-2) % Cancelled, Troponin I < 0.01, Total Protein 7.6, Albumin 4.2, Globulin 3.4, Albumin/Globulin Ratio 1.2 02/20/18 23:30: WBC 4.0 L, RBC 3.98, Hgb 11.1 L, Hct 33.3 L, MCV 83.7, MCH 27.9 , MCHC 33.3, RDW 17.6 H, Plt Count 137, MPV 10.7, Gran % 50.1, Lymph % (Auto) 40.0 H, Jay % (Auto) 8.1 H, Eos % (Auto) 1.3 L, Baso % (Auto) 0.5, Gran # 1.98 , Lymph # (Auto) 1.6, Jay # (Auto) 0.3, Eos # (Auto) 0.1, Baso # (Auto) 0.02 - RAD Interpretation Radiology Orders: 02/20/18 22:11 CHEST PORTABLE [RAD] Stat - Medication Orders Current Medication Orders: Sodium Chloride (Sodium Chloride 0.9%) 1,000 mls @ 250 mls/hr IV .Q4H CORWIN Last Admin: 02/21/18 03:59 Dose: 250 mls/hr eMAR Start Stop Document 02/21/18 03:59 RG (Rec: 02/21/18 03:59 [id number]) Intravenous Solution Start Date 02/21/18 Start Time 03:59 Sodium Chloride (Sodium Chloride 0.9%) 1,000 mls @ 999 mls/hr IV .Q1H1M STA Stop: 02/21/18 05:13 Discontinued Medications Sodium Chloride (Sodium Chloride 0.9%) 1,000 mls @ 999 mls/hr IV .Q1H1M STA Stop: 02/21/18 01:28 Last Admin: 02/21/18 00:37 Dose: 999 mls/hr eMAR Start Stop Document 02/21/18 00:37 (Rec: 02/21/18 00:37 [id number]) Intravenous Solution Start Date 02/21/18 Start Time 00:37 Disposition/Present on Arrival - Present on Arrival Any Indicators Present on Arrival: No History of DVT/PE: No History of Uncontrolled Diabetes: No Urinary Catheter: No History of Decub. Ulcer: No History Surgical Site Infection Following: None - Disposition Have Diagnosis and Disposition been Completed?: Yes Disposition Time: 04:19 Patient Plan: Admission, Telemetry - Disposition Diagnosis: Rhabdomyolysis, Chest pain Disposition: HOSPITALIZED Condition: GUARDED Discharge Instructions (ExitCare): Chest Pain (ED) Referrals: Dwain Barrera MD [Primary Care Provider] - Follow up with primary Forms: [employer] (Vietnamese)
[2018-02-20 23:54] LABS: BASO # 0.02 K/mm3 (0.0-2.0); BASO % 0.5 % (0.0-3.0); EOS # 0.1 (0.0-0.7); EOS % 1.3 % (1.5-5.0); GRAN # 1.98 (1.4-6.5); GRAN % 50.1 % (50.0-68.0); HEMOGLOBIN 11.1 g/dL (14.0-18.0); LYMPH # 1.6 (1.2-3.4); MEAN CELL VOLUME 83.7 fl (80.0-105.0); MEAN CORPUSCULAR HEMOGLOBIN 27.9 pg (25.0-35.0); MEAN CORPUSCULAR HGB CONC 33.3 g/dl (31.0-37.0); MEAN PLATELET VOLUME 10.7 fl (7.0-11.0); MONO # 0.3 (0.1-0.6); MONO % 8.1 % (1.0-6.0); RBC 3.98 10^6/uL (3.5-6.1); RED CELL DISTRIBUTION WIDTH 17.6 % (11.5-14.5)
[2018-02-21 00:05] LABS: TROPONIN I < 0.01 ng/mL
[2018-02-21 00:14] LABS: ALB/GLOB RATIO 1.2 (1.1-1.8); ALBUMIN 4.2 g/dL (3.0-4.8); ALT/SGPT 41 U/L (7-56); AST/SGOT 101 U/L (17-59); BLOOD UREA NITROGEN 5 mg/dL (7-21); CALCIUM 8.5 mg/dL (8.4-10.5); GFR AFRICAN-AMERICAN > 60; GFR NON-AFRICAN AMERICAN > 60
[2018-02-21] MEDS ORDERED: Sodium Chloride 0.9% 1,000 ML IV STA ×2 (00:28→04:13)
[2018-02-21 02:57] LABS: CK-MB 3.6 ng/mL (0.0-3.6)
--- NOTE | 2018-02-21 03:55 | CP.PCM.HP ---
History of Present Illness - History of Present Illness History of Present Illness: Patient is a 57 year old male with a PMHx of CAD with stent placement at [facility] about 1 month ago (On ASA/Plavix), EtOH abuse, esophageal variceal bleed, portal HTN, medication non-compliance, Asthma, intracranial hemorrhage, and seizures who presents with 5/10, non-radiating, dull, reproducible chest pain that started about 6:30PM. Chest pain started at rest after patient came home from a 2 hour bike ride. Patient found to have elevated CPK in ED. ROS: POSITIVES: Chest Pain, Headache NEGATIVES: Fever, Chills, SOB, palpitations, Abdominal pain, nausea, vomiting , diarrhea, constipation, urinary symptoms Past medical history: CAD with stent placement at [facility] [place] about 1 month ago (On ASA /Plavix), EtOH abuse, esophageal variceal bleed, portal HTN, medication non- compliance, Asthma, intracranial hemorrhage, and seizures Past Surgical History: Tonsillectomy, jaw repair, possible cardiac catherization ? Meds: Reviewed. Patient states he only has been taking his Keppra, ASA, and Metoprolol. Allergies: NKDA SH: Smokes 1/2 ppd x >20yrs, drinks 3-4 large beers per day, denies illicit drug use. Patient denies being homeless Hosp: 02/18/18 for Chest Pain, R/O ACS FamHx: Unknown, Patient is adopted. Present on Admission - Present on Admission Any Indicators Present on Admission: No History of DVT/PE: No Review of Systems - Review of Systems All systems: reviewed and no additional remarkable complaints except (As per HPI ) Review of Systems: As per HPI Past Patient History - Infectious Disease Hx of Infectious Diseases: None - Tetanus Immunizations Tetanus Immunization: Unknown - Past Social History Smoking Status: Current Some Days Smoker - CARDIAC Hx Cardiac Disorders: Yes Hx Hypertension: Yes - PULMONARY Hx Respiratory Disorders: Yes Hx Asthma: Yes - NEUROLOGICAL Hx Neurological Disorder: Yes Hx Seizures: Yes Other/Comment: Intracranial Hemmorhage - HEENT Hx HEENT Problems: No - RENAL Hx Chronic Kidney Disease: No - ENDOCRINE/METABOLIC Hx Endocrine Disorders: No - HEMATOLOGICAL/ONCOLOGICAL Hx Blood Disorders: Yes Hx Anemia: Yes Hx Hepatitis B: Yes (carrier) - INTEGUMENTARY Hx Dermatological Problems: No - MUSCULOSKELETAL/RHEUMATOLOGICAL Hx Falls: Yes - GASTROINTESTINAL Hx Gastrointestinal Disorders: Yes Other/Comment: GI Bleed - GENITOURINARY/GYNECOLOGICAL Hx Genitourinary Disorders: No - PSYCHIATRIC Hx Psychophysiologic Disorder: No Hx Substance Use: No - SURGICAL HISTORY Hx Cardiac Catheterization: Yes (stents) - ANESTHESIA Hx Anesthesia: Yes Hx Anesthesia Reactions: No Hx Malignant Hyperthermia: No Meds Allergies/Adverse Reactions: Allergies Allergy/AdvReac Type Severity Reaction Status Date / Time No Known Allergies Allergy Verified 01/20/18 20:52 Physical Exam - Constitutional Appears: No Acute Distress, Older Than Stated Age - Head Exam Head Exam: ATRAUMATIC, NORMAL INSPECTION, NORMOCEPHALIC - Eye Exam Eye Exam: EOMI, Normal appearance. absent: Periorbital swelling, Scleral icterus - ENT Exam ENT Exam: Mucous Membranes Dry - Neck Exam Neck exam: Negative for: Normal Inspection, Tenderness Additional comments: Thyroid nodule vs Ant. Cervical Lymphadenopathy - Respiratory Exam Respiratory Exam: Clear to Auscultation Bilateral - Cardiovascular Exam Cardiovascular Exam: RRR, +S1, +S2 - GI/Abdominal Exam GI & Abdominal Exam: Normal Bowel Sounds, Soft. absent: Tenderness - Extremities Exam Extremities exam: Positive for: normal inspection. Negative for: pedal edema - Neurological Exam Neurological exam: Alert, Oriented x3 Additional comments: 5/5 Muscle Strength in Upper and Lower Extremities - Skin Skin Exam: Dry, Intact, Normal Color, Warm - Additional Findings Additional findings: Prominence of right clavicle 2/2 to Clavicle fracture per patient. Left Sided Chest Wall tenderness Results - Vital Signs Recent Vital Signs: Last Vital Signs Temp 98.5 F 02/20/18 23:59 Pulse 80 02/21/18 02:57 Resp 14 02/21/18 02:57 BP 113/56 L 02/21/18 02:57 Pulse Ox 94 L 02/21/18 02:57 - Labs Result Diagrams: 02/20/18 23:30 02/20/18 23:30 Labs: Laboratory Results - last 24 hr 02/20/18 02/20/18 02/21/18 23:30 23:30 02:22 WBC 4.0 L RBC 3.98 Hgb 11.1 L Hct 33.3 L MCV 83.7 MCH 27.9 MCHC 33.3 RDW 17.6 H Plt Count 137 MPV 10.7 Gran % 50.1 Lymph % (Auto) 40.0 H [place] % (Auto) 8.1 H Eos % (Auto) 1.3 L Baso % (Auto) 0.5 Gran # 1.98 Lymph # (Auto) 1.6 [place] # (Auto) 0.3 Eos # (Auto) 0.1 Baso # (Auto) 0.02 Sodium 142 Potassium 3.7 Chloride 103 Carbon Dioxide 27 Anion Gap 17 BUN 5 L Creatinine 0.8 Est GFR ( Amer) > 60 Est GFR (Non-Af Amer) > 60 Random Glucose 81 Calcium 8.5 Total Bilirubin 0.7 AST 101 H D ALT 41 Alkaline Phosphatase 94 Lactate Dehydrogenase 734 H Total Creatine Kinase 1277 H 1136 H CK-MB (CK-2) 4.0 H 3.6 CK-MB (CK-2) % Cancelled Cancelled Troponin I < 0.01 Total Protein 7.6 Albumin 4.2 Globulin 3.4 Albumin/Globulin Ratio 1.2 Assessment & Plan - Assessment and Plan (Free Text) Assessment: 57 year old male with a PMHx of CAD with stent placement at [facility] [place] about 1 month ago (On ASA/Plavix), EtOH abuse, esophageal variceal bleed, portal HTN, intracranial hemorrhage, and seizures admitted for evaluation and treatment of chest pain and rhabdomyolysis. Plan: Chest Pain Likely 2/2 to costochondritis. Patient has severe chest wall tenderness. First Troponin - NEGATIVE, EKG - NSR with no ST or T wave changes Serial EKG x 2 Serial Troponins x 2 Toradol 30 Q6H PRN Rhabdomyolysis DDx: Strenuous Exercise (Bike Riding for 2-3 hrs), Statin induced Fluid Bolus x 2 in ED Ordered 1 more NS Bolus Then Cont. NS @ 250mls/hr Serial CPK Q6H Elevated LFTs DDx: Fatty Liver vs Statin Use vs EtOH abuse Hepatitis Panel negative on previous admission Consider Abd US Monitor Possible Thyroid Nodule TSH/Free T4 Hx of HTN Home Metoprolol Hx of CAD ASA/Plavix/Lipitor Hx of Asthma Singulair Hx of Seizures Home Keppra Proph Plavix Protonix Patient discussed with Dr. Tequila Zheng
[2018-02-21] MEDS: Sodium Chloride 0.9% 1,000 ML IV SCH ×3 (03:59→21:59)
[2018-02-21] MEDS ORDERED: Sodium Chloride 0.9% 1,000 ML IV ONE (06:30)
[2018-02-21] MEDS: Pantoprazole 40 mg EC Tab PO SCH (06:38)
[2018-02-21 08:32] LABS: BASO # 0.01 K/mm3 (0.0-2.0); BASO % 0.2 % (0.0-3.0); EOS # 0.1 (0.0-0.7); EOS % 2.1 % (1.5-5.0); GRAN # 2.77 (1.4-6.5); GRAN % 65.4 % (50.0-68.0); LYMPH # 1.1 (1.2-3.4); LYMPH % 25.2 % (22.0-35.0); MEAN CELL VOLUME 85.3 fl (80.0-105.0); MEAN CORPUSCULAR HEMOGLOBIN 27.9 pg (25.0-35.0); MEAN CORPUSCULAR HGB CONC 32.7 g/dl (31.0-37.0); MEAN PLATELET VOLUME 10.6 fl (7.0-11.0); MONO # 0.3 (0.1-0.6); MONO % 7.1 % (1.0-6.0); RBC 4.3 10^6/uL (3.5-6.1); RED CELL DISTRIBUTION WIDTH 17.9 % (11.5-14.5); WHITE BLOOD COUNT 4.2 10^3/ul (4.5-11.0)
[2018-02-21 08:46] LABS: ALB/GLOB RATIO 1.2 (1.1-1.8); ALBUMIN 4.1 g/dL (3.0-4.8); ALT/SGPT 50 U/L (7-56); AST/SGOT 103 U/L (17-59); BLOOD UREA NITROGEN 4 mg/dL (7-21); CALCIUM 8.6 mg/dL (8.4-10.5); GFR AFRICAN-AMERICAN > 60; GFR NON-AFRICAN AMERICAN > 60
[2018-02-21 08:55] LABS: TROPONIN I < 0.01 ng/mL
[2018-02-21 09:00] LABS: FREE T4 0.68 ng/dL (0.78-2.19)
--- NOTE | 2018-02-21 10:13 | RAD ---
HISTORY: chest pain COMPARISON: 02/18/2018 FINDINGS: LUNGS: No active pulmonary disease. PLEURA: No significant pleural effusion identified, no pneumothorax apparent. CARDIOVASCULAR: Normal. OSSEOUS STRUCTURES: No significant abnormalities. VISUALIZED UPPER ABDOMEN: Normal. OTHER FINDINGS: None. IMPRESSION: No active disease.
[2018-02-21 10:18] VITALS: BMI 24.6
[2018-02-21 14:47] LABS: TROPONIN I < 0.01 ng/mL
[2018-02-21 14:51] LABS: CK-MB 2.2 ng/mL (0.0-3.6)
--- NOTE | 2018-02-21 17:41 | CARD ---
APPROVED REPORT EKG Measurement Heart [id number] [place] [id number] <Conclusion> Sinus bradycardia Otherwise normal ECG
--- NOTE | 2018-02-21 17:49 | CARD ---
APPROVED REPORT EKG Measurement Heart [id number] [place] [id number] <Conclusion> Sinus rhythm with marked sinus arrhythmia Otherwise normal ECG
--- NOTE | 2018-02-21 17:55 | CARD ---
APPROVED REPORT EKG Measurement Heart [id number] [place] [id number] <Conclusion> Normal sinus rhythm Normal ECG
[2018-02-21 21:29] LABS: CK-MB 1.3 ng/mL (0.0-3.6)
[2018-02-22] MEDS: Pantoprazole 40 mg EC Tab PO SCH (06:21)
[2018-02-22] MEDS: Sodium Chloride 0.9% 1,000 ML IV SCH ×3 (06:24→10:33)
[2018-02-22 07:33] LABS: BASO # 0.01 K/mm3 (0.0-2.0); BASO % 0.2 % (0.0-3.0); EOS # 0.1 (0.0-0.7); GRAN # 4.32 (1.4-6.5); GRAN % 73.6 % (50.0-68.0); HEMOGLOBIN 11.3 g/dL (14.0-18.0); LYMPH % 17.4 % (22.0-35.0); MEAN CELL VOLUME 86.2 fl (80.0-105.0); MEAN CORPUSCULAR HEMOGLOBIN 27.8 pg (25.0-35.0); MEAN CORPUSCULAR HGB CONC 32.3 g/dl (31.0-37.0); MEAN PLATELET VOLUME 11.4 fl (7.0-11.0); MONO # 0.4 (0.1-0.6); MONO % 6.8 % (1.0-6.0); RBC 4.06 10^6/uL (3.5-6.1); RED CELL DISTRIBUTION WIDTH 18.1 % (11.5-14.5); WHITE BLOOD COUNT 5.9 10^3/ul (4.5-11.0)
[2018-02-22 07:59] LABS: ALB/GLOB RATIO 1.1 (1.1-1.8); ALBUMIN 3.4 g/dL (3.0-4.8); ALT/SGPT 39 U/L (7-56); AST/SGOT 59 U/L (17-59); BLOOD UREA NITROGEN 5 mg/dL (7-21); CALCIUM 8.5 mg/dL (8.4-10.5); GFR AFRICAN-AMERICAN > 60; GFR NON-AFRICAN AMERICAN > 60
[2018-02-22] MEDS: Multivitamin With Minerals Tab PO SCH (09:19)
--- NOTE | 2018-02-22 11:23 | CP.PCM.PN ---
<Lisa Bauman - Last Filed: 02/22/18 11:41> Subjective - Date & Time of Evaluation Date of Evaluation: 02/22/18 Time of Evaluation: 11:22 - Subjective Subjective: Internal Medicine Progress Note: Patient seen and examined at bedside. Per nursing no acute events overnight. Patient is doing well, chest pain is improving. He is ambulating and tolerating diet. CIWA was 4 this morning. He denies headaches, dizziness, cp, palpitations , sob, abdominal pain, urinary symptoms. Objective - Vital Signs/Intake and Output Vital Signs (last 24 hours): Temp Pulse Resp BP Pulse Ox 98.3 F 78 20 133/84 96 02/22/18 06:00 02/22/18 09:20 02/22/18 06:00 02/22/18 09:20 02/22/18 06:00 Intake and Output: 02/22/18 02/22/18 06:59 18:59 Intake Total 3000 Balance 3000 - Medications Medications: Current Medications Aspirin (Ecotrin) 81 mg PO DAILY [facility] Last Admin: 02/22/18 09:20 Dose: 81 mg Atorvastatin Calcium (Lipitor) 40 mg PO DAILY [facility] Last Admin: 02/21/18 09:32 Dose: 40 mg Clopidogrel Bisulfate (Plavix) 75 mg PO DAILY [facility] Last Admin: 02/22/18 09:19 Dose: 75 mg Folic Acid (Folic Acid) 1 mg PO DAILY [facility] Last Admin: 02/22/18 09:20 Dose: 1 mg Sodium Chloride (Sodium Chloride 0.9%) 1,000 mls @ 250 mls/hr IV .Q4H [facility] Last Admin: 02/22/18 10:33 Dose: 250 mls/hr Ketorolac Tromethamine (Toradol) 30 mg IVP Q6H PRN PRN Reason: Pain, severe (8-10) Levetiracetam (Keppra) 750 mg PO DAILY [facility] Last Admin: 02/22/18 09:19 Dose: 750 mg Lorazepam (Ativan) 2 mg IVP Q4H PRN; Protocol PRN Reason: Anxiety Lorazepam (Ativan) 1 mg IVP Q8 [facility] PRN Reason: Protocol Metoprolol Tartrate (Lopressor) 25 mg PO BID [facility] Last Admin: 02/22/18 09:20 Dose: 25 mg Montelukast Sodium (Singulair) 10 mg PO HS [facility] Last Admin: 02/21/18 22:00 Dose: 10 mg Multivitamins/Minerals (Therapeutic-M Tab) 1 tab PO 0800 [facility] Last Admin: 02/22/18 09:19 Dose: 1 tab Pantoprazole Sodium (Protonix Ec Tab) 40 mg PO 0600 [facility] Last Admin: 02/22/18 06:21 Dose: 40 mg Thiamine HCl (Vitamin B1 Tab) 100 mg PO DAILY [facility] Last Admin: 02/22/18 09:20 Dose: 100 mg - Labs Labs: 02/22/18 07:00 02/22/18 07:00 - Constitutional Appears: Well, Non-toxic, No Acute Distress - Head Exam Head Exam: ATRAUMATIC, NORMAL INSPECTION, NORMOCEPHALIC - Eye Exam Eye Exam: EOMI, Normal appearance Pupil Exam: NORMAL ACCOMODATION - ENT Exam ENT Exam: Mucous Membranes Moist - Neck Exam Neck Exam: Full ROM - Respiratory Exam Respiratory Exam: Clear to Ausculation Bilateral, NORMAL BREATHING PATTERN. absent: Rales, Rhonchi, Wheezes - Cardiovascular Exam Cardiovascular Exam: REGULAR RHYTHM, +S1, +S2 Additional comments: Left sided chest wall tenderness to palpation - GI/Abdominal Exam GI & Abdominal Exam: Soft, Normal Bowel Sounds. absent: Guarding, Rigid, Tenderness - Extremities Exam Extremities Exam: Normal Inspection - Back Exam Back Exam: NORMAL INSPECTION - Neurological Exam Neurological Exam: Alert, Awake, Oriented x3 - Psychiatric Exam Psychiatric exam: Normal Affect, Normal Mood - Skin Skin Exam: Dry, Normal Color, Warm Assessment and Plan - Assessment and Plan (Free Text) Assessment: 57 year old male with a PMHx of CAD with stent placement at [facility] [place] about 1 month ago (On ASA/Plavix), EtOH abuse, esophageal variceal bleed, portal HTN, intracranial hemorrhage, and seizures admitted for evaluation and treatment of chest pain and rhabdomyolysis. Plan: Chest Pain r/o ACS, History of CAD with recent stent placement -Likely 2/2 to costochondritis. Patient has severe chest wall tenderness. -Troponins negative x 3, EKG - NSR with no ST or T wave changes -Toradol 30 Q6H PRN -Continue ASA and Plavix -Lipitor on hold -Patient states that he has only been taking ASA and Keppra at home; advised him on importance of taking Plavix -Last echo was over 1 year ago -Will reach out to [facility] for medical records as patient had stent placed last month Rhabdomyolysis -Likely secondary to Strenuous Exercise (Bike Riding for 2-3 hrs), Statin induced -CPK on admission was 1277 -Lipitor on hold at this time -CPK is trending down, 484 this morning -Patient was given Fluid Bolus x 2 in ED -NS at 250cc/hr Alcohol abuse/Alcohol withdrawal -CIWA was 4 this morning -Ativan 1mg Q8H CORWIN today, then can taper to 0.5mg Q8H tomorrow -Patient is not requiring PRN Ativan at this time -Continue Folic acid, multivitamins, thiamine daily -Seizure precautions, aspiration precautions -PT evaluation ordered Elevated LFTs -Could be due to Fatty Liver vs Statin Use vs EtOH abuse -Hepatitis Panel negative on previous admission -Lipitor on hold -LFTs have normalized -Will continue to monitor Thrombocytopenia -Platelets 101 today -Could be due bone marrow suppression 2/2 ETOH abuse vs medication induced -Continue to monitor at this time -If continues to drop, consider switching Protonix to Pepcid Possible Thyroid Nodule -TSH 2.56, Free T4 0.68 Hx of HTN -Home Metoprolol Hx of Asthma -Singulair Hx of Seizures -Home Keppra GI/DVT Proph -Protonix 40mg PO daily -SCDs Plan discussed with Dr Ceballos <Leander Ceballos - Last Filed: 02/22/18 13:32> Objective - Vital Signs/Intake and Output Vital Signs (last 24 hours): Temp Pulse Resp BP Pulse Ox 99.1 F 56 L 18 143/77 96 02/22/18 12:00 02/22/18 12:00 02/22/18 12:00 02/22/18 12:00 02/22/18 06:00 Intake and Output: 02/22/18 02/22/18 06:59 18:59 Intake Total 3000 Balance 3000 - Medications Medications: Current Medications Aspirin (Ecotrin) 81 mg PO DAILY [facility] Last Admin: 02/22/18 09:20 Dose: 81 mg Atorvastatin Calcium (Lipitor) 40 mg PO DAILY [facility] Last Admin: 02/21/18 09:32 Dose: 40 mg Clopidogrel Bisulfate (Plavix) 75 mg PO DAILY [facility] Last Admin: 02/22/18 09:19 Dose: 75 mg Folic Acid (Folic Acid) 1 mg PO DAILY [facility] Last Admin: 02/22/18 09:20 Dose: 1 mg Sodium Chloride (Sodium Chloride 0.9%) 1,000 mls @ 250 mls/hr IV .Q4H [facility] Last Admin: 02/22/18 10:33 Dose: 250 mls/hr Ketorolac Tromethamine (Toradol) 30 mg IVP Q6H PRN PRN Reason: Pain, severe (8-10) Levetiracetam (Keppra) 750 mg PO DAILY [facility] Last Admin: 02/22/18 09:19 Dose: 750 mg Lorazepam (Ativan) 2 mg IVP Q4H PRN; Protocol PRN Reason: Anxiety Lorazepam (Ativan) 1 mg IVP Q8 CORWIN PRN Reason: Protocol Metoprolol Tartrate (Lopressor) 25 mg PO BID [facility] Last Admin: 02/22/18 09:20 Dose: 25 mg Montelukast Sodium (Singulair) 10 mg PO HS [facility] Last Admin: 02/21/18 22:00 Dose: 10 mg Multivitamins/Minerals (Therapeutic-M Tab) 1 tab PO 0800 [facility] Last Admin: 02/22/18 09:19 Dose: 1 tab Pantoprazole Sodium (Protonix Ec Tab) 40 mg PO 0600 [facility] Last Admin: 02/22/18 06:21 Dose: 40 mg Thiamine HCl (Vitamin B1 Tab) 100 mg PO DAILY [facility] Last Admin: 02/22/18 09:20 Dose: 100 mg - Labs Labs: 02/22/18 07:00 02/22/18 07:00 Attending/Attestation - Attestation I have personally seen and examined this patient.: Yes I have fully participated in the care of the patient.: Yes I have reviewed all pertinent clinical information, including history, physical exam and plan: Yes Notes (Text): I have seen and examined the patient at bedside. Agree with the above note with the following additions/ exceptions: Briefly this is 57 year old male with history of CAD with stent placement at [facility] about 1 month ago (On ASA/Plavix), EtOH abuse, esophageal variceal bleed, portal HTN, intracranial hemorrhage, and seizures admitted for evaluation and treatment of chest pain and rhabdomyolysis. Chest pain has resolved. Cardiac enzymes and EKG unremarkable. We requested to obtain records from [facility]. Patient has been non compliant with plavix. CPK has improved. Will stop IVF. Continue to taper ativan. Upon discharge patient will follow up with Dr Arroyo.
[2018-02-23] MEDS: Pantoprazole 40 mg EC Tab PO SCH (06:46)
[2018-02-23 07:33] LABS: BASO # 0.01 K/mm3 (0.0-2.0); BASO % 0.2 % (0.0-3.0); EOS # 0.2 (0.0-0.7); EOS % 3.2 % (1.5-5.0); GRAN # 4.82 (1.4-6.5); GRAN % 72.5 % (50.0-68.0); HEMOGLOBIN 11.9 g/dL (14.0-18.0); LYMPH # 1.1 (1.2-3.4); LYMPH % 15.8 % (22.0-35.0); MEAN CELL VOLUME 85.8 fl (80.0-105.0); MEAN CORPUSCULAR HEMOGLOBIN 28.1 pg (25.0-35.0); MEAN CORPUSCULAR HGB CONC 32.7 g/dl (31.0-37.0); MEAN PLATELET VOLUME 12.4 fl (7.0-11.0); MONO # 0.6 (0.1-0.6); MONO % 8.3 % (1.0-6.0); RBC 4.24 10^6/uL (3.5-6.1); RED CELL DISTRIBUTION WIDTH 18.2 % (11.5-14.5); WHITE BLOOD COUNT 6.6 10^3/ul (4.5-11.0)
[2018-02-23 07:51] LABS: ALB/GLOB RATIO 1.2 (1.1-1.8); ALBUMIN 4.4 g/dL (3.0-4.8); ALT/SGPT 42 U/L (7-56); AST/SGOT 65 U/L (17-59); BLOOD UREA NITROGEN 3 mg/dL (7-21); CALCIUM 9.5 mg/dL (8.4-10.5); GFR AFRICAN-AMERICAN > 60; GFR NON-AFRICAN AMERICAN > 60
[2018-02-23] MEDS ORDERED: Potassium Chloride 20 mEq ER Tab PO ONE (08:59)
[2018-02-23] MEDS: Multivitamin With Minerals Tab PO SCH (09:22)
[2018-02-23] MEDS ORDERED: Magnesium Sulfate 1 gm in D5W 1 GM/100 ML BAG IVPB ONE (10:46)
--- NOTE | 2018-02-23 12:55 | CP.PCM.PN ---
<ForestYovani - Last Filed: 02/23/18 19:05> Subjective - Date & Time of Evaluation Date of Evaluation: 02/23/18 Time of Evaluation: 10:55 - Subjective Subjective: Internal Medicine Progress Note Patient seen and examined at bedside. Multiple code florencia called this AM. Patient was delirious and tremulous on encounter. Patient denied chest pain, dyspnea, or palpitations. He was trying to smoke a cigarette, but was kindly asked to refrain from smoking, and obeyed. He was provided with nicotine patch. Case was discussed with psychiatry. Objective - Vital Signs/Intake and Output Vital Signs (last 24 hours): Temp Pulse Resp BP Pulse Ox 98.3 F 60 18 158/89 H 100 02/23/18 06:00 02/23/18 09:22 02/23/18 06:00 02/23/18 09:22 02/23/18 06:00 Intake and Output: 02/23/18 02/23/18 06:59 18:59 Intake Total 1740 Output Total 3000 Balance -1260 - Medications Medications: Current Medications Aspirin (Ecotrin) 81 mg PO DAILY [facility] Last Admin: 02/23/18 09:21 Dose: 81 mg Atorvastatin Calcium (Lipitor) 40 mg PO DAILY [facility] Last Admin: 02/21/18 09:32 Dose: 40 mg Clopidogrel Bisulfate (Plavix) 75 mg PO DAILY [facility] Last Admin: 02/23/18 09:22 Dose: 75 mg Folic Acid (Folic Acid) 1 mg PO DAILY [facility] Last Admin: 02/23/18 09:22 Dose: 1 mg Ketorolac Tromethamine (Toradol) 30 mg IVP Q6H PRN PRN Reason: Pain, severe (8-10) Levetiracetam (Keppra) 750 mg PO DAILY [facility] Last Admin: 02/23/18 09:22 Dose: 750 mg Lorazepam (Ativan) 2 mg IVP Q4H PRN; Protocol PRN Reason: Anxiety Last Admin: 02/23/18 09:47 Dose: 2 mg Lorazepam (Ativan) 2 mg IVP Q6 [facility] PRN Reason: Protocol Metoprolol Tartrate (Lopressor) 25 mg PO BID [facility] Last Admin: 02/23/18 09:22 Dose: 25 mg Montelukast Sodium (Singulair) 10 mg PO HS [facility] Last Admin: 02/22/18 22:11 Dose: 10 mg Multivitamins/Minerals (Therapeutic-M Tab) 1 tab PO 0800 [facility] Last Admin: 02/23/18 09:22 Dose: 1 tab Nicotine (Nicoderm Cq) 1 patch TD DAILY [facility] Last Admin: 02/23/18 11:13 Dose: 1 patch Pantoprazole Sodium (Protonix Ec Tab) 40 mg PO 0600 [facility] Last Admin: 02/23/18 06:46 Dose: 40 mg Thiamine HCl (Vitamin B1 Tab) 100 mg PO DAILY [facility] Last Admin: 02/23/18 09:21 Dose: 100 mg Ziprasidone (Geodon Inj) 10 mg IM Q8H PRN; Protocol PRN Reason: severe agitation Last Admin: 02/23/18 11:12 Dose: 10 mg - Labs Labs: 02/23/18 07:00 02/23/18 07:00 - Constitutional Appears: Agitated, Confused - Head Exam Head Exam: ATRAUMATIC, NORMOCEPHALIC - Eye Exam Eye Exam: EOMI - ENT Exam ENT Exam: Mucous Membranes Moist - Neck Exam Neck Exam: Normal Inspection - Respiratory Exam Respiratory Exam: Clear to Ausculation Bilateral, NORMAL BREATHING PATTERN. absent: Accessory Muscle Use - Cardiovascular Exam Cardiovascular Exam: RRR, +S1, +S2 - GI/Abdominal Exam GI & Abdominal Exam: Soft, Normal Bowel Sounds - Extremities Exam Extremities Exam: Normal Inspection. absent: Calf Tenderness - Neurological Exam Neurological Exam: Awake. absent: Normal Gait - Psychiatric Exam Psychiatric exam: Agitated - Skin Skin Exam: Dry, Intact, Normal Color, Warm Assessment and Plan - Assessment and Plan (Free Text) Assessment: 57 year old male with a PMHx of CAD with stent placement at [facility] about 1 month ago (On ASA/Plavix), EtOH abuse, esophageal variceal bleed, portal HTN, intracranial hemorrhage, and seizures admitted for evaluation and treatment of chest pain and rhabdomyolysis. Plan: Chest Pain r/o ACS, History of CAD with recent stent placement -Likely 2/2 to costochondritis. Patient has severe chest wall tenderness. -Troponins negative x 3, EKG - NSR with no ST or T wave changes -Toradol 30 Q6H PRN -Continue ASA and Plavix -Lipitor on hold -Patient states that he has only been taking ASA and Keppra at home; advised him on importance of taking Plavix -Last echo was over 1 year ago -Will reach out to [facility] for medical records as patient had stent placed last month Rhabdomyolysis -Likely secondary to Strenuous Exercise (Bike Riding for 2-3 hrs), Statin induced -CPK on admission was 1277 -Lipitor on hold at this time -CPK is trending down, 484 this morning -Patient was given Fluid Bolus x 2 in ED -NS at 250cc/hr Alcohol abuse/Alcohol withdrawal -CIWA was 4 this morning -Ativan 1mg Q8H CORWIN today, then can taper to 0.5mg Q8H tomorrow -Patient is not requiring PRN Ativan at this time -Continue Folic acid, multivitamins, thiamine daily -Seizure precautions, aspiration precautions -PT evaluation ordered Elevated LFTs -Could be due to Fatty Liver vs Statin Use vs EtOH abuse -Hepatitis Panel negative on previous admission -Lipitor on hold -LFTs have normalized -Will continue to monitor Thrombocytopenia -Platelets 101 today -Could be due bone marrow suppression 2/2 ETOH abuse vs medication induced -Continue to monitor at this time -If continues to drop, consider switching Protonix to Pepcid Possible Thyroid Nodule -TSH 2.56, Free T4 0.68 Hx of HTN -Home Metoprolol Hx of Asthma -Singulair Hx of Seizures -Home Keppra GI/DVT Proph -Protonix 40mg PO daily -SCDs Disposition: SW did not get to talk to patient today. Physical therapy, re consulted. Plan discussed with Dr Ceballos <Leander Ceballos - Last Filed: 02/24/18 12:11> Objective - Vital Signs/Intake and Output Vital Signs (last 24 hours): Temp Pulse Resp BP Pulse Ox 97.6 F 79 19 163/96 H 99 02/24/18 08:11 02/24/18 09:24 02/24/18 08:11 02/24/18 09:24 02/24/18 08:11 Intake and Output: 02/24/18 02/24/18 06:59 18:59 Intake Total 180 Output Total 300 Balance -120 - Medications Medications: Current Medications Aspirin (Ecotrin) 81 mg PO DAILY [facility] Last Admin: 02/24/18 09:23 Dose: 81 mg Atorvastatin Calcium (Lipitor) 40 mg PO DAILY [facility] Last Admin: 02/21/18 09:32 Dose: 40 mg Clopidogrel Bisulfate (Plavix) 75 mg PO DAILY [facility] Last Admin: 02/24/18 09:23 Dose: 75 mg Folic Acid (Folic Acid) 1 mg PO DAILY [facility] Last Admin: 02/24/18 09:23 Dose: 1 mg Sodium Chloride (Sodium Chloride 0.9%) 1,000 mls @ 200 mls/hr IV .Q5H [facility] Last Admin: 02/24/18 08:09 Dose: 200 mls/hr Ketorolac Tromethamine (Toradol) 30 mg IVP Q6H PRN PRN Reason: Pain, severe (8-10) Levetiracetam (Keppra) 750 mg PO DAILY [facility] Last Admin: 02/24/18 09:23 Dose: 750 mg Lorazepam (Ativan) 2 mg IVP Q4H PRN; Protocol PRN Reason: Anxiety Last Admin: 02/24/18 11:38 Dose: 2 mg Lorazepam (Ativan) 2 mg IVP Q6 [facility] PRN Reason: Protocol Last Admin: 02/24/18 06:13 Dose: 2 mg Metoprolol Tartrate (Lopressor) 25 mg PO BID [facility] Last Admin: 02/24/18 09:24 Dose: 25 mg Montelukast Sodium (Singulair) 10 mg PO HS [facility] Last Admin: 02/23/18 22:11 Dose: 10 mg Multivitamins/Minerals (Therapeutic-M Tab) 1 tab PO 0800 [facility] Last Admin: 02/24/18 08:10 Dose: 1 tab Nicotine (Nicoderm Cq) 1 patch TD DAILY [facility] Last Admin: 02/24/18 09:22 Dose: 1 patch Thiamine HCl (Vitamin B1 Tab) 100 mg PO DAILY [facility] Last Admin: 02/24/18 09:23 Dose: 100 mg Ziprasidone (Geodon Inj) 10 mg IM Q8H PRN; Protocol PRN Reason: severe agitation Last Admin: 02/24/18 10:00 Dose: 10 mg - Labs Labs: 02/24/18 06:00 02/24/18 06:00 Attending/Attestation - Attestation I have personally seen and examined this patient.: Yes I have fully participated in the care of the patient.: Yes I have reviewed all pertinent clinical information, including history, physical exam and plan: Yes Notes (Text): I have seen and examined the patient at bedside. Agree with the above note with the following additions/ exceptions: Briefly this is 57 year old male with history of CAD with stent placement at [facility] about 1 month ago (On ASA/Plavix), EtOH abuse, esophageal variceal bleed, portal HTN, intracranial hemorrhage and seizures admitted for evaluation and treatment of chest pain and rhabdomyolysis. Chest pain has resolved. Cardiac enzymes and EKG unremarkable. Awaiting records from [facility]. Patient has been non compliant with plavix. CPK has improved. Faustina pate was called twice for this patient as he was delirious, tremulous and wanted to leave the hospital. His medications were adjusted. He appeared calm and somnolent later. Continue ativan for now. Patient still need monitoring on remote telemetry. Upon discharge patient will follow up with Dr Arroyo.
[2018-02-23 21:30] LABS: CK-MB 1.1 ng/mL (0.0-3.6)
[2018-02-24] MEDS: Pantoprazole 40 mg EC Tab PO SCH (06:10)
[2018-02-24 06:20] LABS: BASO # 0.01 K/mm3 (0.0-2.0); BASO % 0.1 % (0.0-3.0); EOS # 0.1 (0.0-0.7); EOS % 1.6 % (1.5-5.0); GRAN # 7.03 (1.4-6.5); GRAN % 81.5 % (50.0-68.0); HEMOGLOBIN 12.3 g/dL (14.0-18.0); LYMPH # 0.7 (1.2-3.4); LYMPH % 7.8 % (22.0-35.0); MEAN CELL VOLUME 85.3 fl (80.0-105.0); MEAN CORPUSCULAR HEMOGLOBIN 28.2 pg (25.0-35.0); MEAN CORPUSCULAR HGB CONC 33.1 g/dl (31.0-37.0); MEAN PLATELET VOLUME 11.6 fl (7.0-11.0); MONO # 0.8 (0.1-0.6); RBC 4.36 10^6/uL (3.5-6.1); RED CELL DISTRIBUTION WIDTH 18.6 % (11.5-14.5); WHITE BLOOD COUNT 8.6 10^3/ul (4.5-11.0)
[2018-02-24 06:46] LABS: ALB/GLOB RATIO 1.2 (1.1-1.8); ALBUMIN 4.3 g/dL (3.0-4.8); ALT/SGPT 45 U/L (7-56); AST/SGOT 50 U/L (17-59); BLOOD UREA NITROGEN 3 mg/dL (7-21); CALCIUM 9.6 mg/dL (8.4-10.5); GFR AFRICAN-AMERICAN > 60; GFR NON-AFRICAN AMERICAN > 60
[2018-02-24 06:52] LABS: CK-MB 1.4 ng/mL (0.0-3.6)
[2018-02-24] MEDS ORDERED: Potassium Chloride 20 mEq ER Tab PO ONE (06:57)
[2018-02-24] MEDS: Sodium Chloride 0.9% 1,000 ML IV SCH ×2 (08:09→15:45)
[2018-02-24] MEDS: Multivitamin With Minerals Tab PO SCH (08:10)
[2018-02-24 08:12] VITALS: O2SAT 99
[2018-02-24] MEDS ORDERED: Magnesium Sulfate 2 GM in Sodium Chloride 0.9% 100 ML IVPB ONE (09:08)
--- NOTE | 2018-02-24 12:55 | CP.PCM.PN ---
<Yovani Garg - Last Filed: 02/24/18 12:56> Subjective - Date & Time of Evaluation Date of Evaluation: 02/24/18 Time of Evaluation: 07:20 - Subjective Subjective: Internal Medicine Progress Note Patient seen and examined at bedside. Patient is resting comfortably/sleeping, observed on three different encounters..Chart review indicates patient has received Geodon and Ativan PRN for agitation. CIWA this morning was 5. Communicated with nurse to reach out [place] [facility] [place] prior records involving the patients care. Objective - Vital Signs/Intake and Output Vital Signs (last 24 hours): Temp Pulse Resp BP Pulse Ox 97.6 F 79 19 163/96 H 99 02/24/18 08:11 02/24/18 09:24 02/24/18 08:11 02/24/18 09:24 02/24/18 08:11 Intake and Output: 02/24/18 02/24/18 06:59 18:59 Intake Total 180 Output Total 300 Balance -120 - Medications Medications: Current Medications Aspirin (Ecotrin) 81 mg PO DAILY [facility] Last Admin: 02/24/18 09:23 Dose: 81 mg Atorvastatin Calcium (Lipitor) 40 mg PO DAILY [facility] Last Admin: 02/21/18 09:32 Dose: 40 mg Clopidogrel Bisulfate (Plavix) 75 mg PO DAILY [facility] Last Admin: 02/24/18 09:23 Dose: 75 mg Folic Acid (Folic Acid) 1 mg PO DAILY [facility] Last Admin: 02/24/18 09:23 Dose: 1 mg Sodium Chloride (Sodium Chloride 0.9%) 1,000 mls @ 200 mls/hr IV .Q5H [facility] Last Admin: 02/24/18 08:09 Dose: 200 mls/hr Ketorolac Tromethamine (Toradol) 30 mg IVP Q6H PRN PRN Reason: Pain, severe (8-10) Levetiracetam (Keppra) 750 mg PO DAILY [facility] Last Admin: 02/24/18 09:23 Dose: 750 mg Lorazepam (Ativan) 2 mg IVP Q4H PRN; Protocol PRN Reason: Anxiety Last Admin: 02/24/18 11:38 Dose: 2 mg Lorazepam (Ativan) 2 mg IVP Q6 [facility] PRN Reason: Protocol Last Admin: 02/24/18 06:13 Dose: 2 mg Metoprolol Tartrate (Lopressor) 25 mg PO BID [facility] Last Admin: 02/24/18 09:24 Dose: 25 mg Montelukast Sodium (Singulair) 10 mg PO HS [facility] Last Admin: 02/23/18 22:11 Dose: 10 mg Multivitamins/Minerals (Therapeutic-M Tab) 1 tab PO 0800 [facility] Last Admin: 02/24/18 08:10 Dose: 1 tab Nicotine (Nicoderm Cq) 1 patch TD DAILY [facility] Last Admin: 02/24/18 09:22 Dose: 1 patch Thiamine HCl (Vitamin B1 Tab) 100 mg PO DAILY [facility] Last Admin: 02/24/18 09:23 Dose: 100 mg Ziprasidone (Geodon Inj) 10 mg IM Q8H PRN; Protocol PRN Reason: severe agitation Last Admin: 02/24/18 10:00 Dose: 10 mg - Labs Labs: 02/24/18 06:00 02/24/18 06:00 - Constitutional Appears: Non-toxic, No Acute Distress - Head Exam Head Exam: ATRAUMATIC, NORMOCEPHALIC - Eye Exam Eye Exam: EOMI, Normal appearance - ENT Exam ENT Exam: Mucous Membranes Moist - Neck Exam Neck Exam: Normal Inspection - Respiratory Exam Respiratory Exam: Clear to Ausculation Bilateral, NORMAL BREATHING PATTERN. absent: Accessory Muscle Use - Cardiovascular Exam Cardiovascular Exam: RRR, +S1, +S2 - GI/Abdominal Exam GI & Abdominal Exam: Soft, Normal Bowel Sounds - Extremities Exam Extremities Exam: Normal Inspection - Neurological Exam Additional comments: wakes up to loud noises - Psychiatric Exam Psychiatric exam: Normal Affect, Normal Mood - Skin Skin Exam: Dry, Intact, Normal Color, Warm Assessment and Plan - Assessment and Plan (Free Text) Assessment: 57 year old male with a PMHx of CAD with stent placement [place] [facility] [place] 1 month ago (On ASA/Plavix), EtOH abuse, esophageal variceal bleed, portal HTN, intracranial hemorrhage, and seizures admitted for evaluation and treatment of chest pain and rhabdomyolysis. Plan: Chest Pain r/o ACS, History of CAD with recent stent placement -Likely 2/2 to costochondritis. Patient has severe chest wall tenderness. -Troponins negative x 3, EKG - NSR with no ST or T wave changes -Toradol 30 Q6H PRN -Continue ASA and Plavix -Lipitor on hold -Patient states that he has only been taking ASA and Keppra at home; advised him on importance of taking Plavix -Last echo was over 1 year ago -Will reach out to [facility] for medical records as patient had stent placed last month - Repeat EKG shows minimal voltage criteria for LVH with prolonged QT of 456/488 Rhabdomyolysis -Likely secondary to Strenuous Exercise (Bike Riding for 2-3 hrs), Statin induced -CPK on admission was 1277, now 300 -Lipitor on hold at this time -NS at 200 ml/hr Alcohol abuse/Alcohol withdrawal/Agitation -CIWA was 5 this morning - Geodon 10 mg IM q8h PRN for agitation - Ativan 1 mg q6h itzel and 1 mg q4h PRN for NOEL -Continue Folic acid, multivitamins, thiamine daily -Seizure precautions, aspiration precautions -PT evaluation ordered Electrolyte disturbance - K and Mg repleted Elevated LFTs -Could be due to Fatty Liver vs Statin Use vs EtOH abuse -Hepatitis Panel negative on previous admission -Lipitor on hold -LFTs have normalized -Will continue to monitor Thrombocytopenia -Platelets 99 today -Could be due bone marrow suppression 2/2 ETOH abuse vs medication induced -Continue to monitor at this time -Protonix discontinued, famotidine 20 mg HS Possible Thyroid Nodule -TSH 2.56, Free T4 0.68 Hx of HTN -Home Metoprolol Hx of Asthma -Singulair Hx of Seizures -Home Keppra GI/DVT Proph -Protonix 40mg PO daily -SCDs Disposition: SW and CM consulted Physical therapy, re consulted. Plan discussed with Dr Ceballos <Leander Ceballos - Last Filed: 02/24/18 15:56> Objective - Vital Signs/Intake and Output Vital Signs (last 24 hours): Temp Pulse Resp BP Pulse Ox 97.6 F 79 19 163/96 H 99 02/24/18 08:11 02/24/18 09:24 02/24/18 08:11 02/24/18 09:24 02/24/18 08:11 Intake and Output: 02/24/18 02/24/18 06:59 18:59 Intake Total 180 Output Total 300 Balance -120 - Medications Medications: Current Medications Aspirin (Ecotrin) 81 mg PO DAILY [facility] Last Admin: 02/24/18 09:23 Dose: 81 mg Atorvastatin Calcium (Lipitor) 40 mg PO DAILY [facility] Last Admin: 02/21/18 09:32 Dose: 40 mg Clopidogrel Bisulfate (Plavix) 75 mg PO DAILY [facility] Last Admin: 02/24/18 09:23 Dose: 75 mg Famotidine (Pepcid) 40 mg PO [facility] Folic Acid (Folic Acid) 1 mg PO DAILY [facility] Last Admin: 02/24/18 09:23 Dose: 1 mg Sodium Chloride (Sodium Chloride 0.9%) 1,000 mls @ 200 mls/hr IV .Q5H [facility] Stop: 02/24/18 17:14 Last Admin: 02/24/18 08:09 Dose: 200 mls/hr Ketorolac Tromethamine (Toradol) 30 mg IVP Q6H PRN PRN Reason: Pain, severe (8-10) Levetiracetam (Keppra) 750 mg PO DAILY [facility] Last Admin: 02/24/18 09:23 Dose: 750 mg Lorazepam (Ativan) 1 mg IVP Q6 [facility] PRN Reason: Protocol Lorazepam (Ativan) 1 mg IVP Q4H PRN; Protocol PRN Reason: Symptoms of alcohol withdrawl Metoprolol Tartrate (Lopressor) 25 mg PO BID [facility] Last Admin: 02/24/18 09:24 Dose: 25 mg Montelukast Sodium (Singulair) 10 mg PO [facility] Last Admin: 02/23/18 22:11 Dose: 10 mg Multivitamins/Minerals (Therapeutic-M Tab) 1 tab PO 0800 [facility] Last Admin: 02/24/18 08:10 Dose: 1 tab Nicotine (Nicoderm Cq) 1 patch TD DAILY [facility] Last Admin: 02/24/18 09:22 Dose: 1 patch Thiamine HCl (Vitamin B1 Tab) 100 mg PO DAILY [facility] Last Admin: 02/24/18 09:23 Dose: 100 mg Ziprasidone (Geodon Inj) 10 mg IM Q8H PRN; Protocol PRN Reason: severe agitation Last Admin: 02/24/18 10:00 Dose: 10 mg - Labs Labs: 02/24/18 06:00 02/24/18 06:00 Attending/Attestation - Attestation I have personally seen and examined this patient.: Yes I have fully participated in the care of the patient.: Yes I have reviewed all pertinent clinical information, including history, physical exam and plan: Yes Notes (Text): I have seen and examined the patient at bedside. Agree with the above note with the following additions/ exceptions: Briefly this is 57 year old male with history of CAD with stent placement [place] [facility] [place] 1 [place] ago (On ASA/Plavix), EtOH abuse, esophageal variceal bleed, portal HTN, intracranial hemorrhage and seizures admitted for evaluation and treatment of chest pain and rhabdomyolysis. Chest pain has resolved. Cardiac enzymes and EKG unremarkable. Awaiting records from [facility]. Patient has been non compliant with plavix. CPK has improved. Faustina pate was called twice yesterday as he was delirious, tremulous and wanted to leave the hospital. His medications were adjusted. He appeared calm and somnolent today. Will taper ativan today. Continue ativan for now. Patient still need monitoring on remote telemetry. Upon discharge patient will follow up with Dr Arroyo.
[2018-02-25 06:22] LABS: BASO # 0.01 K/mm3 (0.0-2.0); BASO % 0.2 % (0.0-3.0); EOS # 0.3 (0.0-0.7); EOS % 4.5 % (1.5-5.0); GRAN # 4.25 (1.4-6.5); GRAN % 70.8 % (50.0-68.0); HEMOGLOBIN 12.3 g/dL (14.0-18.0); LYMPH # 0.8 (1.2-3.4); LYMPH % 13.8 % (22.0-35.0); MEAN CELL VOLUME 86.4 fl (80.0-105.0); MEAN CORPUSCULAR HEMOGLOBIN 28.4 pg (25.0-35.0); MEAN CORPUSCULAR HGB CONC 32.9 g/dl (31.0-37.0); MEAN PLATELET VOLUME 11.3 fl (7.0-11.0); MONO # 0.6 (0.1-0.6); MONO % 10.7 % (1.0-6.0); RBC 4.33 10^6/uL (3.5-6.1); RED CELL DISTRIBUTION WIDTH 19.2 % (11.5-14.5)
--- NOTE | 2018-02-25 06:56 | CP.PCM.PN ---
Objective - Vital Signs/Intake and Output Vital Signs (last 24 hours): Temp Pulse Resp BP Pulse Ox 97.6 F 72 19 160/97 H 99 02/24/18 08:11 02/25/18 06:00 02/24/18 08:11 02/24/18 17:01 02/24/18 08:11 Intake and Output: 02/24/18 02/25/18 18:59 06:59 Intake Total 800 Output Total 400 Balance 400 - Medications Medications: Current Medications Aspirin (Ecotrin) 81 mg PO DAILY [facility] Last Admin: 02/24/18 09:23 Dose: 81 mg Atorvastatin Calcium (Lipitor) 40 mg PO DAILY [facility] Last Admin: 02/21/18 09:32 Dose: 40 mg Clopidogrel Bisulfate (Plavix) 75 mg PO DAILY [facility] Last Admin: 02/24/18 09:23 Dose: 75 mg Famotidine (Pepcid) 40 mg PO HS [facility] Last Admin: 02/24/18 22:23 Dose: 40 mg Folic Acid (Folic Acid) 1 mg PO DAILY [facility] Last Admin: 02/24/18 09:23 Dose: 1 mg Ketorolac Tromethamine (Toradol) 30 mg IVP Q6H PRN PRN Reason: Pain, severe (8-10) Levetiracetam (Keppra) 750 mg PO DAILY [facility] Last Admin: 02/24/18 09:23 Dose: 750 mg Lorazepam (Ativan) 1 mg IVP Q6 [facility] PRN Reason: Protocol Last Admin: 02/25/18 05:33 Dose: 1 mg Lorazepam (Ativan) 1 mg IVP Q4H PRN; Protocol PRN Reason: Symptoms of alcohol withdrawl Last Admin: 02/24/18 22:22 Dose: 1 mg Metoprolol Tartrate (Lopressor) 25 mg PO BID [facility] Last Admin: 02/24/18 17:01 Dose: 25 mg Montelukast Sodium (Singulair) 10 mg PO HS [facility] Last Admin: 02/24/18 22:23 Dose: 10 mg Multivitamins/Minerals (Therapeutic-M Tab) 1 tab PO 0800 [facility] Last Admin: 02/24/18 08:10 Dose: 1 tab Nicotine (Nicoderm Cq) 1 patch TD DAILY [facility] Last Admin: 02/24/18 09:22 Dose: 1 patch Thiamine HCl (Vitamin B1 Tab) 100 mg PO DAILY [facility] Last Admin: 05/08/18 09:23 Dose: 100 mg Ziprasidone (Geodon Inj) 10 mg IM Q8H PRN; Protocol PRN Reason: severe agitation Last Admin: 02/24/18 10:00 Dose: 10 mg - Labs Labs: 02/25/18 06:00 02/24/18 06:00
[2018-02-25 07:15] LABS: ALB/GLOB RATIO 1.1 (1.1-1.8); ALBUMIN 3.7 g/dL (3.0-4.8); ALT/SGPT 40 U/L (7-56); AST/SGOT 48 U/L (17-59); BLOOD UREA NITROGEN 4 mg/dL (7-21); CALCIUM 9.1 mg/dL (8.4-10.5); GFR AFRICAN-AMERICAN > 60; GFR NON-AFRICAN AMERICAN > 60
--- NOTE | 2018-02-25 08:09 | CARD ---
APPROVED REPORT EKG Measurement Heart [id number] <Conclusion> Normal sinus rhythm Minimal voltage criteria for LVH, may be normal variant J-point elevations c/w early repolarization Prolonged QT
[2018-02-25] MEDS: Multivitamin With Minerals Tab PO SCH (08:43)
[2018-02-25 09:33] VITALS: BP 129/83
--- NOTE | 2018-02-25 10:49 | CP.PCM.DIS ---
<Yovani Garg - Last Filed: 02/25/18 16:14> Provider - Provider Date of Admission: 02/22/18 11:43 Attending physician: Leander Ceballos MD Primary care physician: Dwain Barrera MD Time Spent in preparation of Discharge (in minutes): 35 Diagnosis - Discharge Diagnosis (1) Alcohol withdrawal delirium Status: Acute (2) Rhabdomyolysis Status: Acute Hospital Course - Lab Results Lab Results: Most Recent Lab Values WBC 6.0 10^3/ul (4.5-11.0) D 02/25/18 06:00 RBC 4.33 10^6/uL (3.5-6.1) 02/25/18 06:00 Hgb 12.3 g/dL (14.0-18.0) L 02/25/18 06:00 Hct 37.4 % (42.0-52.0) L 02/25/18 06:00 MCV 86.4 fl (80.0-105.0) 02/25/18 06:00 MCH 28.4 pg (25.0-35.0) 02/25/18 06:00 MCHC 32.9 g/dl (31.0-37.0) 02/25/18 06:00 RDW 19.2 % (11.5-14.5) H 02/25/18 06:00 Plt Count 94 10^3/uL (120.0-450.0) L 02/25/18 06:00 MPV 11.3 fl (7.0-11.0) H 02/25/18 06:00 Gran % 70.8 % (50.0-68.0) H 02/25/18 06:00 Lymph % (Auto) 13.8 % (22.0-35.0) L 02/25/18 06:00 [place] % (Auto) 10.7 % (1.0-6.0) H 02/25/18 06:00 Eos % (Auto) 4.5 % (1.5-5.0) 02/25/18 06:00 Baso % (Auto) 0.2 % (0.0-3.0) 02/25/18 06:00 Gran # 4.25 (1.4-6.5) 02/25/18 06:00 Lymph # (Auto) 0.8 (1.2-3.4) L 02/25/18 06:00 [place] # (Auto) 0.6 (0.1-0.6) 02/25/18 06:00 Eos # (Auto) 0.3 (0.0-0.7) 02/25/18 06:00 Baso # (Auto) 0.01 K/mm3 (0.0-2.0) 02/25/18 06:00 Sodium 145 mmol/L (132-148) 02/25/18 06:00 Potassium 3.8 mmol/L (3.6-5.0) 02/25/18 06:00 Chloride 108 mmol/L (98-107) H 02/25/18 06:00 Carbon Dioxide 26 mmol/L (21-33) 02/25/18 06:00 Anion Gap 14 (10-20) 02/25/18 06:00 BUN 4 mg/dL (7-21) L 02/25/18 06:00 Creatinine 0.7 mg/dl (0.8-1.5) L 02/25/18 06:00 Est GFR ( Amer) > 60 02/25/18 06:00 Est GFR (Non-Af Amer) > 60 02/25/18 06:00 POC Glucose (mg/dL) 80 mg/dL (65-110) 02/20/18 23:35 Random Glucose 89 mg/dL (70-110) 02/25/18 06:00 Calcium 9.1 mg/dL (8.4-10.5) 02/25/18 06:00 Magnesium 1.4 mg/dL (1.7-2.2) L 02/24/18 06:00 Total Bilirubin 0.8 mg/dL (0.2-1.3) 02/25/18 06:00 AST 48 U/L (17-59) 02/25/18 06:00 ALT 40 U/L (7-56) 02/25/18 06:00 Alkaline Phosphatase 80 U/L (38-126) 02/25/18 06:00 Lactate Dehydrogenase 734 U/L (333-699) H 02/20/18 23:30 Total Creatine Kinase 206 U/L (35-230) 02/25/18 06:00 CK-MB (CK-2) 1.4 ng/mL (0.0-3.6) 02/24/18 06:00 CK-MB (CK-2) % Cancelled 02/20/18 23:30 Troponin I < 0.01 ng/mL 02/21/18 14:20 Total Protein 7.1 g/dL (5.8-8.3) 02/25/18 06:00 Albumin 3.7 g/dL (3.0-4.8) 02/25/18 06:00 Globulin 3.4 gm/dL 02/25/18 06:00 Albumin/Globulin Ratio 1.1 (1.1-1.8) 02/25/18 06:00 Free T4 0.68 ng/dL (0.78-2.19) L 02/21/18 08:20 TSH 3rd Generation 2.65 mIU/mL (0.46-4.68) 02/21/18 08:20 - Hospital Course Hospital Course: 57 year old male with a past medical history of CAD with [place] [facility] (On ASA/Plavix), alcohol abuse, esophageal variceals, portal HTN, intracranial hemorrhage and seizures who admitted for evaluation and treatment of chest pain and rhabdomyolysis. Cardiac enzymes and EKG were unremarkable. Patient was treated with IV fluids for rhabdomyolysis and Ativan, multivitamin, folic acid, and thiamine for alcohol withdrawal. The patient hospital course was complicated by agitation in his alcoholic withdrawal delirium. Two code greys were called twice as the patient was delirious, tremulous, trying to light a cigarette, and wanted to leave the hospital at the 72 hour arsalan of his cessation from drinking. His medications were adjusted and he was given PRN Geodon. Prior to discharge, the patient was oriented in all spheres, exhibited no tremor, demonstrated a steady gait, and good judgment. His rhabdomyolysis resolved and he was discharged with the below written instruction and recommendations, including a refill on all of his medications and two doses 0.5 mg of Ativan. He was counselled on alcohol cessation throughout the length of his stay. He will follow up with Dr. Marcos Gonzales. - Date & Time of H&P Date of H&P: 02/25/18 Time of H&P: 11:34 Discharge Exam - Head Exam Head Exam: ATRAUMATIC, NORMOCEPHALIC - Eye Exam Eye Exam: EOMI, Normal appearance - ENT Exam ENT Exam: Mucous Membranes Moist, Normal Oropharynx - Neck Exam Neck exam: Normal Inspection - Respiratory Exam Respiratory Exam: Clear to PA & Lateral, NORMAL BREATHING PATTERN. absent: Accessory Muscle Use - Cardiovascular Exam Cardiovascular Exam: RRR, +S1, +S2 - GI/Abdominal Exam GI & Abdominal Exam: Normal Bowel Sounds, Unremarkable - Extremities Exam Extremities exam: normal inspection - Back Exam Back exam: NORMAL INSPECTION. absent: CVA tenderness (L), CVA tenderness (R) - Neurological Exam Neurological exam: Alert, Normal Gait - Psychiatric Exam Psychiatric exam: Normal Affect, Normal Mood - Skin Skin Exam: Dry, Intact, Normal Color, Warm Discharge Plan - Discharge Medications Prescriptions: Aspirin [Ecotrin] 81 mg PO DAILY #30 tabec Atorvastatin [Lipitor] 40 mg PO DAILY #30 tab Clopidogrel [Plavix] 75 mg PO DAILY #30 tab Folic Acid 1 mg PO DAILY #30 tab Levetiracetam [Keppra] 750 mg PO DAILY #30 tablet Metoprolol Tartrate [Lopressor] 25 mg PO BID #60 tab Montelukast [Singulair] 10 mg PO DAILY #30 tab Multimineral/Multivitamin [Therapeutic-M Tab] 1 tab PO 0800 #30 tab Nicotine 14 mg/24 hr [Nicoderm CQ] 1 patch TD DAILY #30 patch Ranitidine HCl [Acid Emergency Department Clinician] 150 mg PO BID #60 tablet Thiamine [Vitamin B1 Tab] 100 mg PO DAILY #30 tab - Follow Up Plan Condition: GUARDED Disposition: HOME/ ROUTINE Instructions: Alcohol Withdrawal (DC), Chest Pain (DC) Additional Instructions: 1) Patient to follow up with PMD within one week. 2) Patient to take any medications as directed, unless otherwise indicated. 3) Patient recommended to abstain from alcohol and drug use. Referrals: Dwain Barrera MD [Primary Care Provider] - <Leander Ceballos - Last Filed: 02/25/18 17:59> Provider - Provider Date of Admission: 02/22/18 11:43 Attending physician: Leander Ceballos MD Primary care physician: Dwain Barrera MD Hospital Course - Lab Results Lab Results: Most Recent Lab Values WBC 6.0 10^3/ul (4.5-11.0) D 02/25/18 06:00 RBC 4.33 10^6/uL (3.5-6.1) 02/25/18 06:00 Hgb 12.3 g/dL (14.0-18.0) L 02/25/18 06:00 Hct 37.4 % (42.0-52.0) L 02/25/18 06:00 MCV 86.4 fl (80.0-105.0) 02/25/18 06:00 MCH 28.4 pg (25.0-35.0) 02/25/18 06:00 MCHC 32.9 g/dl (31.0-37.0) 02/25/18 06:00 RDW 19.2 % (11.5-14.5) H 02/25/18 06:00 Plt Count 94 10^3/uL (120.0-450.0) L 02/25/18 06:00 MPV 11.3 fl (7.0-11.0) H 02/25/18 06:00 Gran % 70.8 % (50.0-68.0) H 02/25/18 06:00 Lymph % (Auto) 13.8 % (22.0-35.0) L 02/25/18 06:00 [place] % (Auto) 10.7 % (1.0-6.0) H 02/25/18 06:00 Eos % (Auto) 4.5 % (1.5-5.0) 02/25/18 06:00 Baso % (Auto) 0.2 % (0.0-3.0) 02/25/18 06:00 Gran # 4.25 (1.4-6.5) 02/25/18 06:00 Lymph # (Auto) 0.8 (1.2-3.4) L 02/25/18 06:00 [place] # (Auto) 0.6 (0.1-0.6) 02/25/18 06:00 Eos # (Auto) 0.3 (0.0-0.7) 02/25/18 06:00 Baso # (Auto) 0.01 K/mm3 (0.0-2.0) 02/25/18 06:00 Sodium 145 mmol/L (132-148) 02/25/18 06:00 Potassium 3.8 mmol/L (3.6-5.0) 02/25/18 06:00 Chloride 108 mmol/L (98-107) H 02/25/18 06:00 Carbon Dioxide 26 mmol/L (21-33) 02/25/18 06:00 Anion Gap 14 (10-20) 02/25/18 06:00 BUN 4 mg/dL (7-21) L 02/25/18 06:00 Creatinine 0.7 mg/dl (0.8-1.5) L 02/25/18 06:00 Est GFR ( Amer) > 60 02/25/18 06:00 Est GFR (Non-Af Amer) > 60 02/25/18 06:00 POC Glucose (mg/dL) 80 mg/dL (65-110) 02/20/18 23:35 Random Glucose 89 mg/dL (70-110) 02/25/18 06:00 Calcium 9.1 mg/dL (8.4-10.5) 02/25/18 06:00 Magnesium 1.4 mg/dL (1.7-2.2) L 02/24/18 06:00 Total Bilirubin 0.8 mg/dL (0.2-1.3) 02/25/18 06:00 AST 48 U/L (17-59) 02/25/18 06:00 ALT 40 U/L (7-56) 02/25/18 06:00 Alkaline Phosphatase 80 U/L (38-126) 02/25/18 06:00 Lactate Dehydrogenase 734 U/L (333-699) H 02/20/18 23:30 Total Creatine Kinase 206 U/L (35-230) 02/25/18 06:00 CK-MB (CK-2) 1.4 ng/mL (0.0-3.6) 02/24/18 06:00 CK-MB (CK-2) % Cancelled 02/20/18 23:30 Troponin I < 0.01 ng/mL 02/21/18 14:20 Total Protein 7.1 g/dL (5.8-8.3) 02/25/18 06:00 Albumin 3.7 g/dL (3.0-4.8) 02/25/18 06:00 Globulin 3.4 gm/dL 02/25/18 06:00 Albumin/Globulin Ratio 1.1 (1.1-1.8) 02/25/18 06:00 Free T4 0.68 ng/dL (0.78-2.19) L 02/21/18 08:20 TSH 3rd Generation 2.65 mIU/mL (0.46-4.68) 02/21/18 08:20 Attending/Attestation - Attestation I have personally seen and examined this patient.: Yes I have fully participated in the care of the patient.: Yes I have reviewed all pertinent clinical information, including history, physical exam and plan: Yes Notes (Text): I have seen and examined the patient at bedside. Agree with the above note with the following additions/ exceptions: Briefly this is 57 year old male with history of CAD with [place] [facility] ([place] ASA/Plavix), EtOH abuse, esophageal variceal bleed, portal HTN, intracranial hemorrhage and seizures admitted for evaluation and treatment of chest pain and rhabdomyolysis. Chest pain has resolved. Cardiac enzymes and EKG unremarkable. We were not able to get [place] [facility] His hospital course got complicated by alcohol withdrawal syndrome. Today he feels well. He is alert and oriented to time, place and person. PT cleared him to go home. Upon discharge patient will follow up with Dr Arroyo.
[2018-02-25 15:38] VITALS: RESP 20; TEMP 97.4
[2018-02-25 18:31] VITALS: PULSE 81
== END 2018-02-25 18:43 | disposition home or self-care (01) | DRG 248 ==
LOC: ED 21:15 → OBSVTOIN 02-21 04:12 → ERH 02-21 04:12 → INTOOBSV 02-21 04:12 → ERH 02-21 04:25 → 2RSO 02-21 05:07 → OBSVTOIN 02-22 11:43 → 3RSO 02-23 12:22
PROVIDERS: ADMIT Internal Medicine; ATTEND Hospitalist
DX: M62.82 Rhabdomyolysis (principal); F10.231 Alcohol dependence with withdrawal delirium; R56.9 Unspecified convulsions; D69.59 Other secondary thrombocytopenia; M94.0 Chondrocostal junction syndrome [Tietze]; K76.6 Portal hypertension; J45.909 Unspecified asthma, uncomplicated; I25.10 Atherosclerotic heart disease of native coronary artery without angina pectoris; F17.210 Nicotine dependence, cigarettes, uncomplicated; I10 Essential (primary) hypertension; K76.0 Fatty (change of) liver, not elsewhere classified; Z79.82 Long term (current) use of aspirin; Z95.5 Presence of coronary angioplasty implant and graft; Z91.14 Patient's other noncompliance with medication regimen

== ENCOUNTER 2018-03-08 23:46 | Observation (INO) | payer MEDICAID ==
--- NOTE | 2018-03-09 00:17 | ED PDOC ---
Arrival/HPI - General Chief Complaint: Chest Pain Time Seen by Provider: 03/08/18 23:55 Historian: Patient - History of Present Illness Narrative History of Present Illness (Text): 03/09/18 00:16 Tl Contreras is a 56 year old male smoker, whose past medical history includes alcohol abuse, intracranial hemorrhage, seizure disorder, esophageal varices, and hepatitis B, who presents to the Emergency department complaining of intermittent left-sided chest pain today. Patient describes pain as a dull pressure-like sensation, sharp at times. Patient reports he drank 2 cans of beer today. Patient denies any fever, chills, shortness of breath, nausea, vomiting, diarrhea, urinary symptoms, back pain, neck pain, headache, dizziness , or any other complaints. Symptom Onset: Gradual Symptom Course: Unchanged Activities at Onset: Light Context: Home Past Medical History - Provider Review Nursing Documentation Reviewed: Yes - Past History Past History: No Previous - Infectious Disease Hx of Infectious Diseases: None - Tetanus Immunization Tetanus Immunization: Unknown - Cardiac Hx Cardiac Disorders: Yes Hx Hypertension: Yes - Pulmonary Hx Respiratory Disorders: Yes Hx Asthma: Yes - Neurological Hx Neurological Disorder: Yes Hx Seizures: Yes Other/Comment: Intracranial Hemmorhage - HEENT Hx HEENT Disorder: No - Renal Hx Renal Disorder: No - Endocrine/Metabolic Hx Endocrine Disorders: No - Hematological/Oncological Hx Blood Disorders: Yes Hx Anemia: Yes Hx Hepatitis B: Yes (carrier) - Integumentary Hx Dermatological Disorder: No - Musculoskeletal/Rheumatological Hx Falls: Yes - Gastrointestinal Hx Gastrointestinal Disorders: Yes Other/Comment: GI Bleed - Genitourinary/Gynecological Hx Genitourinary Disorders: No - Psychiatric Hx Psychophysiologic Disorder: No Hx Substance Use: No - Past Surgical History Past Surgical History: No Previous - Surgical History Hx Cardiac Catheterization: Yes (stents) Hx Orthopedic Surgery: Yes ([facility]) Other/Comment: TONSILLECTOMY - Anesthesia Hx Anesthesia: Yes Hx Anesthesia Reactions: No Hx Malignant Hyperthermia: No - Suicidal Assessment Feels Threatened In Home Enviroment: No Family/Social History - Physician Review Nursing Documentation Reviewed: Yes Family/Social History: Unknown Family HX Smoking Status: Heavy Smoker > 10 Cigarettes Daily Hx Alcohol Use: Yes (2 BEERS A DAY) Hx Substance Use: No Hx Substance Use Treatment: No Allergies/Home Meds Allergies/Adverse Reactions: Allergies No Known Allergies Allergy (Verified 03/09/18 00:09) Review of Systems - Physician Review All systems were reviewed & negative as marked: Yes - Review of Systems Constitutional: Normal. absent: Fevers Eyes: Normal ENT: Normal Respiratory: Normal. absent: SOB, Cough Cardiovascular: Chest Pain Gastrointestinal: Normal. absent: Abdominal Pain, Diarrhea, Nausea, Vomiting Genitourinary Male: Normal. absent: Dysuria, Frequency, Hematuria, Urinary Output Changes Musculoskeletal: Normal. absent: Back Pain, Neck Pain Skin: Normal. absent: Rash Neurological: Normal. absent: Headache, Dizziness Endocrine: Normal Hemo/Lymphatic: Normal Psychiatric: Normal Physical Exam Vital Signs Reviewed: Yes Vital Signs Temp Pulse Resp BP Pulse Ox 03/09/18 04:25 97.9 F 58 L 18 92/65 L 98 03/09/18 02:55 60 18 123/73 98 03/09/18 00:05 98.7 F 66 17 129/59 L 97 03/09/18 00:04 64 17 129/59 L 99 Temperature: Afebrile Blood Pressure: Normal Pulse: Regular Respiratory Rate: Normal Appearance: Positive for: Well-Appearing, Non-Toxic, Comfortable Pain Distress: None Mental Status: Positive for: Alert and Oriented X 3 - Systems Exam Head: Present: Atraumatic, Normocephalic Pupils: Present: PERRL Extroacular Muscles: Present: EOMI Conjunctiva: Present: Normal Mouth: Present: Moist Mucous Membranes Neck: Present: Normal Range of Motion Respiratory/Chest: Present: Clear to Auscultation, Good Air Exchange. No: Respiratory Distress, Accessory Muscle Use Cardiovascular: Present: Regular Rate and Rhythm, Normal S1, S2. No: Murmurs Abdomen: No: Tenderness, Distention, Peritoneal Signs Back: Present: Normal Inspection Upper Extremity: Present: Normal Inspection. No: Cyanosis, Edema Lower Extremity: Present: Normal Inspection. No: Edema Neurological: Present: GCS=15, CN II-XII Intact, Speech Normal Skin: Present: Warm, Dry, Normal Color. No: Rashes Psychiatric: Present: Alert, Oriented x 3, Normal Insight, Normal Concentration Medical Decision Making ED Course and Treatment: 03/09/18 00:16 Impression: 57 year old male complaining of left-sided chest pressure. Plan: -- EKG -- Chest X-ray -- Labs, cardiac enzymes -- UA -- Reassess and disposition Prior Visits: Notes and results from previous visits were reviewed. Progress Notes: Reviewed EKG, NSR at 64 bpm. Early repolarization. No acute changes. 03/09/18 01:34 Chest X-ray reviewed, shows no acute processes. 03/09/18 02:52 Case discussed with medical orderly control panel builder, who is aware and agrees with plan. 03/09/18 02:[address] Mandel, who is aware and agrees with plan. Accepts pt into the hospitalist service. Pt will go to Telemetry observation for chest pain. - Lab Interpretations Microbiology Results: Microbiology Results 03/09/18 01:20 Urine,Clean Catch Urine Culture - Final No Growth (<1,000 CFU/ML) Lab Results: 03/09/18 00:30 03/09/18 00:30 Lab Results 03/09/18 00:30: Alcohol, Quantitative 103 H 03/09/18 00:30: Sodium 149 H, Potassium 4.3, Chloride 107, Carbon Dioxide 26, Anion Gap 19, BUN 4 L, Creatinine 0.7 L, Est GFR ( Amer) > 60, Est GFR ( Non-Af Amer) > 60, Random Glucose 86, Calcium 8.9, Magnesium 1.9, Total Bilirubin 0.4, AST 61 H D, ALT 32, Alkaline Phosphatase 78, Lactate Dehydrogenase 702 H, Total Creatine Kinase 175, Troponin I < 0.01, Total Protein 7.6, Albumin 4.1, Globulin 3.4, Albumin/Globulin Ratio 1.2 03/09/18 00:30: Urine Color Yellow, Urine Appearance Clear, Urine pH 6.5, Ur Specific [place] <= 1.005, Urine Protein Negative, Urine Glucose (UA) Negative, Urine Ketones Negative, Urine Blood Negative, Urine Nitrate Negative, Urine Bilirubin Negative, Urine Urobilinogen 0.2, Ur Leukocyte Esterase Small H, Urine RBC 0 - 2, Urine WBC 1 - 3, Ur Epithelial Cells 1 - 3, Urine Bacteria Rare 03/09/18 00:30: WBC 5.7, RBC 4.06, Hgb 11.4 L, Hct 36.0 L, MCV 88.7, MCH 28.1, MCHC 31.7, RDW 19.4 H, Plt Count 237, MPV 11.1 H, Gran % 49.0 L, Lymph % (Auto) 32.3, [place] % (Auto) 12.9 H, Eos % (Auto) 4.2, Baso % (Auto) 1.6, Gran # 2.81, Lymph # (Auto) 1.9, [place] # (Auto) 0.7 H, Eos # (Auto) 0.2, Baso # (Auto) 0.09 I have reviewed the lab results: Yes - RAD Interpretation Radiology Orders: 03/09/18 00:16 CHEST PORTABLE [RAD] Stat Manager Assessment: ED Physician - EKG Interpretation Interpreted by ED Physician: Yes Type: 12 lead EKG - Medication Orders Current Medication Orders: Discontinued Medications Aspirin (Ecotrin) 81 mg PO DAILY [facility] Last Admin: 03/09/18 09:33 Dose: 81 mg Atorvastatin Calcium (Lipitor) 40 mg PO DAILY [facility] Last Admin: 03/09/18 09:33 Dose: 40 mg Clopidogrel Bisulfate (Plavix) 75 mg PO DAILY [facility] Last Admin: 03/09/18 09:33 Dose: 75 mg Folic Acid (Folic Acid) 1 mg PO DAILY [facility] Last Admin: 03/09/18 09:33 Dose: 1 mg Heparin Sodium (Porcine) (Heparin) 5,000 units SC Q12 [facility] PRN Reason: Protocol Last Admin: 03/09/18 09:34 Dose: 5,000 units Subcutaneous Administrations Document 03/09/18 09:34 Michi (Rec: 03/09/18 09:34 R [id number]) Injection Site MAR Injection Site Right Abdomen Charges for Administration # of Subcutaneous Administrations 1 Levetiracetam (Keppra) 750 mg PO DAILY [facility] Last Admin: 03/09/18 09:33 Dose: 750 mg Lorazepam (Ativan) 1 mg IVP Q6H PRN; Protocol PRN Reason: Symptoms of alcohol withdrawl Metoprolol Tartrate (Lopressor) 25 mg PO BID [facility] Last Admin: 03/09/18 09:33 Dose: 25 mg MAR Pulse and Blood Pressure Document 03/09/18 09:33 JFMichi (Rec: 03/09/18 09:33 R [id number]) Pulse Pulse Rate (60-90) 67 Blood Pressure Blood Pressure (100/60-150/90) 138/82 Montelukast Sodium (Singulair) 10 mg PO DAILY [facility] Last Admin: 05/21/18 09:33 Dose: 10 mg Multivitamins/Minerals (Therapeutic-M Tab) 1 tab PO 0800 [facility] Last Admin: 03/09/18 09:33 Dose: 1 tab Nicotine (Nicoderm Cq) 1 patch TD DAILY [facility] Last Admin: 03/09/18 09:34 Dose: 1 patch MAR Transdermal Patch Site Document 03/09/18 09:34 JFR (Rec: 03/09/18 09:34 JFR [id number]) Transdermal Patch Site Transdermal Patch Site Right Shoulder Nitroglycerin (Nitro-Bid 2% Oint) 1 ea TOP ONCE STA Stop: 03/09/18 02:54 Last Admin: 03/09/18 03:16 Dose: 1 ea Ondansetron HCl (Zofran Odt) 4 mg PO Q8H PRN PRN Reason: Nausea/Vomiting Pantoprazole Sodium (Protonix Ec Tab) 40 mg PO 0600 [facility] Last Admin: 03/09/18 06:56 Dose: 40 mg Thiamine HCl (Vitamin B1 Tab) 100 mg PO DAILY [facility] Last Admin: 03/09/18 09:33 Dose: 100 mg - Scribe Statement The provider has reviewed the documentation as recorded by the Willow Joyce Provider Scribe Attestation: All medical record entries made by the Willow were at my direction and personally dictated by me. I have reviewed the chart and agree that the record accurately reflects my personal performance of the history, physical exam, medical decision making, and the department course for this patient. I have also personally directed, reviewed, and agree with the discharge instructions and disposition. Disposition/Present on Arrival - Present on Arrival Any Indicators Present on Arrival: No History of DVT/PE: No History of Uncontrolled Diabetes: No Urinary Catheter: No History of Decub. Ulcer: No History Surgical Site Infection Following: None - Disposition Have Diagnosis and Disposition been Completed?: Yes Diagnosis: Chest pain Disposition: HOSPITALIZED Disposition Time: 02:54 Condition: GOOD
[2018-03-09 00:54] LABS: PH,URINE 6.5 (4.7-8.0); URINE BILIRUBIN NEGATIVE (NEGATIVE); URINE BLOOD NEGATIVE (NEGATIVE); URINE GLUCOSE (UA) NEGATIVE (NEGATIVE); URINE LEUKOCYTE ESTERASE SMALL Leu/uL (NEGATIVE); URINE PROTEIN NEGATIVE mg/dL (<30 mg/dL); URINE UROBILINOGEN 0.2 E.U./dL (<1 E.U./dL)
[2018-03-09 00:56] LABS: URINE APPEARANCE CLEAR (CLEAR); URINE COLOR YELLOW (YELLOW)
[2018-03-09 01:07] LABS: BASO # 0.09 K/mm3 (0.0-2.0); BASO % 1.6 % (0.0-3.0); EOS # 0.2 (0.0-0.7); EOS % 4.2 % (1.5-5.0); GRAN # 2.81 (1.4-6.5); HEMOGLOBIN 11.4 g/dL (14.0-18.0); LYMPH # 1.9 (1.2-3.4); LYMPH % 32.3 % (22.0-35.0); MEAN CELL VOLUME 88.7 fl (80.0-105.0); MEAN CORPUSCULAR HEMOGLOBIN 28.1 pg (25.0-35.0); MEAN CORPUSCULAR HGB CONC 31.7 g/dl (31.0-37.0); MEAN PLATELET VOLUME 11.1 fl (7.0-11.0); MONO # 0.7 (0.1-0.6); MONO % 12.9 % (1.0-6.0); RBC 4.06 10^6/uL (3.5-6.1); RED CELL DISTRIBUTION WIDTH 19.4 % (11.5-14.5); WHITE BLOOD COUNT 5.7 10^3/ul (4.5-11.0)
[2018-03-09 01:17] LABS: URINE BACTERIA RARE (NEG); URINE RBC 0 - 2 /hpf (0-2)
[2018-03-09 01:20] LABS: ALB/GLOB RATIO 1.2 (1.1-1.8); ALBUMIN 4.1 g/dL (3.0-4.8); ALT/SGPT 32 U/L (7-56); AST/SGOT 61 U/L (17-59); BLOOD UREA NITROGEN 4 mg/dL (7-21); CALCIUM 8.9 mg/dL (8.4-10.5); GFR AFRICAN-AMERICAN > 60; GFR NON-AFRICAN AMERICAN > 60
[2018-03-09 01:22] LABS: TROPONIN I < 0.01 ng/mL
[2018-03-09] MEDS ORDERED: Nitroglycerin 2% Ointment Foilpak UD TOP STA (02:53)
--- NOTE | 2018-03-09 04:20 | CP.PCM.HP ---
<NiravSegundo - Last Filed: 03/09/18 04:15> History of Present Illness - History of Present Illness History of Present Illness: Mr. Contreras is a 57 year old male with a past medical history significant for CAD s/p stent placement approximately [place] ago [place] [facility] [place] abuse/ withdrawal, history of esophageal variceal bleed, portal hypertension, hepatitis B, intracranial hemorrhage, and seizure disorder who presents with intermittent left sided chest pain that started approximately 24 hours prior to arrival. Patient reports that he has been having chest pain intermittently over the past year. He states that yesterday he experienced a sharp left sided and anterior chest pain with associated bilateral hand tingling that lasted for several seconds and then stopped. He notes the pain is intermittent with no relation to exertion, position or eating. He also describes the pain as sometimes being being dull and achy but in the same location. Patient denies fever, chills, headache, changes in his vision, rhinorrhea, ear pain/discharge, sore throat, dysphagia, palpitations, syncope, leg swelling, orthopnea, cough, wheezing, hemoptysis, abdominal pain, N/V/D/C, burning/pain with urination, urinary frequency, hematuria, skin changes, joint pain, or any numbness/tingling /weakness of any extremity. 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, and denies illicit drug use; lives with girlfriend; Allergies: NKDA Home Medications: As per MAR Present on Admission - Present on Admission Any Indicators Present on Admission: No Review of Systems - Review of Systems Review of Systems: As stated in HPI, otherwise negative Past Patient History - Infectious Disease Hx of Infectious Diseases: None - Tetanus Immunizations Tetanus Immunization: Unknown - Past Social History Smoking Status: Heavy Smoker > 10 Cigarettes Daily - CARDIAC Hx Cardiac Disorders: Yes Hx Hypertension: Yes - PULMONARY Hx Respiratory Disorders: Yes Hx Asthma: Yes - NEUROLOGICAL Hx Neurological Disorder: Yes Hx Seizures: Yes Other/Comment: Intracranial Hemmorhage - HEENT Hx HEENT Problems: No - RENAL Hx Chronic Kidney Disease: No - ENDOCRINE/METABOLIC Hx Endocrine Disorders: No - HEMATOLOGICAL/ONCOLOGICAL Hx Blood Disorders: Yes Hx Anemia: Yes Hx Hepatitis B: Yes (carrier) - INTEGUMENTARY Hx Dermatological Problems: No - MUSCULOSKELETAL/RHEUMATOLOGICAL Hx Falls: Yes - GASTROINTESTINAL Hx Gastrointestinal Disorders: Yes Other/Comment: GI Bleed - GENITOURINARY/GYNECOLOGICAL Hx Genitourinary Disorders: No - PSYCHIATRIC Hx Psychophysiologic Disorder: No Hx Substance Use: No - SURGICAL HISTORY Hx Cardiac Catheterization: Yes (stents) Hx Orthopedic Surgery: Yes ([facility]) Other/Comment: TONSILLECTOMY - ANESTHESIA Hx Anesthesia: Yes Hx Anesthesia Reactions: No Hx Malignant Hyperthermia: No Meds Allergies/Adverse Reactions: Allergies Allergy/AdvReac Type Severity Reaction Status Date / Time No Known Allergies Allergy Verified 03/09/18 00:09 Physical Exam - Constitutional Appears: Non-toxic, No Acute Distress - Head Exam Head Exam: ATRAUMATIC, NORMOCEPHALIC - Eye Exam Eye Exam: EOMI, Normal appearance, PERRL Pupil Exam: NORMAL ACCOMODATION - ENT Exam ENT Exam: Mucous Membranes Moist, Normal Exam - Neck Exam Neck exam: Positive for: Full Rom, Normal Inspection. Negative for: Lymphadenopathy, Meningismus, Tenderness, Thyromegaly - Respiratory Exam Respiratory Exam: Clear to Auscultation Bilateral, NORMAL BREATHING PATTERN. absent: Accessory Muscle Use, Chest Wall Tenderness, Decreased Breath Sounds, Prolonged Expiratory Phase, Rales, Rhonchi, Wheezes, Respiratory Distress, Stridor - Cardiovascular Exam Cardiovascular Exam: REGULAR RHYTHM, RRR, +S1, +S2. absent: Bradycardia, Tachycardia, Clicks, Diastolic murmur, Gallop, Irregular Rhythm, JVD, Rubs, +S4 , Systolic Murmur - GI/Abdominal Exam GI & Abdominal Exam: Normal Bowel Sounds, Soft. absent: Tenderness - Extremities Exam Extremities exam: Positive for: full ROM, normal capillary refill, normal inspection, pedal pulses present. Negative for: calf tenderness, joint swelling , pedal edema, tenderness - Back Exam Back exam: NORMAL INSPECTION - Neurological Exam Neurological exam: Alert, Normal Gait, Oriented x3 - Psychiatric Exam Psychiatric exam: Normal Affect, Normal Mood - Skin Skin Exam: Dry, Intact, Normal Color, Warm Results - Vital Signs Recent Vital Signs: Last Vital Signs Temp 98.7 F 05/21/18 00:05 Pulse 60 03/09/18 02:55 Resp 18 03/09/18 02:55 BP 123/73 03/09/18 02:55 Pulse Ox 98 03/09/18 02:55 - Labs Result Diagrams: 03/09/18 00:30 03/09/18 00:30 - EKG Data EKG Interpreted by: Other EKG shows normal: Sinus rhythm Rate: Normal - EKG Data When Compared to Previous EKG: No Significant Change Assessment & Plan - Assessment and Plan (Free Text) Assessment: 57 year old male with a past medical history significant for CAD s/p stent placement approximately two months ago [place] [facility] [place], alcohol abuse/withdrawal, history of esophageal variceal bleed, portal hypertension, hepatitis B, intracranial hemorrhage, and seizure disorder who presents with intermittent left sided chest pain that started approximately 24 hours prior to arrival. Plan: 1. Angina -Chest X-Ray pending radiologist interpretation -EKG showing NSR and no ST/T wave changes -Initial troponin negative with two serial troponins Q6H pending -Nitroglycerin patch given in ED -Continue home ASA, Plavix, Lopressor and Lipitor -Heart Healthy Diet -Telemetry monitoring 2. History of Alcohol Abuse/Withdrawal -UDS pending; Serum Alcohol elevated -Ativan 1mg IVP Q6H PRN -Folic Acid, Thiamine and MV PO daily -Zofran PRN for N/V -CIWA protocol Q4H for the first 18 hours -Fall, Aspiration and Seizure precautions -Cessation advised 3. History of Seizure Disorder -Continue home Keppra 4. Seasonal Allergies -Continue home Singulair 5. History of Tobacco Abuse -Continue home Nicotine patch -Cessation advised GI Prophylaxis: Protonix DVT Prophylaxis: Heparin SC Patient seen and case discussed with attending, Dr. Mandel. Remy PGY1 - Date & Time Date: 03/09/18 Time: 04:22 Decision To Admit - Pt Status Changed To: Hospital Disposition Of: Observation - . Bed Request Type: Telemetry <Darrell Mandel MD - Last Filed: 03/09/18 14:21> Results - Vital Signs Recent Vital Signs: Last Vital Signs Temp 98.1 F 03/09/18 12:00 Pulse 62 03/09/18 12:00 Resp 20 03/09/18 12:00 BP 147/82 03/09/18 12:00 Pulse Ox 96 03/09/18 06:00 - Labs Result Diagrams: 03/09/18 06:00 03/09/18 06:00 Labs: Laboratory Results - last 24 hr 03/09/18 03/09/18 03/09/18 06:00 06:00 06:00 WBC 4.5 D RBC 4.00 Hgb 11.1 L Hct 35.1 L MCV 87.8 MCH 27.8 MCHC 31.6 RDW 19.5 H Plt Count 229 MPV 10.9 Gran % 51.3 Lymph % (Auto) 31.1 Tift % (Auto) 10.7 H Eos % (Auto) 4.7 Baso % (Auto) 2.2 Gran # 2.31 Lymph # (Auto) 1.4 Tift # (Auto) 0.5 Eos # (Auto) 0.2 Baso # (Auto) 0.10 APTT 30.3 Sodium 148 Potassium 3.8 Chloride 108 H Carbon Dioxide 27 Anion Gap 16 BUN 4 L Creatinine 0.7 L Est GFR ( Amer) > 60 Est GFR (Non-Af Amer) > 60 Random Glucose 96 Calcium 9.1 Total Bilirubin 0.3 AST 46 ALT 33 Alkaline Phosphatase 78 Troponin I < 0.01 Total Protein 7.5 Albumin 4.0 Globulin 3.5 Albumin/Globulin Ratio 1.1 Urine Opiates Screen Urine Methadone Screen Ur Barbiturates Screen Ur Phencyclidine Scrn Ur Amphetamines Screen U Benzodiazepines Scrn U Oth Cocaine Metabols U Cannabinoids Screen 03/09/18 03/09/18 07:29 12:30 WBC RBC Hgb Hct MCV MCH MCHC RDW Plt Count MPV Gran % Lymph % (Auto) Tift % (Auto) Eos % (Auto) Baso % (Auto) Gran # Lymph # (Auto) Tift # (Auto) Eos # (Auto) Baso # (Auto) APTT Sodium Potassium Chloride Carbon Dioxide Anion Gap BUN Creatinine Est GFR ( Amer) Est GFR (Non-Af Amer) Random Glucose Calcium Total Bilirubin AST ALT Alkaline Phosphatase Troponin I < 0.01 Total Protein Albumin Globulin Albumin/Globulin Ratio Urine Opiates Screen Negative Urine Methadone Screen Negative Ur Barbiturates Screen Negative Ur Phencyclidine Scrn Negative Ur Amphetamines Screen Negative U Benzodiazepines Scrn Negative U Oth Cocaine Metabols Negative U Cannabinoids Screen Negative Attending/Attestation - Attestation I have personally seen and examined this patient.: Yes I have fully participated in the care of the patient.: Yes I have reviewed all pertinent clinical information: Yes Notes (Text): -The patient is a 57 year old man with a history of CAD (s/p PCI 2 months ago at [facility] [place] chronic alcohol abuse, portal hypertension, hepatitis B, CVA, and seizure disorder, who is being admitted for chest pain (rule out ACS). Serial trops and EKGs, HgA1c, Lipids, UDS and TSH ordered. Continue home meds ( including ASA, Plavix, Keppra, Lipitor and Metoprolol). NTG patch placed in ED already.
[2018-03-09] MEDS ORDERED: Pantoprazole 40 mg EC Tab PO SCH (06:00)
[2018-03-09 06:08] VITALS: RESP 20; BMI 23.6
[2018-03-09 06:24] VITALS: O2SAT 96
[2018-03-09 06:32] LABS: BASO # 0.1 K/mm3 (0.0-2.0); BASO % 2.2 % (0.0-3.0); EOS # 0.2 (0.0-0.7); EOS % 4.7 % (1.5-5.0); GRAN # 2.31 (1.4-6.5); GRAN % 51.3 % (50.0-68.0); HEMOGLOBIN 11.1 g/dL (14.0-18.0); LYMPH # 1.4 (1.2-3.4); LYMPH % 31.1 % (22.0-35.0); MEAN CELL VOLUME 87.8 fl (80.0-105.0); MEAN CORPUSCULAR HEMOGLOBIN 27.8 pg (25.0-35.0); MEAN CORPUSCULAR HGB CONC 31.6 g/dl (31.0-37.0); MEAN PLATELET VOLUME 10.9 fl (7.0-11.0); MONO # 0.5 (0.1-0.6); MONO % 10.7 % (1.0-6.0); RED CELL DISTRIBUTION WIDTH 19.5 % (11.5-14.5); WHITE BLOOD COUNT 4.5 10^3/ul (4.5-11.0)
[2018-03-09 07:35] LABS: TROPONIN I < 0.01 ng/mL
[2018-03-09 07:42] LABS: ALB/GLOB RATIO 1.1 (1.1-1.8); ALT/SGPT 33 U/L (7-56); AST/SGOT 46 U/L (17-59); BLOOD UREA NITROGEN 4 mg/dL (7-21); CALCIUM 9.1 mg/dL (8.4-10.5); GFR AFRICAN-AMERICAN > 60; GFR NON-AFRICAN AMERICAN > 60
[2018-03-09] MEDS ORDERED: Multivitamin With Minerals Tab PO SCH (08:00)
[2018-03-09 08:17] LABS: BARBITURATES, UR NEGATIVE (NEGATIVE); OPIATES, UR NEGATIVE (NEGATIVE); PHENCYCLIDINE, UR NEGATIVE (NEGATIVE)
[2018-03-09 08:27] LABS: BENZODIAZEPINES, UR NEGATIVE (NEGATIVE)
--- NOTE | 2018-03-09 08:59 | RAD ---
HISTORY: cp COMPARISON: 02/20/2018 FINDINGS: LUNGS: No active pulmonary disease. PLEURA: No significant pleural effusion identified, no pneumothorax apparent. CARDIOVASCULAR: Normal. OSSEOUS STRUCTURES: No significant abnormalities. VISUALIZED UPPER ABDOMEN: Normal. OTHER FINDINGS: None. IMPRESSION: No active disease.
[2018-03-09 12:41] VITALS: BP 147/82; PULSE 62; TEMP 98.1
--- NOTE | 2018-03-09 14:09 | CP.PCM.DIS ---
<Derrick Lynne - Last Filed: 03/09/18 14:10> Provider - Provider Date of Admission: 03/09/18 02:58 Attending physician: Leander Ceballos MD Primary care physician: Marcos Gonzales MD Time Spent in preparation of Discharge (in minutes): 45 Hospital Course - Lab Results Lab Results: Most Recent Lab Values WBC 4.5 10^3/ul (4.5-11.0) D 03/09/18 06:00 RBC 4.00 10^6/uL (3.5-6.1) 03/09/18 06:00 Hgb 11.1 g/dL (14.0-18.0) L 03/09/18 06:00 Hct 35.1 % (42.0-52.0) L 03/09/18 06:00 MCV 87.8 fl (80.0-105.0) 03/09/18 06:00 MCH 27.8 pg (25.0-35.0) 03/09/18 06:00 MCHC 31.6 g/dl (31.0-37.0) 03/09/18 06:00 RDW 19.5 % (11.5-14.5) H 03/09/18 06:00 Plt Count 229 10^3/uL (120.0-450.0) 03/09/18 06:00 MPV 10.9 fl (7.0-11.0) 03/09/18 06:00 Gran % 51.3 % (50.0-68.0) 03/09/18 06:00 Lymph % (Auto) 31.1 % (22.0-35.0) 03/09/18 06:00 Ramsey % (Auto) 10.7 % (1.0-6.0) H 03/09/18 06:00 Eos % (Auto) 4.7 % (1.5-5.0) 03/09/18 06:00 Baso % (Auto) 2.2 % (0.0-3.0) 03/09/18 06:00 Gran # 2.31 (1.4-6.5) 03/09/18 06:00 Lymph # (Auto) 1.4 (1.2-3.4) 03/09/18 06:00 Ramsey # (Auto) 0.5 (0.1-0.6) 03/09/18 06:00 Eos # (Auto) 0.2 (0.0-0.7) 03/09/18 06:00 Baso # (Auto) 0.10 K/mm3 (0.0-2.0) 03/09/18 06:00 APTT 30.3 Seconds (25.1-36.5) 03/09/18 06:00 Sodium 148 mmol/L (132-148) 03/09/18 06:00 Potassium 3.8 mmol/L (3.6-5.0) 03/09/18 06:00 Chloride 108 mmol/L (98-107) H 03/09/18 06:00 Carbon Dioxide 27 mmol/L (21-33) 03/09/18 06:00 Anion Gap 16 (10-20) 03/09/18 06:00 BUN 4 mg/dL (7-21) L 03/09/18 06:00 Creatinine 0.7 mg/dl (0.8-1.5) L 03/09/18 06:00 Est GFR ( Amer) > 60 03/09/18 06:00 Est GFR (Non-Af Amer) > 60 03/09/18 06:00 Random Glucose 96 mg/dL (70-110) 03/09/18 06:00 Calcium 9.1 mg/dL (8.4-10.5) 03/09/18 06:00 Magnesium 1.9 mg/dL (1.7-2.2) 03/09/18 00:30 Total Bilirubin 0.3 mg/dL (0.2-1.3) 03/09/18 06:00 AST 46 U/L (17-59) 03/09/18 06:00 ALT 33 U/L (7-56) 03/09/18 06:00 Alkaline Phosphatase 78 U/L (38-126) 03/09/18 06:00 Lactate Dehydrogenase 702 U/L (333-699) H 03/09/18 00:30 Total Creatine Kinase 175 U/L (35-230) 03/09/18 00:30 Troponin I < 0.01 ng/mL 03/09/18 12:30 Total Protein 7.5 g/dL (5.8-8.3) 03/09/18 06:00 Albumin 4.0 g/dL (3.0-4.8) 03/09/18 06:00 Globulin 3.5 gm/dL 03/09/18 06:00 Albumin/Globulin Ratio 1.1 (1.1-1.8) 03/09/18 06:00 Urine Color Yellow (YELLOW) 03/09/18 00:30 Urine Appearance Clear (CLEAR) 03/09/18 00:30 Urine pH 6.5 (4.7-8.0) 03/09/18 00:30 Ur Specific Nathrop <= 1.005 (1.005-1.035) 03/09/18 00:30 Urine Protein Negative mg/dL (<30 mg/dL) 03/09/18 00:30 Urine Glucose (UA) Negative mg/dL (NEGATIVE) 03/09/18 00:30 Urine Ketones Negative mg/dL (NEGATIVE) 03/09/18 00:30 Urine Blood Negative (NEGATIVE) 03/09/18 00:30 Urine Nitrate Negative (NEGATIVE) 03/09/18 00:30 Urine Bilirubin Negative (NEGATIVE) 03/09/18 00:30 Urine Urobilinogen 0.2 E.U./dL (<1 E.U./dL) 03/09/18 00:30 Ur Leukocyte Esterase Small Gabby/uL (NEGATIVE) H 03/09/18 00:30 Urine RBC 0 - 2 /hpf (0-2) 03/09/18 00:30 Urine WBC 1 - 3 /hpf (0-6) 03/09/18 00:30 Ur Epithelial Cells 1 - 3 /hpf (0-5) 03/09/18 00:30 Urine Bacteria Rare (NEG) 03/09/18 00:30 Urine Opiates Screen Negative (NEGATIVE) 03/09/18 07:29 Urine Methadone Screen Negative (NEGATIVE) 03/09/18 07:29 Ur Barbiturates Screen Negative (NEGATIVE) 03/09/18 07:29 Ur Phencyclidine Scrn Negative (NEGATIVE) 03/09/18 07:29 Ur Amphetamines Screen Negative (NEGATIVE) 03/09/18 07:29 U Benzodiazepines Scrn Negative (NEGATIVE) 03/09/18 07:29 U Oth Cocaine Metabols Negative (NEGATIVE) 03/09/18 07:29 U Cannabinoids Screen Negative (NEGATIVE) 03/09/18 07:29 Alcohol, Quantitative 103 mg/dL (0-10) H 03/09/18 00:30 - Hospital Course Hospital Course: On Admission: Mr. Contreras is a 57 year old male with a past medical history significant for CAD s/p stent placement approximately two months ago at [facility], alcohol abuse/ withdrawal, history of esophageal variceal bleed, portal hypertension, hepatitis B, intracranial hemorrhage, and seizure disorder who presents with intermittent left sided chest pain that started approximately 24 hours prior to arrival. Patient reports that he has been having chest pain intermittently over the past year. He states that yesterday he experienced a sharp left sided and anterior chest pain with associated bilateral hand tingling that lasted for several seconds and then stopped. He notes the pain is intermittent with no relation to exertion, position or eating. He also describes the pain as sometimes being being dull and achy but in the same location. Patient denies fever, chills, headache, changes in his vision, rhinorrhea, ear pain/discharge, sore throat, dysphagia, palpitations, syncope, leg swelling, orthopnea, cough, wheezing, hemoptysis, abdominal pain, N/V/D/C, burning/pain with urination, urinary frequency, hematuria, skin changes, joint pain, or any numbness/tingling /weakness of any extremity. Hospital Course: Patient had 3 negative trops and ekgs that did not show any st changes or arrythmogenic intervals. Patient is stable for discharge with follow up with his primary care doctor in 7-10 days Discharge Exam - Head Exam Head Exam: ATRAUMATIC, NORMOCEPHALIC - Eye Exam Eye Exam: EOMI, Normal appearance, PERRL Pupil Exam: NORMAL ACCOMODATION, PERRL - GI/Abdominal Exam GI & Abdominal Exam: Normal Bowel Sounds - Neurological Exam Neurological exam: Alert, CN II-XII Intact, Normal Gait, Oriented x3, Reflexes Normal - Psychiatric Exam Psychiatric exam: Normal Affect, Normal Mood - Skin Skin Exam: Dry, Intact, Normal Color, Warm Discharge Plan - Follow Up Plan Condition: GOOD Disposition: HOME/ ROUTINE Instructions: Quitting Smoking, Chest Pain (DC), Chest Pain (GEN) Additional Instructions: Please follow up with your primary care doctor in 7-10 days. Please continue taking home medications Please come back to the ED if symptoms return. Referrals: Marcos Gonzales MD [Primary Care Provider] - <Leander Ceballos - Last Filed: 03/10/18 11:52> Provider - Provider Date of Admission: 03/09/18 02:58 Attending physician: Leander Ceballos MD Primary care physician: Marcos Gonzales MD Hospital Course - Lab Results Lab Results: Most Recent Lab Values WBC 4.5 10^3/ul (4.5-11.0) D 03/09/18 06:00 RBC 4.00 10^6/uL (3.5-6.1) 03/09/18 06:00 Hgb 11.1 g/dL (14.0-18.0) L 03/09/18 06:00 Hct 35.1 % (42.0-52.0) L 03/09/18 06:00 MCV 87.8 fl (80.0-105.0) 03/09/18 06:00 MCH 27.8 pg (25.0-35.0) 03/09/18 06:00 MCHC 31.6 g/dl (31.0-37.0) 03/09/18 06:00 RDW 19.5 % (11.5-14.5) H 03/09/18 06:00 Plt Count 229 10^3/uL (120.0-450.0) 03/09/18 06:00 MPV 10.9 fl (7.0-11.0) 03/09/18 06:00 Gran % 51.3 % (50.0-68.0) 03/09/18 06:00 Lymph % (Auto) 31.1 % (22.0-35.0) 03/09/18 06:00 Ramsey % (Auto) 10.7 % (1.0-6.0) H 03/09/18 06:00 Eos % (Auto) 4.7 % (1.5-5.0) 03/09/18 06:00 Baso % (Auto) 2.2 % (0.0-3.0) 03/09/18 06:00 Gran # 2.31 (1.4-6.5) 03/09/18 06:00 Lymph # (Auto) 1.4 (1.2-3.4) 03/09/18 06:00 Ramsey # (Auto) 0.5 (0.1-0.6) 03/09/18 06:00 Eos # (Auto) 0.2 (0.0-0.7) 03/09/18 06:00 Baso # (Auto) 0.10 K/mm3 (0.0-2.0) 03/09/18 06:00 APTT 30.3 Seconds (25.1-36.5) 03/09/18 06:00 Sodium 148 mmol/L (132-148) 03/09/18 06:00 Potassium 3.8 mmol/L (3.6-5.0) 03/09/18 06:00 Chloride 108 mmol/L (98-107) H 03/09/18 06:00 Carbon Dioxide 27 mmol/L (21-33) 03/09/18 06:00 Anion Gap 16 (10-20) 03/09/18 06:00 BUN 4 mg/dL (7-21) L 03/09/18 06:00 Creatinine 0.7 mg/dl (0.8-1.5) L 03/09/18 06:00 Est GFR ( Amer) > 60 03/09/18 06:00 Est GFR (Non-Af Amer) > 60 03/09/18 06:00 Random Glucose 96 mg/dL (70-110) 03/09/18 06:00 Calcium 9.1 mg/dL (8.4-10.5) 03/09/18 06:00 Magnesium 1.9 mg/dL (1.7-2.2) 03/09/18 00:30 Total Bilirubin 0.3 mg/dL (0.2-1.3) 03/09/18 06:00 AST 46 U/L (17-59) 03/09/18 06:00 ALT 33 U/L (7-56) 03/09/18 06:00 Alkaline Phosphatase 78 U/L (38-126) 03/09/18 06:00 Lactate Dehydrogenase 702 U/L (333-699) H 03/09/18 00:30 Total Creatine Kinase 175 U/L (35-230) 03/09/18 00:30 Troponin I < 0.01 ng/mL 03/09/18 12:30 Total Protein 7.5 g/dL (5.8-8.3) 03/09/18 06:00 Albumin 4.0 g/dL (3.0-4.8) 03/09/18 06:00 Globulin 3.5 gm/dL 03/09/18 06:00 Albumin/Globulin Ratio 1.1 (1.1-1.8) 03/09/18 06:00 Urine Color Yellow (YELLOW) 03/09/18 00:30 Urine Appearance Clear (CLEAR) 03/09/18 00:30 Urine pH 6.5 (4.7-8.0) 03/09/18 00:30 Ur Specific Nathrop <= 1.005 (1.005-1.035) 03/09/18 00:30 Urine Protein Negative mg/dL (<30 mg/dL) 03/09/18 00:30 Urine Glucose (UA) Negative mg/dL (NEGATIVE) 03/09/18 00:30 Urine Ketones Negative mg/dL (NEGATIVE) 03/09/18 00:30 Urine Blood Negative (NEGATIVE) 03/09/18 00:30 Urine Nitrate Negative (NEGATIVE) 03/09/18 00:30 Urine Bilirubin Negative (NEGATIVE) 03/09/18 00:30 Urine Urobilinogen 0.2 E.U./dL (<1 E.U./dL) 03/09/18 00:30 Ur Leukocyte Esterase Small Gabby/uL (NEGATIVE) H 03/09/18 00:30 Urine RBC 0 - 2 /hpf (0-2) 03/09/18 00:30 Urine WBC 1 - 3 /hpf (0-6) 03/09/18 00:30 Ur Epithelial Cells 1 - 3 /hpf (0-5) 03/09/18 00:30 Urine Bacteria Rare (NEG) 03/09/18 00:30 Urine Opiates Screen Negative (NEGATIVE) 03/09/18 07:29 Urine Methadone Screen Negative (NEGATIVE) 03/09/18 07:29 Ur Barbiturates Screen Negative (NEGATIVE) 03/09/18 07:29 Ur Phencyclidine Scrn Negative (NEGATIVE) 03/09/18 07:29 Ur Amphetamines Screen Negative (NEGATIVE) 03/09/18 07:29 U Benzodiazepines Scrn Negative (NEGATIVE) 03/09/18 07:29 U Oth Cocaine Metabols Negative (NEGATIVE) 03/09/18 07:29 U Cannabinoids Screen Negative (NEGATIVE) 03/09/18 07:29 Alcohol, Quantitative 103 mg/dL (0-10) H 03/09/18 00:30 Attending/Attestation - Attestation I have personally seen and examined this patient.: Yes I have fully participated in the care of the patient.: Yes I have reviewed all pertinent clinical information, including history, physical exam and plan: Yes Notes (Text): Counselling provided regarding alcohol use and medications compliance. Patient was advised to follow up with Dr Marcos Gonzales within 3-5 days.
--- NOTE | 2018-03-09 17:56 | CARD ---
APPROVED REPORT EKG Measurement Heart [id number] <Conclusion> Normal sinus rhythm Early repolarization Normal ECG
== END 2018-03-09 15:36 | disposition home or self-care (01) ==
LOC: ED 23:46 → ERH 03-09 02:58 → 2RSO 03-09 04:31
PROVIDERS: ADMIT Internal Medicine; ATTEND Hospitalist
DX: R07.9 Chest pain, unspecified (principal); I10 Essential (primary) hypertension; F10.10 Alcohol abuse, uncomplicated; K76.6 Portal hypertension; G40.909 Epilepsy, unspecified, not intractable, without status epilepticus; F17.200 Nicotine dependence, unspecified, uncomplicated; I25.10 Atherosclerotic heart disease of native coronary artery without angina pectoris; J45.909 Unspecified asthma, uncomplicated; Z95.5 Presence of coronary angioplasty implant and graft; B19.10 Unspecified viral hepatitis B without hepatic coma; Y90.5 Blood alcohol level of 100-119 mg/100 ml; Z86.73 Personal history of transient ischemic attack (TIA), and cerebral infarction without residual deficits
CPT/HCPCS: 71045; 80053; 80320; 80324; 80345; 80346; 80349; 80353; 80358; 80361; 81001; 82550; 83615; 83735; 83992; 84484; 85025; 85730; 87086; 93005; 96372; 99285; G0378; J1644

== ENCOUNTER 2018-03-14 17:17 | Emergency (ER) | payer MEDICAID ==
[2018-03-14 17:17] VITALS: BMI 23.6
[2018-03-14 17:32] VITALS: TEMP 98.4
[2018-03-14] MEDS ORDERED: Sodium Chloride 0.9% 1,000 ML IV SCH (17:45)
[2018-03-14 17:52] VITALS: BP 128/79; PULSE 78; RESP 18; O2SAT 99
[2018-03-14 18:00] LABS: BASO # 0.08 K/mm3 (0.0-2.0); BASO % 1.6 % (0.0-3.0); EOS # 0.2 (0.0-0.7); EOS % 3.3 % (1.5-5.0); GRAN # 2.6 (1.4-6.5); GRAN % 50.7 % (50.0-68.0); LYMPH # 1.8 (1.2-3.4); LYMPH % 34.3 % (22.0-35.0); MEAN CELL VOLUME 85.2 fl (80.0-105.0); MEAN CORPUSCULAR HEMOGLOBIN 28.1 pg (25.0-35.0); MEAN CORPUSCULAR HGB CONC 32.9 g/dl (31.0-37.0); MEAN PLATELET VOLUME 11.3 fl (7.0-11.0); MONO # 0.5 (0.1-0.6); MONO % 10.1 % (1.0-6.0); RBC 3.92 10^6/uL (3.5-6.1); RED CELL DISTRIBUTION WIDTH 19.3 % (11.5-14.5); WHITE BLOOD COUNT 5.1 10^3/ul (4.5-11.0)
[2018-03-14 18:13] LABS: INR 0.98 (0.93-1.08); PARTIAL THROMBOPLASTIN TIME 31.8 Seconds (25.1-36.5); PROTHROMBIN TIME 11.2 SECONDS (9.4-12.5)
[2018-03-14 18:30] LABS: B-TYPE NATRIURETIC PEPTIDE 123 pg/mL (0-450); TROPONIN I < 0.01 ng/mL
[2018-03-14 18:41] LABS: ALB/GLOB RATIO 1.2 (1.1-1.8); ALBUMIN 4.2 g/dL (3.0-4.8); ALT/SGPT 47 U/L (7-56); AST/SGOT 68 U/L (17-59); BLOOD UREA NITROGEN 6 mg/dL (7-21); CALCIUM 8.8 mg/dL (8.4-10.5); GFR AFRICAN-AMERICAN > 60; GFR NON-AFRICAN AMERICAN > 60
--- NOTE | 2018-03-14 19:37 | ED PDOC ---
Arrival/HPI - General Chief Complaint: Chest Pain Time Seen by Provider: 03/14/18 17:26 Historian: Patient - History of Present Illness Narrative History of Present Illness (Text): 57yoM, with chest pain, which has been on - going for more than 1 month, has hx of cardiac stent. secondarily with difficulty breathing. 03/14/18 19:35 Time/Duration: > month (1) Symptom Onset: Gradual Symptom Course: Resolved, Intermittent Quality: Aching Severity Level: 1 Activities at Onset: Rest Context: Sitting Past Medical History - Provider Review Nursing Documentation Reviewed: Yes - Travel History Have you recently traveled outside [place] w/in the past 3 mons?: No - Past History Past History: No Previous - Infectious Disease Hx of Infectious Diseases: None - Tetanus Immunization Tetanus Immunization: Unknown - Cardiac Other/Comment: chest pain - Pulmonary Hx Respiratory Disorders: Yes Hx Asthma: Yes - Neurological Hx Neurological Disorder: Yes Hx Seizures: Yes Other/Comment: Intracranial Hemmorhage - HEENT Hx HEENT Disorder: No - Renal Hx Renal Disorder: No - Endocrine/Metabolic Hx Endocrine Disorders: No - Hematological/Oncological Hx Blood Disorders: Yes Hx Anemia: Yes Hx Hepatitis B: Yes (carrier) - Integumentary Hx Dermatological Disorder: No - Musculoskeletal/Rheumatological Hx Falls: Yes - Gastrointestinal Hx Gastrointestinal Disorders: Yes Other/Comment: GI Bleed - Genitourinary/Gynecological Hx Genitourinary Disorders: No - Psychiatric Hx Psychophysiologic Disorder: No Hx Substance Use: No - Past Surgical History Past Surgical History: No Previous - Surgical History Hx Cardiac Catheterization: Yes (stents) Hx Orthopedic Surgery: Yes ([facility] JAW) Other/Comment: TONSILLECTOMY - Anesthesia Hx Anesthesia: Yes Hx Anesthesia Reactions: No Hx Malignant Hyperthermia: No - Suicidal Assessment Feels Threatened In Home Enviroment: No Family/Social History - Physician Review Nursing Documentation Reviewed: Yes Family/Social History: Unknown Family HX Smoking Status: Heavy Smoker > 10 Cigarettes Daily Hx Alcohol Use: Yes (2 BEERS A DAY) Frequency of alcohol use: Daily Hx Substance Use: No Hx Substance Use Treatment: No Allergies/Home Meds Allergies/Adverse Reactions: Allergies No Known Allergies Allergy (Verified 03/09/18 00:09) Review of Systems - Review of Systems Constitutional: Normal Eyes: Normal ENT: Normal Respiratory: SOB Cardiovascular: Chest Pain Gastrointestinal: Normal Genitourinary Male: Normal Musculoskeletal: Normal Skin: Normal Neurological: Normal Endocrine: Normal Hemo/Lymphatic: Normal Psychiatric: Normal Physical Exam Vital Signs Reviewed: Yes Vital Signs Temp Pulse Pulse Resp BP Pulse Ox 03/14/18 17:50 78 18 128/79 99 03/14/18 17:31 98.4 F 75 16 112/63 98 03/14/18 17:20 73 Temperature: Afebrile Blood Pressure: Hypertensive Pulse: Regular Respiratory Rate: Normal Appearance: Positive for: Well-Appearing, Non-Toxic, Comfortable Pain Distress: None Mental Status: Positive for: Alert and Oriented X 3 - Systems Exam Head: Present: Atraumatic, Normocephalic Pupils: Present: PERRL Extroacular Muscles: Present: EOMI Conjunctiva: Present: Normal Ears: Present: Normal Mouth: Present: Moist Mucous Membranes Pharnyx: Present: Normal Nose (External): Present: Atraumatic Nose (Internal): Present: Normal Inspection Neck: Present: Normal Range of Motion Respiratory/Chest: Present: Clear to Auscultation, Good Air Exchange Cardiovascular: Present: Regular Rate and Rhythm Abdomen: No: Tenderness, Distention, Normal Bowel Sounds, Peritoneal Signs, Rebound, Guarding, McBurney's Point Tender, Rovsing's Sign Present, Hernias, Feeding Tubes, Ostomy Tubes, Mass/Organomegaly, Scars, Other Back: Present: Normal Inspection Upper Extremity: Present: Normal Inspection Lower Extremity: Present: Normal Inspection Neurological: Present: GCS=15, CN II-XII Intact, Speech Normal, Motor Func Grossly Intact Skin: Present: Warm, Normal Color Psychiatric: Present: Alert, Oriented x 3, Normal Insight, Normal Concentration Medical Decision Making ED Course and Treatment: 57yoM, with chest pain, which has been on - going for more than 1 month, has hx of cardiac stent. secondarily with difficulty breathing. pt signed out AMA. cautioned for complications/. he understood. 03/14/18 19:37 Reassessment Condition: Re-examined, Improved - Lab Interpretations Lab Results: 03/14/18 17:20 03/14/18 17:20 Lab Results 03/14/18 17:20: Sodium 144, Potassium 4.0, Chloride 104, Carbon Dioxide 27, Anion Gap 17, BUN 6 L, Creatinine 0.7 L, Est GFR ( Amer) > 60, Est GFR ( Non-Af Amer) > 60, Random Glucose 92, Calcium 8.8, Magnesium 1.9, Total Bilirubin 0.6, AST 68 H D, ALT 47, Alkaline Phosphatase 94, Lactate Dehydrogenase 530, Total Creatine Kinase 218, Troponin I < 0.01, NT-Pro-B Natriuret Pep 123, Total Protein 7.6, Albumin 4.2, Globulin 3.4, Albumin/ Globulin Ratio 1.2 03/14/18 17:20: PT 11.2, INR 0.98, APTT 31.8 03/14/18 17:20: WBC 5.1, RBC 3.92, Hgb 11.0 L, Hct 33.4 L, MCV 85.2, MCH 28.1, MCHC 32.9, RDW 19.3 H, Plt Count 265, MPV 11.3 H, Gran % 50.7, Lymph % (Auto) 34.3, [place] % (Auto) 10.1 H, Eos % (Auto) 3.3, Baso % (Auto) 1.6, Gran # 2.60, Lymph # (Auto) 1.8, [place] # (Auto) 0.5, Eos # (Auto) 0.2, Baso # (Auto) 0.08 I have reviewed the lab results: Yes - RAD Interpretation Radiology Orders: 03/14/18 17:31 CHEST PORTABLE [RAD] Stat Bronc Breaker: ED Physician (cxr no acute) - EKG Interpretation Interpreted by ED Physician: Yes (NSR) - Medication Orders Current Medication Orders: Discontinued Medications Aspirin (Aspirin) 325 mg PO STAT STA Stop: 03/14/18 17:31 Last Admin: 03/14/18 17:38 Dose: 325 mg Sodium Chloride (Sodium Chloride 0.9%) 1,000 mls @ 100 mls/hr IV .Q10H [facility] Last Admin: 03/14/18 17:38 Dose: 100 mls/hr eMAR Start Stop Document 03/14/18 17:38 FRANK (Rec: 03/14/18 17:38 FRANK [id number]) Intravenous Solution Start Date 03/14/18 Start Time 17:38 Disposition/Present on Arrival - Present on Arrival Any Indicators Present on Arrival: No History of DVT/PE: No History of Uncontrolled Diabetes: No Urinary Catheter: No History of Decub. Ulcer: No History Surgical Site Infection Following: None - Disposition Have Diagnosis and Disposition been Completed?: Yes Diagnosis: Chest pain Disposition: AGAINST MEDICAL ADVICE Disposition Time: 19:38 Condition: IMPROVED Discharge Instructions (ExitCare): Chest Pain (ED) Additional Instructions: pt walked out. didn't wait for results or dc instructions Forms: [employer] (Y[place]i)
--- NOTE | 2018-03-15 10:05 | RAD ---
HISTORY: 57yoM, chest pain COMPARISON: Comparison chest 03/09/2018. Comparison also made with prior CTA chest dated 03/28/2013. FINDINGS: LUNGS: Lung roth appear hyperinflated ; rule out underlying COPD. No focal consolidation Small rounded sclerotic density possibly representing an osteoma or bone island again seen within the proximal aspect left posterior fifth rib. Note this is better advantage on prior CTA of the chest dated 03/28/2013. PLEURA: No significant pleural effusion identified, no pneumothorax apparent. CARDIOVASCULAR: Normal. OSSEOUS STRUCTURES: Degenerative osteoarthritis both shoulder girdles particularly involving the left acromioclavicular joint. There is also a calcification along the cortical clavicular ligament. Small bone island or osteoma proximal left 5th posterior rib VISUALIZED UPPER ABDOMEN: Normal. OTHER FINDINGS: None. IMPRESSION: Lung roth appear hyperinflated ; rule out underlying COPD. No focal consolidation
--- NOTE | 2018-03-16 08:14 | CARD ---
APPROVED REPORT EKG Measurement Heart [id number] [place] 154P83 [id number] <Conclusion> Normal sinus rhythm Normal ECG
== END 2018-03-14 17:45 | disposition left against medical advice (07) ==
LOC: ED 17:17
DX: R07.9 Chest pain, unspecified (principal); F17.210 Nicotine dependence, cigarettes, uncomplicated
CPT/HCPCS: 71045; 80053; 82550; 83615; 83735; 83880; 84484; 85025; 85610; 85730; 93005; 99283; J7040

== ENCOUNTER 2018-04-22 20:55 | Emergency (ER) | payer MEDICAID ==
[2018-04-22 20:56] VITALS: BMI 23.6
[2018-04-22 21:07] VITALS: RESP 16; TEMP 98.2
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
[2018-04-23 03:43] VITALS: O2SAT 99
[2018-04-23 03:45] VITALS: BP 122/81; PULSE 72
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
--- NOTE | 2018-04-23 12:52 | CARD ---
APPROVED REPORT EKG Measurement Heart [id number] [place] [id number] [id number] <Conclusion> Normal sinus rhythm J point elevations c/w early repolarization Normal ECG No change
== END 2018-04-23 03:01 | disposition home or self-care (01) ==
LOC: ED 20:55
DX: S20.212A Contusion of left front wall of thorax, initial encounter (principal); V13.4XXA Pedal cycle driver injured in collision with car, pick-up truck or van in traffic accident, initial encounter; Y92.410 Unspecified street and highway as the place of occurrence of the external cause; R07.9 Chest pain, unspecified

== ENCOUNTER 2018-05-22 10:42 | Emergency (ER) | payer MEDICAID ==
[2018-05-22 10:42] VITALS: BMI 23.6
[2018-05-22 11:05] VITALS: RESP 18; TEMP 98.6
[2018-05-22] MEDS ORDERED: Multivitamin (MVI) 10 ML, Thiamine 100 MG, Folic Acid 1 MG in Sodium Chloride 0.9% 1,00... IV ONE (11:16)
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
[2018-05-22 11:45] LABS: BASO # 0.03 K/mm3 (0.0-2.0); BASO % 0.5 % (0.0-3.0); EOS % 0.5 % (1.5-5.0); GRAN # 5.31 (1.4-6.5); GRAN % 84.9 % (50.0-68.0); HEMOGLOBIN 12.1 g/dL (14.0-18.0); LYMPH # 0.7 (1.2-3.4); LYMPH % 10.4 % (22.0-35.0); MEAN CELL VOLUME 85.7 fl (80.0-105.0); MEAN CORPUSCULAR HEMOGLOBIN 27.5 pg (25.0-35.0); MEAN CORPUSCULAR HGB CONC 32.1 g/dl (31.0-37.0); MEAN PLATELET VOLUME 11.2 fl (7.0-11.0); MONO # 0.2 (0.1-0.6); MONO % 3.7 % (1.0-6.0); RBC 4.4 10^6/uL (3.5-6.1); RED CELL DISTRIBUTION WIDTH 17.3 % (11.5-14.5); WHITE BLOOD COUNT 6.3 10^3/ul (4.5-11.0)
[2018-05-22 11:52] LABS: INR 0.95; PROTHROMBIN TIME 10.9 SECONDS (9.4-12.5)
[2018-05-22 11:54] LABS: ALB/GLOB RATIO 1.2 (1.1-1.8); ALBUMIN 4.9 g/dL (3.0-4.8); ALT/SGPT 38 U/L (7-56); AST/SGOT 56 U/L (17-59); BLOOD UREA NITROGEN 5 mg/dL (7-21); CALCIUM 9.3 mg/dL (8.4-10.5); GFR AFRICAN-AMERICAN > 60; GFR NON-AFRICAN AMERICAN > 60
[2018-05-22 16:37] VITALS: BP 156/87; PULSE 84; O2SAT 99
--- NOTE | 2018-05-23 09:12 | CARD ---
APPROVED REPORT Date of service: 05/22/2018 EKG Measurement Heart [id number] <Conclusion> Normal sinus rhythm Possible septal infarct, age undetermined Abnormal ECG
== END 2018-05-22 16:29 | disposition home or self-care (01) ==
LOC: ED 10:42
DX: F10.20 Alcohol dependence, uncomplicated (principal); F17.210 Nicotine dependence, cigarettes, uncomplicated
CPT/HCPCS: 80053; 80320; 82948; 85025; 85610; 93005; 96365; 96375; 99284; J2060; J3411; J7030

== ENCOUNTER 2018-05-27 21:01 | Observation (INO) | payer MEDICAID ==
[2018-05-27 21:02] VITALS: BMI 23.6
[2018-05-27 21:50] LABS: BASO # 0.06 K/mm3 (0.0-2.0); BASO % 1.5 % (0.0-3.0); EOS # 0.2 (0.0-0.7); EOS % 4.2 % (1.5-5.0); GRAN # 1.74 (1.4-6.5); GRAN % 43.2 % (50.0-68.0); HEMOGLOBIN 11.5 g/dL (14.0-18.0); LYMPH # 1.5 (1.2-3.4); LYMPH % 38.2 % (22.0-35.0); MEAN CORPUSCULAR HEMOGLOBIN 27.5 pg (25.0-35.0); MEAN CORPUSCULAR HGB CONC 33.1 g/dl (31.0-37.0); MEAN PLATELET VOLUME 10.7 fl (7.0-11.0); MONO # 0.5 (0.1-0.6); MONO % 12.9 % (1.0-6.0); RBC 4.18 10^6/uL (3.5-6.1)
--- NOTE | 2018-05-27 21:52 | ED PDOC ---
Arrival/HPI <Nghia Kaiser - Last Filed: 05/27/18 22:54> - General Historian: Patient <Georgette Vergara PA-C - Last Filed: 05/28/18 00:06> - General Chief Complaint: Chest Pain Time Seen by Provider: 05/27/18 21:03 - History of Present Illness Narrative History of Present Illness (Text): 05/27/18 21:46 A 57 year old male, whose past medical history includes alcohol abuse, GI bleed , HTN, seizures, intracranial hemorrhage, hepatitis B, and is s/p cardiac cath 6 months ago with 2 stents done in [facility], presents to the emergency department complaining of L sided CP, described as pressure sensation, which started this evening associated with nausea, cough and shallow breathing. Patient's states that he was smoking and drinking a lot this evening. Patient was given asa in the field by EMS. Otherwise: (-) radiation, (-) diaphoresis, (-) dyspnea , (-) pleuritic component, (-) ripping or tearing quality, (-) positional component, (-) exertional component, (-) dizziness, (-) syncope, (-) fever, (-) calf swelling/pain, (-) neuro deficits. PMD V Jose (Georgette Vergara PA-C) Past Medical History - Past History Past History: No Previous - Infectious Disease Hx of Infectious Diseases: None - Tetanus Immunization Tetanus Immunization: Unknown - Cardiac Hx Cardiac Disorders: Yes Hx NC: Yes Other/Comment: chest pain - Pulmonary Hx Respiratory Disorders: Yes Hx Asthma: Yes - Neurological Hx Neurological Disorder: Yes HX Cerebrovascular Accident: Yes Hx Seizures: Yes Other/Comment: Intracranial Hemmorhage - HEENT Hx HEENT Disorder: No - Renal Hx Renal Disorder: No - Endocrine/Metabolic Hx Endocrine Disorders: No - Hematological/Oncological Hx Blood Disorders: Yes Hx Anemia: Yes Hx Hepatitis B: Yes (carrier) - Integumentary Hx Dermatological Disorder: No - Musculoskeletal/Rheumatological Hx Musculoskeletal Disorders: Yes Hx Falls: Yes - Gastrointestinal Hx Gastrointestinal Disorders: Yes Other/Comment: GI Bleed - Genitourinary/Gynecological Hx Genitourinary Disorders: No - Psychiatric Hx Psychophysiologic Disorder: No Hx Substance Use: No - Past Surgical History Past Surgical History: No Previous - Surgical History Hx Cardiac Catheterization: Yes Hx Coronary Stent: Yes Hx Orthopedic Surgery: Yes (ORIF OF JAW) Hx Tonsillectomy: Yes - Anesthesia Hx Anesthesia: Yes Hx Anesthesia Reactions: No Hx Malignant Hyperthermia: No - Suicidal Assessment Feels Threatened In Home Enviroment: No <Georgette Vergara PA-C - Last Filed: 05/28/18 00:06> Family/Social History Family/Social History: Unknown Family HX Smoking Status: Heavy Smoker > 10 Cigarettes Daily Hx Alcohol Use: Yes (2 BEERS A DAY) Hx Substance Use: No Hx Substance Use Treatment: No <Georgette Vergara PA-C - Last Filed: 05/28/18 00:06> Allergies/Home Meds <Nghia Kaiser - Last Filed: 05/27/18 22:54> <Georgette Vergara PA-C - Last Filed: 05/28/18 00:06> Allergies/Adverse Reactions: Allergies No Known Allergies Allergy (Verified 05/22/18 10:55) Review of Systems - Review of Systems Constitutional: absent: Fatigue, Fevers Respiratory: SOB, Cough. absent: Sputum, Wheezing Cardiovascular: Chest Pain. absent: Palpitations, Edema Gastrointestinal: Nausea. absent: Abdominal Pain, Diarrhea, Vomiting Genitourinary Male: absent: Dysuria, Frequency, Hematuria Musculoskeletal: absent: Arthralgias, Back Pain, Neck Pain Skin: absent: Rash, Pruritis Neurological: absent: Headache, Dizziness <Georgette Vergara PA-C - Last Filed: 05/28/18 00:06> Physical Exam Temperature: Afebrile Blood Pressure: Normal Pulse: Tachycardic Respiratory Rate: Normal Appearance: Positive for: Well-Appearing, Non-Toxic, Comfortable Pain Distress: Mild Mental Status: Positive for: Alert and Oriented X 3 - Systems Exam Head: Present: Atraumatic, Normocephalic Pupils: Present: PERRL Extroacular Muscles: Present: EOMI Conjunctiva: Present: Normal Mouth: Present: Moist Mucous Membranes Neck: Present: Normal Range of Motion Respiratory/Chest: Present: Clear to Auscultation, Good Air Exchange. No: Respiratory Distress, Accessory Muscle Use Cardiovascular: Present: Regular Rate and Rhythm, Normal S1, S2. No: Murmurs Abdomen: No: Tenderness, Distention, Peritoneal Signs Back: Present: Normal Inspection Upper Extremity: Present: Normal Inspection. No: Cyanosis, Edema Lower Extremity: Present: Normal Inspection. No: Edema Neurological: Present: GCS=15, CN II-XII Intact, Speech Normal, Motor Func Grossly Intact, Normal Sensory Function Skin: Present: Warm, Dry, Normal Color. No: Rashes Psychiatric: Present: Alert, Oriented x 3, Normal Insight, Normal Concentration <Georgette Vergara PA-C - Last Filed: 05/28/18 00:06> Vital Signs Temp Pulse Resp BP Pulse Ox 05/27/18 21:14 98.3 F 104 H 18 138/86 98 Medical Decision Making <Nghia Kaiser - Last Filed: 05/27/18 22:54> <Georgette Vergara PA-C - Last Filed: 05/28/18 00:06> ED Course and Treatment: 05/27/18 21:45 Impression: Chest pain, r/o ACS Plan: -- Labs -- IV -- EKG -- CXR -- sublingual nitroglycerin -- Reassess and disposition -- quality assurance monitor body EKG : ST at 117bpm, no acute ST changes, as read by MARK ANTHONY CXR : NAD, as read by MARK ANTHONY Labs reviewed : trop (-), BNP (-), alcohol 361 On re-evaluation, patient is sleeping comfortably in no acute distress. Patient arouses easily, reports no CP or SOB. Patient agrees to plan for tele observation. Case d/w Dr. Ceballos, agrees with plan. (Georgette Vergara PA-C) - Lab Interpretations Lab Results: 05/27/18 21:35 05/27/18 21:35 Lab Results 05/27/18 21:35: Alcohol, Quantitative 361 H* 05/27/18 21:35: PT 10.6, INR 0.93, APTT 29.6 05/27/18 21:35: Sodium 145, Potassium 3.9, Chloride 104, Carbon Dioxide 27, Anion Gap 18, BUN 5 L, Creatinine 0.7 L, Est GFR ( Amer) > 60, Est GFR ( Non-Af Amer) > 60, Random Glucose 91, Calcium 8.8, Magnesium 1.8, Total Bilirubin 0.3, AST 64 H, ALT 36, Alkaline Phosphatase 106, Lactate Dehydrogenase 574, Total Creatine Kinase 356 H, CK-MB (CK-2) 1.8, CK-MB (CK-2) % Cancelled, Troponin I < 0.01, NT-Pro-B Natriuret Pep 51, Total Protein 8.1, Albumin 4.5, Globulin 3.6, Albumin/Globulin Ratio 1.3 05/27/18 21:35: WBC 4.0 L D, RBC 4.18, Hgb 11.5 L, Hct 34.7 L, MCV 83.0, MCH 27.5, MCHC 33.1, RDW 17.0 H, Plt Count 169, MPV 10.7, Gran % 43.2 L, Lymph % ( Auto) 38.2 H, [place] % (Auto) 12.9 H, Eos % (Auto) 4.2, Baso % (Auto) 1.5, Gran # 1.74, Lymph # (Auto) 1.5, [place] # (Auto) 0.5, Eos # (Auto) 0.2, Baso # (Auto) 0.06 - RAD Interpretation Radiology Orders: 05/27/18 21:20 CHEST PORTABLE [RAD] Stat - Medication Orders Current Medication Orders: Discontinued Medications Nitroglycerin (Nitrostat Sl Tab) 0.4 mg SL STAT STA Stop: 05/27/18 21:20 Last Admin: 05/27/18 21:34 Dose: 0.4 mg - PA / LEVERMAN / Resident Statement HUAN has reviewed & agrees with the documentation as recorded. HUAN has examined the patient and agrees with the treatment plan. <Nghia Kaiser - Last Filed: 05/27/18 22:54> - PA / LEVERMAN / Resident Statement HUAN has reviewed & agrees with the documentation as recorded. <Georgette eVrgara PA-C - Last Filed: 05/28/18 00:06> Disposition/Present on Arrival <Nghia Kasier - Last Filed: 05/27/18 22:54> - Present on Arrival Any Indicators Present on Arrival: No History of DVT/PE: No History of Uncontrolled Diabetes: No Urinary Catheter: No History of Decub. Ulcer: No History Surgical Site Infection Following: None - Disposition Have Diagnosis and Disposition been Completed?: Yes Disposition Time: 22:45 Patient Plan: Telemetry (observation) <Georgette Vergara PA-C - Last Filed: 05/28/18 00:06> - Disposition Diagnosis: Chest pain Disposition: HOSPITALIZED Patient Problems: Current Active Problems Problem Status Onset Chest pain Acute Condition: STABLE Discharge Instructions (ExitCare): Chest Pain (ED) Forms: [employer] (Polish)
[2018-05-27 22:06] LABS: INR 0.93; PARTIAL THROMBOPLASTIN TIME 29.6 Seconds (25.1-36.5); PROTHROMBIN TIME 10.6 SECONDS (9.4-12.5)
[2018-05-27 22:15] LABS: BLOOD UREA NITROGEN 5 mg/dL (7-21); CALCIUM 8.8 mg/dL (8.4-10.5); GFR AFRICAN-AMERICAN > 60; GFR NON-AFRICAN AMERICAN > 60
[2018-05-27 22:16] LABS: ALB/GLOB RATIO 1.3 (1.1-1.8); ALBUMIN 4.5 g/dL (3.0-4.8); ALT/SGPT 36 U/L (7-56); AST/SGOT 64 U/L (17-59); B-TYPE NATRIURETIC PEPTIDE 51 pg/mL (0-450)
[2018-05-27 22:17] LABS: TROPONIN I < 0.01 ng/mL
[2018-05-27 22:18] LABS: CK-MB 1.8 ng/mL (0.0-3.6)
--- NOTE | 2018-05-28 01:18 | CP.PCM.HP ---
History of Present Illness - History of Present Illness History of Present Illness: Yunier Hamilton D.O. PGY-1 Internal Medicine Resident, HPI for Dr Tucker Vaughan: Chest pain for 2 days 57y/o male with PMH of HTN, CAD s/p PTCA with stent palced, EtOH abuse, seizures , who presents to ED for chest pain x 2 days. Per patient's , he has been drinking 5 large beers daily for the past few days. Chest pain started on L sided, 5/10, intermittent, radiates to left shoulder, no alleviating or worsening factors. Pain is associated with nausea. As per , patient has not been eating lately, only drinking alcohol and smokes cigarettes and he nearly was going to pass out because of alcohol and not eating. He also has chronic cough with sputum due to his long history of smoking. Patient reporthed numbness in his feet and hands. Patient denied palpitation, leg swelling, diaphoresis, vomiting, LOC. As per EMR, he had a stress test in 01/2017 which was normal and an Echo in 2016 which showed EF of 51% and mild LVH. Patient is not compliant with medications. Patient denies vomiting/diarrhea, fever/chills, tremors, seizure- like activity, dysuria, or hematuria. 12 points ROS negative except as per HPI In ED: Blood alcohol level 361. EKG, NSR@117. Patient was lethargic, drowsy. History obtained by his . Past medical history: HTN, CAD s/p PTCA with stent palced, EtOH abuse, seizures Past Surgical History: Tonsillectomy, jaw repair Meds: denied taking any meds except ASA 81 mg daily Allergie: NKDA SH: Smokes 1/2 ppd x >20yrs, drinks 5 large beers per day, denies illicit drug use. Lives with PMD: Dr Alvarez Pharmacy: [facility] Present on Admission - Present on Admission Any Indicators Present on Admission: No Past Patient History - Infectious Disease Hx of Infectious Diseases: None - Tetanus Immunizations Tetanus Immunization: Unknown - Past Social History Smoking Status: Heavy Smoker > 10 Cigarettes Daily Alcohol: > 2 Drinks/Day Drugs: Denies - CARDIAC Hx Cardiac Disorders: Yes Hx Heart Attack: Yes Other/Comment: chest pain - PULMONARY Hx Respiratory Disorders: Yes Hx Asthma: Yes - NEUROLOGICAL Hx Neurological Disorder: Yes HX Cerebrovascular Accident: Yes Hx Seizures: Yes Other/Comment: Intracranial Hemmorhage - HEENT Hx HEENT Problems: No - RENAL Hx Chronic Kidney Disease: No - ENDOCRINE/METABOLIC Hx Endocrine Disorders: No - HEMATOLOGICAL/ONCOLOGICAL Hx Blood Disorders: Yes Hx Anemia: Yes Hx Hepatitis B: Yes (carrier) - INTEGUMENTARY Hx Dermatological Problems: No - MUSCULOSKELETAL/RHEUMATOLOGICAL Hx Musculoskeletal Disorders: Yes Hx Falls: Yes - GASTROINTESTINAL Hx Gastrointestinal Disorders: Yes Other/Comment: GI Bleed - GENITOURINARY/GYNECOLOGICAL Hx Genitourinary Disorders: No - PSYCHIATRIC Hx Psychophysiologic Disorder: No Hx Substance Use: No - SURGICAL HISTORY Hx Cardiac Catheterization: Yes Hx Coronary Stent: Yes Hx Orthopedic Surgery: Yes (ORIF OF JAW) Hx Tonsillectomy: Yes - ANESTHESIA Hx Anesthesia: Yes Hx Anesthesia Reactions: No Hx Malignant Hyperthermia: No Meds Allergies/Adverse Reactions: Allergies Allergy/AdvReac Type Severity Reaction Status Date / Time No Known Allergies Allergy Verified 05/22/18 10:55 Physical Exam - Constitutional Appears: Unkempt - Head Exam Head Exam: ATRAUMATIC, NORMAL INSPECTION, NORMOCEPHALIC - Eye Exam Eye Exam: EOMI, Normal appearance - ENT Exam ENT Exam: Mucous Membranes Dry - Neck Exam Neck exam: Positive for: Normal Inspection - Respiratory Exam Respiratory Exam: Clear to Auscultation Bilateral, NORMAL BREATHING PATTERN - Cardiovascular Exam Cardiovascular Exam: Tachycardia, REGULAR RHYTHM, +S1, +S2 - GI/Abdominal Exam GI & Abdominal Exam: Normal Bowel Sounds, Soft. absent: Tenderness - Extremities Exam Extremities exam: Positive for: normal inspection. Negative for: pedal edema - Back Exam Back exam: NORMAL INSPECTION - Neurological Exam Additional comments: obtunded, drowsy - Expanded Neurological Exam Expanded Neurological exam: Inattentive Speech: Garbled Speech Coma Scale Eye Opening: To Voice Coma Scale Motor Response: OBEYS COMMANDS - Skin Skin Exam: Dry, Intact, Normal Color, Warm Results - Vital Signs Recent Vital Signs: Last Vital Signs Temp 98.3 F 05/27/18 21:14 Pulse 86 05/28/18 00:33 Resp 20 05/28/18 00:33 BP 138/86 05/27/18 21:14 Pulse Ox 97 05/28/18 00:33 - Labs Result Diagrams: 05/28/18 03:25 05/28/18 03:25 - EKG Data EKG shows normal: Sinus rhythm Rate: Tachycardia - EKG Data When Compared to Previous EKG: No Significant Change Assessment & Plan - Assessment and Plan (Free Text) Assessment: 57y/o male with PMH HTN, CAD s/p PTCA with stent palced, EtOH abuse, seizures, portal HTN, who presents to ED for 2 days h/o chest pain. He has been drinking 5 large beers daily. Admitted for chest pain; r/o ACS and alcohol intoxication. Plan: 1. Chest pain r/o ACS - EKG showed NSR @117 - Troponin <0.01 x 1- will trend - EKG ordered in am - Echo 2017 showed EF 51% - Stress test 2017 was normal - s/p PTCA with stents placed at [facility] [place] on 2016 - Continue ASA, Plavix, Lipitor, Metoprolol - CBC, CMP, Mg, Phos - TSH, Lipid panel, HgbA1c ordered - CXR: no acute changes - Cardio consult is not needed at this moment 2. Alcohol intoxication - UDS done. BAL 361 on 05/27 - CIWA protocol - Ativan 2q4 prn - Zofran 4mg nausea - AST/ALT 64/36 - CK 356 - Banana bag 1L - Multivitamin, thiamine, folic acid starting 05/29 - Yarn Skeins Examiner alcohol cessation 3. Anemia - Likely anemia of chronic disease - H/H 11.5/34.7 monitor daily - MCV 83 4. Hx of Seizures - Fall precausion - Continue Keppra 750 BID 5. Tobacco abuse - Nicotine patch - Yarn Skeins Examiner on alcohol cessation GI ppx: Protonix DVT ppx: SCD Aspiration precaution Physical therapy eval NPO Case reviewed and discussed with Dr Ceballos - Date & Time Date: 05/28/18 Time: 13:10
[2018-05-28 01:30] LABS: BARBITURATES, UR NEGATIVE (NEGATIVE); BENZODIAZEPINES, UR NEGATIVE (NEGATIVE); OPIATES, UR NEGATIVE (NEGATIVE); PHENCYCLIDINE, UR NEGATIVE (NEGATIVE)
[2018-05-28] MEDS: Folic Acid 1 MG, Thiamine 100 MG, Multivitamin (MVI) 10 ML in Dextrose 5% In Water 1,00... IV SCH ×2 (01:41→14:14)
[2018-05-28 03:55] LABS: ALB/GLOB RATIO 1.2 (1.1-1.8); ALBUMIN 4.3 g/dL (3.0-4.8); ALT/SGPT 46 U/L (7-56); AST/SGOT 70 U/L (17-59); BASO # 0.04 K/mm3 (0.0-2.0); BASO % 1.3 % (0.0-3.0); BLOOD UREA NITROGEN 5 mg/dL (7-21); CALCIUM 8.4 mg/dL (8.4-10.5); EOS # 0.2 (0.0-0.7); GFR AFRICAN-AMERICAN > 60; GFR NON-AFRICAN AMERICAN > 60; GRAN # 1.35 (1.4-6.5); GRAN % 42.5 % (50.0-68.0); HDL CHOLESTEROL 73 mg/dL (29-60); HEMOGLOBIN 11.6 g/dL (14.0-18.0); LYMPH # 1.1 (1.2-3.4); LYMPH % 34.1 % (22.0-35.0); MEAN CELL VOLUME 83.7 fl (80.0-105.0); MEAN CORPUSCULAR HGB CONC 32.2 g/dl (31.0-37.0); MEAN PLATELET VOLUME 10.8 fl (7.0-11.0); MONO # 0.5 (0.1-0.6); MONO % 16.1 % (1.0-6.0); RBC 4.3 10^6/uL (3.5-6.1); RED CELL DISTRIBUTION WIDTH 17.3 % (11.5-14.5); WHITE BLOOD COUNT 3.2 10^3/ul (4.5-11.0)
[2018-05-28 04:04] LABS: LDL CHOLESTEROL 71 mg/dL (0-129); TROPONIN I < 0.01 ng/mL
--- NOTE | 2018-05-28 08:27 | RAD ---
Date of service: 05/27/2018 HISTORY: chest pain COMPARISON: 03/14/2018 FINDINGS: LUNGS: The lungs are well inflated and clear. PLEURA: No significant pleural effusion identified, no pneumothorax apparent. CARDIOVASCULAR: Normal. OSSEOUS STRUCTURES: No significant abnormalities. VISUALIZED UPPER ABDOMEN: Normal. OTHER FINDINGS: None. IMPRESSION: No active pulmonary disease.
--- NOTE | 2018-05-28 12:51 | CP.PCM.CON ---
History of Present Illness - History of Present Illness History of Present Illness: Awake, denies chest pain now, denies shortness of breath Reason for consultation: Cardiac evaluation of chest pain for 2 days. History of coronary artery disease post PTCA with stents. Brief history of present illness: A 57 year old male who came in to the ER due to chest pain for the past 2 days. Left side chest pain radiating to left shoulder associated with nausea. As per , patient is not eating, lately has been alcohol binging and smoking. Non compliant with medications. History of coronary artery disease post PTCA with stents, hypertension,alcohol abuse, seizures. Blood alcohol level 361. Seen and examined by me and Dr. August Review of Systems - Review of Systems All systems: reviewed and no additional remarkable complaints except Review of Systems: except from HPI Past Patient History - Infectious Disease Hx of Infectious Diseases: None - Tetanus Immunizations Tetanus Immunization: Unknown - Past Social History Smoking Status: Heavy Smoker > 10 Cigarettes Daily Alcohol: > 2 Drinks/Day Drugs: Denies - CARDIAC Hx Cardiac Disorders: Yes Hx Heart Attack: Yes Other/Comment: chest pain - PULMONARY Hx Respiratory Disorders: Yes Hx Asthma: Yes - NEUROLOGICAL Hx Neurological Disorder: Yes HX Cerebrovascular Accident: Yes Hx Seizures: Yes Other/Comment: Intracranial Hemmorhage - HEENT Hx HEENT Problems: No - RENAL Hx Chronic Kidney Disease: No - ENDOCRINE/METABOLIC Hx Endocrine Disorders: No - HEMATOLOGICAL/ONCOLOGICAL Hx Blood Disorders: Yes Hx Anemia: Yes Hx Hepatitis B: Yes (carrier) - INTEGUMENTARY Hx Dermatological Problems: No - MUSCULOSKELETAL/RHEUMATOLOGICAL Hx Musculoskeletal Disorders: Yes Hx Falls: Yes - GASTROINTESTINAL Hx Gastrointestinal Disorders: Yes Other/Comment: GI Bleed - GENITOURINARY/GYNECOLOGICAL Hx Genitourinary Disorders: No - PSYCHIATRIC Hx Psychophysiologic Disorder: No Hx Substance Use: No - SURGICAL HISTORY Hx Cardiac Catheterization: Yes Hx Coronary Stent: Yes Hx Orthopedic Surgery: Yes (ORIF OF JAW) Hx Tonsillectomy: Yes - ANESTHESIA Hx Anesthesia: Yes Hx Anesthesia Reactions: No Hx Malignant Hyperthermia: No Meds Allergies/Adverse Reactions: Allergies Allergy/AdvReac Type Severity Reaction Status Date / Time No Known Allergies Allergy Verified 05/22/18 10:55 - Medications Medications: Current Medications Aspirin (Ecotrin) 81 mg PO DAILY [facility] Last Admin: 05/28/18 10:05 Dose: 81 mg Atorvastatin Calcium (Lipitor) 40 mg PO DAILY [facility] Last Admin: 05/28/18 10:05 Dose: 40 mg Clopidogrel Bisulfate (Plavix) 75 mg PO DAILY [facility] Last Admin: 05/28/18 10:05 Dose: 75 mg Folic Acid (Folic Acid) 1 mg PO DAILY [facility] Stop: 06/02/18 23:59 Folic Acid 1 mg/ Thiamine HCl 100 mg/ Multivitamins/Vitamin C 10 ml/ Dextrose 1 ,011.2 mls @ 100 mls/hr IV .Q10H7M [facility] Last Admin: 05/28/18 01:41 Dose: 100 mls/hr Levetiracetam (Keppra) 750 mg PO DAILY [facility] Last Admin: 05/28/18 10:05 Dose: 750 mg Lorazepam (Ativan) 1 mg IVP Q6H PRN; Protocol PRN Reason: Symptoms of alcohol withdrawl Metoprolol Tartrate (Lopressor) 25 mg PO BID [facility] Last Admin: 05/28/18 10:05 Dose: 25 mg Multivitamins/Minerals (Therapeutic-M Tab) 1 tab PO 0800 [facility] Stop: 06/02/18 23:59 Nicotine (Nicoderm Cq) 1 patch TD DAILY [facility] Last Admin: 05/28/18 10:06 Dose: 1 patch Nitroglycerin (Nitrostat Sl Tab) 0.4 mg SL Q5M PRN PRN Reason: chest pain Stop: 05/29/18 23:59 Ondansetron HCl (Zofran Inj) 4 mg IVP Q4H PRN PRN Reason: Nausea/Vomiting Pantoprazole Sodium (Protonix Inj) 40 mg IVP DAILY [facility] Last Admin: 05/28/18 10:06 Dose: 40 mg Thiamine HCl (Vitamin B1 Tab) 100 mg PO DAILY [facility] Stop: 06/02/18 23:59 Physical Exam - Constitutional Appears: No Acute Distress - Eye Exam Eye Exam: Normal appearance - ENT Exam ENT Exam: Mucous Membranes Moist - Respiratory Exam Respiratory Exam: Decreased Breath Sounds, Clear to Auscultation Bilateral, NORMAL BREATHING PATTERN - Cardiovascular Exam Cardiovascular Exam: REGULAR RHYTHM, +S1, +S2 - GI/Abdominal Exam GI & Abdominal Exam: Normal Bowel Sounds, Soft - Neurological Exam Neurological exam: Alert, Oriented x3 - Psychiatric Exam Psychiatric exam: Normal Affect - Skin Skin Exam: Intact, Warm Results - Vital Signs Recent Vital Signs: Last Vital Signs Temp 97.8 F 05/28/18 06:00 Pulse 88 05/28/18 10:05 Resp 20 05/28/18 06:00 BP 144/90 05/28/18 10:05 Pulse Ox 96 05/28/18 06:00 - Labs Result Diagrams: 05/28/18 03:25 05/28/18 03:25 Labs: Laboratory Results - last 24 hr 05/28/18 05/28/18 05/28/18 00:43 03:25 03:25 WBC 3.2 L RBC 4.30 Hgb 11.6 L Hct 36.0 L MCV 83.7 MCH 27.0 MCHC 32.2 RDW 17.3 H Plt Count 166 MPV 10.8 Gran % 42.5 L Lymph % (Auto) 34.1 [place] % (Auto) 16.1 H Eos % (Auto) 6.0 H Baso % (Auto) 1.3 Gran # 1.35 L Lymph # (Auto) 1.1 L [place] # (Auto) 0.5 Eos # (Auto) 0.2 Baso # (Auto) 0.04 Sodium 147 Potassium 3.8 Chloride 107 Carbon Dioxide 29 Anion Gap 15 BUN 5 L Creatinine 0.7 L Est GFR ( Amer) > 60 Est GFR (Non-Af Amer) > 60 Random Glucose 90 Calcium 8.4 Phosphorus 3.4 Magnesium 1.7 Total Bilirubin 0.4 AST 70 H ALT 46 Alkaline Phosphatase 86 Troponin I < 0.01 Total Protein 7.9 Albumin 4.3 Globulin 3.6 Albumin/Globulin Ratio 1.2 Triglycerides 78 Cholesterol 163 LDL Cholesterol Direct 71 HDL Cholesterol 73 H TSH 3rd Generation Urine Opiates Screen Negative Urine Methadone Screen Negative Ur Barbiturates Screen Negative Ur Phencyclidine Scrn Negative Ur Amphetamines Screen Negative U Benzodiazepines Scrn Negative U Oth Cocaine Metabols Negative U Cannabinoids Screen Negative 05/28/18 05/28/18 09:45 09:45 WBC RBC Hgb Hct MCV MCH MCHC RDW Plt Count MPV Gran % Lymph % (Auto) [place] % (Auto) Eos % (Auto) Baso % (Auto) Gran # Lymph # (Auto) [place] # (Auto) Eos # (Auto) Baso # (Auto) Sodium Potassium Chloride Carbon Dioxide Anion Gap BUN Creatinine Est GFR ( Amer) Est GFR (Non-Af Amer) Random Glucose Calcium Phosphorus Magnesium Total Bilirubin AST ALT Alkaline Phosphatase Troponin I < 0.01 Total Protein Albumin Globulin Albumin/Globulin Ratio Triglycerides Cholesterol LDL Cholesterol Direct HDL Cholesterol TSH 3rd Generation 1.59 Urine Opiates Screen Urine Methadone Screen Ur Barbiturates Screen Ur Phencyclidine Scrn Ur Amphetamines Screen U Benzodiazepines Scrn U Oth Cocaine Metabols U Cannabinoids Screen Assessment & Plan - Assessment and Plan (Free Text) Assessment: A 57 year old male who came in to the ER due to chest pain for the past 2 days. Left side chest pain radiating to left shoulder associated with nausea. As per , patient is not eating, lately has been alcohol binging and smoking. Non compliant with medications. He was admitted at [facility] [place] 2018 with similar complaints and work up was normal. History of coronary artery disease post PTCA with stents in [place] early this year (December 2017),hypertension,alcohol abuse, seizures, CVA,asthma, heart attack,anemia,GI bleeding,hepatitis B,history of falls, ORIF of jaw, current smoker. Atypical chest pain, troponin x 3 normal , dehydration, alcohol abuse. Review of previous cardiac work up: 01/28/17- ECHO- normal LV function LVEF 51% Plan: Atypical chest pain Troponin normal x 3 EKG- sinus tachycardia Alcohol abuse Continue IV for hydration and electrolyte replacement Echo to evaluate LV function Out patient stress test Lifestyle modification Watch for alcohol withdrawal symptoms Smoking cessation On ASA 81 mg daily,Lipitor 40 mg daily,Plavix 75 mg daily, Lopressor 25 mg BID, Nicoderm patch daily, Continue current treatment Continue current medications Consider Psych consult to evaluate for depression Will follow up Plan and treatment discussed with Dr. August Thank you Dr. Dobson for the opportunity of taking care of Mr. Tl Contreras - Date & Time Date: 05/28/18 Time: 12:00
--- NOTE | 2018-05-28 15:05 | CARD ---
APPROVED REPORT Date of service: 05/28/2018 EKG Measurement Heart [id number] <Conclusion> Normal sinus rhythm Normal ECG
--- NOTE | 2018-05-28 15:08 | CARD ---
APPROVED REPORT Date of service: 05/27/2018 EKG Measurement Heart [id number] ID [id number] <Conclusion> Sinus tachycardia Septal infarct, age undetermined Abnormal ECG
[2018-05-29] MEDS: Folic Acid 1 MG, Thiamine 100 MG, Multivitamin (MVI) 10 ML in Dextrose 5% In Water 1,00... IV SCH (00:58)
[2018-05-29] MEDS ORDERED: Pantoprazole 40 mg EC Tab PO SCH (06:00)
[2018-05-29 06:22] LABS: BASO # 0.02 K/mm3 (0.0-2.0); BASO % 0.4 % (0.0-3.0); EOS # 0.1 (0.0-0.7); GRAN # 2.87 (1.4-6.5); GRAN % 62.7 % (50.0-68.0); HEMOGLOBIN 12.8 g/dL (14.0-18.0); LYMPH # 0.7 (1.2-3.4); LYMPH % 14.2 % (22.0-35.0); MEAN CELL VOLUME 83.9 fl (80.0-105.0); MEAN CORPUSCULAR HEMOGLOBIN 27.1 pg (25.0-35.0); MEAN CORPUSCULAR HGB CONC 32.2 g/dl (31.0-37.0); MEAN PLATELET VOLUME 10.9 fl (7.0-11.0); MONO % 20.7 % (1.0-6.0); PLATELET COUNT 159 10^3/uL (120.0-450.0); RBC 4.73 10^6/uL (3.5-6.1); WHITE BLOOD COUNT 4.6 10^3/ul (4.5-11.0)
--- NOTE | 2018-05-29 07:25 | CP.PCM.PN ---
Subjective - Date & Time of Evaluation Date of Evaluation: 05/29/18 Time of Evaluation: 06:25 - Subjective Subjective: Awake, vague mid chest pressure, denies shortness of breath Reason for consultation: Cardiac evaluation of chest pain for 2 days. History of coronary artery disease post PTCA with stents.Alcohol abuse Blood alcohol level 361. Seen and examined by me and Dr. August Objective - Vital Signs/Intake and Output Vital Signs (last 24 hours): Temp Pulse Resp BP Pulse Ox 98.3 F 63 18 153/88 H 96 05/28/18 23:56 05/29/18 06:00 05/28/18 23:56 05/28/18 23:56 05/28/18 23:56 Intake and Output: 05/29/18 05/29/18 06:59 18:59 Intake Total 1560 Balance 1560 - Medications Medications: Current Medications Aspirin (Ecotrin) 81 mg PO DAILY [facility] Last Admin: 05/28/18 10:05 Dose: 81 mg Atorvastatin Calcium (Lipitor) 40 mg PO DAILY [facility] Last Admin: 05/28/18 10:05 Dose: 40 mg Clopidogrel Bisulfate (Plavix) 75 mg PO DAILY [facility] Last Admin: 05/28/18 10:05 Dose: 75 mg Folic Acid (Folic Acid) 1 mg PO DAILY [facility] Stop: 06/02/18 23:59 Folic Acid 1 mg/ Thiamine HCl 100 mg/ Multivitamins/Vitamin C 10 ml/ Dextrose 1 ,011.2 mls @ 100 mls/hr IV .Q10H7M [facility] Stop: 05/29/18 10:00 Last Admin: 05/29/18 00:58 Dose: 100 mls/hr Levetiracetam (Keppra) 750 mg PO DAILY [facility] Last Admin: 05/28/18 10:05 Dose: 750 mg Lorazepam (Ativan) 1 mg IVP Q6H PRN; Protocol PRN Reason: Symptoms of alcohol withdrawl Metoprolol Tartrate (Lopressor) 25 mg PO BID [facility] Last Admin: 05/28/18 17:15 Dose: 25 mg Multivitamins/Minerals (Therapeutic-M Tab) 1 tab PO 0800 [facility] Stop: 06/02/18 23:59 Nicotine (Nicoderm Cq) 1 patch TD DAILY [facility] Last Admin: 05/28/18 10:06 Dose: 1 patch Nitroglycerin (Nitrostat Sl Tab) 0.4 mg SL Q5M PRN PRN Reason: chest pain Stop: 05/29/18 23:59 Ondansetron HCl (Zofran Inj) 4 mg IVP Q4H PRN PRN Reason: Nausea/Vomiting Pantoprazole Sodium (Protonix Ec Tab) 40 mg PO 0600 [facility] Last Admin: 05/29/18 05:47 Dose: 40 mg Thiamine HCl (Vitamin B1 Tab) 100 mg PO DAILY [facility] Stop: 06/02/18 23:59 - Labs Labs: 05/29/18 05:30 05/28/18 03:25 PT 10.6 SECONDS (9.4-12.5) 05/27/18 21:35 INR 0.93 05/27/18 21:35 APTT 29.6 Seconds (25.1-36.5) 05/27/18 21:35 - Constitutional Appears: No Acute Distress - Eye Exam Eye Exam: Normal appearance - ENT Exam ENT Exam: Mucous Membranes Moist - Respiratory Exam Respiratory Exam: Decreased Breath Sounds, Clear to Ausculation Bilateral, NORMAL BREATHING PATTERN - Cardiovascular Exam Cardiovascular Exam: REGULAR RHYTHM, +S1, +S2 - GI/Abdominal Exam GI & Abdominal Exam: Soft, Normal Bowel Sounds - Extremities Exam Extremities Exam: Normal Capillary Refill - Neurological Exam Neurological Exam: Alert, Awake, Oriented x3 - Psychiatric Exam Psychiatric exam: Normal Affect - Skin Skin Exam: Dry, Warm Assessment and Plan - Assessment and Plan (Free Text) Assessment: A 57 year old male who came in to the ER due to chest pain for the past 2 days. Left side chest pain radiating to left shoulder associated with nausea. As per , patient is not eating, lately has been alcohol binging and smoking. Non compliant with medications. He was admitted at [facility] February 2018 with similar complaints and work up was normal. History of coronary artery disease post PTCA with stents in [facility] early this year (December 2017),hypertension,alcohol abuse, seizures, CVA,asthma, heart attack,anemia,GI bleeding,hepatitis B,history of falls, ORIF of jaw, current smoker. Atypical chest pain, troponin x 3 normal , dehydration, alcohol abuse. 01/28/17- ECHO- normal LV function,LVEF 51% Plan: For ECHO today Atypical chest pain Controlled heart rate and blood pressure On ASA 81 mg daily,Lipitor 40 mg daily,Plavix 75 mg daily, Lopressor 25 mg BID, Nicoderm patch daily, Out patient stress test Lifestyle modification Watch for alcohol withdrawal symptoms Smoking cessation Continue current treatment Continue current medications Will follow up Plan and treatment discussed with Dr. August
[2018-05-29 07:57] LABS: ALB/GLOB RATIO 1.1 (1.1-1.8); ALBUMIN 4.4 g/dL (3.0-4.8); ALT/SGPT 28 U/L (7-56); AST/SGOT 61 U/L (17-59); BLOOD UREA NITROGEN 7 mg/dL (7-21); CALCIUM 9.4 mg/dL (8.4-10.5); GFR AFRICAN-AMERICAN > 60; GFR NON-AFRICAN AMERICAN > 60
[2018-05-29 08:12] LABS: EOSINOPHIL 6 % (0.0-3.0); LYMPHOCYTE 17 % (22.0-35.0); MONOCYTE 16 % (1.0-6.0); NEUTROPHIL 61 % (50.0-70.0)
[2018-05-29 08:13] LABS: HYPOCHROMIA SLIGHT; PLATELET ESTIMATE NORMAL (NORMAL)
[2018-05-29 08:53] VITALS: BP 157/95; PULSE 60; RESP 16; TEMP 98; O2SAT 98
--- NOTE | 2018-05-29 09:31 | CP.PCM.DIS ---
<Janak Haines - Last Filed: 05/29/18 16:00> Provider - Provider Date of Admission: 05/28/18 00:14 Attending physician: Tasha Dobson MD Primary care physician: PCP: Dr. Gonzales Consults: Cardiology: Dr. August Time Spent in preparation of Discharge (in minutes): 100 Diagnosis - Discharge Diagnosis (1) Alcohol intoxication Status: Acute Priority: Medium (2) Chest pain Status: Acute Priority: Medium Hospital Course - Lab Results Lab Results: Most Recent Lab Values WBC 4.6 10^3/ul (4.5-11.0) D 05/29/18 05:30 RBC 4.73 10^6/uL (3.5-6.1) 05/29/18 05:30 Hgb 12.8 g/dL (14.0-18.0) L 05/29/18 05:30 Hct 39.7 % (42.0-52.0) L 05/29/18 05:30 MCV 83.9 fl (80.0-105.0) 05/29/18 05:30 MCH 27.1 pg (25.0-35.0) 05/29/18 05:30 MCHC 32.2 g/dl (31.0-37.0) 05/29/18 05:30 RDW 17.0 % (11.5-14.5) H 05/29/18 05:30 Plt Count 159 10^3/uL (120.0-450.0) 05/29/18 05:30 MPV 10.9 fl (7.0-11.0) 05/29/18 05:30 Gran % 62.7 % (50.0-68.0) 05/29/18 05:30 Lymph % (Auto) 14.2 % (22.0-35.0) L 05/29/18 05:30 [place] % (Auto) 20.7 % (1.0-6.0) H 05/29/18 05:30 Eos % (Auto) 2.0 % (1.5-5.0) 05/29/18 05:30 Baso % (Auto) 0.4 % (0.0-3.0) 05/29/18 05:30 Gran # 2.87 (1.4-6.5) 05/29/18 05:30 Lymph # (Auto) 0.7 (1.2-3.4) L 05/29/18 05:30 [place] # (Auto) 1.0 (0.1-0.6) H 05/29/18 05:30 Eos # (Auto) 0.1 (0.0-0.7) 05/29/18 05:30 Baso # (Auto) 0.02 K/mm3 (0.0-2.0) 05/29/18 05:30 Neutrophils % (Manual) 61 % (50.0-70.0) 05/29/18 05:30 Lymphocytes % (Manual) 17 % (22.0-35.0) L 05/29/18 05:30 Monocytes % (Manual) 16 % (1.0-6.0) H 05/29/18 05:30 Eosinophils % (Manual) 6 % (0.0-3.0) H 05/29/18 05:30 Platelet Evaluation Normal (NORMAL) 05/29/18 05:30 Hypochromasia Slight 05/29/18 05:30 PT 10.6 SECONDS (9.4-12.5) 05/27/18 21:35 INR 0.93 05/27/18 21:35 APTT 29.6 Seconds (25.1-36.5) 05/27/18 21:35 Sodium 139 mmol/L (132-148) 05/29/18 05:30 Potassium 3.8 mmol/L (3.6-5.0) 05/29/18 05:30 Chloride 100 mmol/L (98-107) 05/29/18 05:30 Carbon Dioxide 31 mmol/L (21-33) 05/29/18 05:30 Anion Gap 12 (10-20) 05/29/18 05:30 BUN 7 mg/dL (7-21) 05/29/18 05:30 Creatinine 0.8 mg/dl (0.8-1.5) 05/29/18 05:30 Est GFR ( Amer) > 60 05/29/18 05:30 Est GFR (Non-Af Amer) > 60 05/29/18 05:30 Random Glucose 113 mg/dL (70-110) H 05/29/18 05:30 Hemoglobin A1c 5.4 % (4.2-6.5) 05/28/18 09:45 Calcium 9.4 mg/dL (8.4-10.5) 05/29/18 05:30 Phosphorus 2.9 mg/dL (2.5-4.5) 05/29/18 05:30 Magnesium 1.8 mg/dL (1.7-2.2) 05/29/18 05:30 Total Bilirubin 0.9 mg/dL (0.2-1.3) 05/29/18 05:30 AST 61 U/L (17-59) H 05/29/18 05:30 ALT 28 U/L (7-56) 05/29/18 05:30 Alkaline Phosphatase 105 U/L (38-126) 05/29/18 05:30 Lactate Dehydrogenase 574 U/L (333-699) 05/27/18 21:35 Total Creatine Kinase 356 U/L (35-230) H 05/27/18 21:35 CK-MB (CK-2) 1.8 ng/mL (0.0-3.6) 05/27/18 21:35 CK-MB (CK-2) % Cancelled 05/27/18 21:35 Troponin I < 0.01 ng/mL 05/28/18 09:45 NT-Pro-B Natriuret Pep 51 pg/mL (0-450) 05/27/18 21:35 Total Protein 8.3 g/dL (5.8-8.3) 05/29/18 05:30 Albumin 4.4 g/dL (3.0-4.8) 05/29/18 05:30 Globulin 3.9 gm/dL 05/29/18 05:30 Albumin/Globulin Ratio 1.1 (1.1-1.8) 05/29/18 05:30 Triglycerides 78 mg/dL (35-160) 05/28/18 03:25 Cholesterol 163 mg/dL (130-200) 05/28/18 03:25 LDL Cholesterol Direct 71 mg/dL (0-129) 05/28/18 03:25 HDL Cholesterol 73 mg/dL (29-60) H 05/28/18 03:25 TSH 3rd Generation 1.59 mIU/mL (0.46-4.68) 05/28/18 09:45 Urine Opiates Screen Negative (NEGATIVE) 05/28/18 00:43 Urine Methadone Screen Negative (NEGATIVE) 05/28/18 00:43 Ur Barbiturates Screen Negative (NEGATIVE) 05/28/18 00:43 Ur Phencyclidine Scrn Negative (NEGATIVE) 05/28/18 00:43 Ur Amphetamines Screen Negative (NEGATIVE) 05/28/18 00:43 U Benzodiazepines Scrn Negative (NEGATIVE) 05/28/18 00:43 U Oth Cocaine Metabols Negative (NEGATIVE) 05/28/18 00:43 U Cannabinoids Screen Negative (NEGATIVE) 05/28/18 00:43 Alcohol, Quantitative 361 mg/dL (0-10) H* 05/27/18 21:35 - Hospital Course Hospital Course: Janak Haines, PGY-1, Internal Medicine Discharge Summary for Dr. Dobson Mr. Contreras is a 57 year old male with a past medical history of hypertension, coronary artery disease s/p PTCA with stent placed, alcohol abuse, stroke and seizures who presented to the ED on 05/27 for chest pain of 2 days duration with his girlfriend. At that time, patient's girlfriend provided history due to lethary and drowsiness. As per girlfriend, chest pain was sharp and associated with nausea and he had a chronic cough with sputum. He also reported numbness in his hands and feet. He denied palpitations, leg swelling, diaphoresis, vomiting, loss of consciousness, vomiting/diarrhea, fever/chills, tremors, seizure-like activity, dysuria, and hematuria. Girlfriend claimed that as of late, patient's food intake had decreased and he was primarily consuming alcohol and smoking cigarettes. In the emergency department, blood alcohol level was found to be 361. An EKG was ordered and revealed sinus tachycardia with a heart rate of 117 bpm. Troponinsx3 were negative. Aspirin 81mg, Plavix 75mg, Lipitor 40mg and Metoprolol 25mg, Folic Acid 1 mg, Thiamine 100 mg, Keppra 750 mg, and Nicotine patch 14 mg were started. Patient claimed smoking 1/ 2 pack per day for more than 20 years and drinking 5 large beers per day. On the morning of 05/28, patient's chest pain had reduced and was described as a dull ache. Pain did not radiate from that time. CIWA protocol was followed for alcohol withdrawal. CIWA scores were 4 at 9:00 on 05/28. By 21:00 on 05/28, patient' s CIWA score was 2. This morning, patient's CIWA score was 0. Patient tolerated banana bag. Ativan and Zofran were given on as needed basis. A nicotine patch was given for tobacco abuse. Cardiology was consulted and echocardiogram was performed. Echocardiogram is pending official real. Results will be communicated at a later time. Last echocardiogram was on 01/28/18, which showed LVEF of 51% and normal LV function. Patient had not had any symptoms of alcohol withdrawal throughout hospital stay. Patient was counseled regarding alcohol and tobacco abuse and instructed to get an outpatient stress test in 2 weeks on 06/[address] August. He was instructed to continue Aspirin, Plavix, Lipitor, Metoprolol, and Keppra. Today, I walked patient to ensure patient had no gait abnormalities or issues with ambulation. tail worker spoke with patient about home situation. Patient is currently homeless. Patient was living with his girlfriend and was evicted last week. Patient has been in hospital since eviction. Patient reports he will follow up with PCP, Dr. Gonzales, and panelboard assembler, Dr. August. Patient is scheduled for stress test in two weeks. Patient was educated regarding taking discharge medications, alcohol cessation, and smoking cessation prior to discharge. Patient was told to return to the emergency room if patient had recurring symptoms. This is a brief summary of the events that transpired at the hospital. Please refer to medical records for complete story. - Date & Time of H&P Date of H&P: 05/28/18 Time of H&P: 01:04 Discharge Exam - Head Exam Head Exam: ATRAUMATIC, NORMAL INSPECTION, NORMOCEPHALIC - Eye Exam Eye Exam: EOMI, PERRL - Respiratory Exam Respiratory Exam: Clear to PA & Lateral, NORMAL BREATHING PATTERN - Cardiovascular Exam Cardiovascular Exam: REGULAR RHYTHM - GI/Abdominal Exam GI & Abdominal Exam: Normal Bowel Sounds, Soft - Extremities Exam Extremities exam: full ROM - Back Exam Back exam: absent: CVA tenderness (L), CVA tenderness (R) - Neurological Exam Neurological exam: Alert, CN II-XII Intact, Oriented x3 Additional comments: CIWA: 0 on examination - Psychiatric Exam Psychiatric exam: Normal Affect, Normal Mood - Skin Skin Exam: Dry, Intact, Normal Color Discharge Plan - Discharge Medications Prescriptions: Aspirin [Ecotrin] 81 mg PO DAILY #30 tabec Atorvastatin [Lipitor] 40 mg PO DAILY #30 tab Clopidogrel [Plavix] 75 mg PO DAILY #30 tab Folic Acid 1 mg PO DAILY #30 tab Levetiracetam [Keppra] 750 mg PO DAILY #30 tablet Metoprolol Tartrate [Lopressor] 25 mg PO BID #60 tab Multimineral/Multivitamin [Therapeutic-M Tab] 1 tab PO 0800 #30 tab Nicotine 14 mg/24 hr [Nicoderm CQ] 1 patch TD DAILY #30 patch - Follow Up Plan Condition: STABLE Disposition: HOME/ ROUTINE Instructions: Chest Pain (DC) Additional Instructions: Stress Test Friday06/15/[address] August. Please continue medications as prescribed. Follow up with Dr. Gonzales in one week. Referrals: FAMILY PROVIDER,ARCHIE [Primary Care Provider] - <Tasha Dobson - Last Filed: 05/30/18 12:00> Provider - Provider Date of Admission: 05/28/18 00:14 Attending physician: Tasha Dobson MD Primary care physician: ARCHIE FAMILY PROVIDER Hospital Course - Lab Results Lab Results: Most Recent Lab Values WBC 4.6 10^3/ul (4.5-11.0) D 05/29/18 05:30 RBC 4.73 10^6/uL (3.5-6.1) 05/29/18 05:30 Hgb 12.8 g/dL (14.0-18.0) L 05/29/18 05:30 Hct 39.7 % (42.0-52.0) L 05/29/18 05:30 MCV 83.9 fl (80.0-105.0) 05/29/18 05:30 MCH 27.1 pg (25.0-35.0) 05/29/18 05:30 MCHC 32.2 g/dl (31.0-37.0) 05/29/18 05:30 RDW 17.0 % (11.5-14.5) H 05/29/18 05:30 Plt Count 159 10^3/uL (120.0-450.0) 05/29/18 05:30 MPV 10.9 fl (7.0-11.0) 05/29/18 05:30 Gran % 62.7 % (50.0-68.0) 05/29/18 05:30 Lymph % (Auto) 14.2 % (22.0-35.0) L 05/29/18 05:30 [place] % (Auto) 20.7 % (1.0-6.0) H 05/29/18 05:30 Eos % (Auto) 2.0 % (1.5-5.0) 05/29/18 05:30 Baso % (Auto) 0.4 % (0.0-3.0) 05/29/18 05:30 Gran # 2.87 (1.4-6.5) 05/29/18 05:30 Lymph # (Auto) 0.7 (1.2-3.4) L 05/29/18 05:30 [place] # (Auto) 1.0 (0.1-0.6) H 05/29/18 05:30 Eos # (Auto) 0.1 (0.0-0.7) 05/29/18 05:30 Baso # (Auto) 0.02 K/mm3 (0.0-2.0) 05/29/18 05:30 Neutrophils % (Manual) 61 % (50.0-70.0) 05/29/18 05:30 Lymphocytes % (Manual) 17 % (22.0-35.0) L 05/29/18 05:30 Monocytes % (Manual) 16 % (1.0-6.0) H 05/29/18 05:30 Eosinophils % (Manual) 6 % (0.0-3.0) H 05/29/18 05:30 Platelet Evaluation Normal (NORMAL) 05/29/18 05:30 Hypochromasia Slight 05/29/18 05:30 PT 10.6 SECONDS (9.4-12.5) 05/27/18 21:35 INR 0.93 05/27/18 21:35 APTT 29.6 Seconds (25.1-36.5) 05/27/18 21:35 Sodium 139 mmol/L (132-148) 05/29/18 05:30 Potassium 3.8 mmol/L (3.6-5.0) 05/29/18 05:30 Chloride 100 mmol/L (98-107) 05/29/18 05:30 Carbon Dioxide 31 mmol/L (21-33) 05/29/18 05:30 Anion Gap 12 (10-20) 05/29/18 05:30 BUN 7 mg/dL (7-21) 05/29/18 05:30 Creatinine 0.8 mg/dl (0.8-1.5) 05/29/18 05:30 Est GFR ( Amer) > 60 05/29/18 05:30 Est GFR (Non-Af Amer) > 60 05/29/18 05:30 Random Glucose 113 mg/dL (70-110) H 05/29/18 05:30 Hemoglobin A1c 5.4 % (4.2-6.5) 05/28/18 09:45 Calcium 9.4 mg/dL (8.4-10.5) 05/29/18 05:30 Phosphorus 2.9 mg/dL (2.5-4.5) 05/29/18 05:30 Magnesium 1.8 mg/dL (1.7-2.2) 05/29/18 05:30 Total Bilirubin 0.9 mg/dL (0.2-1.3) 05/29/18 05:30 AST 61 U/L (17-59) H 05/29/18 05:30 ALT 28 U/L (7-56) 05/29/18 05:30 Alkaline Phosphatase 105 U/L (38-126) 05/29/18 05:30 Lactate Dehydrogenase 574 U/L (333-699) 05/27/18 21:35 Total Creatine Kinase 356 U/L (35-230) H 05/27/18 21:35 CK-MB (CK-2) 1.8 ng/mL (0.0-3.6) 05/27/18 21:35 CK-MB (CK-2) % Cancelled 05/27/18 21:35 Troponin I < 0.01 ng/mL 05/28/18 09:45 NT-Pro-B Natriuret Pep 51 pg/mL (0-450) 05/27/18 21:35 Total Protein 8.3 g/dL (5.8-8.3) 05/29/18 05:30 Albumin 4.4 g/dL (3.0-4.8) 05/29/18 05:30 Globulin 3.9 gm/dL 05/29/18 05:30 Albumin/Globulin Ratio 1.1 (1.1-1.8) 05/29/18 05:30 Triglycerides 78 mg/dL (35-160) 05/28/18 03:25 Cholesterol 163 mg/dL (130-200) 05/28/18 03:25 LDL Cholesterol Direct 71 mg/dL (0-129) 05/28/18 03:25 HDL Cholesterol 73 mg/dL (29-60) H 05/28/18 03:25 TSH 3rd Generation 1.59 mIU/mL (0.46-4.68) 05/28/18 09:45 Urine Opiates Screen Negative (NEGATIVE) 05/28/18 00:43 Urine Methadone Screen Negative (NEGATIVE) 05/28/18 00:43 Ur Barbiturates Screen Negative (NEGATIVE) 05/28/18 00:43 Ur Phencyclidine Scrn Negative (NEGATIVE) 05/28/18 00:43 Ur Amphetamines Screen Negative (NEGATIVE) 05/28/18 00:43 U Benzodiazepines Scrn Negative (NEGATIVE) 05/28/18 00:43 U Oth Cocaine Metabols Negative (NEGATIVE) 05/28/18 00:43 U Cannabinoids Screen Negative (NEGATIVE) 05/28/18 00:43 Alcohol, Quantitative 361 mg/dL (0-10) H* 05/27/18 21:35 Attending/Attestation - Attestation I have personally seen and examined this patient.: Yes I have fully participated in the care of the patient.: Yes I have reviewed all pertinent clinical information, including history, physical exam and plan: Yes Notes (Text): 05/30/18 11:55 Attending note; Patient seen and examined with resident. Patient is a 57 year old male with a past medical history of hypertension, coronary artery disease s/p PTCA with stent placed, alcohol abuse, stroke, Noncompliance with follow-up and seizures who presented to the ED on 05/27 for chest pain of 2 days duration . Patient was intoxicated at the time of admission. Currently alert and awake. Not in any withdrawal symptoms. Tolerating diet well. Ambulating fine. Monitored with [facility] protocol. Chest pain resolved; cardiac enzymes negative. Started on aspirin and Plavix. Cardiology evaluation appreciated. Outpatient stress test scheduled. Noncompliance with medication. Will need for aspirin, Plavix to avoid further stenosis of OK explained in detail. Alcohol abuse; complete alcohol cessation is strongly advised. tail worker evaluation appreciated. Patient will be discharged home. Follow-up with PMD Dr. Gonzales. Stress test scheduled for next Friday.
[2018-05-29] MEDS ORDERED: Multivitamin With Minerals Tab PO SCH (10:00)
--- NOTE | 2018-05-29 17:32 | CARD ---
APPROVED REPORT Date of service: 05/29/2018 EXAM: Two-dimensional and M-mode echocardiogram with Doppler and color Doppler. INDICATION LV Function:SystolicDiastolic Chest Pain 2D DIMENSIONS Left Atrium (2D)3.1 (1.6-4.0cm)IVSd1.2 (0.7-1.1cm) LVDd4.1 (3.9-5.9cm)PWd1.1 (0.7-1.1cm) LVDs3.0 (2.5-4.0cm)FS (%) 25.1 % LVEF (%)50.1 (>50%) M-Mode DIMENSIONS Aortic Root3.00 (2.2-3.7cm)Aortic Cusp Exc.2.00 (1.5-2.0cm) Aortic Valve AoV Peak Ymvhsidk604.0cm/Ramez Peak GR.4mmHg Mitral Valve MV E Eypzythv17.8cm/sMV A Nsvwludr84.8cm/sE/A ratio0.8 TDI E/Lateral E'0.0E/Medial E'0.0 Tricuspid Valve TR Peak Dxkbjxem659qa/sRAP [id number] Peak Gr.17mmHg [id number] LEFT VENTRICLE The left ventricle is normal size. There is normal left ventricular wall thickness. Left ventricle systolic function is low normal.EF-50-55% There is mild hypokinesis in the apical anterior wall. Transmitral Doppler flow pattern is Grade III-reversible restrictive diastolic dysfunction. No left ventricle thrombus noted on this study. There is no ventricular septal defect visualized. There is no left ventricular aneurysm. There is no mass noted in the left ventricle. RIGHT VENTRICLE The right ventricle is normal size. There is normal right ventricular wall thickness. The right ventricular systolic function is normal. ATRIA The left atrium size is normal. The right atrium size is normal. The interatrial septum is intact with no evidence for an atrial septal defect. AORTIC VALVE The aortic valve is thickened but opens well. The aortic valve is mildly to moderately sclerotic. No aortic regurgitation is present. There is no aortic valvular stenosis. There is no aortic valvular vegetation. MITRAL VALVE The mitral valve is thickened but opens well. Mitral regurgitation is mild. There is no mitral valve stenosis. There is no evidence of mitral valve prolapse. TRICUSPID VALVE The tricuspid valve leaflets are thickened , but open well. There is mild tricuspid regurgitation.RVSP-27 mmof Hg. There is no tricuspid valve stenosis. There is no tricuspid valve prolapse or vegetation. PULMONIC VALVE Nort well visulazide , probably normal There is no pulmonic valvular regurgitation. There is no pulmonic valvular stenosis. GREAT VESSELS The aortic root is normal in size. The ascending aorta is normal in size. The pulmonary artery is normal. The IVC is normal in size and collapses >50% with inspiration. PERICARDIAL EFFUSION There is no pleural effusion. There is no pericardial effusion. <Conclusion> The left ventricle is normal size. There is normal left ventricular wall thickness. Left ventricle systolic function is low normal.EF-50-55% Mitral regurgitation is mild. There is mild tricuspid regurgitation.RVSP-27 mmof Hg. The IVC is normal in size and collapses >50% with inspiration. There is no pericardial effusion.
== END 2018-05-29 12:52 | disposition home or self-care (01) ==
LOC: ED 21:01 → ERH 05-28 00:14 → 2RSO 05-28 01:26 → 3RSO 05-28 18:17
PROVIDERS: ADMIT Internal Medicine; ATTEND Internal Medicine
DX: R07.89 Other chest pain (principal); F10.229 Alcohol dependence with intoxication, unspecified; Y90.8 Blood alcohol level of 240 mg/100 ml or more; E86.0 Dehydration; I10 Essential (primary) hypertension; R56.9 Unspecified convulsions; I25.10 Atherosclerotic heart disease of native coronary artery without angina pectoris; F17.210 Nicotine dependence, cigarettes, uncomplicated; I25.2 Old myocardial infarction; J45.909 Unspecified asthma, uncomplicated; Z91.14 Patient's other noncompliance with medication regimen; Z95.5 Presence of coronary angioplasty implant and graft; Z59.0 Homelessness
CPT/HCPCS: 36415; 71045; 80053; 80061; 80320; 80324; 80345; 80346; 80349; 80353; 80358; 80361; 82550; 82553; 83036; 83615; 83735; 83880; 83992; 84100; 84443; 84484; 85025; 85610; 85730; 93005; 93306; 99285; C9113; G0378; J3411; J7070

== ENCOUNTER 2018-06-25 20:36 | Emergency (ER) | payer MEDICAID ==
[2018-06-25 20:36] VITALS: BMI 23.6
[2018-06-25 21:10] LABS: BASO # 0.06 K/mm3 (0.0-2.0); BASO % 1.7 % (0.0-3.0); EOS # 0.1 (0.0-0.7); EOS % 2.3 % (1.5-5.0); GRAN # 1.36 (1.4-6.5); GRAN % 39.4 % (50.0-68.0); HEMOGLOBIN 11.5 g/dL (14.0-18.0); LYMPH # 1.2 (1.2-3.4); LYMPH % 35.4 % (22.0-35.0); MEAN CELL VOLUME 84.6 fl (80.0-105.0); MEAN CORPUSCULAR HEMOGLOBIN 27.7 pg (25.0-35.0); MEAN CORPUSCULAR HGB CONC 32.8 g/dl (31.0-37.0); MEAN PLATELET VOLUME 10.6 fl (7.0-11.0); MONO # 0.7 (0.1-0.6); MONO % 21.2 % (1.0-6.0); PLATELET COUNT 93 10^3/uL (120.0-450.0); RBC 4.15 10^6/uL (3.5-6.1); RED CELL DISTRIBUTION WIDTH 19.6 % (11.5-14.5); WHITE BLOOD COUNT 3.5 10^3/ul (4.5-11.0)
[2018-06-25 21:17] VITALS: BP 117/75; PULSE 77; RESP 18; TEMP 98.1; O2SAT 96
[2018-06-25 21:34] LABS: TROPONIN I < 0.01 ng/mL
[2018-06-25 21:38] LABS: ALB/GLOB RATIO 1.2 (1.1-1.8); ALBUMIN 4.6 g/dL (3.0-4.8); ALT/SGPT 72 U/L (7-56); AST/SGOT 166 U/L (17-59); BLOOD UREA NITROGEN 6 mg/dL (7-21); CALCIUM 9.1 mg/dL (8.4-10.5); GFR NON-AFRICAN AMERICAN > 60
[2018-06-25 21:50] LABS: BASOPHIL 1 % (0.0-1.0); EOSINOPHIL 2 % (0.0-3.0); LARGE PLATELETS PRESENT; LYMPHOCYTE 35 % (22.0-35.0); MONOCYTE 25 % (1.0-6.0); NEUTROPHIL 37 % (50.0-70.0)
[2018-06-25 21:53] LABS: CK-MB 2.6 ng/mL (0.0-3.6)
--- NOTE | 2018-06-26 02:08 | ED PDOC ---
Arrival/HPI - General Chief Complaint: Chest Pain Time Seen by Provider: 06/25/18 20:39 Historian: Patient - History of Present Illness Narrative History of Present Illness (Text): 06/26/18 20:45 57 year old male, with a past medical history that includes hypertension, alcohol abuse, GI bleed, questionable Hep B, intracranial hemorrhage, seizures, and CAD, presents to the emergency department with left sided chest pain for one hour. Patient states pain is dull in nature with no associated shortness of breath, fever, or cough. Patient has a history of cardiac stents. Patient was recently seen by cardiology for follow up after discharge from the hospital last week. Patient denies any chills, headache, dizziness, abdominal pain, nausea, vomiting, diarrhea, back pain, neck pain, urinary/bowel changes, or any other complaint. Time/Duration: 1 hour Symptom Onset: Sudden Past Medical History - Provider Review Nursing Documentation Reviewed: Yes - Past History Past History: No Previous - Infectious Disease Hx of Infectious Diseases: None - Tetanus Immunization Tetanus Immunization: Unknown - Cardiac Hx Cardiac Disorders: Yes Hx [place]: Yes Other/Comment: chest pain - Pulmonary Hx Respiratory Disorders: Yes Hx Asthma: Yes - Neurological Hx Neurological Disorder: Yes HX Cerebrovascular Accident: Yes Hx Seizures: Yes Other/Comment: Intracranial Hemmorhage - HEENT Hx HEENT Disorder: No - Renal Hx Renal Disorder: No - Endocrine/Metabolic Hx Endocrine Disorders: No - Hematological/Oncological Hx Blood Disorders: Yes Hx Anemia: Yes Hx Hepatitis B: Yes (carrier) - Integumentary Hx Dermatological Disorder: No - Musculoskeletal/Rheumatological Hx Musculoskeletal Disorders: Yes Hx Falls: Yes - Gastrointestinal Hx Gastrointestinal Disorders: Yes Other/Comment: GI Bleed - Genitourinary/Gynecological Hx Genitourinary Disorders: No - Psychiatric Hx Psychophysiologic Disorder: No Hx Substance Use: No - Past Surgical History Past Surgical History: No Previous - Surgical History Hx Cardiac Catheterization: Yes Hx Coronary Stent: Yes Hx Orthopedic Surgery: Yes ([facility] OF [facility]) Hx Tonsillectomy: Yes - Anesthesia Hx Anesthesia: Yes Hx Anesthesia Reactions: No Hx Malignant Hyperthermia: No - Suicidal Assessment Feels Threatened In Home Enviroment: No Family/Social History - Physician Review Nursing Documentation Reviewed: Yes Family/Social History: No Known Family HX Smoking Status: Heavy Smoker > 10 Cigarettes Daily Hx Alcohol Use: Yes (2-5 beers daily) Hx Substance Use: No Hx Substance Use Treatment: No Allergies/Home Meds Allergies/Adverse Reactions: Allergies No Known Allergies Allergy (Verified 05/22/18 10:55) Review of Systems - Physician Review All systems were reviewed & negative as marked: Yes - Review of Systems Constitutional: Normal. absent: Fevers, Night Sweats Eyes: Normal ENT: Normal Respiratory: Normal. absent: SOB, Cough Cardiovascular: Chest Pain Gastrointestinal: Normal. absent: Abdominal Pain, Diarrhea, Nausea, Vomiting Genitourinary Male: Normal. absent: Urinary Output Changes Musculoskeletal: Normal. absent: Back Pain, Neck Pain Skin: Normal Neurological: Normal. absent: Headache, Dizziness Endocrine: Normal Hemo/Lymphatic: Normal Psychiatric: Normal Physical Exam Vital Signs Reviewed: Yes Vital Signs Temp Pulse Resp BP Pulse Ox 06/25/18 21:16 98.1 F 77 18 117/75 96 06/25/18 21:00 82 18 121/78 100 Temperature: Afebrile Blood Pressure: Normal Pulse: Regular Respiratory Rate: Normal Appearance: Positive for: Well-Appearing, Non-Toxic, Comfortable Pain Distress: None Mental Status: Positive for: Alert and Oriented X 3 - Systems Exam Head: Present: Atraumatic, Normocephalic Pupils: Present: PERRL Extroacular Muscles: Present: EOMI Conjunctiva: Present: Normal Mouth: Present: Moist Mucous Membranes Neck: Present: Normal Range of Motion Respiratory/Chest: Present: Clear to Auscultation, Good Air Exchange. No: Respiratory Distress, Accessory Muscle Use Cardiovascular: Present: Regular Rate and Rhythm, Normal S1, S2. No: Murmurs Abdomen: No: Tenderness, Distention, Peritoneal Signs Back: Present: Normal Inspection Upper Extremity: Present: Normal Inspection. No: Cyanosis, Edema Lower Extremity: Present: Normal Inspection. No: Edema Neurological: Present: GCS=15, CN II-XII Intact, Speech Normal Skin: Present: Warm, Dry, Normal Color. No: Rashes Psychiatric: Present: Alert, Oriented x 3, Normal Insight, Normal Concentration Medical Decision Making ED Course and Treatment: 06/26/18 20:48 Impression: 57 year old male presents with left sided chest pain. Plan: -- EKG -- Chest X-ray -- Reassess and disposition Prior Visits: Notes and results from previous visits were reviewed. Progress Notes: 06/26/18 20:55 EKG Reviewed, shows: Normal sinus rhythm @80bpm Normal axis and intervals 06/26/18 22:[address] August and reviewed case. Patient is cleared to be discharged and will follow up with him in 1 to 2 days. - Lab Interpretations Lab Results: 06/25/18 20:50 06/25/18 20:50 Lab Results 06/25/18 20:50: Alcohol, Quantitative 408 H* 06/25/18 20:50: Sodium 145, Potassium 4.1, Chloride 101, Carbon Dioxide 30, Anion Gap 19, BUN 6 L, Creatinine 0.8, Est GFR ( Amer) > 60, Est GFR (Non -Af Amer) > 60, Random Glucose 95, Calcium 9.1, Magnesium 1.7, Total Bilirubin 0.6, AST 166 H D, ALT 72 H, Alkaline Phosphatase 106, Lactate Dehydrogenase 700 H, Total Creatine Kinase 384 H, CK-MB (CK-2) 2.6, CK-MB (CK-2) % Cancelled, Troponin I < 0.01, Total Protein 8.4 H, Albumin 4.6, Globulin 3.7, Albumin/ Globulin Ratio 1.2 06/25/18 20:50: WBC 3.5 L D, RBC 4.15, Hgb 11.5 L, Hct 35.1 L, MCV 84.6, MCH 27.7, MCHC 32.8, RDW 19.6 H, Plt Count 93 L, MPV 10.6, Gran % 39.4 L, Lymph % ( Auto) 35.4 H, Cole % (Auto) 21.2 H, Eos % (Auto) 2.3, Baso % (Auto) 1.7, Gran # 1.36 L, Lymph # (Auto) 1.2, Cole # (Auto) 0.7 H, Eos # (Auto) 0.1, Baso # (Auto ) 0.06, Neutrophils % (Manual) 37 L, Lymphocytes % (Manual) 35, Monocytes % ( Manual) 25 H, Eosinophils % (Manual) 2, Basophils % (Manual) 1, Large Platelets Present - RAD Interpretation Radiology Orders: 06/25/18 20:48 CHEST PORTABLE [RAD] Stat - Scribe Statement The provider has reviewed the documentation as recorded by the Willow Rinaldi Provider Scribe Attestation: All medical record entries made by the Scribe were at my direction and personally dictated by me. I have reviewed the chart and agree that the record accurately reflects my personal performance of the history, physical exam, medical decision making, and the department course for this patient. I have also personally directed, reviewed, and agree with the discharge instructions and disposition. Disposition/Present on Arrival - Present on Arrival Any Indicators Present on Arrival: No History of DVT/PE: No History of Uncontrolled Diabetes: No Urinary Catheter: No History of Decub. Ulcer: No History Surgical Site Infection Following: None - Disposition Have Diagnosis and Disposition been Completed?: Yes Diagnosis: Non-cardiac chest pain Disposition: HOME/ ROUTINE Disposition Time: 21:50 Condition: GOOD Discharge Instructions (ExitCare): Chest Pain (ED) Additional Instructions: SAMANTHA FERNÁNDEZ, thank you for letting us take care of you today. Your provider was Derrick Seals DO and you were treated for CHEST PAIN. The emergency medical care you received today was directed at your acute symptoms. If you were prescribed any medication, please fill it and take as directed. It may take several days for your symptoms to resolve. Return to the Emergency Department if your symptoms worsen, do not improve, or if you have any other problems. Please contact your doctor or call one of the physicians/clinics you have been referred to that are listed on the Patient Visit Information form that is included in your discharge packet. Bring any paperwork you were given at discharge with you along with any medications you are taking to your follow up visit. Our treatment cannot replace ongoing medical care by a primary care provider outside of the emergency department. Thank you for allowing the [facility] team to be part of your care today. Call Dr. August tomorrow morning for follow up and re-evaluation. Referrals: Chiqui August MD [Staff Provider] - Follow up with primary Marcos Gonzales MD [Primary Care Provider] - Follow up with primary Forms: [employer] (Slovak)
--- NOTE | 2018-06-26 11:43 | RAD ---
Date of service: 06/25/2018 HISTORY: Chest pain. COMPARISON: 05/27/2018. FINDINGS: LUNGS: No active pulmonary disease. PLEURA: No significant pleural effusion identified, no pneumothorax apparent. CARDIOVASCULAR: Normal. OSSEOUS STRUCTURES: No significant abnormalities. VISUALIZED UPPER ABDOMEN: Normal. OTHER FINDINGS: None. IMPRESSION: No active disease. No significant interval change compared to the prior examination(s).
--- NOTE | 2018-06-26 14:01 | CARD ---
APPROVED REPORT Date of service: 06/25/2018 EKG Measurement Heart [id number] <Conclusion> Normal sinus rhythm Normal ECG
== END 2018-06-25 21:00 | disposition home or self-care (01) ==
LOC: ED 20:36
DX: R07.89 Other chest pain (principal); I10 Essential (primary) hypertension; F17.210 Nicotine dependence, cigarettes, uncomplicated; I25.2 Old myocardial infarction; Z86.73 Personal history of transient ischemic attack (TIA), and cerebral infarction without residual deficits

== ENCOUNTER 2018-07-25 19:23 | Emergency (ER) | payer MEDICAID ==
[2018-07-25 19:24] VITALS: BMI 23.6
--- NOTE | 2018-07-25 20:07 | ED PDOC ---
Arrival/HPI - General Time Seen by Provider: 07/25/18 19:42 Historian: Patient - History of Present Illness Narrative History of Present Illness (Text): 07/25/18 20:03 57 year old male, whose past medical history includes hypertension, GI bleed, seizured, CAD, and Cardiac stents, who presents to the Emergency department complaining of intermittent chest pain. Patient admits to drinking a few beers today. Patient denies any fevers, chills, shortness of breath, abdominal pain, nausea, vomiting, diarrhea, back pain, neck pain, headache, dizziness, or any other complaint. Time/Duration: Prior to Arrival Symptom Onset: Gradual Symptom Course: Unchanged Activities at Onset: Light Context: Home Past Medical History - Provider Review Nursing Documentation Reviewed: Yes - Past History Past History: No Previous - Infectious Disease Hx of Infectious Diseases: None - Tetanus Immunization Tetanus Immunization: Unknown - Cardiac Hx Cardiac Disorders: Yes Hx [place]: Yes Other/Comment: chest pain - Pulmonary Hx Respiratory Disorders: Yes Hx Asthma: Yes - Neurological Hx Neurological Disorder: Yes HX Cerebrovascular Accident: Yes Hx Seizures: Yes Other/Comment: Intracranial Hemmorhage - HEENT Hx HEENT Disorder: No - Renal Hx Renal Disorder: No - Endocrine/Metabolic Hx Endocrine Disorders: No - Hematological/Oncological Hx Blood Disorders: Yes Hx Anemia: Yes Hx Hepatitis B: Yes (carrier) - Integumentary Hx Dermatological Disorder: No - Musculoskeletal/Rheumatological Hx Musculoskeletal Disorders: Yes Hx Falls: Yes - Gastrointestinal Hx Gastrointestinal Disorders: Yes Other/Comment: GI Bleed - Genitourinary/Gynecological Hx Genitourinary Disorders: No - Psychiatric Hx Psychophysiologic Disorder: No Hx Substance Use: No - Past Surgical History Past Surgical History: No Previous - Surgical History Hx Cardiac Catheterization: Yes Hx Coronary Stent: Yes Hx Orthopedic Surgery: Yes ([facility]) Hx Tonsillectomy: Yes - Anesthesia Hx Anesthesia: Yes Hx Anesthesia Reactions: No Hx Malignant Hyperthermia: No - Suicidal Assessment Feels Threatened In Home Enviroment: No Family/Social History - Physician Review Nursing Documentation Reviewed: Yes Family/Social History: Unknown Family HX Smoking Status: Heavy Smoker > 10 Cigarettes Daily Hx Alcohol Use: Yes (2-5 beers daily) Hx Substance Use: No Hx Substance Use Treatment: No Allergies/Home Meds Allergies/Adverse Reactions: Allergies No Known Allergies Allergy (Verified 05/22/18 10:55) Review of Systems - Review of Systems Constitutional: Normal Eyes: Normal ENT: Normal Respiratory: Normal. absent: SOB, Cough Cardiovascular: Chest Pain Gastrointestinal: Normal. absent: Abdominal Pain Genitourinary Male: Normal. absent: Dysuria, Frequency, Hematuria Musculoskeletal: Normal. absent: Back Pain, Neck Pain Skin: Normal. absent: Rash Neurological: Normal. absent: Headache, Dizziness Endocrine: Normal Hemo/Lymphatic: Normal Psychiatric: Normal Physical Exam - Systems Exam Head: Present: Atraumatic, Normocephalic Pupils: Present: PERRL Extroacular Muscles: Present: EOMI Conjunctiva: Present: Normal Mouth: Present: Moist Mucous Membranes Neck: Present: Normal Range of Motion Respiratory/Chest: Present: Clear to Auscultation, Good Air Exchange. No: Respiratory Distress, Accessory Muscle Use Cardiovascular: Present: Regular Rate and Rhythm, Normal S1, S2. No: Murmurs Abdomen: No: Tenderness, Distention, Peritoneal Signs Back: Present: Normal Inspection Upper Extremity: Present: Normal Inspection. No: Cyanosis, Edema Lower Extremity: Present: Normal Inspection. No: Edema Neurological: Present: GCS=15, CN II-XII Intact, Speech Normal Skin: Present: Warm, Dry, Normal Color. No: Rashes Psychiatric: Present: Alert, Oriented x 3, Normal Insight, Normal Concentration Medical Decision Making ED Course and Treatment: 07/25/18 20:07 Impression: 57 year old male presents to the emergency department complaining of intermittent chest pain. Plan: -- EKG -- Labs -- Cardiac ISO -- CXR -- Aspirin -- Reassess and disposition Progress Notes: EKG reviewed, shows NSR at 83 bpm. Septal infarct. Nonspecific ST/T wave changes. 07/25/18 20:45 Notified by nursing staff that pt eloped from Emergency department. Chest X-ray reviewed, shows: Impression: No acute processes. - RAD Interpretation Radiology Orders: 07/25/18 19:44 CHEST PORTABLE [RAD] Stat - Medication Orders Current Medication Orders: Discontinued Medications Aspirin (Aspirin) 325 mg PO ONCE STA Stop: 07/25/18 19:46 - Scribe Statement The provider has reviewed the documentation as recorded by the Scribsiria Cota All medical record entries made by the Scribe were at my direction and personally dictated by me. I have reviewed the chart and agree that the record accurately reflects my personal performance of the history, physical exam, medical decision making, and the department course for this patient. I have also personally directed, reviewed, and agree with the discharge instructions and disposition. Disposition/Present on Arrival - Present on Arrival Any Indicators Present on Arrival: No History of DVT/PE: No History of Uncontrolled Diabetes: No Urinary Catheter: No History Surgical Site Infection Following: None - Disposition Have Diagnosis and Disposition been Completed?: Yes Diagnosis: Chest pain Disposition: ELOPEMENT - ER ONLY Disposition Time: 20:50 Condition: STABLE Discharge Instructions (ExitCare): Chest Pain (ED)
[2018-07-26 00:46] VITALS: BP 136/72; PULSE 68; RESP 17; TEMP 97.9; O2SAT 98
--- NOTE | 2018-07-26 10:25 | RAD ---
Date of service: 07/25/2018 HISTORY: chest pain COMPARISON: 06/25/2018 FINDINGS: LUNGS: No active pulmonary disease. PLEURA: No significant pleural effusion identified, no pneumothorax apparent. CARDIOVASCULAR: Normal. OSSEOUS STRUCTURES: No significant abnormalities. VISUALIZED UPPER ABDOMEN: Normal. OTHER FINDINGS: None. IMPRESSION: No active disease.
--- NOTE | 2018-07-26 12:59 | CARD ---
APPROVED REPORT Date of service: 07/25/2018 EKG Measurement Heart [id number] <Conclusion> Normal sinus rhythm Normal Electrocardiogram
== END 2018-07-25 20:50 | disposition left against medical advice (07) ==
LOC: ED 19:23
DX: R07.9 Chest pain, unspecified (principal); I10 Essential (primary) hypertension; I25.10 Atherosclerotic heart disease of native coronary artery without angina pectoris; F17.210 Nicotine dependence, cigarettes, uncomplicated

== ENCOUNTER 2018-09-18 19:13 | Emergency (ER) | payer MEDICAID ==
[2018-09-18] MEDS ORDERED: Morphine 4 mg/ml ISec IVP STA (19:30)
--- NOTE | 2018-09-18 19:38 | ED PDOC ---
Arrival/HPI - General Chief Complaint: Chest Pain Historian: Patient, Family - History of Present Illness Narrative History of Present Illness (Text): 09/18/18 19:33 57 y/o male, pmh including htn/hld/CAD with stent/hepatitis B/stroke, nkda, c/o lt. sided chest pain about 1 hour ago while walking. Aching and pressure on the left chest, admits been coughing for the past few days, no palpitation, no pleuritic pain, no night sweat, no rash, no tearing sensation intact, no other medical or psychological complaints. Past Medical History - Provider Review Nursing Documentation Reviewed: Yes - Past History Past History: No Previous - Infectious Disease Hx of Infectious Diseases: None - Tetanus Immunization Tetanus Immunization: Unknown - Cardiac Hx Cardiac Disorders: Yes Hx [place]: Yes (2015) Hx Hypertension: Yes Other/Comment: chest pain - Pulmonary Hx Respiratory Disorders: Yes Hx Asthma: Yes - Neurological Hx Neurological Disorder: Yes HX Cerebrovascular Accident: Yes (04/2017) Hx Seizures: Yes Other/Comment: Intracranial Hemmorhage - HEENT Hx HEENT Disorder: No - Renal Hx Renal Disorder: No - Endocrine/Metabolic Hx Endocrine Disorders: No - Hematological/Oncological Hx Blood Disorders: Yes Hx Anemia: Yes Hx Hepatitis B: Yes (carrier) - Integumentary Hx Dermatological Disorder: No - Musculoskeletal/Rheumatological Hx Musculoskeletal Disorders: Yes Hx Falls: Yes - Gastrointestinal Hx Gastrointestinal Disorders: Yes Other/Comment: GI Bleed - Genitourinary/Gynecological Hx Genitourinary Disorders: No - Psychiatric Hx Psychophysiologic Disorder: No Hx Substance Use: No - Past Surgical History Past Surgical History: No Previous - Surgical History Hx Cardiac Catheterization: Yes Hx Coronary Stent: Yes Hx Orthopedic Surgery: Yes ([facility]) Hx Tonsillectomy: Yes - Anesthesia Hx Anesthesia: Yes Hx Anesthesia Reactions: No Hx Malignant Hyperthermia: No - Suicidal Assessment Feels Threatened In Home Enviroment: No Family/Social History - Physician Review Nursing Documentation Reviewed: Yes Family/Social History: Unknown Family HX Smoking Status: Light Smoker < 10 Cigarettes Daily Hx Alcohol Use: Yes (2-5 beers daily) Frequency of alcohol use: Daily Hx Substance Use: No Hx Substance Use Treatment: No Allergies/Home Meds Allergies/Adverse Reactions: Allergies No Known Allergies Allergy (Verified 09/18/18 19:21) Review of Systems - Review of Systems Constitutional: absent: Fatigue, Fevers Eyes: absent: Vision Changes ENT: absent: Hearing Changes Respiratory: Cough, Sputum. absent: SOB, Wheezing Cardiovascular: Chest Pain. absent: Syncope Gastrointestinal: absent: Abdominal Pain, Diarrhea, Nausea, Vomiting Musculoskeletal: absent: Arthralgias, Back Pain Skin: absent: Rash, Pruritis Neurological: absent: Headache, Dizziness Psychiatric: absent: Anxiety, Depression, Suicidal Ideation Physical Exam - Systems Exam Head: Present: Atraumatic, Normocephalic Pupils: Present: PERRL Extroacular Muscles: Present: EOMI Conjunctiva: Present: Normal Mouth: Present: Moist Mucous Membranes Neck: Present: Normal Range of Motion Respiratory/Chest: Present: Clear to Auscultation, Good Air Exchange, Rhonchi (rt. sided lung). No: Respiratory Distress, Accessory Muscle Use, Wheezes, Decreased Breath Sounds, Rales, Retracting, Tachypneic, Tender to Palpation Cardiovascular: Present: Regular Rate and Rhythm, Normal S1, S2. No: Murmurs Abdomen: No: Tenderness, Distention, Peritoneal Signs, Rebound, Guarding Back: Present: Normal Inspection Upper Extremity: Present: Normal Inspection. No: Cyanosis, Edema Lower Extremity: Present: Normal Inspection. No: Edema Neurological: Present: GCS=15, CN II-XII Intact, Speech Normal Skin: Present: Warm, Dry, Normal Color. No: Rashes Psychiatric: Present: Alert, Oriented x 3, Normal Insight, Normal Concentration Medical Decision Making ED Course and Treatment: 09/18/18 19:35 -labs -ekg -cxr -morphine/nitro/aspirin/oxygen 2L -registered nurse cardiac telemetry -Observe and reassess 09/18/18 21:11 -EKG: NSR @ 88 BPM, abnormality on the lead V3 with early repolarization, no other ST elevation or depression, no T wave inversion. -Chest xray ER wet read show COPD changes, no active disease -Labs show no acute findings except AST 113 from 166 and ALT 79 from 72, Hgb 12.2 from 11.5 (chronic anemia) -Mg within normal limit -Trop is negative first set -BNP within normal limit -HEART score is moderate, will need admission to r/o ACS with serial troponin especially he feels relief with morphine/nitro/aspirin/oxygen. -All labs/radiology results discussed with the patient and he agreed to be admitted. 09/18/18 21:14 -I spoke to the medical equipment technician, admitting team, discussed about the labs/radiology result and treatment, agreed to admit and follow up on any pending labs/radiology result. - RAD Interpretation Radiology Orders: 09/18/18 19:30 CHEST PORTABLE [RAD] Stat COPD changes, hyperinflation, atelectasis or scarrings, please see report for official reading. Outreach Representative: Radiologist - Medication Orders Current Medication Orders: Aspirin (Aspirin) 325 mg PO STAT STA Stop: 09/18/18 19:31 Morphine Sulfate (Morphine) 4 mg IVP STAT STA Stop: 09/18/18 19:31 Nitroglycerin (Nitrostat Sl Tab) 0.3 mg SL STAT STA Stop: 09/18/18 19:31 Nitroglycerin (Nitrostat Sl Tab) 0.3 mg SL STAT STA Stop: 09/18/18 19:33 - PA / CRUSHER AND BLENDER OPERATOR / Resident Statement MD/DO has reviewed & agrees with the documentation as recorded. Disposition/Present on Arrival - Present on Arrival Any Indicators Present on Arrival: No History of DVT/PE: No History of Uncontrolled Diabetes: No Urinary Catheter: No History of Decub. Ulcer: No History Surgical Site Infection Following: None - Disposition Have Diagnosis and Disposition been Completed?: Yes Diagnosis: Chest pain Disposition: AGAINST MEDICAL ADVICE Disposition Time: 21:12 Patient Plan: Admission, Observation, Telemetry Condition: GUARDED
[2018-09-18 19:42] VITALS: RESP 18; BMI 23.7
[2018-09-18 20:49] LABS: ALB/GLOB RATIO 1.2 (1.1-1.8); ALBUMIN 4.5 g/dL (3.0-4.8); ALT/SGPT 79 U/L (7-56); AST/SGOT 113 U/L (17-59); BLOOD UREA NITROGEN 10 mg/dL (7-21); GFR NON-AFRICAN AMERICAN > 60
[2018-09-18 20:59] LABS: INR 0.92; PARTIAL THROMBOPLASTIN TIME 31.5 Seconds (25.1-36.5); PROTHROMBIN TIME 10.5 SECONDS (9.4-12.5)
[2018-09-18 21:01] LABS: B-TYPE NATRIURETIC PEPTIDE 65.1 pg/mL (0-450); TROPONIN I < 0.01 ng/mL
[2018-09-18 21:07] LABS: HEMOGLOBIN 12.2 g/dL (14.0-18.0); MEAN CELL VOLUME 85.4 fl (80.0-105.0); MEAN CORPUSCULAR HEMOGLOBIN 28.2 pg (25.0-35.0); MEAN CORPUSCULAR HGB CONC 33.1 g/dl (31.0-37.0); RBC 4.32 10^6/uL (3.5-6.1); WHITE BLOOD COUNT 2.9 10^3/uL (4.5-11.0)
[2018-09-18 21:08] LABS: BASO % 1.4 % (0.0-3.0); EOS % 1.7 % (1.5-5.0); GRAN # 1.32 (1.4-6.5); GRAN % 45.8 % (50.0-68.0); LYMPH % 34.4 % (22.0-35.0); MEAN PLATELET VOLUME 11.9 fl (7.0-11.0); MONO # 0.5 (0.1-0.6); MONO % 16.7 % (1.0-6.0); RED CELL DISTRIBUTION WIDTH 19.2 % (11.5-14.5)
[2018-09-18 21:09] LABS: BASO # 0.04 K/mm3 (0.0-2.0); EOS # 0.1 (0.0-0.7)
--- NOTE | 2018-09-18 22:30 | CP.PCM.HP ---
<LauraAlvin hancock - Last Filed: 09/18/18 22:29> History of Present Illness - History of Present Illness History of Present Illness: Herve Angelique PGY2 - History and Physical for Hospitalist Service CC: Chest pain HPI: 57 year old male with past medical history of CAD s/p stents x2 3-4 months prior to presentation at [facility] who [place] [facility] complaining of left sided chest pain. He reports the pain is 8/10 chest pain starting in his left anterior chest with some radiation down his left arm, associated with numbness and tingling in his fingers. He denies nause, vomiting, shortness of breath, abdominal pain, diaphoresis. He reports that he has poor compliance with his medication stating he does not take the aspirin or plavix prescribed to him. 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 Patient became frustrated with interview and questioning and decided to sign himself out against medical advice not allowing for completition of interview process and physical exam. Past medical history: HTN, CAD s/p PTCA with stent, EtOH abuse, seizures Past Surgical History: Tonsillectomy, jaw repair, Cardiac stents SH: Smokes 1/2 ppd x >30yrs, drinks 4-5 large beers per day, denies illicit drug use. Lives in [place] in a home where he rents a room from a friend of his ALL: NKDA MEDS: Denies PMD: Dr Alvarez [place] [facility] Present on Admission - Present on Admission Any Indicators Present on Admission: No Review of Systems - Review of Systems Review of Systems: unable to obtain secondary to poor cooperation and patient signing out AMA Past Patient History - Infectious Disease Hx of Infectious Diseases: None - Tetanus Immunizations Tetanus Immunization: Unknown - Past Social History Smoking Status: Light Smoker < 10 Cigarettes Daily - CARDIAC Hx Cardiac Disorders: Yes Hx Heart Attack: Yes (2015) Hx Hypertension: Yes Other/Comment: chest pain - PULMONARY Hx Respiratory Disorders: Yes Hx Asthma: Yes - NEUROLOGICAL Hx Neurological Disorder: Yes HX Cerebrovascular Accident: Yes (04/2017) Hx Seizures: Yes Other/Comment: Intracranial Hemmorhage - HEENT Hx HEENT Problems: No - RENAL Hx Chronic Kidney Disease: No - ENDOCRINE/METABOLIC Hx Endocrine Disorders: No - HEMATOLOGICAL/ONCOLOGICAL Hx Blood Disorders: Yes Hx Anemia: Yes Hx Hepatitis B: Yes (carrier) - INTEGUMENTARY Hx Dermatological Problems: No - MUSCULOSKELETAL/RHEUMATOLOGICAL Hx Musculoskeletal Disorders: Yes Hx Falls: Yes - GASTROINTESTINAL Hx Gastrointestinal Disorders: Yes Other/Comment: GI Bleed - GENITOURINARY/GYNECOLOGICAL Hx Genitourinary Disorders: No - PSYCHIATRIC Hx Psychophysiologic Disorder: No Hx Substance Use: No - SURGICAL HISTORY Hx Cardiac Catheterization: Yes Hx Coronary Stent: Yes Hx Orthopedic Surgery: Yes (ORIF OF JAW) Hx Tonsillectomy: Yes - ANESTHESIA Hx Anesthesia: Yes Hx Anesthesia Reactions: No Hx Malignant Hyperthermia: No Meds Allergies/Adverse Reactions: Allergies Allergy/AdvReac Type Severity Reaction Status Date / Time No Known Allergies Allergy Verified 09/18/18 19:21 Physical Exam - Constitutional Additional comments: unable to obtain, patient refused, patient signed out against medical advice Results - Vital Signs Recent Vital Signs: Last Vital Signs Temp 98.2 F 09/18/18 19:25 Pulse 89 09/18/18 19:25 Resp 18 09/18/18 19:25 BP 149/92 H 09/18/18 19:25 Pulse Ox 95 09/18/18 19:25 - Labs Result Diagrams: 09/18/18 19:41 09/18/18 19:41 Labs: Laboratory Results - last 24 hr 09/18/18 09/18/18 09/18/18 19:41 19:41 19:41 WBC 2.9 L RBC 4.32 Hgb 12.2 L Hct 36.9 L MCV 85.4 MCH 28.2 MCHC 33.1 RDW 19.2 H Plt Count 154 MPV 11.9 H Gran % 45.8 L Lymph % (Auto) 34.4 Otoe % (Auto) 16.7 H Eos % (Auto) 1.7 Baso % (Auto) 1.4 Gran # 1.32 L Lymph # (Auto) 1.0 L Otoe # (Auto) 0.5 Eos # (Auto) 0.1 Baso # (Auto) 0.04 PT 10.5 INR 0.92 APTT 31.5 Sodium 143 Potassium 4.4 Chloride 105 Carbon Dioxide 28 Anion Gap 14 BUN 10 Creatinine 0.8 Est GFR ( Amer) > 60 Est GFR (Non-Af Amer) > 60 Random Glucose 71 Calcium 9.0 Magnesium 1.7 Total Bilirubin 0.4 AST 113 H D ALT 79 H Alkaline Phosphatase 108 Troponin I < 0.01 NT-Pro-B Natriuret Pep 65.1 Total Protein 8.2 Albumin 4.5 Globulin 3.7 Albumin/Globulin Ratio 1.2 Assessment & Plan - Assessment and Plan (Free Text) Assessment: 57 year old male with past medical history of HTN, CAD s/p stent, ETOH abuse, seizures, poor compliance who presented with left sided chest pain. Patient was evaluated by emergency department staff, EKG was shown to have NSR with poor R wave progression. During intake process by primary medical team patient refused completion of interview, physical exam, medications and admission for treatment and evaluation. Risks and benefits were explained to the patient as well as questions answered to patient's verbal agreement. Patient signed out against medical advice. - Date & Time Date: 09/18/18 Time: 22:30 <Iva Mckenzie - Last Filed: 09/19/18 05:11> Results - Vital Signs Recent Vital Signs: Last Vital Signs Temp 98.1 F 09/18/18 21:30 Pulse 85 09/18/18 21:30 Resp 18 09/18/18 21:30 BP 128/72 09/18/18 21:30 Pulse Ox 96 09/18/18 21:30 - Labs Result Diagrams: 09/18/18 19:41 09/18/18 19:41 Labs: Laboratory Results - last 24 hr 09/18/18 09/18/18 09/18/18 19:41 19:41 19:41 WBC 2.9 L RBC 4.32 Hgb 12.2 L Hct 36.9 L MCV 85.4 MCH 28.2 MCHC 33.1 RDW 19.2 H Plt Count 154 MPV 11.9 H Gran % 45.8 L Lymph % (Auto) 34.4 Otoe % (Auto) 16.7 H Eos % (Auto) 1.7 Baso % (Auto) 1.4 Gran # 1.32 L Lymph # (Auto) 1.0 L Otoe # (Auto) 0.5 Eos # (Auto) 0.1 Baso # (Auto) 0.04 PT 10.5 INR 0.92 APTT 31.5 Sodium 143 Potassium 4.4 Chloride 105 Carbon Dioxide 28 Anion Gap 14 BUN 10 Creatinine 0.8 Est GFR ( Amer) > 60 Est GFR (Non-Af Amer) > 60 Random Glucose 71 Calcium 9.0 Magnesium 1.7 Total Bilirubin 0.4 AST 113 H D ALT 79 H Alkaline Phosphatase 108 Troponin I < 0.01 NT-Pro-B Natriuret Pep 65.1 Total Protein 8.2 Albumin 4.5 Globulin 3.7 Albumin/Globulin Ratio 1.2 Attending/Attestation - Attestation I have personally seen and examined this patient.: No I have fully participated in the care of the patient.: Yes I have reviewed all pertinent clinical information: Yes Notes (Text): 09/19/18 05:11 Agree with documentation.
[2018-09-19 02:27] VITALS: BP 128/72; PULSE 85; TEMP 98.1; O2SAT 96
--- NOTE | 2018-09-19 13:16 | RAD ---
Date of service: 09/18/2018 HISTORY: chest pain COMPARISON: No prior. FINDINGS: LUNGS: Lung roth appear slightly hyperinflated. Rule out underlying COPD. There appears to be some minor bibasilar atelectasis and or scarring changes. PLEURA: No significant pleural effusion identified, no pneumothorax apparent. CARDIOVASCULAR: Minimal aortic atherosclerotic calcification present. Normal cardiac size. No pulmonary vascular congestion. OSSEOUS STRUCTURES: Degenerative changes both shoulder girdles.. VISUALIZED UPPER ABDOMEN: Normal. OTHER FINDINGS: None. IMPRESSION: Mild hyperinflation. Rule out underlying COPD. Minor bibasilar atelectasis or scarring
--- NOTE | 2018-09-19 17:44 | CARD ---
APPROVED REPORT Date of service: 09/18/2018 EKG Measurement Heart [id number] <Conclusion> Normal sinus rhythm Normal ECG
== END 2018-09-18 21:55 | disposition left against medical advice (07) ==
LOC: ED 19:13 → UNDOADMOB 21:15 → ERH 21:15 → ED 21:55
DX: R07.9 Chest pain, unspecified (principal); I10 Essential (primary) hypertension; I25.10 Atherosclerotic heart disease of native coronary artery without angina pectoris; E78.5 Hyperlipidemia, unspecified; F17.210 Nicotine dependence, cigarettes, uncomplicated; Z86.73 Personal history of transient ischemic attack (TIA), and cerebral infarction without residual deficits
CPT/HCPCS: 71045; 80053; 83735; 83880; 84484; 85025; 85610; 85730; 93005; 96374; 99284; J2270

== ENCOUNTER 2018-09-25 23:09 | Emergency (ER) | payer MEDICAID ==
[2018-09-25 23:10] VITALS: BMI 23.6
[2018-09-25 23:25] VITALS: TEMP 98.7
--- NOTE | 2018-09-25 23:32 | ED PDOC ---
Arrival/HPI - General Chief Complaint: Chest Pain Time Seen by Provider: 09/25/18 23:19 Historian: Patient - History of Present Illness Narrative History of Present Illness (Text): 09/25/18 23:31 57 year old male, whose past medical history includes Hypertension, CAD s/p stent x 2, EtOH abuse, seizures presents to the emergency department complaining of intermittent left-sided chest discomfort that began yesterday. Patient denies taking any medication for the pain. Patient denies any fever, chills, shortness of breath, abdominal pain, nausea, vomiting, diarrhea, urinary symptoms, back pain, neck pain, headache, dizziness, or any other complaints. PMD: Dr. Alvarez Time/Duration: 24 hours Symptom Onset: Gradual Symptom Course: Intermittent Activities at Onset: Light Context: Home Past Medical History - Provider Review Nursing Documentation Reviewed: Yes - Past History Past History: No Previous - Infectious Disease Hx of Infectious Diseases: None - Tetanus Immunization Tetanus Immunization: Unknown - Cardiac Hx [place]: Yes - Pulmonary Hx Respiratory Disorders: Yes Hx Asthma: Yes - Neurological HX Cerebrovascular Accident: Yes - HEENT Hx HEENT Disorder: No - Renal Hx Renal Disorder: No - Endocrine/Metabolic Hx Endocrine Disorders: No - Hematological/Oncological Hx Blood Disorders: Yes Hx Anemia: Yes Hx Hepatitis B: Yes (carrier) - Integumentary Hx Dermatological Disorder: No - Musculoskeletal/Rheumatological Hx Musculoskeletal Disorders: Yes Hx Falls: Yes - Gastrointestinal Hx Gastrointestinal Disorders: Yes Other/Comment: GI Bleed - Genitourinary/Gynecological Hx Genitourinary Disorders: No - Psychiatric Hx Psychophysiologic Disorder: No Hx Substance Use: No - Past Surgical History Past Surgical History: No Previous - Surgical History Hx Cardiac Catheterization: Yes Hx Coronary Stent: Yes Hx Orthopedic Surgery: Yes (ORIF OF JAW) Hx Tonsillectomy: Yes - Anesthesia Hx Anesthesia: Yes Hx Anesthesia Reactions: No Hx Malignant Hyperthermia: No - Suicidal Assessment Feels Threatened In Home Enviroment: No Family/Social History - Physician Review Nursing Documentation Reviewed: Yes Family/Social History: No Known Family HX Smoking Status: Heavy Smoker > 10 Cigarettes Daily Hx Alcohol Use: Yes (2-5 beers daily) Hx Substance Use: No Hx Substance Use Treatment: No Allergies/Home Meds Allergies/Adverse Reactions: Allergies No Known Allergies Allergy (Verified 09/18/18 19:21) Review of Systems - Physician Review All systems were reviewed & negative as marked: Yes - Review of Systems Constitutional: absent: Fevers, Other (Chills) Respiratory: absent: SOB Cardiovascular: Chest Pain Gastrointestinal: absent: Abdominal Pain, Diarrhea, Nausea, Vomiting Genitourinary Male: absent: Dysuria, Frequency, Hematuria Musculoskeletal: absent: Back Pain, Neck Pain Neurological: absent: Headache, Dizziness Physical Exam Vital Signs Reviewed: Yes Vital Signs Temp Pulse Resp BP Pulse Ox 09/25/18 23:24 98.7 F 83 20 128/81 95 Temperature: Afebrile Blood Pressure: Normal Pulse: Regular Respiratory Rate: Normal Appearance: Positive for: Well-Appearing, Non-Toxic, Comfortable Pain Distress: None Mental Status: Positive for: Alert and Oriented X 3 - Systems Exam Head: Present: Atraumatic, Normocephalic Pupils: Present: PERRL Extroacular Muscles: Present: EOMI Conjunctiva: Present: Normal Mouth: Present: Moist Mucous Membranes Neck: Present: Normal Range of Motion Respiratory/Chest: Present: Clear to Auscultation, Good Air Exchange. No: Respiratory Distress, Accessory Muscle Use Cardiovascular: Present: Regular Rate and Rhythm, Normal S1, S2. No: Murmurs Abdomen: No: Tenderness, Distention, Peritoneal Signs Back: Present: Normal Inspection Upper Extremity: Present: Normal Inspection. No: Cyanosis, Edema Lower Extremity: Present: Normal Inspection. No: Edema Neurological: Present: GCS=15, CN II-XII Intact, Speech Normal Skin: Present: Warm, Dry, Normal Color. No: Rashes Psychiatric: Present: Alert, Oriented x 3, Normal Insight, Normal Concentration Medical Decision Making ED Course and Treatment: 09/25/18 23:31 Impression: 57 year old male presents complaining of intermittent left-sided chest discomfort that began yesterday. Plan: -- EKG -- Labs -- CXR -- Urinalysis -- Reassess and disposition Prior Visits: Notes and results from previous visits were reviewed. Patient has been seen on multiple occasions for similar complaints in the past. Progress Notes: 09/25/18 23:35 EKG shows NSR at 83 BPM with non-specific ST/T wave changes. Interpreted by me 09/26/18 00:05 CXR Impression: As read by NAD. amina 09/26/18 00:15 On reevaluation the patient feels better and is in no acute distress. I have discussed the results and plan with the patient, who expresses understanding. Patient given the opportunity to ask question, all questions were answered and there is agreement with the plan to discharge the patient home. Patient is stable for discharge. Patient was instructed to follow up with physician/clinic in 1-2 days or return if symptoms persist/worsen or new concerning symptoms arise. 09/26/18 01:24 cp > 1 day, trop neg. cxr neg. well appearin gsteady gait, multiple visits in 2018. neg recent stress. stable for dc. - Lab Interpretations I have reviewed the lab results: Yes - RAD Interpretation Medical Sales Representative: ED Physician - EKG Interpretation Interpreted by ED Physician: Yes Type: 12 lead EKG - Scribe Statement The provider has reviewed the documentation as recorded by the Rejiibe Melia Duron Provider Scribe Attestation: All medical record entries made by the Scribe were at my direction and personally dictated by me. I have reviewed the chart and agree that the record accurately reflects my personal performance of the history, physical exam, medical decision making, and the department course for this patient. I have also personally directed, reviewed, and agree with the discharge instructions and disposition. Disposition/Present on Arrival - Present on Arrival Any Indicators Present on Arrival: No History of DVT/PE: No History of Uncontrolled Diabetes: No Urinary Catheter: No History of Decub. Ulcer: No History Surgical Site Infection Following: None - Disposition Have Diagnosis and Disposition been Completed?: Yes Diagnosis: Chest pain Disposition: HOME/ ROUTINE Disposition Time: 12:20 Condition: STABLE Discharge Instructions (ExitCare): Chest Pain (ED) Additional Instructions: return to er with worsening symptoms or concerns. Referrals: [facility] [Outside] - Follow up with primary [facility] [Outside] - Follow up with primary Rory Godwin MD [Staff Provider] - Follow up with primary Forms: [employer] (Belizean)
[2018-09-25 23:57] LABS: ALB/GLOB RATIO 1.2 (1.1-1.8); ALBUMIN 4.6 g/dL (3.0-4.8); ALT/SGPT 117 U/L (7-56); AST/SGOT 203 U/L (17-59); BLOOD UREA NITROGEN 8 mg/dL (7-21); CALCIUM 8.8 mg/dL (8.4-10.5); GFR NON-AFRICAN AMERICAN > 60
[2018-09-25 23:58] LABS: BASO # 0.05 K/mm3 (0.0-2.0); BASO % 1.6 % (0.0-3.0); EOS % 1.3 % (1.5-5.0); GRAN # 1.46 (1.4-6.5); GRAN % 45.9 % (50.0-68.0); LYMPH # 1.3 (1.2-3.4); LYMPH % 39.9 % (22.0-35.0); MEAN CELL VOLUME 85.9 fl (80.0-105.0); MEAN CORPUSCULAR HEMOGLOBIN 28.1 pg (25.0-35.0); MEAN CORPUSCULAR HGB CONC 32.7 g/dl (31.0-37.0); MEAN PLATELET VOLUME 11.3 fl (7.0-11.0); MONO # 0.4 (0.1-0.6); MONO % 11.3 % (1.0-6.0); RBC 4.27 10^6/uL (3.5-6.1); WHITE BLOOD COUNT 3.2 10^3/uL (4.5-11.0)
[2018-09-26 00:01] LABS: INR 0.91; PARTIAL THROMBOPLASTIN TIME 31.8 Seconds (25.1-36.5); PROTHROMBIN TIME 10.5 SECONDS (9.4-12.5)
[2018-09-26 00:08] LABS: TROPONIN I < 0.01 ng/mL
[2018-09-26 00:17] LABS: CK MB% 0.8 % (2.5-3.0); CK-MB 6.3 ng/mL (0.0-3.6)
[2018-09-26 01:23] VITALS: BP 124/79; PULSE 84; RESP 18; O2SAT 100
--- NOTE | 2018-09-26 08:04 | RAD ---
Date of service: 09/25/2018 HISTORY: cp COMPARISON: 09/18/2018 FINDINGS: LUNGS: No active pulmonary disease. PLEURA: No significant pleural effusion identified, no pneumothorax apparent. CARDIOVASCULAR: No aortic atherosclerotic calcification present. Normal cardiac size. No pulmonary vascular congestion. OSSEOUS STRUCTURES: No significant abnormalities. VISUALIZED UPPER ABDOMEN: Normal. OTHER FINDINGS: None. IMPRESSION: No active disease.
--- NOTE | 2018-09-26 09:54 | CARD ---
APPROVED REPORT Date of service: 09/25/2018 EKG Measurement Heart [id number] <Conclusion> Normal sinus rhythm Normal ECG
== END 2018-09-26 00:20 | disposition home or self-care (01) ==
LOC: ED 23:09
DX: R07.9 Chest pain, unspecified (principal); I25.10 Atherosclerotic heart disease of native coronary artery without angina pectoris; I10 Essential (primary) hypertension; I25.2 Old myocardial infarction; Z95.5 Presence of coronary angioplasty implant and graft; F17.210 Nicotine dependence, cigarettes, uncomplicated

== ENCOUNTER 2018-10-17 22:46 | Observation (INO) | payer MEDICAID ==
[2018-10-17 22:46] VITALS: BMI 23.6
--- NOTE | 2018-10-17 23:17 | ED PDOC ---
Arrival/HPI - General Chief Complaint: Chest Pain Time Seen by Provider: 10/17/18 23:02 Historian: Patient - History of Present Illness Narrative History of Present Illness (Text): 10/17/18 23:15 57 year old male, whose past medical history includes CAD s/p stents x2, hypertension, EtOH abuse, and seizures, presents to the emergency department complaining of left-sided chest pain that began approximately 4-5 hours ago. Patient describes the pain as a stabbing sensation, but non-radiating. Patient admits to drinking beer before the pain began. He also reports he felt light- headed earlier causing him to fall and hit his head, but denies any loss of consciousness and is able to recall the event. Patient reports his last stress test was last week, but states he walked out and did not finish it. Patient denies any fever, chills, shortness of breath, nausea, vomiting, diarrhea, urinary symptoms, back pain, neck pain, headache, or any other complaints. PMD: None Time/Duration: 4-6 hours Symptom Onset: Gradual Symptom Course: Unchanged Activities at Onset: Light Context: Home Past Medical History - Provider Review Nursing Documentation Reviewed: Yes - Past History Past History: No Previous - Infectious Disease Hx of Infectious Diseases: None - Tetanus Immunization Tetanus Immunization: Unknown - Cardiac Hx AR: Yes - Pulmonary Hx Respiratory Disorders: Yes Hx Asthma: Yes - Neurological HX Cerebrovascular Accident: Yes - HEENT Hx HEENT Disorder: No - Renal Hx Renal Disorder: No - Endocrine/Metabolic Hx Endocrine Disorders: No - Hematological/Oncological Hx Blood Disorders: Yes Hx Anemia: Yes Hx Hepatitis B: Yes (carrier) - Integumentary Hx Dermatological Disorder: No - Musculoskeletal/Rheumatological Hx Musculoskeletal Disorders: Yes Hx Falls: Yes - Gastrointestinal Hx Gastrointestinal Disorders: Yes Other/Comment: GI Bleed - Genitourinary/Gynecological Hx Genitourinary Disorders: No - Psychiatric Hx Psychophysiologic Disorder: No Hx Substance Use: No - Past Surgical History Past Surgical History: No Previous - Surgical History Hx Cardiac Catheterization: Yes Hx Coronary Stent: Yes Hx Orthopedic Surgery: Yes (ORIF OF JAW) Hx Tonsillectomy: Yes - Anesthesia Hx Anesthesia: Yes Hx Anesthesia Reactions: No Hx Malignant Hyperthermia: No - Suicidal Assessment Feels Threatened In Home Enviroment: No Family/Social History - Physician Review Nursing Documentation Reviewed: Yes Family/Social History: No Known Family HX Smoking Status: Heavy Smoker > 10 Cigarettes Daily Hx Alcohol Use: Yes (2-5 beers daily) Frequency of alcohol use: Daily Hx Substance Use: No Hx Substance Use Treatment: No Allergies/Home Meds Allergies/Adverse Reactions: Allergies No Known Allergies Allergy (Verified 09/18/18 19:21) Review of Systems - Physician Review All systems were reviewed & negative as marked: Yes - Review of Systems Constitutional: absent: Fatigue, Weight Change, Fevers, Other (Chills) Eyes: absent: Vision Changes, Photophobia, Eye Pain ENT: absent: Hearing Changes Respiratory: absent: SOB Cardiovascular: Chest Pain. absent: Palpitations, Edema, Calf Pain Gastrointestinal: absent: Diarrhea, Nausea, Vomiting Genitourinary Male: absent: Dysuria, Frequency, Hematuria Musculoskeletal: absent: Back Pain, Neck Pain Neurological: Other (lightheadedness, but denies any LOC ). absent: Headache Physical Exam Vital Signs Reviewed: Yes Vital Signs Temp Pulse Resp BP Pulse Ox 10/17/18 23:01 97.8 F 68 18 122/78 95 Temperature: Afebrile Blood Pressure: Normal Pulse: Regular Respiratory Rate: Normal Appearance: Positive for: Well-Appearing, Non-Toxic, Comfortable Pain Distress: None Mental Status: Positive for: Alert and Oriented X 3 - Systems Exam Head: Present: Atraumatic, Normocephalic. No: Other (No visible trauma) Pupils: Present: PERRL Extroacular Muscles: Present: EOMI Conjunctiva: Present: Normal Ears: Present: Normal, NORMAL TM Mouth: Present: Moist Mucous Membranes Pharnyx: Present: Normal. No: ERYTHEMA, EXUDATE Neck: Present: Normal Range of Motion. No: Meningeal Signs, MIDLINE TENDERNESS Respiratory/Chest: Present: Clear to Auscultation, Good Air Exchange. No: Respiratory Distress, Accessory Muscle Use Cardiovascular: Present: Regular Rate and Rhythm, Normal S1, S2. No: Murmurs Abdomen: No: Tenderness, Distention, Peritoneal Signs Back: Present: Normal Inspection Upper Extremity: Present: Normal Inspection. No: Cyanosis, Edema Lower Extremity: Present: Normal Inspection. No: Edema Neurological: Present: GCS=15, CN II-XII Intact, Speech Normal, Motor Func Grossly Intact, Normal Sensory Function Skin: Present: Warm, Dry, Normal Color. No: Rashes Psychiatric: Present: Alert, Oriented x 3, Normal Insight, Normal Concentration Medical Decision Making ED Course and Treatment: 10/17/18 23:16 Impression: 57 year old male presents complaining of chest pain that that began approximately 4-5 hours ago. Patient also reports he felt light-headed and fell hitting his head. Negative nexus. No midline tenderness. No signs of clinical intoxication. No signs of withdrawal. Will likely require repeat troponin. Was supposed to have a stress test last week w/ cards but pt walked out. 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 Did not take ASA today. Plan: -- CT Head w/o contrast -- EKG -- Labs -- Chest X-ray -- Reassess and disposition Prior Visits: Notes and results from previous visits were reviewed. Progress Notes: 10/17/182305 EKG shows NSR at 69 BPM with non-specific ST/T wave changes. No STEMI. No change from pervious EKG. Interpreted by me. PROCEDURE: CT scan of the head. Electronically signed on Oct 18, 2018 1:12:45 AM EST by: Jamison Senior M.D. IMPRESSION: 1. Age-appropriate cerebellar and cerebral atrophy. 2. Mild chronic microvascular disease. 3. No evidence of acute intracranial pathology. 10/18/18 01:00 CXR Impression: As read by me, No active disease. 10/18/18 01:28 ASA ordered. Case discussed with diagnostic medical sonographer and Dr. Sherrie Ceballos who is aware and agrees with the plan. Accepts patient into hospitalist service. pt in NAD, agreeable to plan. - Lab Interpretations I have reviewed the lab results: Yes - RAD Interpretation Radiology Orders: 10/17/18 23:12 HEAD W/O CONTRAST [CT] Stat CHEST TWO VIEWS (PA/LAT) [RAD] Stat - EKG Interpretation Interpreted by ED Physician: Yes Type: 12 lead EKG - Scribe Statement The provider has reviewed the documentation as recorded by the Rejiibsiria Duron Provider Scribe Attestation: All medical record entries made by the Scribe were at my direction and personally dictated by me. I have reviewed the chart and agree that the record accurately reflects my personal performance of the history, physical exam, medical decision making, and the department course for this patient. I have also personally directed, reviewed, and agree with the discharge instructions and disposition. Disposition/Present on Arrival - Present on Arrival Any Indicators Present on Arrival: No History of DVT/PE: No History of Uncontrolled Diabetes: No Urinary Catheter: No History of Decub. Ulcer: No History Surgical Site Infection Following: None - Disposition Have Diagnosis and Disposition been Completed?: Yes Diagnosis: Chest pain Disposition: HOSPITALIZED Disposition Time: 01:36 Condition: GOOD Discharge Instructions (ExitCare): Chest Pain (ED) Forms: [employer] ([place])
[2018-10-17 23:31] LABS: BASO # 0.08 K/mm3 (0.0-2.0); EOS # 0.1 (0.0-0.7); EOS % 1.7 % (1.5-5.0); GRAN # 1.97 (1.4-6.5); HEMOGLOBIN 11.8 g/dL (14.0-18.0); LYMPH # 1.6 (1.2-3.4); LYMPH % 38.5 % (22.0-35.0); MEAN CELL VOLUME 88.3 fl (80.0-105.0); MEAN CORPUSCULAR HEMOGLOBIN 28.7 pg (25.0-35.0); MEAN CORPUSCULAR HGB CONC 32.5 g/dl (31.0-37.0); MEAN PLATELET VOLUME 9.8 fl (7.0-11.0); MONO # 0.4 (0.1-0.6); MONO % 9.8 % (1.0-6.0); RBC 4.11 10^6/uL (3.5-6.1); WHITE BLOOD COUNT 4.1 10^3/uL (4.5-11.0)
[2018-10-17 23:55] LABS: ALB/GLOB RATIO 1.2 (1.1-1.8); ALBUMIN 4.3 g/dL (3.0-4.8); ALT/SGPT 84 U/L (7-56); AST/SGOT 109 U/L (17-59); BLOOD UREA NITROGEN 6 mg/dL (7-21); CALCIUM 8.7 mg/dL (8.4-10.5); GFR NON-AFRICAN AMERICAN > 60; TROPONIN I < 0.01 ng/mL
[2018-10-18] MEDS ORDERED: Multivitamin (MVI) 10 ML, Thiamine 100 MG, Folic Acid 1 MG in Sodium Chloride 0.9% 1,00... IV ONE (02:25)
--- NOTE | 2018-10-18 03:08 | CP.PCM.HP ---
History of Present Illness - History of Present Illness History of Present Illness: Yunier Hamliton D.O. PGY-1 Internal Medicine Resident, HPI for Dr Tucker Vaughan: Chest pain 57y/o male with PMH of HTN, CAD s/p PTCA with stents, EtOH abuse, seizures, who presents to ED for left sided chest pain /, intermittent, radiates to left shoulder with numbness and tingling, relieved by rest, worsens with activity. Pain occurs at rest or with activity and it's associated with palpitations, dizziness, nausea, vomiting. He reported recent lightheadedness that resulted in fall and head trauma but no LOC, headache injury. He also has chronic cough with sputum due to his long history of smoking. Patient denied orthopnea, PND, leg swelling, LOC. Patient states that he had a stress test last week that he did not finish because he did not want to. 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 He admits to drinking 3 beers per day . Patient denies diarrhea, fever/chills, tremors, seizure-like activity, dysuria, or hematuria. 12 points ROS negative except as per HPI Echo in 05/2018 showed EF of 50-55% , RVSP 27 mmHg In ED: Blood alcohol level 365. EKG, NSR@ 69 bpm, non-specific ST/T wave changes. Trop negative x1. CT head and CXR negative PMH: HTN, CAD s/p PTCA with stent palced, EtOH abuse, seizures PSH: Tonsillectomy, jaw repair Meds: states that he ran out of his meds and not taking them at regular basis All: NKDA SH: Smokes 1/2 ppd x >20yrs, drinks 5 large beers per day, denies illicit drug use. Lives with PMD: Dr Alvarez Pharmacy: [facility] Present on Admission - Present on Admission Any Indicators Present on Admission: No Past Patient History - Infectious Disease Hx of Infectious Diseases: None - Tetanus Immunizations Tetanus Immunization: Unknown - Past Social History Smoking Status: Heavy Smoker > 10 Cigarettes Daily - CARDIAC Hx Heart Attack: Yes - PULMONARY Hx Respiratory Disorders: Yes Hx Asthma: Yes - NEUROLOGICAL HX Cerebrovascular Accident: Yes - HEENT Hx HEENT Problems: No - RENAL Hx Chronic Kidney Disease: No - ENDOCRINE/METABOLIC Hx Endocrine Disorders: No - HEMATOLOGICAL/ONCOLOGICAL Hx Blood Disorders: Yes Hx Anemia: Yes Hx Hepatitis B: Yes (carrier) - INTEGUMENTARY Hx Dermatological Problems: No - MUSCULOSKELETAL/RHEUMATOLOGICAL Hx Musculoskeletal Disorders: Yes Hx Falls: Yes - GASTROINTESTINAL Hx Gastrointestinal Disorders: Yes Other/Comment: GI Bleed - GENITOURINARY/GYNECOLOGICAL Hx Genitourinary Disorders: No - PSYCHIATRIC Hx Psychophysiologic Disorder: No Hx Substance Use: No - SURGICAL HISTORY Hx Cardiac Catheterization: Yes Hx Coronary Stent: Yes Hx Orthopedic Surgery: Yes (ORIF OF JAW) Hx Tonsillectomy: Yes - ANESTHESIA Hx Anesthesia: Yes Hx Anesthesia Reactions: No Hx Malignant Hyperthermia: No Meds Allergies/Adverse Reactions: Allergies Allergy/AdvReac Type Severity Reaction Status Date / Time No Known Allergies Allergy Verified 09/18/18 19:21 Physical Exam - Constitutional Appears: Well, No Acute Distress, Older Than Stated Age, Confused - Head Exam Head Exam: ATRAUMATIC, NORMAL INSPECTION, NORMOCEPHALIC - Eye Exam Eye Exam: EOMI, Normal appearance, PERRL Pupil Exam: NORMAL ACCOMODATION, PERRL - ENT Exam ENT Exam: Mucous Membranes Dry - Neck Exam Neck exam: Positive for: Normal Inspection - Respiratory Exam Respiratory Exam: Clear to Auscultation Bilateral, NORMAL BREATHING PATTERN - Cardiovascular Exam Cardiovascular Exam: REGULAR RHYTHM, +S1, +S2. absent: Gallop, JVD, Rubs - GI/Abdominal Exam GI & Abdominal Exam: Normal Bowel Sounds, Soft. absent: Tenderness - Extremities Exam Extremities exam: Positive for: normal capillary refill, normal inspection, pedal pulses present - Back Exam Back exam: NORMAL INSPECTION - Neurological Exam Neurological exam: Alert, CN II-XII Intact, Oriented x3, Reflexes Normal - Psychiatric Exam Psychiatric exam: Anxious - Skin Skin Exam: Dry, Intact, Normal Color, Warm Results - Vital Signs Recent Vital Signs: Last Vital Signs Temp 97.8 F 10/17/18 23:01 Pulse 72 10/18/18 01:42 Resp 18 10/18/18 01:42 BP 130/72 10/18/18 01:42 Pulse Ox 100 10/18/18 01:42 - Labs Result Diagrams: 10/17/18 23:12 10/17/18 23:22 Labs: Laboratory Results - last 24 hr 10/17/18 10/17/1810/18/18 23:12 23:22 01:30 WBC 4.1 L D RBC 4.11 Hgb 11.8 L Hct 36.3 L MCV 88.3 MCH 28.7 MCHC 32.5 RDW 19.0 H Plt Count 224 MPV 9.8 Gran % 48.0 L Lymph % (Auto) 38.5 H [place] % (Auto) 9.8 H Eos % (Auto) 1.7 Baso % (Auto) 2.0 Gran # 1.97 Lymph # (Auto) 1.6 [place] # (Auto) 0.4 Eos # (Auto) 0.1 Baso # (Auto) 0.08 Sodium 143 Potassium 4.0 Chloride 106 Carbon Dioxide 30 Anion Gap 12 BUN 6 L Creatinine 0.7 L Est GFR ( Amer) > 60 Est GFR (Non-Af Amer) > 60 Random Glucose 88 Calcium 8.7 Total Bilirubin 0.4 AST 109 H D ALT 84 H Alkaline Phosphatase 94 Troponin I < 0.01 Total Protein 7.8 Albumin 4.3 Globulin 3.6 Albumin/Globulin Ratio 1.2 Alcohol, Quantitative 365 H* Assessment & Plan - Assessment and Plan (Free Text) Assessment: 57y/o male with PMH HTN, CAD s/p PTCA with stent palced, EtOH abuse, seizures, portal HTN, who presents to ED for left sided chest pain. Admitted for chest pain; r/o ACS and alcohol intoxication with alcohol level 365 Plan: Chest pain r/o ACS - EKG showed NSR @ 69 bpm - CXR: no acute changes - Troponin <0.01 x 1 , will trend - Echo in 05/2018: EF of 50-55% , RVSP 27 mmHg - CT head: no ICH - recent incomplete tress test - s/p PTCA with stents placed - Continue ASA, Plavix, Lipitor, Metoprolol - TSH, Lipid panel, HgbA1c ( reviewed, within normal on 05/28/18 admission) - Cardio consulted. Dr Pisano Alcohol intoxication - [facility] 365 - [facility] protocol - Ativan 2q4 prn - Zofran 4mg nausea - AST/ALT 109/84 - Banana bag 1L - fall/seizure precautions - [employer] alcohol cessation Anemia - Likely anemia of chronic disease - H/H 11.8/36.3 at baseline. monitor daily Hx of Seizures - Fall precautions - Continue Keppra 750 BID h/o drug abuse - active heavy smoker - Nicotine patch ordered - [employer] on alcohol cessation - f/u UDS Prophylaxis: GI ppx: Protonix DVT ppx: SCD Aspiration precaution Physical therapy eval HHD Case reviewed and discussed with Dr Tucker Hamilton DO
[2018-10-18 04:22] LABS: BARBITURATES, UR NEGATIVE (NEGATIVE); BENZODIAZEPINES, UR NEGATIVE (NEGATIVE); OPIATES, UR NEGATIVE (NEGATIVE); PHENCYCLIDINE, UR NEGATIVE (NEGATIVE)
[2018-10-18 08:05] LABS: BASO # 0.1 K/mm3 (0.0-2.0); BASO % 3.6 % (0.0-3.0); EOS # 0.1 (0.0-0.7); EOS % 3.6 % (1.5-5.0); GRAN # 1.38 (1.4-6.5); GRAN % 50.3 % (50.0-68.0); HEMOGLOBIN 11.6 g/dL (14.0-18.0); LYMPH # 0.8 (1.2-3.4); LYMPH % 27.6 % (22.0-35.0); MEAN CORPUSCULAR HEMOGLOBIN 28.3 pg (25.0-35.0); MEAN CORPUSCULAR HGB CONC 31.8 g/dl (31.0-37.0); MEAN PLATELET VOLUME 10.4 fl (7.0-11.0); MONO # 0.4 (0.1-0.6); MONO % 14.9 % (1.0-6.0); RBC 4.1 10^6/uL (3.5-6.1); WHITE BLOOD COUNT 2.8 10^3/uL (4.5-11.0)
[2018-10-18 08:17] LABS: ALB/GLOB RATIO 1.2 (1.1-1.8); ALBUMIN 4.1 g/dL (3.0-4.8); ALT/SGPT 74 U/L (7-56); AST/SGOT 99 U/L (17-59); BLOOD UREA NITROGEN 5 mg/dL (7-21); CALCIUM 8.9 mg/dL (8.4-10.5); GFR NON-AFRICAN AMERICAN > 60
[2018-10-18 08:19] LABS: TROPONIN I < 0.01 ng/mL
--- NOTE | 2018-10-18 09:53 | CP.PCM.CON ---
History of Present Illness - History of Present Illness History of Present Illness: Awake, alert, denies chest pain, denies shortness of breath Reason for consultation: Cardiac evaluation of chest pain Brief history of present illness: A 57 year old male who came in to the ER due to chest left sided chest pain, intermittent radiates to left shoulder and left arm with numbness and tingling. Denies chest pain now. History of hypertension,coronary artery disease with cardiac stents, alcohol abuse, seizures,current smoker half PPD for more than 20 years,drinks 5 beers per day. Patient non-compliant with medications and follow up with doctors appointments. Seen and examined by me and Dr. August Review of Systems - Review of Systems All systems: reviewed and no additional remarkable complaints except Review of Systems: as per HPI Past Patient History - Infectious Disease Hx of Infectious Diseases: None - Tetanus Immunizations Tetanus Immunization: Unknown - Past Social History Smoking Status: Heavy Smoker > 10 Cigarettes Daily - CARDIAC Hx Cardiac Disorders: Yes Hx Hypercholesterolemia: Yes Hx Hypertension: Yes - PULMONARY Hx Respiratory Disorders: No - NEUROLOGICAL Hx Neurological Disorder: Yes Hx Seizures: Yes Hx Transient Ischemic Attacks (TIA): Yes - HEENT Hx HEENT Problems: No - RENAL Hx Chronic Kidney Disease: No - ENDOCRINE/METABOLIC Hx Endocrine Disorders: No - HEMATOLOGICAL/ONCOLOGICAL Hx Blood Disorders: No - INTEGUMENTARY Hx Dermatological Problems: No - MUSCULOSKELETAL/RHEUMATOLOGICAL Hx Musculoskeletal Disorders: No Hx Falls: Yes - GASTROINTESTINAL Hx Gastrointestinal Disorders: No - GENITOURINARY/GYNECOLOGICAL Hx Genitourinary Disorders: No - PSYCHIATRIC Hx Psychophysiologic Disorder: No Hx Substance Use: No - SURGICAL HISTORY Hx Coronary Stent: Yes - ANESTHESIA Hx Anesthesia: Yes Hx Anesthesia Reactions: No Hx Malignant Hyperthermia: No Meds Allergies/Adverse Reactions: Allergies Allergy/AdvReac Type Severity Reaction Status Date / Time No Known Allergies Allergy Verified 09/18/18 19:21 - Medications Medications: Current Medications Aspirin (Ecotrin) 81 mg PO DAILY [facility] Atorvastatin Calcium (Lipitor) 40 mg PO DAILY [facility] Clopidogrel Bisulfate (Plavix) 75 mg PO DAILY [facility] Folic Acid (Folic Acid) 1 mg PO DAILY [facility] Multivitamins/Vitamin C 10 ml/Thiamine HCl 100 mg/ Folic Acid 1 mg/ Sodium Chloride 1,011.2 mls @ 100 mls/hr IV .Q10H7M ONE Stop: 10/18/18 12:31 Last Admin: 10/18/18 03:05 Dose: 100 mls/hr Levetiracetam (Keppra) 750 mg PO DAILY [facility] Lorazepam (Ativan) 2 mg IVP Q6H PRN; Protocol PRN Reason: Symptoms of alcohol withdrawl Metoprolol Tartrate (Lopressor) 25 mg PO BID [facility] Multivitamins/Minerals (Therapeutic-M Tab) 1 tab PO 0800 [facility] Nicotine (Nicoderm Cq) 1 patch TD DAILY [facility] Thiamine HCl (Vitamin B1 Tab) 100 mg PO DAILY [facility] Physical Exam - Constitutional Appears: Non-toxic, No Acute Distress - Head Exam Head Exam: NORMAL INSPECTION, NORMOCEPHALIC - Eye Exam Eye Exam: Normal appearance Pupil Exam: NORMAL ACCOMODATION - ENT Exam ENT Exam: Mucous Membranes Moist, Normal Exam - Respiratory Exam Respiratory Exam: Decreased Breath Sounds, Clear to Auscultation Bilateral, NORMAL BREATHING PATTERN - Cardiovascular Exam Cardiovascular Exam: REGULAR RHYTHM, +S1, +S2 Additional comments: Telemetry NSR 70's - GI/Abdominal Exam GI & Abdominal Exam: Normal Bowel Sounds, Soft - Extremities Exam Extremities exam: Positive for: full ROM, normal capillary refill - Neurological Exam Neurological exam: Alert, Oriented x3 - Psychiatric Exam Psychiatric exam: Normal Affect, Normal Mood - Skin Skin Exam: Dry, Normal Color, Warm Results - Vital Signs Recent Vital Signs: Last Vital Signs Temp 98 F 10/18/18 06:00 Pulse 70 10/18/18 06:00 Resp 20 10/18/18 06:00 BP 128/76 10/18/18 06:00 Pulse Ox 97 10/18/18 06:00 - Labs Result Diagrams: 10/18/18 07:00 10/18/18 07:00 Labs: Laboratory Results - last 24 hr 10/17/18 10/17/18 10/18/18 23:12 23:22 01:30 WBC 4.1 L D RBC 4.11 Hgb 11.8 L Hct 36.3 L MCV 88.3 MCH 28.7 MCHC 32.5 RDW 19.0 H Plt Count 224 MPV 9.8 Gran % 48.0 L Lymph % (Auto) 38.5 H [place] % (Auto) 9.8 H Eos % (Auto) 1.7 Baso % (Auto) 2.0 Gran # 1.97 Lymph # (Auto) 1.6 [place] # (Auto) 0.4 Eos # (Auto) 0.1 Baso # (Auto) 0.08 Sodium 143 Potassium 4.0 Chloride 106 Carbon Dioxide 30 Anion Gap 12 BUN 6 L Creatinine 0.7 L Est GFR ( Amer) > 60 Est GFR (Non-Af Amer) > 60 Random Glucose 88 Calcium 8.7 Phosphorus Magnesium Total Bilirubin 0.4 AST 109 H D ALT 84 H Alkaline Phosphatase 94 Troponin I < 0.01 Total Protein 7.8 Albumin 4.3 Globulin 3.6 Albumin/Globulin Ratio 1.2 Urine Opiates Screen Urine Methadone Screen Ur Barbiturates Screen Ur Phencyclidine Scrn Ur Amphetamines Screen U Benzodiazepines Scrn U Oth Cocaine Metabols U Cannabinoids Screen Alcohol, Quantitative 365 H* 10/18/18 10/18/18 10/18/18 03:25 07:00 07:00 WBC 2.8 L D RBC 4.10 Hgb 11.6 L Hct 36.5 L MCV 89.0 MCH 28.3 MCHC 31.8 RDW 19.0 H Plt Count 226 MPV 10.4 Gran % 50.3 Lymph % (Auto) 27.6 [place] % (Auto) 14.9 H Eos % (Auto) 3.6 Baso % (Auto) 3.6 H Gran # 1.38 L Lymph # (Auto) 0.8 L [place] # (Auto) 0.4 Eos # (Auto) 0.1 Baso # (Auto) 0.10 Sodium 143 Potassium 4.3 Chloride 109 H Carbon Dioxide 27 Anion Gap 12 BUN 5 L Creatinine 0.7 L Est GFR ( Amer) > 60 Est GFR (Non-Af Amer) > 60 Random Glucose 82 Calcium 8.9 Phosphorus 3.3 Magnesium 1.8 Total Bilirubin 0.5 AST 99 H ALT 74 H Alkaline Phosphatase 83 Troponin I < 0.01 Total Protein 7.6 Albumin 4.1 Globulin 3.5 Albumin/Globulin Ratio 1.2 Urine Opiates Screen Negative Urine Methadone Screen Negative Ur Barbiturates Screen Negative Ur Phencyclidine Scrn Negative Ur Amphetamines Screen Negative U Benzodiazepines Scrn Negative U Oth Cocaine Metabols Negative U Cannabinoids Screen Negative Alcohol, Quantitative Assessment & Plan - Assessment and Plan (Free Text) Assessment: A 57 year old male who came in to the ER due to chest left sided chest pain, in termittent radiates to left shoulder and left arm with numbness and tingling. Denies chest pain now. History of hypertension,coronary artery disease with cardiac stents, alcohol abuse,CVA,asthma,anemia, GI bleeding, hepatitis B,hitory of fall, ORIF of jaw, seizures,current smoker half PPD for more than 20 years,drinks 5 beers per day. Patient non-compliant with medications and follow up with doctors appointments. He was admitted last May 2018 with similar symptoms. Troponin were normal but elevated/abnormal alcohol blood level. He was treated medically and discharged home. He was scheduled for out patient stress test then but did not comply. History of coronary artery disease post PTCA with stents in [facility] December 2017. Recent Echo 05/29/2018 showed LV normal size, LVEF 50-55%,mild MR/TR, RVSP 27 mmHg, no pericardial effusion.Due to non compliance with medications possible reocclusion of stents. Atypical chest pain. Troponin normal x 2. EKG normal sinus rhythm with no ischemia. Elevated alcohol level of 365. Due to non compliance,will order stress test tomorrow. Plan: Denies chest pain now, denies shortness of breath No distress Stress test tomorrow NPO post midnight On ASA 81 mg daily, Lipitor 40 mg daily, plavix 75 mg daily, Keppra 750 mg daily, Lopressor 25 mg BID, Nicotine patch daily Watch for alcohol withdrawal symptoms Continue current medications Continue current treatment Lifestyle modification Smoking cessation Will follow up Further recommendations after stress test Plan and treatment discussed with Dr. August Thank you Dr. Trejo for the opportunity of taking care of Mr. Tl Contreras - Date & Time Date: 10/18/18 Time: 06:30
--- NOTE | 2018-10-18 10:35 | CT ---
Date of service: 10/18/2018 PROCEDURE: CT HEAD WITHOUT CONTRAST. HISTORY: fall COMPARISON: CT head dated 07/12/2017. TECHNIQUE: Axial computed tomography images were obtained through the head/brain without intravenous contrast. Radiation dose: Total exam DLP = 790.11 mGy-cm. This CT exam was performed using one or more of the following dose reduction techniques: Automated exposure control, adjustment of the mA and/or kV according to patient size, and/or use of iterative reconstruction technique. FINDINGS: HEMORRHAGE: No intracranial hemorrhage. BRAIN: No mass effect or edema. Atrophy. Chronic microvascular ischemic changes. Inferior right frontal lobe encephalomalacia redemonstrated. Bilateral basilar ganglia lacunar infarctions redemonstrated. VENTRICLES: Unremarkable. No hydrocephalus. CALVARIUM: Unremarkable. PARANASAL SINUSES: Unremarkable as visualized. No significant inflammatory changes. MASTOID AIR CELLS: Unremarkable as visualized. No inflammatory changes. OTHER FINDINGS: None. IMPRESSION: No acute intracranial pathology. 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 Age-related changes. No significant interval change.
--- NOTE | 2018-10-18 10:44 | RAD ---
Date of service: 10/18/2018 HISTORY: cp COMPARISON: Chest radiograph dated 09/26/2018. TECHNIQUE: Chest PA and lateral FINDINGS: LUNGS: No active pulmonary disease. PLEURA: No significant pleural effusion identified. No pneumothorax apparent. CARDIOVASCULAR: Sclerotic aortic calcifications. Cardiomediastinal silhouette within normal limits. OSSEOUS STRUCTURES: Unchanged. VISUALIZED UPPER ABDOMEN: Normal. OTHER FINDINGS: None. IMPRESSION: No active disease.
--- NOTE | 2018-10-18 13:30 | PN ---
DATE: 10/18/2018SUBJECTIVE: This is a 57-year-old male with active tobacco abuse, active alcohol abuse, multiple times admitted in alcoholic intoxication this time also came in with complain of sharp chest pain, though history of coronary artery disease, status post stent in the past. The patient is scheduled for stress test as outpatient, but the patient came again with sharp chest pain and alcoholic intoxication. The blood alcohol level is 365, so far troponin remains negative x2 since the patient has very noncompliance and history of alcoholic intoxication. If he remain stable and sober, we can schedule stress test tomorrow. The patient had echocardiography done on the last admission 05/29/2018 and that revealed ejection fraction of 55% mild mitral regurgitation and mile tricuspid regurgitation, though so far no evidence of acute [place]. We will schedule for stress test tomorrow. Complete cessation of smoking and complete abstinence of alcohol was made to the patient and we will follow with you. Last admission, the patient had TSH 1.59 and LDL was 70 and HDL was 73. So far no evidence of acute [place]. Thank you Dr. Trejo, for providing us the opportunity in taking care of the, Tl Contreras. Chiqui August MD
--- NOTE | 2018-10-18 19:47 | CARD ---
APPROVED REPORT Date of service: 10/17/2018 EKG Measurement Heart [id number] <Conclusion> Normal sinus rhythm Early repolarization Normal ECG
[2018-10-18 23:51] VITALS: RESP 20
[2018-10-19 06:06] VITALS: TEMP 97.9; O2SAT 95
[2018-10-19] MEDS ORDERED: Aminophylline 25 mg/ml Inj ONE (07:50)
--- NOTE | 2018-10-19 07:56 | CP.PCM.PN ---
Objective - Vital Signs/Intake and Output Vital Signs (last 24 hours): Temp Pulse Resp BP Pulse Ox 97.9 F 72 20 144/88 95 10/19/18 05:40 10/19/18 06:29 10/19/18 05:40 10/19/18 06:29 10/19/18 05:40 Intake and Output: 10/19/18 10/19/18 06:59 18:59 Intake Total 1560 Output Total 1154 Balance 406 - Medications Medications: Current Medications Aspirin (Ecotrin) 81 mg PO DAILY [facility] Last Admin: 10/18/18 10:48 Dose: 81 mg Atorvastatin Calcium (Lipitor) 40 mg PO DAILY [facility] Last Admin: 10/18/18 10:48 Dose: 40 mg Clopidogrel Bisulfate (Plavix) 75 mg PO DAILY [facility] Last Admin: 10/18/18 10:51 Dose: 75 mg Folic Acid (Folic Acid) 1 mg PO DAILY [facility] Last Admin: 10/18/18 10:52 Dose: 1 mg Levetiracetam (Keppra) 750 mg PO DAILY [facility] Last Admin: 10/18/18 10:49 Dose: 750 mg Lorazepam (Ativan) 2 mg IVP Q6H PRN; Protocol PRN Reason: Symptoms of alcohol withdrawl Last Admin: 10/19/18 05:32 Dose: 2 mg Metoprolol Tartrate (Lopressor) 25 mg PO BID [facility] Last Admin: 10/18/18 18:19 Dose: 25 mg Multivitamins/Minerals (Therapeutic-M Tab) 1 tab PO 0800 [facility] Nicotine (Nicoderm Cq) 1 patch TD DAILY [facility] Last Admin: 10/18/18 10:48 Dose: 1 patch Thiamine HCl (Vitamin B1 Tab) 100 mg PO DAILY [facility] Last Admin: 10/18/18 10:49 Dose: 100 mg - Labs Labs: 10/18/18 07:00 10/18/18 07:00
[2018-10-19 08:00] LABS: BASO # 0.05 K/mm3 (0.0-2.0); EOS # 0.1 (0.0-0.7); GRAN # 3.54 (1.4-6.5); GRAN % 70.1 % (50.0-68.0); HEMOGLOBIN 12.5 g/dL (14.0-18.0); LYMPH # 0.8 (1.2-3.4); LYMPH % 15.4 % (22.0-35.0); MEAN CELL VOLUME 88.3 fl (80.0-105.0); MEAN CORPUSCULAR HEMOGLOBIN 28.2 pg (25.0-35.0); MEAN PLATELET VOLUME 11.4 fl (7.0-11.0); MONO # 0.6 (0.1-0.6); MONO % 12.5 % (1.0-6.0); RBC 4.43 10^6/uL (3.5-6.1); RED CELL DISTRIBUTION WIDTH 18.7 % (11.5-14.5); WHITE BLOOD COUNT 5.1 10^3/uL (4.5-11.0)
[2018-10-19] MEDS ORDERED: Multivitamin With Minerals Tab PO SCH (08:00)
[2018-10-19 08:31] LABS: ALB/GLOB RATIO 1.1 (1.1-1.8); ALBUMIN 4.2 g/dL (3.0-4.8); ALT/SGPT 57 U/L (7-56); AST/SGOT 70 U/L (17-59); BLOOD UREA NITROGEN 8 mg/dL (7-21); CALCIUM 9.3 mg/dL (8.4-10.5); GFR NON-AFRICAN AMERICAN > 60
--- NOTE | 2018-10-19 08:58 | CP.PCM.PN ---
Subjective - Date & Time of Evaluation Date of Evaluation: 10/19/18 Time of Evaluation: 06:30 - Subjective Subjective: Lying in bed, Awake, alert, denies chest pain, denies shortness of breath Reason for consultation: Cardiac evaluation of chest pain. History of hypertension,coronary artery disease with cardiac stents, alcohol abuse, seizures,current smoker half PPD for more than 20 years,drinks 5 beers per day. Seen and examined by me and Dr. August Objective - Vital Signs/Intake and Output Vital Signs (last 24 hours): Temp Pulse Resp BP Pulse Ox 97.9 F 72 20 144/88 95 10/19/18 05:40 10/19/18 06:29 10/19/18 05:40 10/19/18 06:29 10/19/18 05:40 Intake and Output: 10/19/18 10/19/18 06:59 18:59 Intake Total 1560 Output Total 1154 Balance 406 - Medications Medications: Current Medications Aspirin (Ecotrin) 81 mg PO DAILY [facility] Last Admin: 10/18/18 10:48 Dose: 81 mg Atorvastatin Calcium (Lipitor) 40 mg PO DAILY [facility] Last Admin: 10/18/18 10:48 Dose: 40 mg Clopidogrel Bisulfate (Plavix) 75 mg PO DAILY [facility] Last Admin: 10/18/18 10:51 Dose: 75 mg Folic Acid (Folic Acid) 1 mg PO DAILY [facility] Last Admin: 10/18/18 10:52 Dose: 1 mg Levetiracetam (Keppra) 750 mg PO DAILY [facility] Last Admin: 10/18/18 10:49 Dose: 750 mg Lorazepam (Ativan) 2 mg IVP Q6H PRN; Protocol PRN Reason: Symptoms of alcohol withdrawl Last Admin: 10/19/18 05:32 Dose: 2 mg Metoprolol Tartrate (Lopressor) 25 mg PO BID [facility] Last Admin: 10/18/18 18:19 Dose: 25 mg Multivitamins/Minerals (Therapeutic-M Tab) 1 tab PO 0800 [facility] Nicotine (Nicoderm Cq) 1 patch TD DAILY [facility] Last Admin: 10/18/18 10:48 Dose: 1 patch Thiamine HCl (Vitamin B1 Tab) 100 mg PO DAILY [facility] Last Admin: 10/18/18 10:49 Dose: 100 mg - Labs Labs: 10/19/18 07:15 12/31/18 07:15 - Constitutional Appears: Non-toxic, No Acute Distress - Head Exam Head Exam: NORMAL INSPECTION, NORMOCEPHALIC - Eye Exam Eye Exam: Normal appearance Pupil Exam: NORMAL ACCOMODATION - ENT Exam ENT Exam: Mucous Membranes Moist, Normal Exam - Respiratory Exam Respiratory Exam: Decreased Breath Sounds, Clear to Ausculation Bilateral, NORMAL BREATHING PATTERN - Cardiovascular Exam Cardiovascular Exam: REGULAR RHYTHM, +S1, +S2 - GI/Abdominal Exam GI & Abdominal Exam: Soft, Normal Bowel Sounds - Extremities Exam Extremities Exam: Full ROM, Normal Capillary Refill - Neurological Exam Neurological Exam: Alert, Awake, Oriented x3 - Psychiatric Exam Psychiatric exam: Normal Affect, Normal Mood - Skin Skin Exam: Dry, Normal Color, Warm Assessment and Plan - Assessment and Plan (Free Text) Assessment: A 57 year old male who came in to the ER due to chest left sided chest pain, intermittent radiates to left shoulder and left arm with numbness and tingling. Denies chest pain now. History of hypertension,coronary artery disease with cardiac stents, alcohol abuse,CVA,asthma,anemia, GI bleeding, hepatitis B,hitory of fall, ORIF of jaw, seizures,current smoker half PPD for more than 20 years,drinks 5 beers per day. Patient non-compliant with medications and follow up with doctors appointments. He was admitted last May 2018 with similar symptoms. Troponin were normal. elevated/abnormal alcohol blood level. He was treated medically and discharged home. He was scheduled for out patient stress test then but did not comply. History of coronary artery disease post PTCA with st[place] [facility] [place]. Recent Echo 05/29/2018 showed LV normal size, LVEF 50-55%,mild MR/TR, RVSP 27 mmHg, no pericardial effusion.Due to non compliance with medications possible reocclusion of stents. Atypical chest pain. Troponin normal x 2. EKG normal sinus rhythm with no ischemia. Elevated alcohol level of 365. For stress test today. Plan: Stress test today NPO post midnight No distress Blood pressure and heart rate controlled On ASA 81 mg daily, Lipitor 40 mg daily, plavix 75 mg daily, Keppra 750 mg daily, Lopressor 25 mg BID, Nicotine patch daily Watch for alcohol withdrawal symptoms Continue current medications Continue current treatment Lifestyle modification Smoking cessation Will follow up Further recommendations after stress test Plan and treatment discussed with Dr. August
--- NOTE | 2018-10-19 14:24 | CP.PCM.DIS ---
<JavierAlta sim - Last Filed: 10/20/18 19:18> Provider - Provider Date of Admission: 10/18/18 01:34 Attending physician: Marian Trejo MD Consults: 10/18/18 02:26 Cardiology Consult Routine Comment: Consulting Provider: Chiqui Pisano Consulting Physician: Chiqui Pisano Reason for Consult: chest pain Time Spent in preparation of Discharge (in minutes): 45 Hospital Course - Lab Results Lab Results: Most Recent Lab Values WBC 5.1 10^3/uL (4.5-11.0) D 10/19/18 07:15 RBC 4.43 10^6/uL (3.5-6.1) 10/19/18 07:15 Hgb 12.5 g/dL (14.0-18.0) L 10/19/18 07:15 Hct 39.1 % (42.0-52.0) L 10/19/18 07:15 MCV 88.3 fl (80.0-105.0) 10/19/18 07:15 MCH 28.2 pg (25.0-35.0) 10/19/18 07:15 MCHC 32.0 g/dl (31.0-37.0) 10/19/18 07:15 RDW 18.7 % (11.5-14.5) H 10/19/18 07:15 Plt Count 224 10^3/uL (120.0-450.0) 10/19/18 07:15 MPV 11.4 fl (7.0-11.0) H 10/19/18 07:15 Gran % 70.1 % (50.0-68.0) H 10/19/18 07:15 Lymph % (Auto) 15.4 % (22.0-35.0) L 10/19/18 07:15 [place] % (Auto) 12.5 % (1.0-6.0) H 10/19/18 07:15 Eos % (Auto) 1.0 % (1.5-5.0) L 10/19/18 07:15 Baso % (Auto) 1.0 % (0.0-3.0) 10/19/18 07:15 Gran # 3.54 (1.4-6.5) 10/19/18 07:15 Lymph # (Auto) 0.8 (1.2-3.4) L 10/19/18 07:15 [place] # (Auto) 0.6 (0.1-0.6) 10/19/18 07:15 Eos # (Auto) 0.1 (0.0-0.7) 10/19/18 07:15 Baso # (Auto) 0.05 K/mm3 (0.0-2.0) 10/19/18 07:15 Sodium 138 mmol/L (132-148) 10/19/18 07:15 Potassium 3.7 mmol/L (3.6-5.0) 10/19/18 07:15 Chloride 104 mmol/L (98-107) 10/19/18 07:15 Carbon Dioxide 29 mmol/L (21-33) 10/19/18 07:15 Anion Gap 9 (10-20) L 10/19/18 07:15 BUN 8 mg/dL (7-21) 10/19/18 07:15 Creatinine 0.8 mg/dl (0.8-1.5) 10/19/18 07:15 Est GFR ( Amer) > 60 10/19/18 07:15 Est GFR (Non-Af Amer) > 60 10/19/18 07:15 Random Glucose 92 mg/dL (70-110) 10/19/18 07:15 Calcium 9.3 mg/dL (8.4-10.5) 10/19/18 07:15 Phosphorus 3.1 mg/dL (2.5-4.5) 10/19/18 07:15 Magnesium 1.7 mg/dL (1.7-2.2) 10/19/18 07:15 Total Bilirubin 1.4 mg/dL (0.2-1.3) H 10/19/18 07:15 AST 70 U/L (17-59) H D 10/19/18 07:15 ALT 57 U/L (7-56) H 10/19/18 07:15 Alkaline Phosphatase 91 U/L (38-126) 10/19/18 07:15 Troponin I < 0.01 ng/mL 10/18/18 11:00 Total Protein 7.9 g/dL (5.8-8.3) 10/19/18 07:15 Albumin 4.2 g/dL (3.0-4.8) 10/19/18 07:15 Globulin 3.7 gm/dL 10/19/18 07:15 Albumin/Globulin Ratio 1.1 (1.1-1.8) 10/19/18 07:15 Urine Opiates Screen Negative (NEGATIVE) 10/18/18 03:25 Urine Methadone Screen Negative (NEGATIVE) 10/18/18 03:25 Ur Barbiturates Screen Negative (NEGATIVE) 10/18/18 03:25 Ur Phencyclidine Scrn Negative (NEGATIVE) 10/18/18 03:25 Ur Amphetamines Screen Negative (NEGATIVE) 10/18/18 03:25 U Benzodiazepines Scrn Negative (NEGATIVE) 10/18/18 03:25 U Oth Cocaine Metabols Negative (NEGATIVE) 10/18/18 03:25 U Cannabinoids Screen Negative (NEGATIVE) 10/18/18 03:25 Alcohol, Quantitative 365 mg/dL (0-10) H* 10/18/18 01:30 - Hospital Course Hospital Course: Upon admission: 57y/o male with PMH of HTN, CAD s/p PTCA with stents, EtOH abuse, seizures, who presents to ED for left sided chest pain 8/10, intermittent, radiates to left shoulder with numbness and tingling, relieved by rest, worsens with activity. Pain occurs at rest or with activity and it's associated with palpitations, dizziness, nausea, vomiting. He reported recent lightheadedness that resulted in fall and head trauma but no LOC, headache injury. He also has chronic cough with sputum due to his long history of smoking. Patient denied orthopnea, PND, leg swelling, LOC. Patient states that he had a stress test last week that he did not finish because he did not want to. Patient is not compliant with medications, active smoker, does not follow up with PMD or integration architect and does not follow dietary regimen for his cardiac disease. He admits to drinking 3 beers per day . Patient denies diarrhea, fever/chills, tremors, seizure-like activity, dysuria, or hematuria. Cardiology was consulted to participate in the patient's care. 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 CXR revealed no active disease. EKG revealed no abnormalities and no st changes. Stress test was interpreted by Dr. August as normal and no follow up needed with cardiology. Troponins were negative x3 and the patient did not experience any further chest pain during his stay or his stress test. Upon discharge the patient was afebrile normotensive nontachycardic and with no further complaints. - Date & Time of H&P Date of H&P: 10/18/18 Time of H&P: 02:40 Discharge Exam - Head Exam Head Exam: NORMAL INSPECTION, NORMOCEPHALIC - Eye Exam Eye Exam: EOMI - ENT Exam ENT Exam: Mucous Membranes Moist - Respiratory Exam Respiratory Exam: NORMAL BREATHING PATTERN - Cardiovascular Exam Cardiovascular Exam: REGULAR RHYTHM - GI/Abdominal Exam GI & Abdominal Exam: Soft. absent: Distended, Guarding, Tenderness - Extremities Exam Extremities exam: normal capillary refill, pedal pulses present - Neurological Exam Neurological exam: Alert, Normal Gait, Oriented x3 - Psychiatric Exam Psychiatric exam: Normal Affect, Normal Mood - Skin Skin Exam: Dry, Intact, Normal Color, Warm Discharge Plan - Discharge Medications Prescriptions: RX: Aspirin [Ecotrin] 81 mg PO DAILY #14 tabec RX: Atorvastatin [Lipitor] 40 mg PO DAILY #14 tab RX: Clopidogrel [Plavix] 75 mg PO DAILY #14 tab RX: Folic Acid 1 mg PO DAILY #14 tab RX: Levetiracetam [Keppra] 750 mg PO DAILY #14 tablet RX: Metoprolol Tartrate [Lopressor] 25 mg PO BID #28 tab RX: Multimineral/Multivitamin [Therapeutic-M Tab] 1 tab PO 0800 #14 tab RX: Nicotine 14 mg/24 hr [Nicoderm CQ] 1 patch TD DAILY #14 patch RX: Thiamine [Vitamin B1 Tab] 100 mg PO DAILY #14 tab - Follow Up Plan Condition: GOOD Disposition: HOME/ ROUTINE Instructions: Effects of Alcohol on Your Health, Chest Pain (DC) Additional Instructions: Please follow up with your primary care physician (Dr. Gonzales) within 3-5 days of hospital discharge. Please abstain from alcohol use. Please follow up with your integration architect, Dr. August, within 1 week of discharge. We have given you refills for 2 weeks of all your home medications, please get any refills needed from your primary care doctor: 1. Aspirin 81mg DAILY 2. Lipitor 40mg DAILY 3. Plavix 75mg DAILY 4. Keppra 750 mg DAILY 5. Multivitamin 1 tab DAILY 6. Folic Acid 1mg DAILY 7. Thiamine 100mg DAILY 8. Metoprolol 25mg ONE PILL AM AND ONE PILL IN PM 9. Nicotine patch 1 PATCH DAILY If your symptoms return, please go to the nearest emergency department. Referrals: Chiqui August MD [Staff Provider] - Marcos Gonzales MD [Family Provider] - <Aydee Dobbs R - Last Filed: 10/21/18 07:01> Provider - Provider Date of Admission: 10/18/18 01:34 Attending physician: Marian Trejo MD Consults: 10/18/18 02:26 Cardiology Consult Routine Comment: Consulting Provider: Chiqui Pisano Consulting Physician: Chiqui Pisano Reason for Consult: chest pain Hospital Course - Lab Results Lab Results: Most Recent Lab Values WBC 5.1 10^3/uL (4.5-11.0) D 10/19/18 07:15 RBC 4.43 10^6/uL (3.5-6.1) 10/19/18 07:15 Hgb 12.5 g/dL (14.0-18.0) L 10/19/18 07:15 Hct 39.1 % (42.0-52.0) L 10/19/18 07:15 MCV 88.3 fl (80.0-105.0) 10/19/18 07:15 MCH 28.2 pg (25.0-35.0) 10/19/18 07:15 MCHC 32.0 g/dl (31.0-37.0) 10/19/18 07:15 RDW 18.7 % (11.5-14.5) H 10/19/18 07:15 Plt Count 224 10^3/uL (120.0-450.0) 10/19/18 07:15 MPV 11.4 fl (7.0-11.0) H 10/19/18 07:15 Gran % 70.1 % (50.0-68.0) H 10/19/18 07:15 Lymph % (Auto) 15.4 % (22.0-35.0) L 10/19/18 07:15 [place] % (Auto) 12.5 % (1.0-6.0) H 10/19/18 07:15 Eos % (Auto) 1.0 % (1.5-5.0) L 10/19/18 07:15 Baso % (Auto) 1.0 % (0.0-3.0) 10/19/18 07:15 Gran # 3.54 (1.4-6.5) 10/19/18 07:15 Lymph # (Auto) 0.8 (1.2-3.4) L 10/19/18 07:15 [place] # (Auto) 0.6 (0.1-0.6) 10/19/18 07:15 Eos # (Auto) 0.1 (0.0-0.7) 10/19/18 07:15 Baso # (Auto) 0.05 K/mm3 (0.0-2.0) 10/19/18 07:15 Sodium 138 mmol/L (132-148) 10/19/18 07:15 Potassium 3.7 mmol/L (3.6-5.0) 10/19/18 07:15 Chloride 104 mmol/L (98-107) 10/19/18 07:15 Carbon Dioxide 29 mmol/L (21-33) 10/19/18 07:15 Anion Gap 9 (10-20) L 10/19/18 07:15 BUN 8 mg/dL (7-21) 10/19/18 07:15 Creatinine 0.8 mg/dl (0.8-1.5) 10/19/18 07:15 Est GFR ( Amer) > 60 10/19/18 07:15 Est GFR (Non-Af Amer) > 60 10/19/18 07:15 Random Glucose 92 mg/dL (70-110) 10/19/18 07:15 Calcium 9.3 mg/dL (8.4-10.5) 10/19/18 07:15 Phosphorus 3.1 mg/dL (2.5-4.5) 10/19/18 07:15 Magnesium 1.7 mg/dL (1.7-2.2) 10/19/18 07:15 Total Bilirubin 1.4 mg/dL (0.2-1.3) H 10/19/18 07:15 AST 70 U/L (17-59) H D 10/19/18 07:15 ALT 57 U/L (7-56) H 10/19/18 07:15 Alkaline Phosphatase 91 U/L (38-126) 10/19/18 07:15 Troponin I < 0.01 ng/mL 10/18/18 11:00 Total Protein 7.9 g/dL (5.8-8.3) 10/19/18 07:15 Albumin 4.2 g/dL (3.0-4.8) 10/19/18 07:15 Globulin 3.7 gm/dL 10/19/18 07:15 Albumin/Globulin Ratio 1.1 (1.1-1.8) 10/19/18 07:15 Urine Opiates Screen Negative (NEGATIVE) 10/18/18 03:25 Urine Methadone Screen Negative (NEGATIVE) 10/18/18 03:25 Ur Barbiturates Screen Negative (NEGATIVE) 10/18/18 03:25 Ur Phencyclidine Scrn Negative (NEGATIVE) 10/18/18 03:25 Ur Amphetamines Screen Negative (NEGATIVE) 10/18/18 03:25 U Benzodiazepines Scrn Negative (NEGATIVE) 10/18/18 03:25 U Oth Cocaine Metabols Negative (NEGATIVE) 10/18/18 03:25 U Cannabinoids Screen Negative (NEGATIVE) 10/18/18 03:25 Alcohol, Quantitative 365 mg/dL (0-10) H* 10/18/18 01:30 Attending/Attestation - Attestation I have personally seen and examined this patient.: Yes I have fully participated in the care of the patient.: Yes I have reviewed all pertinent clinical information, including history, physical exam and plan: Yes Notes (Text): Please note this DC summary is for 10/19/18 Patient seen and examined by me with resident 10AM and prior to discharge on 10/19/18. Case including discharge plan discussed with resident. Agree with above with following additions/corrections. Patient is a 57-year-old male with past medical history significant for hypertension, coronary artery disease status post stent placement, alcohol abuse, and seizures that presented to the emergency room with chest pain. Please see H&P for full details. Patient was admitted with chest pain, alcohol intoxication, anemia, history of seizures, and tobacco use. Cardiology was consulted. Chest xray per radiologist showed no active disease. Head CT per radiologist showed no acute intracranial pathology, old inferior frontal lobe infarct, age related changes, no significant interval change. Patient was continued on ASA and Lipitor for old CVA. Troponins were < 0.01 x 3. Alcohol level was 365 on admission. LFTs were elevated secondary to ETOH abuse and did downtrend. UDS was negative. Patient was placed on CIWA protocol. Patient was placed on a banana bag. Patient was placed on ativan as needed. Patient was counseled at length on alcohol cessation. Patient was also anemic which is chronic. H&H remained stable. Patient was continued on Keppra for history of Keppra. Patient was also counseled on length on tobacco cessation. Patient was seen by cardiology and had a stress test which per radiologist showed probably abnormal SPECT myocardial perfusion study; fixed small apical defect, could be due to previous myocardial injury and/or prominent pectorial soft tissue attenuation; borderline normal LV function with paradoxical septal wall motion. This was reviewed with cardio logist Dr. August who stated to continue current management. Patient does have history of CAD with stent placement. Patient was continued on aspirin, Plavix, Lipitor, and Lopressor. Patient was feeling much better. Patient was asking to go home. Chest pain resolved. Patient was no longer having alcohol withdrawal symptoms. Patient was cleared for discharge by integration architect Dr. August. Patient was discharged home. On day of discharge, patient stated he was feeling much better. Patient denied any chest pain. No shortness of breath or palpitations. Patient ambulating well and tolerating diet. No nausea, vomiting, or abdominal pain. No headache or dizziness. No change in vision or light headedness. No fevers or chills. No palpitations. No dysuria. No diarrhea or constipation. Physical exam: General: Awake and alert, sitting up in bed in no acute distress. HEENT: Normocephalic, atraumatic, Extraocular muscles intact, pupils equal and reactive, no scleral icterus. Oropharynx is pink and moist. No pharyngeal erythema or exudate appreciated. Neck is supple. Cardiovascular: Regular rhythm. Normal S1 and S2. No murmus, rubs, or gallops appreciated. Pulmonary: Normal respiratory effort. No rhonchi, rales, or wheezing appreciated. Gastrointestinal: Soft, nondistended. Nontender. Positive bowel sounds all 4 quadrants. No guarding. Musculoskeletal: Moves all extremities. No calf tenderness. No edema appreciated. No CVA tenderness. Central nervous system: AAO x3, CN2-12 grossly intact. Dermatologic: Skin warm and dry. Please see chart for full details. Follow up instructions: Patient to follow-up with primary care doctor within 3-5 days. Patient to follow up with integration architect within one week of discharge. Patient to take medications as prescribed. Patient to stop alcohol use. All instructions explained to the patient in detail. Patient both understands and agrees to all instructions. Written instructions also given. Time spent in discharging the patient including chart review, medication reconciliation, discussion with the patient, paramedical aide, consultants, and nursing staff was approximately 40 minutes.
[2018-10-19 15:45] VITALS: BP 145/94; PULSE 92
--- NOTE | 2018-10-19 15:59 | CARD ---
APPROVED REPORT Date of service: 10/19/2018 Protocol: LEXISCAN Test Type: Lexiscan Sestamibi Stress Test Attending Physician: Dr. Chiqui August Referring Physician: Dr. Marian Trejo Test Indications: Chest Pain Height:5 ft 10 in Weight:169lbs Medications: aspirin, lipitor, plavix, folic acid keppra, ativan, lopressor, MVI nicoderm cq, vitamin B1 Medical History: 57 year old male with h/o [place], CAD with stent, htn, high cholesterol, CVA and COPD Target HR: 161 bpm Resting ECG: normal Resting Heart Rate: 76 bpm Resting Blood Pressure: 128/68mmHg Submaximum (85%): 137 bpm PROCEDURE Pharmacologic stress testing was performed using 0.4mg per 5ml of regadenoson given intravenously over 7-10 seconds. Reversal agent aminophyline 100 mg, given intravenously for Headache. POST EXERCISE Reason for Termination: Protocol completed Target HR: No Max HR: 91 bpm 68% of Maximum Predicted HR: 161 bpm Exercise duration: 02:17 min:sec, 0 Stage Exercise capacity: 1.0METs Max Blood Pressure: 128/68mmHg Blood Pressure response to exercise: normal resting BP - appropriate response Heart Rate response to exercise: appropriate Chest Pain: No, none Angina index: 0 Arrhythmia: No, none ST Change: No, none Deviation: 0 mm TEST SUMMARY [id number]. INFUSIONDOSE [id number]/.0. INFUSIONDOSE 201:[id number]/.0. INFUSIONDOSE 300:[id number]. INTERPRETATION Stress EKG Conclusion: Negative IV Lexiscan for ischemia and for chest pain, Nuclear scan to follow. Signed by Chiqui August Electronically Approved: 10/19/2018 12:02:09 EXAM: Myocardial Perfusion REST/STRESS Stress Test Type: Pharmacologic Imaging Protocol The imaging protocol used to acquire images was Rest Tc-99m/stress Tc-99m 1 day Rest Spect myocardial perfusion imaging was performed in supine position 40 minutes following the injection of 10.4 mCi of Tc-99 Myoview. At peak stress, the patient was injected intravenously with 30.5mCi of Tc-99 tetrofosmin after an infusion time of minutes and seconds. Gated Stress Spect was performed 60 minutes after intravenous Tc-99 Myoview injection. The images were gated to evaluate regional wall motion and calculate ventricular ejection fraction.Images were reconstructed using backfilter projection method in short horizontal and verticle long axis. Spect slices were generated. LV Perfusion The quality of the study is good. The left ventricle is mildly enlarged in size. The right ventricle is unremarkable. The lung uptake is normal. The distribution of tracer reveals a small area of moderately decreased perfusion in the apical wall on the stress study. The remainder of the LV myocardium is unremarkable. The rest myocardial perfusion study shows paradoxical septa lwall motion of the left ventricle. Wall Motion Wall motion study shows good contractility of the left ventricle. LVEF = 46%. Conclusion 1. Probably abnormal SPECT myocardial perfusion study. 2. Fixed, small, apical defect could be due to previous myocardial injury and /or prominent pectoral soft tissue attenuation. 3. Borbder line normal LV fucntion with paradoxical septal wall motion.
--- NOTE | 2018-10-19 17:20 | PN ---
DATE: 10/19/2018 REASON FOR CONSULTATION: Follow up cardiac evaluation, chest pain, alcoholic intoxication, admitted with alcohol level of 367. SUBJECTIVE: The patient denies any chest pain, shortness of breath, or any palpitation. Not in apparent distress. This note is in addition to dictated by nurse practitioner. The patient is scheduled for a stress test, they will do the stress test stress test. History of PTCA with stent in 12/2017 at the [facility] – [place], [place]. Recent echo dated 05/29/2018 showed normal size ejection fraction of 55%, mild MR, mild TR, pressure 27, advised for alcohol withdrawal. Continue aspirin and Plavix. The patient is virtually noncompliant and history of multiple admissions for alcoholic intoxication. So far, no evidence of acute NH. Troponin remains flat. We will discontinue telemetry. Thank you, Dr. Dobson for providing us the opportunity in taking care of the patient, Tl Contreras. Chiqui August MD
== END 2018-10-19 16:30 | disposition home or self-care (01) ==
LOC: ED 22:46 → ERH 10-18 01:34 → 2RNO 10-18 03:58
PROVIDERS: ADMIT Internal Medicine; ATTEND Internal Medicine
DX: R07.89 Other chest pain (principal); F10.129 Alcohol abuse with intoxication, unspecified; I10 Essential (primary) hypertension; D64.9 Anemia, unspecified; Y90.8 Blood alcohol level of 240 mg/100 ml or more; I08.1 Rheumatic disorders of both mitral and tricuspid valves; I25.10 Atherosclerotic heart disease of native coronary artery without angina pectoris; E78.00 Pure hypercholesterolemia, unspecified; F17.210 Nicotine dependence, cigarettes, uncomplicated; R56.9 Unspecified convulsions; K76.6 Portal hypertension; J45.909 Unspecified asthma, uncomplicated; I25.2 Old myocardial infarction; Z95.5 Presence of coronary angioplasty implant and graft; Z91.14 Patient's other noncompliance with medication regimen; Z91.19 Patient's noncompliance with other medical treatment and regimen; Z79.82 Long term (current) use of aspirin; Z79.02 Long term (current) use of antithrombotics/antiplatelets; Z86.73 Personal history of transient ischemic attack (TIA), and cerebral infarction without residual deficits
CPT/HCPCS: 36415; 70450; 71046; 78452; 80053; 80320; 80324; 80345; 80346; 80349; 80353; 80358; 80361; 83735; 83992; 84100; 84484; 85025; 93005; 93017; 99285; A9502; G0378; J0280; J2060; J2785; J3411; J7030

== ENCOUNTER 2018-10-25 15:55 | Emergency (ER) | payer MEDICAID ==
[2018-10-25 15:55] VITALS: BMI 23.6
[2018-10-25 16:33] VITALS: O2SAT 97
--- NOTE | 2018-10-25 16:37 | ED PDOC ---
Arrival/HPI - General Time Seen by Provider: 10/25/18 16:05 Historian: Patient - History of Present Illness Narrative History of Present Illness (Text): 10/25/18 16:33 57 year old male, whose past medical history includes CAD s/p stents x2, htn, EtOH abuse, and seizures, who presents to the ED complaining of intermittent left sided chest pain. Patient states pain is sharp. Patient denies any back pain, neck pain, fever, chills, n/v/d, abdominal pain, headache, dizziness, or any other complaints. Multiple visits for this same pain. Has had this pain daily for at least 3 days. Time/Duration: Prior to Arrival Symptom Onset: Gradual Symptom Course: Intermittent Activities at Onset: Light Context: Home Past Medical History - Provider Review Nursing Documentation Reviewed: Yes - Past History Past History: No Previous - Infectious Disease Hx of Infectious Diseases: None - Tetanus Immunization Tetanus Immunization: Unknown - Cardiac Hx RI: Yes Hx Hypertension: Yes - Pulmonary Hx Chronic Obstructive Pulmonary Disease (COPD): Yes - Neurological Hx Neurological Disorder: Yes Hx Seizures: Yes Hx Transient Ischemic Attacks (TIA): Yes - HEENT Hx HEENT Disorder: No - Renal Hx Renal Disorder: No - Endocrine/Metabolic Hx Endocrine Disorders: No - Hematological/Oncological Hx Blood Disorders: No - Integumentary Hx Dermatological Disorder: No - Musculoskeletal/Rheumatological Hx Musculoskeletal Disorders: No Hx Falls: Yes - Gastrointestinal Hx Gastrointestinal Disorders: No - Genitourinary/Gynecological Hx Genitourinary Disorders: No - Psychiatric Hx Psychophysiologic Disorder: No Hx Substance Use: No - Past Surgical History Past Surgical History: No Previous - Surgical History Hx Cardiac Catheterization: Yes - Anesthesia Hx Anesthesia: Yes Hx Anesthesia Reactions: No Hx Malignant Hyperthermia: No - Suicidal Assessment Feels Threatened In Home Enviroment: No Family/Social History - Physician Review Nursing Documentation Reviewed: Yes Family/Social History: Unknown Family HX Smoking Status: Heavy Smoker > 10 Cigarettes Daily Hx Alcohol Use: Yes Hx Substance Use: No Hx Substance Use Treatment: No Allergies/Home Meds Allergies/Adverse Reactions: Allergies No Known Allergies Allergy (Verified 09/18/18 19:21) Review of Systems - Physician Review All systems were reviewed & negative as marked: Yes - Review of Systems Constitutional: Normal Eyes: Normal ENT: Normal Respiratory: Normal. absent: Cough Cardiovascular: Chest Pain Gastrointestinal: Normal. absent: Abdominal Pain, Diarrhea, Nausea, Vomiting Genitourinary Male: Normal. absent: Dysuria, Frequency Musculoskeletal: Normal. absent: Back Pain, Neck Pain Skin: Normal. absent: Rash Neurological: Normal. absent: Headache, Dizziness Endocrine: Normal Hemo/Lymphatic: Normal Psychiatric: Normal Physical Exam - Physical Exam Narrative Physical Exam (Text): 10/25/18 16:38 Constitutional: No acute distress. Head: Normocephalic. Atraumatic. Eyes: PERRL. ENT: Moist mucous membranes. Neck: Supple. Cardiovascular: Regular rate. Chest: Reproducible chest tenderness in focal spot. Respiratory: Clear to auscultation bilaterally. GI: Soft. Nontender. Nondistended. Back: No CVA tenderness. Musculoskeletal: No tenderness or swelling of extremities. Skin: No rash. Neurologic: Alert, no focal deficit. Vital Signs Temp Pulse Resp BP Pulse Ox 10/25/18 16:02 98.2 F 72 18 152/65 H 99 Medical Decision Making ED Course and Treatment: 10/25/18 16:40 Impression: 57 year old male presents to the ED complaining of intermittent left sided cp. Plan: -- EKG -- Labs -- Troponin -- CXR -- reassess and disposition Progress Notes: 10/25/18 17:09 CXR reviewed, shows: Impression: No focal consolidation. Enzymes negative in pain greater than 1 day. Negative stress test within past week. Will discharge home, f/u PMD, return to ED for any worsening pain, fever, vomiting, dyspnea, or any other problem. - Scribe Statement The provider has reviewed the documentation as recorded by the Scribsiria Cota All medical record entries made by the Scribsiria were at my direction and personally dictated by me. I have reviewed the chart and agree that the record accurately reflects my personal performance of the history, physical exam, medical decision making, and the department course for this patient. I have also personally directed, reviewed, and agree with the discharge instructions and disposition. Disposition/Present on Arrival - Present on Arrival Any Indicators Present on Arrival: No History of DVT/PE: No History of Uncontrolled Diabetes: No Urinary Catheter: No History Surgical Site Infection Following: None - Disposition Have Diagnosis and Disposition been Completed?: Yes Diagnosis: Chest pain Disposition: HOME/ ROUTINE Disposition Time: 17:50 Patient Plan: Discharge Patient Problems: Current Active Problems Problem Status Onset Chest pain Acute Condition: STABLE Discharge Instructions (ExitCare): Chest Pain (ED)
[2018-10-25 16:45] LABS: BASO # 0.04 K/mm3 (0.0-2.0); BASO % 1.3 % (0.0-3.0); EOS # 0.1 (0.0-0.7); GRAN # 1.4 (1.4-6.5); GRAN % 45.6 % (50.0-68.0); HEMOGLOBIN 11.3 g/dL (14.0-18.0); LYMPH # 1.2 (1.2-3.4); LYMPH % 39.7 % (22.0-35.0); MEAN CELL VOLUME 88.8 fl (80.0-105.0); MEAN CORPUSCULAR HEMOGLOBIN 28.1 pg (25.0-35.0); MEAN CORPUSCULAR HGB CONC 31.7 g/dl (31.0-37.0); MEAN PLATELET VOLUME 11.4 fl (7.0-11.0); MONO # 0.4 (0.1-0.6); MONO % 11.4 % (1.0-6.0); RBC 4.02 10^6/uL (3.5-6.1); RED CELL DISTRIBUTION WIDTH 18.9 % (11.5-14.5); WHITE BLOOD COUNT 3.1 10^3/uL (4.5-11.0)
--- NOTE | 2018-10-25 17:06 | RAD ---
HISTORY: cp COMPARISON: Chest x-ray performed 10/18/18 TECHNIQUE: Chest, one view. FINDINGS: LUNGS: No focal consolidation. Please note that chest x-ray has limited sensitivity for the detection of pulmonary masses. PLEURA: No significant pleural effusion identified. No definite pneumothorax . CARDIOVASCULAR: Heart size appears within normal limits. Atherosclerotic calcifications present. OSSEOUS STRUCTURES: No acute osseous abnormality identified. VISUALIZED UPPER ABDOMEN: Unremarkable. OTHER FINDINGS: None. IMPRESSION: No focal consolidation.
[2018-10-25 17:20] LABS: ALB/GLOB RATIO 1.2 (1.1-1.8); ALBUMIN 4.4 g/dL (3.0-4.8); ALT/SGPT 72 U/L (7-56); AST/SGOT 101 U/L (17-59); BLOOD UREA NITROGEN 5 mg/dL (7-21); GFR NON-AFRICAN AMERICAN > 60
[2018-10-25 17:30] LABS: TROPONIN I < 0.01 ng/mL
[2018-10-25 18:04] VITALS: BP 111/71
[2018-10-25 18:12] VITALS: PULSE 78; RESP 20; TEMP 97.6
[2018-10-25] MEDS ORDERED: Naloxone 0.4 mg/ml Inj (Adult) ONE (20:52)
--- NOTE | 2018-10-26 10:38 | CARD ---
APPROVED REPORT Date of service: 10/25/2018 EKG Measurement Heart [id number] <Conclusion> Normal sinus rhythm Early repolarization Normal ECG
== END 2018-10-25 18:16 | disposition home or self-care (01) ==
LOC: ED 15:55
DX: R07.9 Chest pain, unspecified (principal); I25.10 Atherosclerotic heart disease of native coronary artery without angina pectoris; I25.2 Old myocardial infarction; I10 Essential (primary) hypertension; Z86.73 Personal history of transient ischemic attack (TIA), and cerebral infarction without residual deficits; Z95.5 Presence of coronary angioplasty implant and graft; F17.210 Nicotine dependence, cigarettes, uncomplicated

== ENCOUNTER 2018-10-30 17:10 | Emergency (ER) | payer MEDICAID ==
[2018-10-30 17:18] VITALS: BP 120/75; PULSE 68; RESP 18; TEMP 97.8; O2SAT 96; BMI 23.3
[2018-10-30 17:57] LABS: BASO # 0.04 K/mm3 (0.0-2.0); BASO % 1.3 % (0.0-3.0); EOS # 0.1 (0.0-0.7); EOS % 1.9 % (1.5-5.0); GRAN # 1.65 (1.4-6.5); GRAN % 52.2 % (50.0-68.0); HEMOGLOBIN 11.7 g/dL (14.0-18.0); LYMPH # 1.1 (1.2-3.4); LYMPH % 34.8 % (22.0-35.0); MEAN CORPUSCULAR HEMOGLOBIN 28.5 pg (25.0-35.0); MEAN CORPUSCULAR HGB CONC 32.1 g/dl (31.0-37.0); MEAN PLATELET VOLUME 10.6 fl (7.0-11.0); MONO # 0.3 (0.1-0.6); MONO % 9.8 % (1.0-6.0); RBC 4.1 10^6/uL (3.5-6.1); WHITE BLOOD COUNT 3.2 10^3/uL (4.5-11.0)
--- NOTE | 2018-10-30 17:57 | RAD ---
Date of service: 10/30/2018 HISTORY: Chest pain. COMPARISON: 10/25/2018. FINDINGS: LUNGS: No active pulmonary disease. PLEURA: No significant pleural effusion identified, no pneumothorax apparent. CARDIOVASCULAR: No atherosclerotic calcification present Normal. OSSEOUS STRUCTURES: No significant abnormalities. VISUALIZED UPPER ABDOMEN: Normal. OTHER FINDINGS: None. IMPRESSION: No active disease. No significant interval change compared to the prior examination(s).
[2018-10-30 18:00] LABS: ALB/GLOB RATIO 1.2 (1.1-1.8); ALBUMIN 4.6 g/dL (3.0-4.8); ALT/SGPT 53 U/L (7-56); AST/SGOT 87 U/L (17-59); BLOOD UREA NITROGEN 5 mg/dL (7-21); GFR NON-AFRICAN AMERICAN > 60
[2018-10-30 18:15] LABS: TROPONIN I < 0.01 ng/mL
--- NOTE | 2018-10-30 18:42 | ED PDOC ---
Arrival/HPI - General Chief Complaint: Chest Pain Time Seen by Provider: 10/30/18 17:27 Historian: Patient - History of Present Illness Narrative History of Present Illness (Text): 10/30/18 17:15 A 57 year old male, whose past medical history includes CAD s/p stents x2, htn, EtOH abuse, and seizures, presents to the emergency department complaining of chest pain from earlier today. Patient was a rapid response in the hospital lobby. Patient admits poor compliance of medication and follow up with primary care doctor and purchasing specialist. Patient denies any fever, cough, or any other complaints. No PMD Time/Duration: 1-3 hours Symptom Onset: Sudden Symptom Course: Unchanged Activities at Onset: Light Context: Other ([facility]) Past Medical History - Provider Review Nursing Documentation Reviewed: Yes - Past History Past History: No Previous - Infectious Disease Hx of Infectious Diseases: None - Tetanus Immunization Tetanus Immunization: Unknown - Cardiac Hx SD: Yes Hx Hypertension: Yes - Pulmonary Hx Chronic Obstructive Pulmonary Disease (COPD): Yes - Neurological Hx Neurological Disorder: Yes Hx Seizures: Yes Hx Transient Ischemic Attacks (TIA): Yes - HEENT Hx HEENT Disorder: No - Renal Hx Renal Disorder: No - Endocrine/Metabolic Hx Endocrine Disorders: No - Hematological/Oncological Hx Blood Disorders: No - Integumentary Hx Dermatological Disorder: No - Musculoskeletal/Rheumatological Hx Musculoskeletal Disorders: No Hx Falls: Yes - Gastrointestinal Hx Gastrointestinal Disorders: No - Genitourinary/Gynecological Hx Genitourinary Disorders: No - Psychiatric Hx Psychophysiologic Disorder: No Hx Substance Use: No - Past Surgical History Past Surgical History: No Previous - Surgical History Hx Cardiac Catheterization: Yes - Anesthesia Hx Anesthesia: Yes Hx Anesthesia Reactions: No Hx Malignant Hyperthermia: No - Suicidal Assessment Feels Threatened In Home Enviroment: No Family/Social History - Physician Review Nursing Documentation Reviewed: Yes Family/Social History: No Known Family HX Smoking Status: Heavy Smoker > 10 Cigarettes Daily Hx Alcohol Use: Yes Hx Substance Use: No Hx Substance Use Treatment: No Allergies/Home Meds Allergies/Adverse Reactions: Allergies No Known Allergies Allergy (Verified 09/18/18 19:21) Home Medications: Home Meds Medication Instructions Recorded Confirmed Doxycycline Hyclate [Doryx] 100 mg PO BID 10/30/18 10/30/18 Levetiracetam [Keppra] 750 mg PO BID 10/30/18 10/30/18 Review of Systems - Physician Review All systems were reviewed & negative as marked: Yes - Review of Systems Constitutional: absent: Fevers Respiratory: absent: Cough Physical Exam Vital Signs Reviewed: Yes Vital Signs Temp Pulse Resp BP Pulse Ox 10/30/18 17:17 97.8 F 68 18 120/75 96 Temperature: Afebrile Blood Pressure: Normal Pulse: Regular Respiratory Rate: Normal Mental Status: Positive for: Alert and Oriented X 3 - Systems Exam Head: Present: Atraumatic, Normocephalic Pupils: Present: PERRL Extroacular Muscles: Present: EOMI Conjunctiva: Present: Normal Respiratory/Chest: Present: Clear to Auscultation, Good Air Exchange. No: Respiratory Distress, Accessory Muscle Use Cardiovascular: Present: Regular Rate and Rhythm, Normal S1, S2. No: Murmurs Abdomen: No: Tenderness, Distention, Peritoneal Signs Back: Present: Normal Inspection Upper Extremity: Present: Normal Inspection. No: Cyanosis, Edema Lower Extremity: Present: Normal Inspection. No: Edema Neurological: Present: GCS=15, CN II-XII Intact, Speech Normal Skin: Present: Warm, Dry, Normal Color. No: Rashes Psychiatric: Present: Alert, Oriented x 3, Normal Insight, Normal Concentration Medical Decision Making ED Course and Treatment: 10/30/18 17:20 Impression: A 57 year old male presents to the emergency department complaining of chest pain. Plan: -- EKG -- Reassess and disposition Prior Visits: Notes and results from previous visits were reviewed. Progress Notes: 10/30/18 17:30 EKG: Ordered, reviewed, and independently interpreted the EKG. Rate : 68 BPM Rhythm : NSR Interpretation : Normal axis and intervals. 10/30/18 18:01 Patient eloped. - Lab Interpretations Lab Results: Troponin I < 0.01 ng/mL 10/30/18 17:43 Total Bilirubin 0.6 mg/dL (0.2-1.3) 10/30/18 17:43 AST 87 U/L (17-59) H 10/30/18 17:43 ALT 53 U/L (7-56) 10/30/18 17:43 Alkaline Phosphatase 82 U/L (38-126) 10/30/18 17:43 Total Protein 8.3 g/dL (5.8-8.3) 10/30/18 17:43 Albumin 4.6 g/dL (3.0-4.8) 10/30/18 17:43 Globulin 3.7 gm/dL 10/30/18 17:43 Albumin/Globulin Ratio 1.2 (1.1-1.8) 10/30/18 17:43 - RAD Interpretation Radiology Orders: 10/30/18 17:20 CHEST PORTABLE [RAD] Stat - Scribe Statement The provider has reviewed the documentation as recorded by the Willow Guerra All medical record entries made by the Rejiibsiria were at my direction and personally dictated by me. I have reviewed the chart and agree that the record accurately reflects my personal performance of the history, physical exam, medical decision making, and the department course for this patient. I have also personally directed, reviewed, and agree with the discharge instructions and disposition. Disposition/Present on Arrival - Present on Arrival Any Indicators Present on Arrival: No History of DVT/PE: No History of Uncontrolled Diabetes: No Urinary Catheter: No History of Decub. Ulcer: No History Surgical Site Infection Following: None - Disposition Have Diagnosis and Disposition been Completed?: Yes Diagnosis: Alcohol abuse, Non-cardiac chest pain Disposition: ELOPEMENT - ER ONLY Disposition Time: 18:00 Condition: UNKNOWN Discharge Instructions (ExitCare): Chest Pain (ED) Forms: [employer] (Lithuanian)
--- NOTE | 2018-10-30 19:47 | CARD ---
APPROVED REPORT Date of service: 10/30/2018 EKG Measurement Heart [id number] 160P83 [id number] <Conclusion> Normal sinus rhythm Early repolarization Normal ECG
== END 2018-10-30 18:06 | disposition left against medical advice (07) ==
LOC: ED 17:10
DX: F10.10 Alcohol abuse, uncomplicated (principal); R07.89 Other chest pain; F17.210 Nicotine dependence, cigarettes, uncomplicated; I10 Essential (primary) hypertension; I25.10 Atherosclerotic heart disease of native coronary artery without angina pectoris

== ENCOUNTER 2018-12-30 12:39 | Emergency (ER) | payer MEDICAID | END 2018-12-30 15:00 | disposition home or self-care (01) | LOC: ED 15:00 ==

== ENCOUNTER 2019-01-04 17:42 | Emergency (ER) | payer MEDICAID ==
[2019-01-04 18:09] VITALS: BMI 23.6
[2019-01-04 18:10] VITALS: O2SAT 98
--- NOTE | 2019-01-04 18:20 | ED PDOC ---
Arrival/HPI - General Time Seen by Provider: 01/04/19 17:50 Historian: Patient - History of Present Illness Narrative History of Present Illness (Text): 01/04/19 18:15 58 year old male, with past medical history of hypertension, seizure, CAD s/p stentsx3 and SC, presents to the ED for evaluation of left sided chest pain since 7 am this morning (11 hours). Patient describes the pain as chest pressure associated with left upper extremity tingling and nausea. Of note, patient had a normal stress test on 10/11/18. Additionally, patient was recently seen in the ED on 12/30/18 for similar presentation and was discharged home after negative workup. Patient denies any other associated somatic complaints. Patient denies any fevers, chills, headache, dizziness, shortness of breath, dyspnea on exertion, cough, abdominal pain, vision changes, focal weakness, urinary or bowel symptoms, vomiting, diarrhea, back pain, neck pain, or any other complaints. Time/Duration: 24 hours Symptom Onset: Gradual Symptom Course: Unchanged Quality: Pressure Activities at Onset: Light Context: Home Past Medical History - Provider Review Nursing Documentation Reviewed: Yes - Past History Past History: No Previous - Infectious Disease Hx of Infectious Diseases: None - Tetanus Immunization Tetanus Immunization: Unknown - Cardiac Hx SC: Yes Hx Hypertension: Yes - Pulmonary Hx Chronic Obstructive Pulmonary Disease (COPD): Yes - Neurological Hx Neurological Disorder: Yes Hx Seizures: Yes Hx Transient Ischemic Attacks (TIA): Yes - HEENT Hx HEENT Disorder: No - Renal Hx Renal Disorder: No - Endocrine/Metabolic Hx Endocrine Disorders: No - Hematological/Oncological Hx Blood Disorders: No - Integumentary Hx Dermatological Disorder: No - Musculoskeletal/Rheumatological Hx Musculoskeletal Disorders: No Hx Falls: Yes - Gastrointestinal Hx Gastrointestinal Disorders: No - Genitourinary/Gynecological Hx Genitourinary Disorders: No - Psychiatric Hx Psychophysiologic Disorder: No Hx Substance Use: No - Past Surgical History Past Surgical History: No Previous - Surgical History Hx Cardiac Catheterization: Yes - Anesthesia Hx Anesthesia: Yes Hx Anesthesia Reactions: No Hx Malignant Hyperthermia: No - Suicidal Assessment Feels Threatened In Home Enviroment: No Family/Social History - Physician Review Nursing Documentation Reviewed: Yes Family/Social History: Unknown Family HX Smoking Status: Heavy Smoker > 10 Cigarettes Daily Hx Alcohol Use: Yes Hx Substance Use: No Hx Substance Use Treatment: No Allergies/Home Meds Allergies/Adverse Reactions: Allergies No Known Allergies Allergy (Verified 09/18/18 19:21) Home Medications: Home Meds Medication Instructions Recorded Confirmed Doxycycline Hyclate [Doryx] 100 mg PO BID 10/30/18 10/30/18 Levetiracetam [Keppra] 750 mg PO BID 10/30/18 10/30/18 Review of Systems - Review of Systems Constitutional: absent: Fevers Eyes: absent: Vision Changes Respiratory: absent: SOB, Cough Cardiovascular: Chest Pain. absent: Palpitations, [place], Syncope Gastrointestinal: Nausea. absent: Abdominal Pain, Diarrhea, Vomiting Genitourinary Male: absent: Dysuria, Urinary Output Changes Musculoskeletal: absent: Back Pain, Neck Pain Skin: absent: Rash Neurological: absent: Headache, Dizziness, Focal Weakness Endocrine: absent: Diaphoresis Psychiatric: absent: Anxiety Physical Exam Vital Signs Reviewed: Yes Vital Signs Temp Pulse Resp BP Pulse Ox 01/04/19 18:09 97.5 F L 62 18 117/70 98 Temperature: Afebrile Blood Pressure: Normal Pulse: Regular Respiratory Rate: Normal Appearance: Positive for: Well-Appearing, Non-Toxic, Comfortable Pain Distress: None Mental Status: Positive for: Alert and Oriented X 3 - Systems Exam Head: Present: Atraumatic, Normocephalic Pupils: Present: PERRL Extroacular Muscles: Present: EOMI Conjunctiva: Present: Normal Respiratory/Chest: Present: Clear to Auscultation, Good Air Exchange. No: Respiratory Distress, Accessory Muscle Use Cardiovascular: Present: Regular Rate and Rhythm, Normal S1, S2. No: Murmurs Abdomen: No: Tenderness, Distention, Peritoneal Signs Upper Extremity: Present: Normal Inspection. No: Cyanosis, Edema Lower Extremity: Present: Normal Inspection. No: Edema Neurological: Present: GCS=15, Speech Normal Skin: Present: Warm, Dry, Normal Color. No: Rashes Psychiatric: Present: Alert, Oriented x 3, Normal Insight, Normal Concentration Medical Decision Making ED Course and Treatment: 01/04/19 18:23 Impression: 58 year old male presents to the ED for evaluation of chest pain. Plan: -- EKG -- Labs -- CXR -- Aspirin -- Nitrostat -- Reassess and disposition Prior Visits: Notes and results from previous visits were reviewed. Progress Notes: 01/04/19 18:55 CXR reviewed by radiologist, shows no active disease. No significant interval change since prior examinations. 01/04/19 18:59 EKG reviewed, shows NSR @ 60 bpm with early repolarization, unchanged from previous EKG performed on 12/30/18. 01/04/19 20:07 Troponin after 11 hours normal. EKG unchanged. Instructed on importance of following up with PMD and water control supervisor. - RAD Interpretation Radiology Orders: 01/04/19 18:11 CHEST PORTABLE [RAD] Stat - EKG Interpretation Interpreted by ED Physician: Yes Type: 12 lead EKG - Medication Orders Current Medication Orders: Discontinued Medications Aspirin (Aspirin Chewable) 324 mg PO STAT STA Stop: 01/04/19 18:12 Nitroglycerin (Nitrostat Sl Tab) 0.3 mg SL STAT STA Stop: 01/04/19 18:14 - Scribe Statement The provider has reviewed the documentation as recorded by the Scribe Finesse Gallegos. All medical record entries made by the Scribe were at my direction and personally dictated by me. I have reviewed the chart and agree that the record accurately reflects my personal performance of the history, physical exam, [facility] decision making, and the department course for this patient. I have also personally directed, reviewed, and agree with the discharge instructions and disposition. Disposition/Present on Arrival - Present on Arrival Any Indicators Present on Arrival: No History of DVT/PE: No History of Uncontrolled Diabetes: No Urinary Catheter: No History Surgical Site Infection Following: None - Disposition Have Diagnosis and Disposition been Completed?: Yes Diagnosis: Atypical chest pain Disposition: HOME/ ROUTINE Disposition Time: 19:45 Patient Plan: Discharge Condition: GOOD Discharge Instructions (ExitCare): Chest Pain (ED) Additional Instructions: follow-up with pmd within 2 days. return to ed if condition worsens Referrals: Dwain Barrera MD [Primary Care Provider] - Follow up with primary
--- NOTE | 2019-01-04 18:42 | RAD ---
Date of service: 01/04/2019 HISTORY: Chest pain COMPARISON: 12/30/2018 FINDINGS: LUNGS: No active pulmonary disease. PLEURA: No significant pleural effusion identified, no pneumothorax apparent. CARDIOVASCULAR: No atherosclerotic calcification present Normal. OSSEOUS STRUCTURES: No significant abnormalities. VISUALIZED UPPER ABDOMEN: Normal. OTHER FINDINGS: None. IMPRESSION: No active disease. No significant interval change compared to the prior examination(s). Concordant results with the preliminary interpretation rendered by the emergency department physician procedure.
[2019-01-04 18:52] LABS: ALBUMIN 4.1 g/dL (3.0-4.8); ALT/SGPT 52 U/L (7-56); AST/SGOT 129 U/L (17-59); BASO # 0.03 K/mm3 (0.0-2.0); BLOOD UREA NITROGEN 6 mg/dL (7-21); CALCIUM 8.6 mg/dL (8.4-10.5); GFR NON-AFRICAN AMERICAN > 60; HEMOGLOBIN 10.7 g/dL (14.0-18.0); LYMPH # 1.5 (1.2-3.4); MEAN CORPUSCULAR HEMOGLOBIN 26.8 pg (25.0-35.0); MEAN CORPUSCULAR HGB CONC 31.5 g/dl (31.0-37.0); MEAN PLATELET VOLUME 10.4 fl (7.0-11.0); MONO # 0.4 (0.1-0.6); MONO % 11.4 % (1.0-6.0); RED CELL DISTRIBUTION WIDTH 17.9 % (11.5-14.5); WHITE BLOOD COUNT 3.1 10^3/uL (4.5-11.0)
[2019-01-04 19:03] LABS: TROPONIN I < 0.01 ng/mL
[2019-01-04 19:11] LABS: CK-MB 3.6 ng/mL (0.0-3.6)
[2019-01-04 19:55] VITALS: BP 122/68; PULSE 66; RESP 17; TEMP 97.9
--- NOTE | 2019-01-04 22:32 | CARD ---
APPROVED REPORT Date of service: 01/04/2019 EKG Measurement Heart [id number] [place] 160P75 [id number] <Conclusion> Normal sinus rhythm ST elevation, probably due to early repolarization No change since previous tracing Borderline ECG
== END 2019-01-04 19:55 | disposition home or self-care (01) ==
LOC: ED 17:42
DX: R07.89 Other chest pain (principal); I25.10 Atherosclerotic heart disease of native coronary artery without angina pectoris; I25.2 Old myocardial infarction; I10 Essential (primary) hypertension; Z86.73 Personal history of transient ischemic attack (TIA), and cerebral infarction without residual deficits; F17.210 Nicotine dependence, cigarettes, uncomplicated

== ENCOUNTER 2019-01-10 23:49 | Emergency (ER) | payer MEDICAID ==
[2019-01-10 23:49] VITALS: BMI 23.6
--- NOTE | 2019-01-10 23:59 | ED PDOC ---
Arrival/HPI - General Time Seen by Provider: 01/10/19 23:53 Historian: Patient - History of Present Illness Narrative History of Present Illness (Text): 01/10/19 23:58 58 y/o male, ph incluidng htn/[place] with stents/alcohol intoxication, nkda, c/o out of keppra x 3 days. Pt. stated that he is on keppra 750mg po bid, not taking it for 3 days, concerning for seizure so he is here for evaluation. Pt. has no seizure at home, no headache/dizziness, no chest pain or shortness of breath, no palpitation, no numbness or tingling, no other medical or psychological complaints. Past Medical History - Provider Review Nursing Documentation Reviewed: Yes - Past History Past History: No Previous - Infectious Disease Hx of Infectious Diseases: None - Tetanus Immunization Tetanus Immunization: Unknown - Cardiac Hx [place]: Yes Hx Hypertension: Yes - Pulmonary Hx Chronic Obstructive Pulmonary Disease (COPD): Yes - Neurological Hx Neurological Disorder: Yes Hx Seizures: Yes Hx Transient Ischemic Attacks (TIA): Yes - HEENT Hx HEENT Disorder: No - Renal Hx Renal Disorder: No - Endocrine/Metabolic Hx Endocrine Disorders: No - Hematological/Oncological Hx Blood Disorders: No - Integumentary Hx Dermatological Disorder: No - Musculoskeletal/Rheumatological Hx Musculoskeletal Disorders: No Hx Falls: Yes - Gastrointestinal Hx Gastrointestinal Disorders: No - Genitourinary/Gynecological Hx Genitourinary Disorders: No - Psychiatric Hx Psychophysiologic Disorder: No Hx Substance Use: No - Past Surgical History Past Surgical History: No Previous - Surgical History Hx Cardiac Catheterization: Yes (x3 stents 2015) - Anesthesia Hx Anesthesia: Yes Hx Anesthesia Reactions: No Hx Malignant Hyperthermia: No - Suicidal Assessment Feels Threatened In Home Enviroment: No Family/Social History - Physician Review Nursing Documentation Reviewed: Yes Family/Social History: Unknown Family HX Smoking Status: Heavy Smoker > 10 Cigarettes Daily Hx Alcohol Use: Yes Hx Substance Use: No Hx Substance Use Treatment: No Allergies/Home Meds Allergies/Adverse Reactions: Allergies No Known Allergies Allergy (Verified 09/18/18 19:21) Home Medications: Home Meds Medication Instructions Recorded Confirmed Doxycycline Hyclate [Doryx] 100 mg PO BID 10/30/18 01/11/19 Levetiracetam [Keppra] 750 mg PO BID 10/30/18 01/11/19 Review of Systems - Review of Systems Constitutional: absent: Fatigue, Fevers Eyes: absent: Vision Changes ENT: absent: Hearing Changes Respiratory: absent: SOB, Cough Cardiovascular: absent: Chest Pain Gastrointestinal: absent: Abdominal Pain, Nausea, Vomiting Skin: absent: Rash, Pruritis Neurological: absent: Headache, Dizziness, Focal Weakness, Gait Changes, Speech Changes, Facial Droop, Disequilibrium, Seizure Psychiatric: absent: Anxiety, Depression, Suicidal Ideation Physical Exam - Systems Exam Head: Present: Atraumatic, Normocephalic Pupils: Present: PERRL Extroacular Muscles: Present: EOMI Conjunctiva: Present: Normal Mouth: Present: Moist Mucous Membranes Neck: Present: Normal Range of Motion Respiratory/Chest: Present: Clear to Auscultation, Good Air Exchange. No: Respiratory Distress, Accessory Muscle Use Cardiovascular: Present: Regular Rate and Rhythm, Normal S1, S2. No: Murmurs Abdomen: No: Tenderness, Distention, Peritoneal Signs Back: Present: Normal Inspection Upper Extremity: Present: Normal Inspection. No: Cyanosis, Edema Lower Extremity: Present: Normal Inspection. No: Edema Neurological: Present: GCS=15, CN II-XII Intact, Speech Normal, Motor Func Grossly Intact, Normal Cerebellar Funct, Gait Normal, Memory Normal Skin: Present: Warm, Dry, Normal Color. No: Rashes Psychiatric: Present: Alert, Oriented x 3, Normal Insight, Normal Concentration Medical Decision Making ED Course and Treatment: 01/10/19 23:59 -Labs -IV keppra -Observe and reassess 01/11/19 01:11 -Labs are nonsignificant -Pt. is clinically stable, no seizure episode, doesn't feel like he has seizure now, request to be discharged home. -Discharge home with keppra, please take your medication as prescribed, follow up with your own pmd and neurologist within 2 days, return to the ER for any new or worsening signs or symptoms. - PA / [employer] / Resident Statement MD/DO has reviewed & agrees with the documentation as recorded. Disposition/Present on Arrival - Present on Arrival Any Indicators Present on Arrival: No History of DVT/PE: No History of Uncontrolled Diabetes: No Urinary Catheter: No History of Decub. Ulcer: No History Surgical Site Infection Following: None - Disposition Have Diagnosis and Disposition been Completed?: Yes Diagnosis: Encounter for medication refill Disposition: HOME/ ROUTINE Disposition Time: :16 Patient Plan: Discharge Condition: GOOD Additional Instructions: -Discharge home with keppra, please take your medication as prescribed, follow up with your own pmd and neurologist within 2 days, return to the ER for any new or worsening signs or symptoms. Prescriptions: Levetiracetam [Keppra] 750 mg PO BID #20 tab Referrals: Joe Irizarry MD [Primary Care Provider] - Follow up with primary Lauren Guadalupe MD [Staff Provider] - Follow up with primary Forms: WORK NOTE
[2019-01-11 00:27] LABS: BASO # 0.06 K/mm3 (0.0-2.0); BASO % 1.8 % (0.0-3.0); EOS # 0.1 (0.0-0.7); EOS % 2.1 % (1.5-5.0); HEMOGLOBIN 10.4 g/dL (14.0-18.0); LYMPH # 1.8 (1.2-3.4); LYMPH % 52.7 % (22.0-35.0); MEAN CELL VOLUME 85.9 fl (80.0-105.0); MEAN CORPUSCULAR HEMOGLOBIN 26.7 pg (25.0-35.0); MEAN PLATELET VOLUME 10.2 fl (7.0-11.0); MONO # 0.5 (0.1-0.6); MONO % 15.7 % (1.0-6.0); RBC 3.9 10^6/uL (3.5-6.1); RED CELL DISTRIBUTION WIDTH 18.5 % (11.5-14.5); WHITE BLOOD COUNT 3.4 10^3/uL (4.5-11.0)
[2019-01-11 01:09] LABS: ALB/GLOB RATIO 1.1 (1.1-1.8); ALBUMIN 4.3 g/dL (3.0-4.8); ALT/SGPT 67 U/L (7-56); AST/SGOT 129 U/L (17-59); BLOOD UREA NITROGEN 7 mg/dL (7-21); CALCIUM 9.1 mg/dL (8.4-10.5); GFR NON-AFRICAN AMERICAN > 60
[2019-01-11 01:18] VITALS: BP 120/62; PULSE 77; RESP 18; TEMP 98; O2SAT 96
== END 2019-01-11 01:28 | disposition home or self-care (01) ==
LOC: ED 23:49
DX: Z76.0 Encounter for issue of repeat prescription (principal); F17.210 Nicotine dependence, cigarettes, uncomplicated; I10 Essential (primary) hypertension; I25.2 Old myocardial infarction; J44.9 Chronic obstructive pulmonary disease, unspecified; Z86.73 Personal history of transient ischemic attack (TIA), and cerebral infarction without residual deficits
CPT/HCPCS: 80053; 80177; 83735; 85025; 96374; 99285; J1953

== ENCOUNTER 2019-01-17 23:23 | Emergency (ER) | payer MEDICAID ==
[2019-01-17 23:36] VITALS: BMI 23.3
[2019-01-17 23:41] VITALS: RESP 18; TEMP 97.8
--- NOTE | 2019-01-17 23:48 | ED PDOC ---
Arrival/HPI - General Chief Complaint: Seizure Time Seen by Provider: 01/17/19 23:44 Historian: Patient - History of Present Illness Narrative History of Present Illness (Text): 01/17/19 23:48 58 year old male, with a past medical history of CAD s/p stents x2, hypertension, alcohol abuse, stroke, and seizures, presents to the emergency department for evaluation status post seizures. Patient states he had 2 seizures prior to arrival. Patient denies hitting his head. Patient denies biting tongue or incontinence. Patient denies any fevers, chills, chest pain, shortness of breath, cough, diaphoresis, abdominal pain, nausea, vomiting, diarrhea, back pain, neck pain, or any other complaint. Time/Duration: Prior to Arrival Symptom Onset: Sudden Activities at Onset: Light Context: Home Past Medical History - Provider Review Nursing Documentation Reviewed: Yes - Past History Past History: No Previous - Infectious Disease Hx of Infectious Diseases: None - Tetanus Immunization Tetanus Immunization: Unknown - Cardiac Hx [place]: Yes Hx Hypertension: Yes - Pulmonary Hx Chronic Obstructive Pulmonary Disease (COPD): Yes - Neurological Hx Neurological Disorder: Yes Hx Seizures: Yes Hx Transient Ischemic Attacks (TIA): Yes - HEENT Hx HEENT Disorder: No - Renal Hx Renal Disorder: No - Endocrine/Metabolic Hx Endocrine Disorders: No - Hematological/Oncological Hx Blood Disorders: No - Integumentary Hx Dermatological Disorder: No - Musculoskeletal/Rheumatological Hx Musculoskeletal Disorders: No Hx Falls: Yes - Gastrointestinal Hx Gastrointestinal Disorders: No - Genitourinary/Gynecological Hx Genitourinary Disorders: No - Psychiatric Hx Psychophysiologic Disorder: No Hx Substance Use: No - Past Surgical History Past Surgical History: No Previous - Surgical History Hx Cardiac Catheterization: Yes (x3 stents 2015) - Anesthesia Hx Anesthesia: Yes Hx Anesthesia Reactions: No Hx Malignant Hyperthermia: No - Suicidal Assessment Feels Threatened In Home Enviroment: No Family/Social History - Physician Review Nursing Documentation Reviewed: Yes Family/Social History: No Known Family HX Smoking Status: Heavy Smoker > 10 Cigarettes Daily Hx Alcohol Use: Yes Hx Substance Use: No Hx Substance Use Treatment: No Allergies/Home Meds Allergies/Adverse Reactions: Allergies No Known Allergies Allergy (Verified 09/18/18 19:21) Home Medications: Home Meds Medication Instructions Recorded Confirmed Doxycycline Hyclate [Doryx] 100 mg PO BID 10/30/18 01/11/19 Levetiracetam [Keppra] 750 mg PO BID 10/30/18 01/11/19 Review of Systems - Physician Review All systems were reviewed & negative as marked: Yes - Review of Systems Constitutional: absent: Fevers Musculoskeletal: absent: Neck Pain Physical Exam - Physical Exam Narrative Physical Exam (Text): 01/18/19 00:20 Constitutional: No acute distress. Head: Normocephalic. Atraumatic. Eyes: PERRL. ENT: Moist mucous membranes. No tongue biting or lacerations. Neck: Supple. Cardiovascular: Regular rate. Chest: No tenderness. Respiratory: Clear to auscultation bilaterally. GI: Soft. Nontender. Nondistended. Back: No CVA tenderness. Musculoskeletal: No tenderness or swelling of extremities. Skin: No rash. Neurologic: Alert, no focal deficit. Vital Signs Reviewed: Yes Vital Signs Temp Pulse Resp BP Pulse Ox 01/17/19 23:41 97.8 F 92 H 18 143/94 H 95 Temperature: Afebrile Blood Pressure: Hypertensive Pulse: Regular Respiratory Rate: Normal Appearance: Positive for: Well-Appearing, Non-Toxic, Comfortable Pain Distress: None Mental Status: Positive for: Alert and Oriented X 3 Medical Decision Making ED Course and Treatment: 01/18/19 00:21 Impression: 58 year old male presents for evaluation s/p seizure. Plan: -- Labs -- Chest X-ray -- Levetiracetam -- Urinalysis -- Reassess and disposition Prior Visits: Notes and results from previous visits were reviewed. Progress Notes: CXR no pneumonia. Labs unremarkable/baseline. Alcohol level 400+. Fiance in ED, will take patient home. - Scribe Statement The provider has reviewed the documentation as recorded by the Willow Rinaldi Provider Scribe Attestation: All medical record entries made by the Willow were at my direction and personally dictated by me. I have reviewed the chart and agree that the record accurately reflects my personal performance of the history, physical exam, medical decision making, and the department course for this patient. I have also personally directed, reviewed, and agree with the discharge instructions and disposition. Disposition/Present on Arrival - Present on Arrival Any Indicators Present on Arrival: No History of DVT/PE: No History of Uncontrolled Diabetes: No Urinary Catheter: No History of Decub. Ulcer: No History Surgical Site Infection Following: None - Disposition Have Diagnosis and Disposition been Completed?: Yes Diagnosis: Seizure Disposition: HOME/ ROUTINE Disposition Time: 02:00 Patient Plan: Discharge Patient Problems: Current Active Problems Problem Status Onset Seizure Chronic Condition: GOOD Discharge Instructions (ExitCare): Seizures Forms: [facility] (Cam[place]onian)
[2019-01-18 00:28] LABS: BASO # 0.04 K/mm3 (0.0-2.0); BASO % 1.5 % (0.0-3.0); EOS # 0.1 (0.0-0.7); EOS % 1.8 % (1.5-5.0); LYMPH # 1.4 (1.2-3.4); LYMPH % 51.8 % (22.0-35.0); MEAN CELL VOLUME 84.5 fl (80.0-105.0); MEAN CORPUSCULAR HEMOGLOBIN 26.3 pg (25.0-35.0); MEAN CORPUSCULAR HGB CONC 31.2 g/dl (31.0-37.0); MEAN PLATELET VOLUME 10.7 fl (7.0-11.0); MONO # 0.4 (0.1-0.6); RBC 3.8 10^6/uL (3.5-6.1); RED CELL DISTRIBUTION WIDTH 18.7 % (11.5-14.5); WHITE BLOOD COUNT 2.7 10^3/uL (4.5-11.0)
[2019-01-18 00:36] LABS: PH,URINE 6.5 (4.7-8.0); URINE APPEARANCE CLEAR (CLEAR); URINE BILIRUBIN NEGATIVE (NEGATIVE); URINE BLOOD NEGATIVE (NEGATIVE); URINE COLOR YELLOW (YELLOW); URINE GLUCOSE (UA) NEGATIVE (NEGATIVE); URINE LEUKOCYTE ESTERASE NEGATIVE Leu/uL (NEGATIVE); URINE PROTEIN NEGATIVE mg/dL (<30 mg/dL); URINE UROBILINOGEN 0.2 E.U./dL (<1 E.U./dL)
[2019-01-18 00:53] LABS: ALB/GLOB RATIO 1.1 (1.1-1.8); ALBUMIN 4.4 g/dL (3.0-4.8); ALT/SGPT 89 U/L (7-56); AST/SGOT 180 U/L (17-59); BLOOD UREA NITROGEN 7 mg/dL (7-21); CALCIUM 8.8 mg/dL (8.4-10.5); GFR NON-AFRICAN AMERICAN > 60
[2019-01-18 01:35] LABS: BARBITURATES, UR NEGATIVE (NEGATIVE); BENZODIAZEPINES, UR NEGATIVE (NEGATIVE); OPIATES, UR NEGATIVE (NEGATIVE); PHENCYCLIDINE, UR NEGATIVE (NEGATIVE)
[2019-01-18 06:01] VITALS: BP 123/73; PULSE 82
[2019-01-18 06:26] VITALS: O2SAT 100
--- NOTE | 2019-01-18 09:20 | RAD ---
Date of service: 01/18/2019 HISTORY: seizure COMPARISON: 01/04/2019 TECHNIQUE: 1 view obtained. FINDINGS: LUNGS: No active pulmonary disease. PLEURA: No significant pleural effusion identified, no pneumothorax apparent. CARDIOVASCULAR: No aortic atherosclerotic calcification present. Normal cardiac size. No pulmonary vascular congestion. OSSEOUS STRUCTURES: No significant abnormalities. VISUALIZED UPPER ABDOMEN: Normal. OTHER FINDINGS: None. IMPRESSION: No active disease.
== END 2019-01-18 06:24 | disposition home or self-care (01) ==
LOC: ED 23:23
DX: R56.9 Unspecified convulsions (principal); I25.10 Atherosclerotic heart disease of native coronary artery without angina pectoris; I10 Essential (primary) hypertension; I25.2 Old myocardial infarction; J44.9 Chronic obstructive pulmonary disease, unspecified; Z86.73 Personal history of transient ischemic attack (TIA), and cerebral infarction without residual deficits; Z95.5 Presence of coronary angioplasty implant and graft; F17.210 Nicotine dependence, cigarettes, uncomplicated

== ENCOUNTER 2019-01-18 20:13 | Emergency (ER) | payer MEDICAID ==
[2019-01-18 20:38] VITALS: BMI 23.6
[2019-01-18 20:39] VITALS: BP 145/93; PULSE 71; RESP 18; TEMP 98.1; O2SAT 98
--- NOTE | 2019-01-19 12:17 | CARD ---
APPROVED REPORT Date of service: 01/18/2019 EKG Measurement Heart [id number] <Conclusion> Normal sinus rhythm Normal ECG
== END 2019-01-19 00:38 | disposition left against medical advice (07) ==
LOC: ED 20:13
DX: Z02.89 Encounter for other administrative examinations (principal); R07.9 Chest pain, unspecified
CPT/HCPCS: 93005; LWBS0

== ENCOUNTER 2019-01-19 11:43 | Emergency (ER) | payer MEDICAID ==
[2019-01-19 11:43] VITALS: BMI 23.6
[2019-01-19 12:45] LABS: BASO # 0.06 K/mm3 (0.0-2.0); BASO % 2.7 % (0.0-3.0); EOS % 0.9 % (1.5-5.0); HEMOGLOBIN 10.6 g/dL (14.0-18.0); LYMPH # 0.7 (1.2-3.4); LYMPH % 30.8 % (22.0-35.0); MEAN CELL VOLUME 83.7 fl (80.0-105.0); MEAN CORPUSCULAR HEMOGLOBIN 26.2 pg (25.0-35.0); MEAN CORPUSCULAR HGB CONC 31.4 g/dl (31.0-37.0); MEAN PLATELET VOLUME 10.8 fl (7.0-11.0); MONO # 0.3 (0.1-0.6); MONO % 14.5 % (1.0-6.0); RBC 4.04 10^6/uL (3.5-6.1); RED CELL DISTRIBUTION WIDTH 18.6 % (11.5-14.5); WHITE BLOOD COUNT 2.2 10^3/uL (4.5-11.0)
[2019-01-19 13:10] LABS: ALB/GLOB RATIO 1.1 (1.1-1.8); ALBUMIN 4.6 g/dL (3.0-4.8); ALT/SGPT 107 U/L (7-56); AST/SGOT 245 U/L (17-59); BLOOD UREA NITROGEN 6 mg/dL (7-21); CALCIUM 8.9 mg/dL (8.4-10.5); GFR NON-AFRICAN AMERICAN > 60
[2019-01-19 13:15] LABS: B-TYPE NATRIURETIC PEPTIDE 52.6 pg/mL (0-450); TROPONIN I < 0.01 ng/mL
[2019-01-19 13:20] VITALS: BP 142/116; PULSE 96; RESP 19; O2SAT 97
[2019-01-19 13:25] LABS: CK-MB 2.6 ng/mL (0.0-3.6)
[2019-01-19 13:31] LABS: PH,URINE 6.5 (4.7-8.0); URINE BILIRUBIN NEGATIVE (NEGATIVE); URINE BLOOD NEGATIVE (NEGATIVE); URINE GLUCOSE (UA) NEGATIVE (NEGATIVE); URINE LEUKOCYTE ESTERASE NEGATIVE Leu/uL (NEGATIVE); URINE PROTEIN TRACE mg/dL (<30 mg/dL); URINE UROBILINOGEN 0.2 E.U./dL (<1 E.U./dL)
[2019-01-19 13:32] LABS: URINE APPEARANCE CLEAR (CLEAR); URINE COLOR YELLOW (YELLOW)
[2019-01-19 13:41] LABS: URINE BACTERIA FEW /hpf
--- NOTE | 2019-01-19 14:04 | ED PDOC ---
Arrival/HPI - General Chief Complaint: Chest Pain Time Seen by Provider: 01/19/19 11:47 Historian: Patient - History of Present Illness Narrative History of Present Illness (Text): 01/19/19 11:47 Tl Contreras is a 58 year old male, with a past medical history of alcohol abuse, seizures, and CAD s/p stent x3, who presents to the emergency department for intermittent left sided chest pain since 3 days. Patient informs of tingling sensation in left upper extremity. Patient notes secondary complaint of seizure yesterday. Patient symptoms are exactly the same as his presentation to the emergency department on 01/17/19. Patient admits to drinking alcohol everyday including today. Patient had a stress test on 10/01/18 which was normal. Patient informs taking aspirin 81mg and Keppra. Patient states pain has improved since coming to the ED. Patient denies any weakness, falls/trauma, difficulty ambulating/speaking, fevers, chills, headache, dizziness, shortness of breath, dyspnea on exertion, cough, diaphoresis, abdominal pain, nausea, vomiting, diarrhea, dysuria, back pain, neck pain, or any other complaint. Time/Duration: < week (3 days) Symptom Onset: Gradual Symptom Course: Unchanged, Resolved Quality: Other (tingling in fingers of left hand) Activities at Onset: Light Context: Home Past Medical History - Provider Review Nursing Documentation Reviewed: Yes - Past History Past History: No Previous - Infectious Disease Hx of Infectious Diseases: None - Tetanus Immunization Tetanus Immunization: Unknown - Cardiac Hx Cardiac Disorders: Yes Hx MT: Yes Hx Hypertension: Yes - Pulmonary Hx Respiratory Disorders: Yes Hx Chronic Obstructive Pulmonary Disease (COPD): Yes - Neurological Hx Neurological Disorder: Yes Hx Seizures: Yes Hx Transient Ischemic Attacks (TIA): Yes - HEENT Hx HEENT Disorder: No - Renal Hx Renal Disorder: No - Endocrine/Metabolic Hx Endocrine Disorders: No - Hematological/Oncological Hx Blood Disorders: No - Integumentary Hx Dermatological Disorder: No - Musculoskeletal/Rheumatological Hx Musculoskeletal Disorders: Yes Hx Falls: Yes - Gastrointestinal Hx Gastrointestinal Disorders: No - Genitourinary/Gynecological Hx Genitourinary Disorders: No - Psychiatric Hx Psychophysiologic Disorder: No Hx Substance Use: No - Past Surgical History Past Surgical History: No Previous - Surgical History Hx Cardiac Catheterization: Yes (x3 stents 2015) - Anesthesia Hx Anesthesia: Yes Hx Anesthesia Reactions: No Hx Malignant Hyperthermia: No - Suicidal Assessment Feels Threatened In Home Enviroment: No Family/Social History - Physician Review Nursing Documentation Reviewed: Yes Family/Social History: Unknown Family HX Smoking Status: Heavy Smoker > 10 Cigarettes Daily Hx Alcohol Use: Yes Hx Substance Use: No Hx Substance Use Treatment: No Allergies/Home Meds Allergies/Adverse Reactions: Allergies No Known Allergies Allergy (Verified 01/18/19 20:42) Home Medications: Home Meds Medication Instructions Recorded Confirmed Doxycycline Hyclate [Doryx] 100 mg PO BID 10/30/18 01/18/19 Review of Systems - Physician Review All systems were reviewed & negative as marked: Yes - Review of Systems Constitutional: absent: Fevers, Other (chills) Respiratory: absent: SOB, Cough Cardiovascular: Chest Pain (left side). absent: [place] Gastrointestinal: absent: Abdominal Pain, Diarrhea, Nausea, Vomiting Genitourinary Male: absent: Dysuria Musculoskeletal: Other (left upper extremity tingling). absent: Back Pain, Neck Pain Neurological: absent: Headache, Dizziness Endocrine: absent: Diaphoresis Physical Exam Vital Signs Reviewed: Yes Vital Signs Pulse Resp BP Pulse Ox 01/19/19 13:19 96 H 19 142/116 H 97 Blood Pressure: Normal Pulse: Tachycardic Respiratory Rate: Normal Appearance: Positive for: Well-Appearing, Non-Toxic, Comfortable Pain Distress: None Mental Status: Positive for: Alert and Oriented X 3 - Systems Exam Head: Present: Atraumatic, Normocephalic Pupils: Present: PERRL Extroacular Muscles: Present: EOMI Conjunctiva: Present: Normal Mouth: Present: Moist Mucous Membranes Neck: Present: Normal Range of Motion Respiratory/Chest: Present: Clear to Auscultation, Good Air Exchange. No: Respiratory Distress, Accessory Muscle Use, Wheezes, Rales, Rhonchi Cardiovascular: Present: Regular Rate and Rhythm, Normal S1, S2. No: Murmurs, Rub, Gallop Abdomen: Present: Normal Bowel Sounds. No: Tenderness, Distention, Peritoneal Signs, Rebound, Guarding Back: Present: Normal Inspection Upper Extremity: Present: Normal Inspection, NORMAL PULSES, Neurovascularly Intact. No: Cyanosis, Edema Lower Extremity: Present: Normal Inspection, NORMAL PULSES, Neurovascularly Intact. No: Edema Neurological: Present: GCS=15, CN II-XII Intact, Speech Normal, Motor Func Grossly Intact, Normal Sensory Function Skin: Present: Warm, Dry, Normal Color. No: Rashes Psychiatric: Present: Alert, Oriented x 3, Normal Insight, Normal Concentration Medical Decision Making ED Course and Treatment: 01/19/19 11:47 Impression: Patient is a 58 year old male who presents to the emergency department for intermittent left sided chest pain since 3 days. Patient informs of seizure yesterday. Patient notes tingling sensation of left upper extremity. Patient's symptoms are exactly the same as his presentation to the emergency department on 01/17/19. Exam is unremarkable. Plan: -- EKG -- Labs -- Chest X-Ray -- IV Fluids -- Urinalysis w/ Micro -- Reassess and disposition Prior Visits: Notes and results from previous visits were reviewed. Progress Notes: 01/19/19 15:47 Patient is requesting to go come, denies any pain. 01/19/19 15:54 Patient eloped from emergency department. Patient did not sign discharge papers. - Lab Interpretations Lab Results: Troponin I < 0.01 ng/mL 01/19/19 12:20 NT-Pro-B Natriuret Pep 52.6 pg/mL (0-450) 01/19/19 12:20 Total Bilirubin 0.6 mg/dL (0.2-1.3) 01/19/19 12:20 AST 245 U/L (17-59) H D 01/19/19 12:20 ALT 107 U/L (7-56) H 01/19/19 12:20 Alkaline Phosphatase 101 U/L (38-126) 01/19/19 12:20 Total Protein 8.6 g/dL (5.8-8.3) H 01/19/19 12:20 Albumin 4.6 g/dL (3.0-4.8) 01/19/19 12:20 Globulin 4.0 gm/dL 01/19/19 12:20 Albumin/Globulin Ratio 1.1 (1.1-1.8) 01/19/19 12:20 Urine Color Yellow (YELLOW) 01/19/19 13:15 Urine Appearance Clear (CLEAR) 01/19/19 13:15 Urine pH 6.5 (4.7-8.0) 01/19/19 13:15 Ur Specific [place] <= 1.005 (1.005-1.035) 01/19/19 13:15 Urine Protein Trace mg/dL (<30 mg/dL) H 01/19/19 13:15 Urine Glucose (UA) Negative mg/dL (NEGATIVE) 01/19/19 13:15 Urine Ketones Negative mg/dL (NEGATIVE) 01/19/19 13:15 Urine Blood Negative (NEGATIVE) 01/19/19 13:15 Urine Nitrate Negative (NEGATIVE) 01/19/19 13:15 Urine Bilirubin Negative (NEGATIVE) 01/19/19 13:15 Urine Urobilinogen 0.2 E.U./dL (<1 E.U./dL) 01/19/19 13:15 Ur Leukocyte Esterase Negative Gabby/uL (NEGATIVE) 01/19/19 13:15 Urine RBC None /hpf (0-2) 01/19/19 13:15 Urine WBC 1 - 3 /hpf (0-6) 01/19/19 13:15 Ur Epithelial Cells 1 - 3 /hpf (0-5) 01/19/19 13:15 Urine Bacteria Few /hpf (NONE) 01/19/19 13:15 - RAD Interpretation Radiology Orders: 01/19/19 12:05 CHEST TWO VIEWS (PA/LAT) [RAD] Stat - EKG Interpretation EKG Interpretation (Text): 01/19/19 12:07 Reviewed EKG, shows: NSR at 90 BPM. Normal axis. Normal intervals. No ST elevations or depressions. Interpreted by ED Physician: Yes Type: 12 lead EKG - Scribe Statement The provider has reviewed the documentation as recorded by the Scribe Derrick Ramirez All medical record entries made by the Rejiibe were at my direction and personally dictated by me. I have reviewed the chart and agree that the record accurately reflects my personal performance of the history, physical exam, medical decision making, and the department course for this patient. I have also personally directed, reviewed, and agree with the discharge instructions and disposition. Disposition/Present on Arrival - Present on Arrival Any Indicators Present on Arrival: No History of DVT/PE: No History of Uncontrolled Diabetes: No Urinary Catheter: No History of Decub. Ulcer: No History Surgical Site Infection Following: None - Disposition Have Diagnosis and Disposition been Completed?: Yes Diagnosis: Chest pain Disposition: HOME/ ROUTINE Disposition Time: 15:52 Patient Plan: Discharge Condition: STABLE Discharge Instructions (ExitCare): Chest Pain (ED) Additional Instructions: TL CONTRERAS, thank you for letting us take care of you today. Your provider was Kasandra Arredondo MD and you were treated for CHEST PAIN. The emergency medical care you received today was directed at your acute symptoms. If you were prescri bed any medication, please fill it and take as directed. It may take several days for your symptoms to resolve. Return to the Emergency Department if your symptoms worsen, do not improve, or if you have any other problems. Please contact your doctor in 1-2 days. Bring any paperwork you were given at discharge with you along with any medications you are taking to your follow up visit. Our treatment cannot replace ongoing medical care by a primary care provider outside of the emergency department. Thank you for allowing the [facility] team to be part of your care today. Referrals: Shaw Argueta MD [Primary Care Provider] - Follow up with primary Forms: [employer] (Mal[place]ian)
--- NOTE | 2019-01-19 15:48 | RAD ---
Date of service: 01/19/2019 HISTORY: cp COMPARISON: TECHNIQUE: Chest PA and lateral views FINDINGS: LUNGS: No active pulmonary disease. PLEURA: No significant pleural effusion identified. No pneumothorax apparent. CARDIOVASCULAR: No aortic atherosclerotic calcification present. Normal cardiac size. No pulmonary vascular congestion. OSSEOUS STRUCTURES: No significant abnormalities. VISUALIZED UPPER ABDOMEN: Normal. OTHER FINDINGS: None. IMPRESSION: No active disease.
--- NOTE | 2019-01-19 17:38 | CARD ---
APPROVED REPORT Date of service: 01/19/2019 EKG Measurement Heart [id number] <Conclusion> Normal sinus rhythm Normal ECG
== END 2019-01-19 15:50 | disposition home or self-care (01) ==
LOC: ED 11:43
DX: R07.9 Chest pain, unspecified (principal); I25.10 Atherosclerotic heart disease of native coronary artery without angina pectoris; I25.2 Old myocardial infarction; I10 Essential (primary) hypertension; Z86.73 Personal history of transient ischemic attack (TIA), and cerebral infarction without residual deficits; Z95.5 Presence of coronary angioplasty implant and graft; F17.210 Nicotine dependence, cigarettes, uncomplicated

== ENCOUNTER 2019-01-24 22:34 | Observation (INO) | payer MEDICAID ==
--- NOTE | 2019-01-24 22:48 | ED PDOC ---
Arrival/HPI - General Chief Complaint: Chest Pain Time Seen by Provider: 01/24/19 22:44 Historian: Patient - History of Present Illness Narrative History of Present Illness (Text): 01/24/19 22:47 Tl Contreras is a 58 year old male, with a past medical history of alcohol abuse, seizures, and CAD s/p stent x3, who presents to the emergency department for mid-sternal chest pain today. Patient was seen earlier this week for similar complaint and eloped from the ED prior to receiving his discharge paperwork. Patient denies any fever, chills, shortness of breath, nausea, vomiting, diarrhea, urinary symptoms, back pain, neck pain, headache, dizziness, or any other complaints. Symptom Onset: Gradual Symptom Course: Unchanged Activities at Onset: Light Context: Home Past Medical History - Provider Review Nursing Documentation Reviewed: Yes - Past History Past History: No Previous - Infectious Disease Hx of Infectious Diseases: None - Tetanus Immunization Tetanus Immunization: Unknown - Cardiac Hx Cardiac Disorders: Yes Hx [place]: Yes Hx Hypertension: Yes Other/Comment: 2 cardiac stents - Pulmonary Hx Respiratory Disorders: Yes Hx Chronic Obstructive Pulmonary Disease (COPD): Yes - Neurological Hx Neurological Disorder: Yes Hx Seizures: Yes Hx Transient Ischemic Attacks (TIA): Yes - HEENT Hx HEENT Disorder: No - Renal Hx Renal Disorder: No - Endocrine/Metabolic Hx Endocrine Disorders: No - Hematological/Oncological Hx Blood Disorders: No - Integumentary Hx Dermatological Disorder: No - Musculoskeletal/Rheumatological Hx Musculoskeletal Disorders: Yes Hx Falls: Yes - Gastrointestinal Hx Gastrointestinal Disorders: No - Genitourinary/Gynecological Hx Genitourinary Disorders: No - Psychiatric Hx Psychophysiologic Disorder: No Hx Substance Use: No - Past Surgical History Past Surgical History: No Previous - Surgical History Hx Cardiac Catheterization: Yes (x3 stents 2015) - Anesthesia Hx Anesthesia: Yes Hx Anesthesia Reactions: No Hx Malignant Hyperthermia: No - Suicidal Assessment Feels Threatened In Home Enviroment: No Family/Social History - Physician Review Nursing Documentation Reviewed: Yes Family/Social History: Unknown Family HX Smoking Status: Heavy Smoker > 10 Cigarettes Daily Hx Alcohol Use: Yes Frequency of alcohol use: Daily Hx Substance Use: No Hx Substance Use Treatment: No Allergies/Home Meds Allergies/Adverse Reactions: Allergies No Known Allergies Allergy (Verified 01/18/19 20:42) Home Medications: Home Meds Medication Instructions Recorded Confirmed Doxycycline Hyclate [Doryx] 100 mg PO BID 10/30/18 01/24/19 Review of Systems - Physician Review All systems were reviewed & negative as marked: Yes - Review of Systems Constitutional: Normal. absent: Fevers Eyes: Normal ENT: Normal Respiratory: Normal. absent: SOB, Cough Cardiovascular: Chest Pain Gastrointestinal: Normal. absent: Abdominal Pain, Diarrhea, Nausea, Vomiting Genitourinary Male: Normal. absent: Dysuria, Frequency, Hematuria, Urinary Output Changes Musculoskeletal: Normal. absent: Back Pain, Neck Pain Skin: Normal. absent: Rash Neurological: Normal. absent: Headache, Dizziness Endocrine: Normal Hemo/Lymphatic: Normal Psychiatric: Normal Physical Exam Vital Signs Reviewed: Yes Vital Signs Temp Pulse Resp BP Pulse Ox 01/24/19 22:45 98.4 F 90 16 116/79 93 L Temperature: Afebrile Blood Pressure: Normal Pulse: Regular Respiratory Rate: Normal Appearance: Positive for: Well-Appearing, Non-Toxic, Comfortable Pain Distress: None Mental Status: Positive for: Alert and Oriented X 3 - Systems Exam Head: Present: Atraumatic, Normocephalic Pupils: Present: PERRL Extroacular Muscles: Present: EOMI Conjunctiva: Present: Normal Mouth: Present: Moist Mucous Membranes Neck: Present: Normal Range of Motion Respiratory/Chest: Present: Clear to Auscultation, Good Air Exchange. No: Respiratory Distress, Accessory Muscle Use Cardiovascular: Present: Regular Rate and Rhythm, Normal S1, S2. No: Murmurs Abdomen: No: Tenderness, Distention, Peritoneal Signs Back: Present: Normal Inspection Upper Extremity: Present: Normal Inspection. No: Cyanosis, Edema Lower Extremity: Present: Normal Inspection. No: Edema Neurological: Present: GCS=15, CN II-XII Intact, Speech Normal Skin: Present: Warm, Dry, Normal Color. No: Rashes Psychiatric: Present: Alert, Oriented x 3, Normal Insight, Normal Concentration Medical Decision Making ED Course and Treatment: 01/24/19 22:47 Impression: 58 year old male complaining of mid-sternal chest pain. Plan: -- EKG -- Chest X-ray -- Labs, BNP, cardiac enzymes -- Aspirin -- Reassess and disposition Prior Visits: Notes and results from previous visits were reviewed. Progress Notes: Reviewed EKG, NSR at [address] bpm[address] Non-specific ST/T wave changes. 01/24/19 23:30 Chest X-ray reviewed, shows no acute processes. 01/24/19 23:[address] Balbuena, who is aware and agrees with plan. Accepts pt in to hospitalist service. Pt will go to remote telemetry observation for chest pain. optometrist president/practice owner notified. - Lab Interpretations I have reviewed the lab results: Yes - RAD Interpretation Gas Tester: ED Physician - EKG Interpretation Interpreted by ED Physician: Yes Type: 12 lead EKG - Scribe Statement The provider has reviewed the documentation as recorded by the Rejiibe Johanna Joyce Provider Scribe Attestation: All medical record entries made by the Scribe were at my direction and personally dictated by me. I have reviewed the chart and agree that the record accurately reflects my personal performance of the history, physical exam, medical decision making, and the department course for this patient. I have also personally directed, reviewed, and agree with the discharge instructions and disposition. Disposition/Present on Arrival - Present on Arrival Any Indicators Present on Arrival: No History of DVT/PE: No History of Uncontrolled Diabetes: No Urinary Catheter: No History of Decub. Ulcer: No History Surgical Site Infection Following: None - Disposition Have Diagnosis and Disposition been Completed?: Yes Diagnosis: Chest pain Disposition: HOSPITALIZED Disposition Time: 23:35 Condition: STABLE Discharge Instructions (ExitCare): Chest Pain (ED) Forms: [employer] [facility] ([place])
[2019-01-24 23:23] LABS: HEMOGLOBIN 9.7 g/dL (14.0-18.0); MEAN CORPUSCULAR HEMOGLOBIN 26.1 pg (25.0-35.0); MEAN CORPUSCULAR HGB CONC 31.5 g/dl (31.0-37.0); MEAN PLATELET VOLUME 10.2 fl (7.0-11.0); RBC 3.71 10^6/uL (3.5-6.1); RED CELL DISTRIBUTION WIDTH 18.9 % (11.5-14.5); WHITE BLOOD COUNT 2.7 10^3/uL (4.5-11.0)
[2019-01-24 23:28] LABS: INR 0.97; PARTIAL THROMBOPLASTIN TIME 32.4 Seconds (26.9-38.3); PROTHROMBIN TIME 10.8 SECONDS (9.4-12.5)
[2019-01-24 23:33] LABS: ALB/GLOB RATIO 1.2 (1.1-1.8); ALBUMIN 4.4 g/dL (3.0-4.8); ALT/SGPT 110 U/L (7-56); AST/SGOT 226 U/L (17-59); BLOOD UREA NITROGEN 6 mg/dL (7-21); CALCIUM 8.7 mg/dL (8.4-10.5); GFR NON-AFRICAN AMERICAN > 60
[2019-01-24 23:44] LABS: TROPONIN I < 0.01 ng/mL
[2019-01-24 23:52] LABS: CK-MB 3.4 ng/mL (0.0-3.6)
[2019-01-25 01:05] LABS: HDL CHOLESTEROL 91 mg/dL (29-60)
--- NOTE | 2019-01-25 01:13 | CP.PCM.HP ---
<Vladislav Kim - Last Filed: 01/25/19 01:36> History of Present Illness - History of Present Illness History of Present Illness: CC: Chest pain 58-year-old male with past medical history of hypertension, CAD with 3 stent placements (states last stent placed in 10/2018 ???), alcohol abuse, seizure, presents to the emergency room with chest pain. Patient states that his pain started 3 days ago and has gotten progressively worse. Patient locates the pain to be substernal, 9 / 10 in severity. The pain radiates to his left hand and up to his neck. He also complains of some left hand and finger numbness that is associated with the chest pain. Denies any shortness of breath. Of note p atient is well-known to the service, patient is mainly noncompliant with his medications (including his plavix) and follow-up with his PMD. 09/2018: Patient did have a Lexiscan stress test that was negative. Patient also had an abnormal suspect nuclear myocardial perfusion study, fixed, small, apical defect could be due to previous myocardial injury and/or prominent pectoral soft tissue attenuation. Borderline normal LV function with paradoxical septal wall motion 12 point ROS performed and negative other than the stated above PMH: As above PSH: Tonsillectomy, and jaw repair Medications: Noncompliant, refer to [facility] Allergies: No known allergies SH: Prior cigarette smoker of half a pack per day, current cigar smoker 2/day, drinks 3-5 beers per day, last drink was 12 hours prior to arrival to the ED, denies any illicit drug use PMD: Dr. Alvarez Present on Admission - Present on Admission Any Indicators Present on Admission: No Review of Systems - Review of Systems All systems: reviewed and no additional remarkable complaints except Past Patient History - Infectious Disease Hx of Infectious Diseases: None - Tetanus Immunizations Tetanus Immunization: Unknown - Past Social History Smoking Status: Heavy Smoker > 10 Cigarettes Daily - CARDIAC Hx Cardiac Disorders: Yes Hx Heart Attack: Yes Hx Hypertension: Yes Other/Comment: 2 cardiac stents - PULMONARY Hx Respiratory Disorders: Yes Hx Chronic Obstructive Pulmonary Disease (COPD): Yes - NEUROLOGICAL Hx Neurological Disorder: Yes Hx Seizures: Yes Hx Transient Ischemic Attacks (TIA): Yes - HEENT Hx HEENT Problems: No - RENAL Hx Chronic Kidney Disease: No - ENDOCRINE/METABOLIC Hx Endocrine Disorders: No - HEMATOLOGICAL/ONCOLOGICAL Hx Blood Disorders: No - INTEGUMENTARY Hx Dermatological Problems: No - MUSCULOSKELETAL/RHEUMATOLOGICAL Hx Musculoskeletal Disorders: Yes Hx Falls: Yes - GASTROINTESTINAL Hx Gastrointestinal Disorders: No - GENITOURINARY/GYNECOLOGICAL Hx Genitourinary Disorders: No - PSYCHIATRIC Hx Psychophysiologic Disorder: No Hx Substance Use: No - SURGICAL HISTORY Hx Cardiac Catheterization: Yes (x3 stents 2015) - ANESTHESIA Hx Anesthesia: Yes Hx Anesthesia Reactions: No Hx Malignant Hyperthermia: No Meds Allergies/Adverse Reactions: Allergies Allergy/AdvReac Type Severity Reaction Status Date / Time No Known Allergies Allergy Verified 01/18/19 20:42 Physical Exam - Constitutional Appears: No Acute Distress - Head Exam Head Exam: ATRAUMATIC, NORMOCEPHALIC - Eye Exam Eye Exam: EOMI, PERRL Pupil Exam: NORMAL ACCOMODATION - ENT Exam ENT Exam: Mucous Membranes Moist - Respiratory Exam Respiratory Exam: Clear to Auscultation Bilateral. absent: Rales, Wheezes - Cardiovascular Exam Cardiovascular Exam: REGULAR RHYTHM, +S1, +S2 Additional comments: Chest wall tender to palpation - GI/Abdominal Exam GI & Abdominal Exam: Normal Bowel Sounds, Soft. absent: Tenderness - Extremities Exam Extremities exam: Negative for: calf tenderness, pedal edema - Neurological Exam Neurological exam: Alert, CN II-XII Intact, Oriented x3 - Psychiatric Exam Psychiatric exam: Normal Mood - Skin Skin Exam: Dry, Intact, Warm Results - Vital Signs Recent Vital Signs: Last Vital Signs Temp 98.4 F 01/24/19 22:45 Pulse 81 01/24/19 23:01 Resp 16 01/24/19 22:45 BP 116/79 01/24/19 22:45 Pulse Ox 93 L 01/24/19 22:45 - Labs Result Diagrams: 01/24/19 23:10 01/24/19 23:10 Labs: Laboratory Results - last 24 hr 01/24/19 01/24/19 01/24/19 23:09 23:10 23:10 WBC RBC Hgb Hct MCV MCH MCHC RDW Plt Count MPV PT 10.8 INR 0.97 APTT 32.4 Sodium 140 Potassium 4.1 Chloride 100 Carbon Dioxide 27 Anion Gap 16 BUN 6 L Creatinine 0.8 Est GFR ( Amer) > 60 Est GFR (Non-Af Amer) > 60 POC Glucose (mg/dL) 111 H Random Glucose 93 Calcium 8.7 Total Bilirubin 0.5 AST 226 H ALT 110 H Alkaline Phosphatase 93 Lactate Dehydrogenase 732 H Total Creatine Kinase 529 H CK-MB (CK-2) 3.4 CK-MB (CK-2) % Cancelled Troponin I < 0.01 NT-Pro-B Natriuret Pep Cancelled Total Protein 8.0 Albumin 4.4 Globulin 3.6 Albumin/Globulin Ratio 1.2 Triglycerides Cholesterol HDL Cholesterol 01/24/19 01/24/19 23:10 23:10 WBC 2.7 L D RBC 3.71 Hgb 9.7 L Hct 30.8 L MCV 83.0 MCH 26.1 MCHC 31.5 RDW 18.9 H Plt Count 100 L MPV 10.2 PT INR APTT Sodium Potassium Chloride Carbon Dioxide Anion Gap BUN Creatinine Est GFR ( Amer) Est GFR (Non-Af Amer) POC Glucose (mg/dL) Random Glucose Calcium Total Bilirubin AST ALT Alkaline Phosphatase Lactate Dehydrogenase Total Creatine Kinase CK-MB (CK-2) CK-MB (CK-2) % Troponin I NT-Pro-B Natriuret Pep Total Protein Albumin Globulin Albumin/Globulin Ratio Triglycerides 65 Cholesterol 162 HDL Cholesterol 91 H Assessment & Plan - Assessment and Plan (Free Text) Assessment: 1. Chest pain rule out ACS 2. Alcohol withdrawal 3. History of alcohol intoxication 4. Pancytopenia 5. Coronary artery disease with stent placement 6. Hypertension 7. Seizures 8. Transaminitis 9. Active smoker In the emergency room patient was given aspirin 325 mg for his chest pain. Troponin x1 was negative although total creatinine kinase was elevated. Follow- up serial troponin, TSH, hemoglobin A1c, lipid profile. Echo has been ordered. Follow-up cardiology consult and recommendations. Patient did have an abnormal nuclear stress test in 09/2018. For his alcohol withdrawal CIWA protocol, Ativan 2 mg every 6 hours as needed, unable to get Librium due to transaminitis. F/u urine tox and serum alcohol. For his pancytopenia follow-up iron studies, however likely to patient's chronic alcoholic use. For his history of coronary artery disease we will continue with aspirin, Plavix, Lipitor, metoprolol. For his seizures we will continue his Keppra. For his transaminitis acute hepatitis profile, and abdominal ultrasound is ordered. For his hypertension we will continue with metoprolol. For his active smoking I encouraged complete cessation of any form of tobacco use. I also explained to the patient's the importance of compliance for all his medications follow-up of his doctors outpatient. Will follow daily labs. N.p.o. Case and plan was reviewed and discussed with Dr. Balbuena <Triny Balbuena - Last Filed: 01/25/19 02:20> Results - Vital Signs Recent Vital Signs: Last Vital Signs Temp 97.9 F 01/25/19 01:17 Pulse 81 01/25/19 01:17 Resp 20 01/25/19 01:17 BP 125/77 01/25/19 01:17 Pulse Ox 93 L 01/25/19 01:17 - Labs Result Diagrams: 01/24/19 23:10 01/24/19 23:10 Labs: Laboratory Results - last 24 hr 01/24/19 01/24/19 01/24/19 23:09 23:10 23:10 WBC RBC Hgb Hct MCV MCH MCHC RDW Plt Count MPV PT 10.8 INR 0.97 APTT 32.4 Sodium 140 Potassium 4.1 Chloride 100 Carbon Dioxide 27 Anion Gap 16 BUN 6 L Creatinine 0.8 Est GFR ( Amer) > 60 Est GFR (Non-Af Amer) > 60 POC Glucose (mg/dL) 111 H Random Glucose 93 Calcium 8.7 Iron TIBC % Saturation Total Bilirubin 0.5 AST 226 H ALT 110 H Alkaline Phosphatase 93 Lactate Dehydrogenase 732 H Total Creatine Kinase 529 H CK-MB (CK-2) 3.4 CK-MB (CK-2) % Cancelled Troponin I < 0.01 NT-Pro-B Natriuret Pep Cancelled Total Protein 8.0 Albumin 4.4 Globulin 3.6 Albumin/Globulin Ratio 1.2 Triglycerides Cholesterol LDL Cholesterol Direct HDL Cholesterol TSH 3rd Generation Urine Opiates Screen Urine Methadone Screen Ur Barbiturates Screen Ur Phencyclidine Scrn Ur Amphetamines Screen U Benzodiazepines Scrn U Oth Cocaine Metabols U Cannabinoids Screen Alcohol, Quantitative 01/24/19 01/24/19 01/24/19 23:10 23:10 23:10 WBC 2.7 L D RBC 3.71 Hgb 9.7 L Hct 30.8 L MCV 83.0 MCH 26.1 MCHC 31.5 RDW 18.9 H Plt Count 100 L MPV 10.2 PT INR APTT Sodium Potassium Chloride Carbon Dioxide Anion Gap BUN Creatinine Est GFR ( Amer) Est GFR (Non-Af Amer) POC Glucose (mg/dL) Random Glucose Calcium Iron 27 L TIBC 265 % Saturation 10 L Total Bilirubin AST ALT Alkaline Phosphatase Lactate Dehydrogenase Total Creatine Kinase CK-MB (CK-2) CK-MB (CK-2) % Troponin I NT-Pro-B Natriuret Pep Total Protein Albumin Globulin Albumin/Globulin Ratio Triglycerides 65 Cholesterol 162 LDL Cholesterol Direct 66 HDL Cholesterol 91 H TSH 3rd Generation Urine Opiates Screen Urine Methadone Screen Ur Barbiturates Screen Ur Phencyclidine Scrn Ur Amphetamines Screen U Benzodiazepines Scrn U Oth Cocaine Metabols U Cannabinoids Screen Alcohol, Quantitative 01/25/19 01/25/19 00:44 00:51 WBC RBC Hgb Hct MCV MCH MCHC RDW Plt Count MPV PT INR APTT Sodium Potassium Chloride Carbon Dioxide Anion Gap BUN Creatinine Est GFR ( Amer) Est GFR (Non-Af Amer) POC Glucose (mg/dL) Random Glucose Calcium Iron TIBC % Saturation Total Bilirubin AST ALT Alkaline Phosphatase Lactate Dehydrogenase Total Creatine Kinase CK-MB (CK-2) CK-MB (CK-2) % Troponin I NT-Pro-B Natriuret Pep Total Protein Albumin Globulin Albumin/Globulin Ratio Triglycerides Cholesterol LDL Cholesterol Direct HDL Cholesterol TSH 3rd Generation 3.16 Urine Opiates Screen Negative Urine Methadone Screen Negative Ur Barbiturates Screen Negative Ur Phencyclidine Scrn Negative Ur Amphetamines Screen Negative U Benzodiazepines Scrn Negative U Oth Cocaine Metabols Negative U Cannabinoids Screen Negative Alcohol, Quantitative 372 H* Attending/Attestation - Attestation I have personally seen and examined this patient.: Yes I have fully participated in the care of the patient.: Yes I have reviewed all pertinent clinical information: Yes Notes (Text): 01/25/19 02:19 Seen and examined. Discussed with resident. Agree with note X Abdominal U/S is not needed at this time. Pt. is not compliant with plavix. Claims has cardiac stents placed in 10/2018.
[2019-01-25 01:16] LABS: LDL CHOLESTEROL 66 mg/dL (0-129)
[2019-01-25 01:32] VITALS: BMI 23.2
[2019-01-25 01:42] LABS: BARBITURATES, UR NEGATIVE (NEGATIVE); BENZODIAZEPINES, UR NEGATIVE (NEGATIVE); OPIATES, UR NEGATIVE (NEGATIVE); PHENCYCLIDINE, UR NEGATIVE (NEGATIVE)
[2019-01-25] MEDS: Sodium Chloride 0.9% 1,000 ML IV SCH ×2 (01:42→17:07)
[2019-01-25 01:44] LABS: IRON 27 ug/dL (45-180)
[2019-01-25 01:53] LABS: % IRON SATURATION 10 % (20-55); TOTAL IRON BINDING CAPACITY 265 ug/dL (261-462)
[2019-01-25 06:40] LABS: BASO # 0.03 K/mm3 (0.0-2.0); BASO % 1.7 % (0.0-3.0); EOS # 0.1 (0.0-0.7); EOS % 3.9 % (1.5-5.0); LYMPH # 0.9 (1.2-3.4); LYMPH % 49.4 % (22.0-35.0); MEAN CELL VOLUME 84.6 fl (80.0-105.0); MEAN CORPUSCULAR HEMOGLOBIN 25.7 pg (25.0-35.0); MEAN CORPUSCULAR HGB CONC 30.4 g/dl (31.0-37.0); MEAN PLATELET VOLUME 10.4 fl (7.0-11.0); MONO # 0.3 (0.1-0.6); MONO % 16.7 % (1.0-6.0); PLATELET COUNT 97 10^3/uL (120.0-450.0); RBC 3.89 10^6/uL (3.5-6.1); RED CELL DISTRIBUTION WIDTH 19.1 % (11.5-14.5)
[2019-01-25 06:50] LABS: ALB/GLOB RATIO 1.1 (1.1-1.8); ALBUMIN 4.1 g/dL (3.0-4.8); ALT/SGPT 105 U/L (7-56); AST/SGOT 218 U/L (17-59); BLOOD UREA NITROGEN 6 mg/dL (7-21); CALCIUM 8.5 mg/dL (8.4-10.5); GFR NON-AFRICAN AMERICAN > 60
[2019-01-25 06:54] LABS: TROPONIN I 0.02 ng/mL
[2019-01-25 07:27] LABS: WHITE BLOOD COUNT 1.8 10^3/uL (4.5-11.0)
[2019-01-25 08:32] LABS: LYMPHOCYTE 56 % (22.0-35.0); MONOCYTE 20 % (1.0-6.0); NEUTROPHIL 24 % (50.0-70.0)
--- NOTE | 2019-01-25 09:47 | RAD ---
Date of service: 01/24/2019 HISTORY: chest pain COMPARISON: 01/19/2019 TECHNIQUE: 1 view obtained. FINDINGS: LUNGS: No active pulmonary disease. PLEURA: No significant pleural effusion identified, no pneumothorax apparent. CARDIOVASCULAR: No aortic atherosclerotic calcification present. Normal cardiac size. No pulmonary vascular congestion. OSSEOUS STRUCTURES: No significant abnormalities. VISUALIZED UPPER ABDOMEN: Normal. OTHER FINDINGS: None. IMPRESSION: No active disease.
[2019-01-25] MEDS: Multivitamin With Minerals Tab PO SCH (11:21)
[2019-01-25 12:33] LABS: HEPATITIS B SURFACE AG Negative (NEGATIVE)
[2019-01-25 12:39] LABS: HEPATITIS A IGM NEGATIVE (NEGATIVE); HEPATITIS B CORE AB NEGATIVE (NEGATIVE)
[2019-01-25 12:51] LABS: HEPATITIS C ANTIBODY NEGATIVE (NEGATIVE)
[2019-01-25 13:11] LABS: FOLATE 10.3 ng/mL
--- NOTE | 2019-01-25 15:13 | CARD ---
APPROVED REPORT Date of service: 01/24/2019 EKG Measurement Heart [id number] <Conclusion> Normal sinus rhythm ST elevation, probably due to early repolarization Borderline ECG
--- NOTE | 2019-01-25 16:05 | CARD ---
APPROVED REPORT Date of service: 01/25/2019 EKG Measurement Heart [id number] <Conclusion> Normal sinus rhythm Normal ECG
[2019-01-25 16:55] VITALS: RESP 18
--- NOTE | 2019-01-25 17:13 | CARD ---
APPROVED REPORT Date of service: 01/25/2019 EXAM: Two-dimensional and M-mode echocardiogram with Doppler and color Doppler. INDICATION Chest Pain 2D DIMENSIONS Left Atrium (2D)3.8 (1.6-4.0cm)IVSd1.1 (0.7-1.1cm) LVDd4.3 (3.9-5.9cm)PWd1.2 (0.7-1.1cm) LVDs3.0 (2.5-4.0cm)FS (%) 30.9 % LVEF (%)58.8 (>50%) M-Mode DIMENSIONS Aortic Root3.50 (2.2-3.7cm)Aortic Cusp Exc.1.90 (1.5-2.0cm) Aortic Valve AoV Peak Tkdacnsp863.0cm/Ramez Peak GR.4mmHg Mitral Valve MV E Yrpzldhg33.9cm/sMV A Akuijxfn83.9cm/sE/A ratio1.1 TDI Lateral E' Peak V12.90cm/sMedial E' Peak V8.38cm/sE/Lateral E'6.7 E/Medial E'10.4 Tricuspid Valve TR Peak [id number]/sRAP [id number] Peak Gr.30mmHg [id number] LEFT VENTRICLE The left ventricle is normal size. There is borderline concentric left ventricular hypertrophy. The left ventricular function is normal. The left ventricular ejection fraction is within the normal range. There is normal LV segmental wall motion. RIGHT VENTRICLE The right ventricle is normal size. The right ventricular systolic function is normal. ATRIA The left atrium size is normal. The right atrium size is normal. The interatrial septum is intact with no evidence for an atrial septal defect. AORTIC VALVE The aortic valve is normal in structure. No aortic regurgitation is present. There is no aortic valvular stenosis. MITRAL VALVE The mitral valve is normal in structure. Mitral regurgitation is mild. TRICUSPID VALVE The tricuspid valve is normal in structure. There is mild tricuspid regurgitation. PULMONIC VALVE The pulmonary valve is normal in structure. GREAT VESSELS The aortic root is normal in size. The IVC is normal in size and collapses >50% with inspiration. PERICARDIAL EFFUSION There is no pleural effusion. There is no pericardial effusion. <Conclusion> Normal chamber size. Borderline concentric LVH. Normal LV systolic function. Mild mitral regurgitation. Mild tricuspid regurgitation.
--- NOTE | 2019-01-25 22:41 | CON ---
DATE: 01/25/2019 LOCATION: The patient is in room 374, bed 1. REASON FOR CONSULTATION: Chest pain. HISTORY OF PRESENT ILLNESS: A 58-year-old male with past history of hypertension, CAD with stent insertion in the past, alcohol abuse, and seizure disorder presented to the emergency room with chest pain, which is present since last 2 days. The pain is sharp, it is at a localized point and the patient has also tenderness at that point. The patient denies any shortness of breath. The patient is noncompliant with his medication including Plavix. Also the patient continues to drink heavy. PAST MEDICAL HISTORY: As mentioned above. The patient is known to have hypertension, CAD with stent insertion, alcohol abuse and seizure disorder. The patient also had tonsillectomy and jaw repair. ALLERGIES: NO KNOW ALLERGIES. PERSONAL HISTORY: History of smoking in the past, half a pack a day, currently smokes 2 cigars a day. The patient continued to drink very heavy. REVIEW OF SYSTEMS: All the systems reviewed, positives mentioned in the history. MEDICATIONS: The patient is poorly compliant with the medications and he does not know what medication he was taking at home. PHYSICAL EXAMINATION: VITAL SIGNS: Blood pressure 112/71, respiration 20, pulse 83 and temperature 99.9. HEENT: Head is normocephalic. Eyes; pupils normal. Conjunctivae slightly pale. NECK: JVP low. Carotids equal. THORAX: AP diameter normal. LUNGS: Clear. Chest wall, the patient has local tenderness at the point of pain. Where he complains of pain there is local tenderness. Lungs otherwise clear. ABDOMEN: Soft. No tenderness. No organomegaly. Bowel sounds normal. EXTREMITIES: No clubbing. No cyanosis. LABORATORY DATA: Shows WBC 1.8, hemoglobin 10, hematocrit 32.9 and platelets 97. Sodium 146, potassium 3.8, BUN 6, creatinine 0.7, total bilirubin 0.6, AST 218, ALT 105. Troponin x2 negative. Chest x-ray; no active disease. EKG showed regular sinus rhythm, ST-T wave changes of early repolarization. The patient's alcohol level 372. DIAGNOSES: Alcoholic intoxication, alcohol level on admission 372, coronary artery disease with stent insertion, chest pain, localized tenderness, musculoskeletal type of pain at present, hypertension, anemia, leukopenia, thrombocytopenia, history of hypertension and seizure disorder. Poorly compliant patient, does not take medicine. PLAN: The patient is getting Ativan 2 mg IV every 6 hour p.r.n., aspirin 81 mg daily, folic acid 1 mg daily, Keppra 750 mg b.i.d., atorvastatin 40 mg daily, metoprolol 25 mg b.i.d. and Plavix 75 mg daily. The patient is getting IV fluid in normal saline 75 mL an hour and thiamine 100 mg p.o. daily. The patient also having some shakes and tremors suggestive of delirium tremens. The patient had one short run of atrial flutter 2 to 1 block, which is probably related to alcoholic intoxication. The patient is already on metoprolol. We will monitor him and will continue the same. The patient's previous cardiac workup had shown on the stress test on 10/19/2018, showed a fixed defect, ejection fraction of 46% so it was negative for ischemia. Echo on 07/29/2018 showed normal sized LV, LV ejection fraction 50% to 55% mild mitral regurgitation, mild tricuspid regurgitation. Also mentioned in history. PREVIOUS CARDIAC WORKUP: A stress test 10/19/2018, showing fixed defect, no ischemia, LV ejection fraction 46%. Echo on 07/29/2018, normal sized LV, LV ejection fraction 50% to 55%, mild mitral regurgitation, mild tricuspid regurgitation. We will follow with you. Chiqui Pisano MD
[2019-01-26 01:05] VITALS: TEMP 98.6; O2SAT 90
[2019-01-26] MEDS: Sodium Chloride 0.9% 1,000 ML IV SCH (06:44)
[2019-01-26 07:11] LABS: BASO # 0.01 K/mm3 (0.0-2.0); BASO % 0.4 % (0.0-3.0); EOS % 1.4 % (1.5-5.0); HEMOGLOBIN 10.4 g/dL (14.0-18.0); LYMPH # 0.8 (1.2-3.4); LYMPH % 27.5 % (22.0-35.0); MEAN CELL VOLUME 85.3 fl (80.0-105.0); MEAN CORPUSCULAR HGB CONC 30.5 g/dl (31.0-37.0); MEAN PLATELET VOLUME 10.9 fl (7.0-11.0); MONO # 0.6 (0.1-0.6); MONO % 20.3 % (1.0-6.0); RED CELL DISTRIBUTION WIDTH 19.2 % (11.5-14.5); WHITE BLOOD COUNT 2.8 10^3/uL (4.5-11.0)
[2019-01-26 07:31] LABS: ALB/GLOB RATIO 1.2 (1.1-1.8); ALBUMIN 4.1 g/dL (3.0-4.8); ALT/SGPT 96 U/L (7-56); AST/SGOT 154 U/L (17-59); BLOOD UREA NITROGEN 9 mg/dL (7-21); CALCIUM 9.1 mg/dL (8.4-10.5); GFR NON-AFRICAN AMERICAN > 60
[2019-01-26] MEDS: Multivitamin With Minerals Tab PO SCH (08:53)
[2019-01-26 11:45] VITALS: BP 166/86; PULSE 65
--- NOTE | 2019-01-26 14:16 | CP.PCM.DIS ---
<Kameron Leal - Last Filed: 01/26/19 14:53> Provider - Provider Date of Admission: 01/24/19 23:32 Attending physician: Marian Trejo MD Primary care physician: Clair Alvarez MD Consults: 01/25/19 01:17 Cardiology Consult Routine Comment: Consulting Provider: Chiqui Pisano Consulting Physician: Chiqui Pisano Reason for Consult: Chest pain Time Spent in preparation of Discharge (in minutes): 20 Hospital Course - Lab Results Lab Results: Most Recent Lab Values WBC 2.8 10^3/uL (4.5-11.0) L D 01/26/19 06:50 RBC 4.00 10^6/uL (3.5-6.1) 01/26/19 06:50 Hgb 10.4 g/dL (14.0-18.0) L 01/26/19 06:50 Hct 34.1 % (42.0-52.0) L 01/26/19 06:50 MCV 85.3 fl (80.0-105.0) 01/26/19 06:50 MCH 26.0 pg (25.0-35.0) 01/26/19 06:50 MCHC 30.5 g/dl (31.0-37.0) L 01/26/19 06:50 RDW 19.2 % (11.5-14.5) H 01/26/19 06:50 Plt Count 105 10^3/uL (120.0-450.0) L 01/26/19 06:50 MPV 10.9 fl (7.0-11.0) 01/26/19 06:50 Neut % (Auto) 50.4 % (50.0-68.0) 01/26/19 06:50 Lymph % (Auto) 27.5 % (22.0-35.0) 01/26/19 06:50 [place] % (Auto) 20.3 % (1.0-6.0) H 01/26/19 06:50 Eos % (Auto) 1.4 % (1.5-5.0) L 01/26/19 06:50 Baso % (Auto) 0.4 % (0.0-3.0) 01/26/19 06:50 Lymph # (Auto) 0.8 (1.2-3.4) L 01/26/19 06:50 [place] # (Auto) 0.6 (0.1-0.6) 01/26/19 06:50 Eos # (Auto) 0.0 (0.0-0.7) 01/26/19 06:50 Baso # (Auto) 0.01 K/mm3 (0.0-2.0) 01/26/19 06:50 Absolute Neuts (auto) 1.39 (1.4-6.5) L 01/26/19 06:50 Neutrophils % (Manual) 24 % (50.0-70.0) L 01/25/19 06:10 Lymphocytes % (Manual) 56 % (22.0-35.0) H 01/25/19 06:10 Monocytes % (Manual) 20 % (1.0-6.0) H 01/25/19 06:10 PT 10.8 SECONDS (9.4-12.5) 01/24/19 23:10 INR 0.97 01/24/19 23:10 APTT 32.4 Seconds (26.9-38.3) 01/24/19 23:10 Sodium 139 mmol/L (132-148) 01/26/19 06:50 Potassium 4.2 mmol/L (3.6-5.0) 01/26/19 06:50 Chloride 104 mmol/L (98-107) 01/26/19 06:50 Carbon Dioxide 28 mmol/L (21-33) 01/26/19 06:50 Anion Gap 11 (10-20) 01/26/19 06:50 BUN 9 mg/dL (7-21) 01/26/19 06:50 Creatinine 0.7 mg/dl (0.8-1.5) L 01/26/19 06:50 Est GFR ( Amer) > 60 01/26/19 06:50 Est GFR (Non-Af Amer) > 60 01/26/19 06:50 POC Glucose (mg/dL) 111 mg/dL (65-110) H 01/24/19 23:09 Random Glucose 95 mg/dL (70-110) 01/26/19 06:50 Hemoglobin A1c 5.3 % (4.2-6.5) 01/24/19 23:10 Calcium 9.1 mg/dL (8.4-10.5) 01/26/19 06:50 Iron 22 ug/dL (45-180) L 01/25/19 06:10 TIBC 265 ug/dL (261-462) 01/24/19 23:10 % Saturation 10 % (20-55) L 01/24/19 23:10 Transferrin 191.32 mg/dL (206-381) L 01/24/19 23:10 Ferritin 17.0 ng/mL 01/25/19 06:10 Total Bilirubin 1.1 mg/dL (0.2-1.3) 01/26/19 06:50 AST 154 U/L (17-59) H D 01/26/19 06:50 ALT 96 U/L (7-56) H 01/26/19 06:50 Alkaline Phosphatase 83 U/L (38-126) 01/26/19 06:50 Lactate Dehydrogenase 732 U/L (333-699) H 01/24/19 23:10 Total Creatine Kinase 529 U/L (35-230) H 01/24/19 23:10 CK-MB (CK-2) 3.4 ng/mL (0.0-3.6) 01/24/19 23:10 CK-MB (CK-2) % Cancelled 01/24/19 23:10 Troponin I < 0.01 ng/mL D 01/25/19 11:20 NT-Pro-B Natriuret Pep Cancelled 01/24/19 23:10 Total Protein 7.6 g/dL (5.8-8.3) 01/26/19 06:50 Albumin 4.1 g/dL (3.0-4.8) 01/26/19 06:50 Globulin 3.5 gm/dL 01/26/19 06:50 Albumin/Globulin Ratio 1.2 (1.1-1.8) 01/26/19 06:50 Triglycerides 65 mg/dL (35-160) 01/24/19 23:10 Cholesterol 162 mg/dL (130-200) 01/24/19 23:10 LDL Cholesterol Direct 66 mg/dL (0-129) 01/24/19 23:10 HDL Cholesterol 91 mg/dL (29-60) H 01/24/19 23:10 Vitamin B12 571 pg/mL (239-931) 01/25/19 06:10 Folate 10.3 ng/mL 01/25/19 06:10 TSH 3rd Generation 3.16 mIU/mL (0.46-4.68) 01/25/19 00:51 Urine Opiates Screen Negative (NEGATIVE) 01/25/19 00:44 Urine Methadone Screen Negative (NEGATIVE) 01/25/19 00:44 Ur Barbiturates Screen Negative (NEGATIVE) 01/25/19 00:44 Ur Phencyclidine Scrn Negative (NEGATIVE) 01/25/19 00:44 Ur Amphetamines Screen Negative (NEGATIVE) 01/25/19 00:44 U Benzodiazepines Scrn Negative (NEGATIVE) 01/25/19 00:44 U Oth Cocaine Metabols Negative (NEGATIVE) 01/25/19 00:44 U Cannabinoids Screen Negative (NEGATIVE) 01/25/19 00:44 Alcohol, Quantitative 372 mg/dL (0-10) H* 01/25/19 00:51 Hepatitis A IgM Ab Negative (NEGATIVE) 01/24/19 23:10 Hep Bs Antigen Negative (NEGATIVE) 01/24/19 23:10 Hep B Core IgM Ab Negative (NEGATIVE) 01/24/19 23:10 Hepatitis C Antibody Negative (NEGATIVE) 01/24/19 23:10 - Hospital Course Hospital Course: Kameron Leal, PGY-1 Discharge Summary for Hospitalist Service 58-year-old male with past medical history of hypertension, CAD with 3 stent placements (states last stent placed in 10/2018), alcohol abuse, seizure, presents with chest pain. In the emergency room, patient was given aspirin 325 mg for his chest pain. Troponin x3 were negative. TSH, hemoglobin A1c, lipid profile were all found to be within normal range. Echo was ordered which revealed EF 59%, borderline LVH, normal LV function, mild MR/TR. Follow-up cardiology consult was ordered with Dr. Pisano. Patient did have an abnormal nuclear stress test in 09/2018. For his alcohol withdrawal, CIWA protocol was initiated which was between 1-8 over course of admission. Ativan 2 mg every 6 hours as needed was prescribed and tapered to 1 mg q6. Patient was unable to get Librium due to transaminitis. Urine tox was negative and serum alcohol was 372. Patient pancytopenia was likely 2/2 ETOH. For his history of coronary artery disease patient was continued on aspirin, Plavix, Lipitor, metoprolol. For his seizures we continued his Keppra. For his transaminitis, acute hepatitis profile was negative. For his hypertension, we continued with metoprolol. For his active smoking, we encouraged complete cessation of any form of tobacco use. The importance of compliance with all his medications and follow-up with outpatient was impressed. Patient wanted to leave the hospital against medical advice. Patient was counselled extensively to avoid alcohol and any illicit drug use. Patient was alert, awake, oriented x3 and without gait instability or confusion. Risks of leaving, including lack of monitoring, risk of aspiration and pneumonia with further alcohol consumption, was discussed. Medication scripts were provided. Case reviewed and plan approved by Dr. Trejo. Discharge Exam - Additional Findings Additional findings: - Constitutional Appears: No Acute Distress - Head Exam Head Exam: ATRAUMATIC, NORMOCEPHALIC - Eye Exam Eye Exam: EOMI, PERRL Pupil Exam: NORMAL ACCOMODATION - ENT Exam ENT Exam: Mucous Membranes Moist - Respiratory Exam Respiratory Exam: Clear to Auscultation Bilateral. absent: Rales, Wheezes - Cardiovascular Exam Cardiovascular Exam: REGULAR RHYTHM, +S1, +S2 Additional comments: Chest wall tender to palpation - GI/Abdominal Exam GI & Abdominal Exam: Normal Bowel Sounds, Soft. absent: Tenderness - Extremities Exam Extremities exam: Negative for: calf tenderness, pedal edema - Neurological Exam Neurological exam: Alert, CN II-XII Intact, Oriented x3 - Psychiatric Exam Psychiatric exam: Normal Mood - Skin Skin Exam: Dry, Intact, Warm Discharge Plan - Discharge Medications Prescriptions: Aspirin [Ecotrin] 81 mg PO DAILY #14 tabec Atorvastatin [Lipitor] 40 mg PO DAILY #14 tab Clopidogrel [Plavix] 75 mg PO DAILY #14 tab Folic Acid 1 mg PO DAILY #14 tab Levetiracetam [Keppra] 750 mg PO BID #20 tab Metoprolol Tartrate [Lopressor] 25 mg PO BID #28 tab Multimineral/Multivitamin [Therapeutic-M Tab] 1 tab PO 0800 #14 tab Thiamine [Vitamin B1 Tab] 100 mg PO DAILY #14 tab - Follow Up Plan Condition: STABLE Disposition: AGAINST MEDICAL ADVICE Instructions: Alcohol Abuse and Alcoholism (DC) Additional Instructions: Please stop smoking and ingesting alcohol. Referrals: Clair Alvarez MD [Primary Care Provider] - <Marian Trejo - Last Filed: 01/26/19 15:25> Provider - Provider Date of Admission: 01/24/19 23:32 Attending physician: Marian Trejo MD Primary care physician: Clair Alvarez MD Consults: 01/25/19 01:17 Cardiology Consult Routine Comment: Consulting Provider: Chiqui Pisano Consulting Physician: Chiqui Pisano Reason for Consult: Chest pain Time Spent in preparation of Discharge (in minutes): 35 Hospital Course - Lab Results Lab Results: Most Recent Lab Values WBC 2.8 10^3/uL (4.5-11.0) L D 01/26/19 06:50 RBC 4.00 10^6/uL (3.5-6.1) 01/26/19 06:50 Hgb 10.4 g/dL (14.0-18.0) L 01/26/19 06:50 Hct 34.1 % (42.0-52.0) L 01/26/19 06:50 MCV 85.3 fl (80.0-105.0) 01/26/19 06:50 MCH 26.0 pg (25.0-35.0) 01/26/19 06:50 MCHC 30.5 g/dl (31.0-37.0) L 01/26/19 06:50 RDW 19.2 % (11.5-14.5) H 01/26/19 06:50 Plt Count 105 10^3/uL (120.0-450.0) L 01/26/19 06:50 MPV 10.9 fl (7.0-11.0) 01/26/19 06:50 Neut % (Auto) 50.4 % (50.0-68.0) 01/26/19 06:50 Lymph % (Auto) 27.5 % (22.0-35.0) 01/26/19 06:50 [place] % (Auto) 20.3 % (1.0-6.0) H 01/26/19 06:50 Eos % (Auto) 1.4 % (1.5-5.0) L 01/26/19 06:50 Baso % (Auto) 0.4 % (0.0-3.0) 01/26/19 06:50 Lymph # (Auto) 0.8 (1.2-3.4) L 01/26/19 06:50 [place] # (Auto) 0.6 (0.1-0.6) 01/26/19 06:50 Eos # (Auto) 0.0 (0.0-0.7) 01/26/19 06:50 Baso # (Auto) 0.01 K/mm3 (0.0-2.0) 01/26/19 06:50 Absolute Neuts (auto) 1.39 (1.4-6.5) L 01/26/19 06:50 Neutrophils % (Manual) 24 % (50.0-70.0) L 01/25/19 06:10 Lymphocytes % (Manual) 56 % (22.0-35.0) H 01/25/19 06:10 Monocytes % (Manual) 20 % (1.0-6.0) H 01/25/19 06:10 PT 10.8 SECONDS (9.4-12.5) 01/24/19 23:10 INR 0.97 01/24/19 23:10 APTT 32.4 Seconds (26.9-38.3) 01/24/19 23:10 Sodium 139 mmol/L (132-148) 01/26/19 06:50 Potassium 4.2 mmol/L (3.6-5.0) 01/26/19 06:50 Chloride 104 mmol/L (98-107) 01/26/19 06:50 Carbon Dioxide 28 mmol/L (21-33) 01/26/19 06:50 Anion Gap 11 (10-20) 01/26/19 06:50 BUN 9 mg/dL (7-21) 01/26/19 06:50 Creatinine 0.7 mg/dl (0.8-1.5) L 01/26/19 06:50 Est GFR ( Amer) > 60 01/26/19 06:50 Est GFR (Non-Af Amer) > 60 01/26/19 06:50 POC Glucose (mg/dL) 111 mg/dL (65-110) H 01/24/19 23:09 Random Glucose 95 mg/dL (70-110) 01/26/19 06:50 Hemoglobin A1c 5.3 % (4.2-6.5) 01/24/19 23:10 Calcium 9.1 mg/dL (8.4-10.5) 01/26/19 06:50 Iron 22 ug/dL (45-180) L 01/25/19 06:10 TIBC 265 ug/dL (261-462) 01/24/19 23:10 % Saturation 10 % (20-55) L 01/24/19 23:10 Transferrin 191.32 mg/dL (206-381) L 01/24/19 23:10 Ferritin 17.0 ng/mL 01/25/19 06:10 Total Bilirubin 1.1 mg/dL (0.2-1.3) 01/26/19 06:50 AST 154 U/L (17-59) H D 01/26/19 06:50 ALT 96 U/L (7-56) H 01/26/19 06:50 Alkaline Phosphatase 83 U/L (38-126) 01/26/19 06:50 Lactate Dehydrogenase 732 U/L (333-699) H 01/24/19 23:10 Total Creatine Kinase 529 U/L (35-230) H 01/24/19 23:10 CK-MB (CK-2) 3.4 ng/mL (0.0-3.6) 01/24/19 23:10 CK-MB (CK-2) % Cancelled 01/24/19 23:10 Troponin I < 0.01 ng/mL D 01/25/19 11:20 NT-Pro-B Natriuret Pep Cancelled 01/24/19 23:10 Total Protein 7.6 g/dL (5.8-8.3) 01/26/19 06:50 Albumin 4.1 g/dL (3.0-4.8) 01/26/19 06:50 Globulin 3.5 gm/dL 01/26/19 06:50 Albumin/Globulin Ratio 1.2 (1.1-1.8) 01/26/19 06:50 Triglycerides 65 mg/dL (35-160) 01/24/19 23:10 Cholesterol 162 mg/dL (130-200) 01/24/19 23:10 LDL Cholesterol Direct 66 mg/dL (0-129) 01/24/19 23:10 HDL Cholesterol 91 mg/dL (29-60) H 01/24/19 23:10 Vitamin B12 571 pg/mL (239-931) 01/25/19 06:10 Folate 10.3 ng/mL 01/25/19 06:10 TSH 3rd Generation 3.16 mIU/mL (0.46-4.68) 01/25/19 00:51 Urine Opiates Screen Negative (NEGATIVE) 01/25/19 00:44 Urine Methadone Screen Negative (NEGATIVE) 01/25/19 00:44 Ur Barbiturates Screen Negative (NEGATIVE) 01/25/19 00:44 Ur Phencyclidine Scrn Negative (NEGATIVE) 01/25/19 00:44 Ur Amphetamines Screen Negative (NEGATIVE) 01/25/19 00:44 U Benzodiazepines Scrn Negative (NEGATIVE) 01/25/19 00:44 U Oth Cocaine Metabols Negative (NEGATIVE) 01/25/19 00:44 U Cannabinoids Screen Negative (NEGATIVE) 01/25/19 00:44 Alcohol, Quantitative 372 mg/dL (0-10) H* 01/25/19 00:51 Hepatitis A IgM Ab Negative (NEGATIVE) 01/24/19 23:10 Hep Bs Antigen Negative (NEGATIVE) 01/24/19 23:10 Hep B Core IgM Ab Negative (NEGATIVE) 01/24/19 23:10 Hepatitis C Antibody Negative (NEGATIVE) 01/24/19 23:10 Attending/Attestation - Attestation I have personally seen and examined this patient.: Yes I have fully participated in the care of the patient.: Yes I have reviewed all pertinent clinical information, including history, physical exam and plan: Yes Notes (Text): 01/26/19 15:19 58 year old male with past medical history of hypertension, CAD s/p stents, seizure disorder and alcohol abuse who presented with complaint of chest pain and alcohol intoxication. Serial cardiac enzymes were negative and ACS was ruled out. Recent stress test was essentially negative per cardiology. He was seen by cardiology and continued on his home cardiac medications. He was ativan prn for withdrawal symptoms. He had elevated LFTs and pancytopenia secondary to ETOH abuse which was improving today. This afternoon patient decided to sign out AMA. Family was present as well. Risks of signing out against medical advice were discussed with the patient but he signed out AMA. He was counselled on alcohol abstinence and instructed to follow up with pmd. Marian Trejo MD Hospitalist.
--- NOTE | 2019-01-26 17:15 | PN ---
DATE: 01/26/2019 REASON FOR CONSULTATION: Followup chest pain, cardiac evaluation. SUBJECTIVE: The patient denies chest pain, shortness of breath, or any palpitation. OBJECTIVE: GENERAL: Not in apparent distress. VITAL SIGNS: Temperature afebrile, heart rate 60, blood pressure 130/80. HEENT: PERRLA, extraocular muscles intact. NECK: Supple, no carotid bruit or thyromegaly. CHEST: Clear to auscultation. HEART: S1 and S2, regular. ABDOMEN: Soft. EXTREMITIES: Clubbing and cyanosis negative. LABORATORY DATA: Blood workup: WBC 2.8, hemoglobin 10.4, hematocrit 34.1, platelet count 105. Chemistry showed sodium 130, potassium 4.2, chloride 104, carbon dioxide of 28, anion gap of 11, BUN 9, and creatinine 0.7. The patient had echocardiography done yesterday by Dr. Turcios that shows borderline concentric LVH, normal LV systolic function, mild mitral regurgitation, mild tricuspid regurgitation. IMPRESSION: A 58-year-old male with past medical history of alcohol abuse, admitting alcohol of 372, history of coronary artery disease with stent in the past, last stress test normal, history of hypertension, hyperlipidemia, thrombocytopenia, pancytopenia, neutropenia, history of seizure disorder. Cardiovascular status is stable. Yesterday, echocardiography showed preserved left ventricular function, mild mitral regurgitation, mild tricuspid regurgitation. RECOMMENDATIONS: Cardiac status is stable. The patient has a stress test dated 10/19/2018, seen to have had no ischemia. Suggest medical treatment. No further cardiac workup is planned or warranted. No evidence of acute OH. We will discontinue telemetry and follow with you. Thank you Dr. Trejo for providing us the opportunity in taking care of the patient, Tl Contreras. The patient is cleared from Cardiology point of view to be discharged when stable medically. Chiqui August MD
== END 2019-01-26 14:23 | disposition left against medical advice (07) ==
LOC: ED 22:34 → ERH 23:32 → 3RSO 01-25 00:54
PROVIDERS: ADMIT Internal Medicine; ATTEND Internal Medicine
DX: R07.9 Chest pain, unspecified (principal); F10.239 Alcohol dependence with withdrawal, unspecified; F10.229 Alcohol dependence with intoxication, unspecified; Y90.8 Blood alcohol level of 240 mg/100 ml or more; I25.10 Atherosclerotic heart disease of native coronary artery without angina pectoris; I10 Essential (primary) hypertension; G40.909 Epilepsy, unspecified, not intractable, without status epilepticus; D61.818 Other pancytopenia; J44.9 Chronic obstructive pulmonary disease, unspecified; F17.290 Nicotine dependence, other tobacco product, uncomplicated; E78.5 Hyperlipidemia, unspecified; I25.2 Old myocardial infarction; Z86.73 Personal history of transient ischemic attack (TIA), and cerebral infarction without residual deficits; Z95.5 Presence of coronary angioplasty implant and graft; Z91.14 Patient's other noncompliance with medication regimen
CPT/HCPCS: 36415; 71045; 80053; 80061; 80074; 80320; 80324; 80345; 80346; 80349; 80353; 80358; 80361; 82550; 82553; 82607; 82728; 82746; 82948; 83036; 83540; 83615; 83992; 84443; 84466; 84484; 85025; 85027; 85610; 85730; 93005; 93306; 99285; G0378; J2060; J7030

== ENCOUNTER 2019-02-16 21:43 | Observation (INO) | payer MEDICAID ==
--- NOTE | 2019-02-16 22:00 | ED PDOC ---
Arrival/HPI - General Time Seen by Provider: 02/16/19 21:49 Historian: Patient - History of Present Illness Narrative History of Present Illness (Text): 02/16/19 22:00 Tl Contreras is a 58 year old male, whose past medical history includes CAD with 2 cardiac stents, alcohol abuse, and seizures, who presents to the ED complaining of chest pain today. Patient states he began experiencing left-sided exertional chest pain, described as a dullness, while walking outside today. Patient also reports a "fluttering" sensation and notes he felt near-syncopal. Patient denies any fever, chills, shortness of breath, nausea, vomiting, diarrhea, urinary symptoms, back pain, neck pain, headache, dizziness, or any other complaints. Symptom Onset: Gradual Symptom Course: Unchanged Quality: Dullness Activities at Onset: Light Context: Walking, Street Past Medical History - Provider Review Nursing Documentation Reviewed: Yes - Past History Past History: No Previous - Infectious Disease Hx of Infectious Diseases: None - Tetanus Immunization Tetanus Immunization: Unknown - Cardiac Hx Cardiac Disorders: Yes Hx ID: Yes Hx Hypertension: Yes Other/Comment: 2 cardiac stents - Pulmonary Hx Respiratory Disorders: Yes Hx Chronic Obstructive Pulmonary Disease (COPD): Yes - Neurological Hx Neurological Disorder: Yes Hx Seizures: Yes Hx Transient Ischemic Attacks (TIA): Yes - HEENT Hx HEENT Disorder: No - Renal Hx Renal Disorder: No - Endocrine/Metabolic Hx Endocrine Disorders: No - Hematological/Oncological Hx Blood Disorders: No - Integumentary Hx Dermatological Disorder: No - Musculoskeletal/Rheumatological Hx Musculoskeletal Disorders: Yes Hx Falls: Yes - Gastrointestinal Hx Gastrointestinal Disorders: No - Genitourinary/Gynecological Hx Genitourinary Disorders: No - Psychiatric Hx Psychophysiologic Disorder: No Hx Substance Use: No - Past Surgical History Past Surgical History: No Previous - Surgical History Hx Cardiac Catheterization: Yes (x3 stents 2015) - Anesthesia Hx Anesthesia: Yes Hx Anesthesia Reactions: No Hx Malignant Hyperthermia: No - Suicidal Assessment Feels Threatened In Home Enviroment: No Family/Social History - Physician Review Nursing Documentation Reviewed: Yes Family/Social History: Unknown Family HX Smoking Status: Heavy Smoker > 10 Cigarettes Daily Hx Alcohol Use: Yes Hx Substance Use: No Hx Substance Use Treatment: No Allergies/Home Meds Allergies/Adverse Reactions: Allergies No Known Allergies Allergy (Verified 01/18/19 20:42) Review of Systems - Physician Review All systems were reviewed & negative as marked: Yes - Review of Systems Constitutional: Normal. absent: Fevers Eyes: Normal ENT: Normal Respiratory: Normal. absent: SOB, Cough Cardiovascular: Chest Pain, Palpitations Gastrointestinal: Normal. absent: Abdominal Pain, Diarrhea, Nausea, Vomiting Genitourinary Male: Normal. absent: Dysuria, Frequency, Hematuria, Urinary Output Changes Musculoskeletal: Normal. absent: Back Pain, Neck Pain Skin: Normal. absent: Rash Neurological: Normal. absent: Headache, Dizziness Endocrine: Normal Hemo/Lymphatic: Normal Psychiatric: Normal Physical Exam Vital Signs Reviewed: Yes Temperature: Afebrile Blood Pressure: Normal Pulse: Regular Respiratory Rate: Normal Appearance: Positive for: Well-Appearing, Non-Toxic, Comfortable Pain Distress: None Mental Status: Positive for: Alert and Oriented X 3 - Systems Exam Head: Present: Atraumatic, Normocephalic Pupils: Present: PERRL Extroacular Muscles: Present: EOMI Conjunctiva: Present: Normal Mouth: Present: Moist Mucous Membranes Neck: Present: Normal Range of Motion Respiratory/Chest: Present: Clear to Auscultation, Good Air Exchange. No: Respiratory Distress, Accessory Muscle Use Cardiovascular: Present: Regular Rate and Rhythm, Normal S1, S2. No: Murmurs Abdomen: No: Tenderness, Distention, Peritoneal Signs Back: Present: Normal Inspection Upper Extremity: Present: Normal Inspection. No: Cyanosis, Edema Lower Extremity: Present: Normal Inspection. No: Edema Neurological: Present: GCS=15, CN II-XII Intact, Speech Normal Skin: Present: Warm, Dry, Normal Color. No: Rashes Psychiatric: Present: Alert, Oriented x 3, Normal Insight, Normal Concentration Medical Decision Making ED Course and Treatment: 02/16/19 22:00 Impression: 58 year old male complaining of exertional left-sided chest dullness today. Plan: -- EKG -- Chest X-ray -- Labs, cardiac enzymes -- Reassess and disposition Prior Visits: Notes and results from previous visits were reviewed. Progress Notes: Reviewed EKG, NSR at 97 bpm. Anterior infarct. No acute changes. 02/16/19 22:38 Chest X-ray reviewed, shows no acute processes. 02/16/19 23:18 Case discussed with medical device sales informatics application analyst, who is aware and agrees with plan. 02/16/19 23:[address] Pryor, who is aware and agrees with plan. Accepts pt in to hospitalist service. Pt will go to remote telemetry observation for chest pain. - Lab Interpretations I have reviewed the lab results: Yes - RAD Interpretation Wholesale Representative: ED Physician - EKG Interpretation Interpreted by ED Physician: Yes Type: 12 lead EKG - Scribe Statement The provider has reviewed the documentation as recorded by the Rejiibsiria Joyce Provider Scribe Attestation: All medical record entries made by the Scribe were at my direction and personally dictated by me. I have reviewed the chart and agree that the record accurately reflects my personal performance of the history, physical exam, medical decision making, and the department course for this patient. I have also personally directed, reviewed, and agree with the discharge instructions and disposition. Disposition/Present on Arrival - Present on Arrival Any Indicators Present on Arrival: No History of DVT/PE: No History of Uncontrolled Diabetes: No Urinary Catheter: No History of Decub. Ulcer: No History Surgical Site Infection Following: None - Disposition Have Diagnosis and Disposition been Completed?: Yes Diagnosis: Chest pain Disposition: HOSPITALIZED Disposition Time: 23:11 Patient Problems: Current Active Problems Problem Status Onset Chest pain Acute Condition: STABLE
[2019-02-16 22:02] VITALS: BMI 23.6
[2019-02-16] MEDS ORDERED: Nitroglycerin 2% Ointment Foilpak UD TOP STA (22:42)
[2019-02-16 22:46] LABS: HEMOGLOBIN 10.5 g/dL (14.0-18.0); MEAN CELL VOLUME 82.7 fl (80.0-105.0); MEAN CORPUSCULAR HEMOGLOBIN 25.2 pg (25.0-35.0); MEAN CORPUSCULAR HGB CONC 30.5 g/dl (31.0-37.0); MEAN PLATELET VOLUME 9.8 fl (7.0-11.0); RBC 4.16 10^6/uL (3.5-6.1); RED CELL DISTRIBUTION WIDTH 18.2 % (11.5-14.5); WHITE BLOOD COUNT 2.9 10^3/uL (4.5-11.0)
[2019-02-16 22:53] LABS: ALB/GLOB RATIO 1.3 (1.1-1.8); ALBUMIN 4.5 g/dL (3.0-4.8); ALT/SGPT 66 U/L (7-56); AST/SGOT 136 U/L (17-59); BLOOD UREA NITROGEN 9 mg/dL (7-21); CALCIUM 8.7 mg/dL (8.4-10.5); GFR NON-AFRICAN AMERICAN > 60; INR 0.98; PARTIAL THROMBOPLASTIN TIME 36.4 Seconds (26.9-38.3); PROTHROMBIN TIME 10.9 SECONDS (9.4-12.5)
[2019-02-16 22:59] LABS: TROPONIN I < 0.01 ng/mL
[2019-02-16 23:03] LABS: CK-MB 2.6 ng/mL (0.0-3.6)
--- NOTE | 2019-02-17 00:25 | CP.PCM.HP ---
<Tyshawn Baez - Last Filed: 02/17/19 05:15> History of Present Illness - History of Present Illness History of Present Illness: PGY-1 Medicine H&P for Dr. Pryor CC: Atypical chest pain Patient is a 57 year old male with a past medical history of HTN, CAD s/p PTCA with stents, alcohol abuse, and seizures, presenting with chest pain. He describes the pain to be achy, constant, located on the lateral left chest wall, non-radiating, and reproducible. Patient states that he had 2 stents placed in in 2017 and 2018. He denies following up with a flare breaker or his primary care doctor. Patient is non-compliant with his medications. He admits to smoking >10 cigarettes daily and drinks 5-6 beers daily. He denies fevers, chills, palpitations, shortness of breath, abdominal pain, nausea, vomiting, diarrhea, or urinary symptoms. ROS and HPI limited due to patient being intoxicated. PMHx: HTN, CAD s/p PTCA with 2 stents (placed in 2016 and 2018), alcohol abuse, and seizures PSHx: 2 X stents, tonsillectomy, jaw repair Allergies: NKDA Social histiry: Smokes >10 cigarettes daily for more than 20 years, drinks 6 large beers per day, denies illicit drug use. Lives with at home. Medications: See DEC PMD: Dr. Irizarry Pharmacy: [facility] [place] pharmacy- will call in the morning Present on Admission - Present on Admission Any Indicators Present on Admission: No History of DVT/PE: No History of Uncontrolled Diabetes: No Urinary Catheter: No Decubitus Ulcer Present: No Past Patient History - Infectious Disease Hx of Infectious Diseases: None - Tetanus Immunizations Tetanus Immunization: Unknown - Past Social History Smoking Status: Heavy Smoker > 10 Cigarettes Daily - CARDIAC Hx Cardiac Disorders: Yes Hx Heart Attack: Yes Hx Hypertension: Yes Other/Comment: 2 cardiac stents - PULMONARY Hx Respiratory Disorders: Yes Hx Chronic Obstructive Pulmonary Disease (COPD): Yes - NEUROLOGICAL Hx Neurological Disorder: Yes Hx Seizures: Yes Hx Transient Ischemic Attacks (TIA): Yes - HEENT Hx HEENT Problems: No - RENAL Hx Chronic Kidney Disease: No - ENDOCRINE/METABOLIC Hx Endocrine Disorders: No - HEMATOLOGICAL/ONCOLOGICAL Hx Blood Disorders: No - INTEGUMENTARY Hx Dermatological Problems: No - MUSCULOSKELETAL/RHEUMATOLOGICAL Hx Musculoskeletal Disorders: Yes Hx Falls: Yes - GASTROINTESTINAL Hx Gastrointestinal Disorders: No - GENITOURINARY/GYNECOLOGICAL Hx Genitourinary Disorders: No - PSYCHIATRIC Hx Psychophysiologic Disorder: No Hx Substance Use: No - SURGICAL HISTORY Hx Cardiac Catheterization: Yes (x3 stents 2015) - ANESTHESIA Hx Anesthesia: Yes Hx Anesthesia Reactions: No Hx Malignant Hyperthermia: No Meds Allergies/Adverse Reactions: Allergies Allergy/AdvReac Type Severity Reaction Status Date / Time No Known Allergies Allergy Verified 01/18/19 20:42 Physical Exam - Constitutional Appears: No Acute Distress Additional comments: Patient is intoxicated. Patient smells of alcohol on breath - Head Exam Head Exam: ATRAUMATIC, NORMAL INSPECTION - Eye Exam Eye Exam: EOMI, Normal appearance, PERRL Pupil Exam: NORMAL ACCOMODATION - ENT Exam ENT Exam: Mucous Membranes Dry - Neck Exam Neck exam: Positive for: Normal Inspection - Respiratory Exam Respiratory Exam: Clear to Auscultation Bilateral, NORMAL BREATHING PATTERN. absent: Accessory Muscle Use, Rales, Rhonchi, Wheezes, Respiratory Distress - Cardiovascular Exam Cardiovascular Exam: Tachycardia, +S1, +S2. absent: Bradycardia, Gallop, Rubs - GI/Abdominal Exam GI & Abdominal Exam: Normal Bowel Sounds, Soft. absent: Distended, Firm, Guarding, Tenderness - Extremities Exam Extremities exam: Positive for: normal inspection. Negative for: calf tenderness, pedal edema - Back Exam Back exam: NORMAL INSPECTION. absent: CVA tenderness (L), CVA tenderness (R), paraspinal tenderness, tenderness - Neurological Exam Neurological exam: Alert, CN II-XII Intact, Oriented x3 - Psychiatric Exam Psychiatric exam: Flat Affect - Skin Skin Exam: Dry, Intact, Normal Color, Warm Results - Vital Signs Recent Vital Signs: Last Vital Signs Temp 98.5 F 02/16/19 21:59 Pulse 98 H 02/16/19 23:44 Resp 14 02/16/19 23:44 BP 127/74 02/16/19 23:44 Pulse Ox 100 02/16/19 23:44 - Labs Result Diagrams: 02/16/19 22:34 02/16/19 22:34 Labs: Laboratory Results - last 24 hr 02/16/19 02/16/19 02/16/19 22:34 22:34 22:34 WBC 2.9 L RBC 4.16 Hgb 10.5 L Hct 34.4 L MCV 82.7 MCH 25.2 MCHC 30.5 L RDW 18.2 H Plt Count 145 MPV 9.8 PT 10.9 INR 0.98 APTT 36.4 Sodium 144 Potassium 4.2 Chloride 102 Carbon Dioxide 29 Anion Gap 16 BUN 9 Creatinine 0.7 L Est GFR ( Amer) > 60 Est GFR (Non-Af Amer) > 60 Random Glucose 103 Calcium 8.7 Total Bilirubin 0.6 AST 136 H ALT 66 H Alkaline Phosphatase 92 Lactate Dehydrogenase 638 Total Creatine Kinase 285 H CK-MB (CK-2) 2.6 CK-MB (CK-2) % Cancelled Troponin I < 0.01 Total Protein 8.1 Albumin 4.5 Globulin 3.5 Albumin/Globulin Ratio 1.3 Assessment & Plan - Assessment and Plan (Free Text) Assessment: Patient is a 57 year old male with a past medical history of HTN, CAD s/p PTCA with stents, alcohol abuse, and seizures, presenting with chest pain. Plan: Atypical chest pain, r/o ACS - EKG showed NSR @ 97 bpm, no ST changes - CXR: no acute changes - Troponin <0.01 x 1 - Trend troponins - Echo in 05/2018: EF of 50-55% - Continue ASA, Plavix, Lipitor, Metoprolol - TSH, Lipid panel, HgbA1c WNL on last admission in January 2019 - Cardiology consulted, Dr. Pisano Alcohol intoxication - Blood alcohol level: 290 - [facility] protocol - Ativan 2mg Q4 PRN - Zofran 4mg PRN - Banana bag 1L - Daily MV, thiamine, folic acid - Fall/seizure precautions - Counselled on alcohol cessation - Follow up UDS Hypertension - Continue Lopressor 25mg PO BID - Continue to monitor Anemia of chronic disease - Likely 2/2 alcohol abuse - H&H at baseline - Continue to monitor Seizures - Fall, seizure precautions - Continue Keppra 750mg PO BID Tobacco abuse - Nicotine patch - Counselled on tobacco cessation Prophylaxis: - DVT: SCD's - GI: Protonix 40mg PO QD Patient seen and case discussed with attending, Dr. Pryor. Tyshawn Baez, PGY-1 <Vangie Pryor - Last Filed: 02/17/19 05:32> Results - Vital Signs Recent Vital Signs: Last Vital Signs Temp 97.6 F 02/17/19 01:30 Pulse 71 02/17/19 02:00 Resp 18 02/17/19 01:30 BP 112/65 02/17/19 01:30 Pulse Ox 95 02/17/19 01:30 - Labs Result Diagrams: 02/16/19 22:34 02/16/19 22:34 Labs: Laboratory Results - last 24 hr 02/16/19 02/16/19 02/16/19 22:34 22:34 22:34 WBC 2.9 L RBC 4.16 Hgb 10.5 L Hct 34.4 L MCV 82.7 MCH 25.2 MCHC 30.5 L RDW 18.2 H Plt Count 145 MPV 9.8 PT 10.9 INR 0.98 APTT 36.4 Sodium 144 Potassium 4.2 Chloride 102 Carbon Dioxide 29 Anion Gap 16 BUN 9 Creatinine 0.7 L Est GFR ( Amer) > 60 Est GFR (Non-Af Amer) > 60 Random Glucose 103 Calcium 8.7 Total Bilirubin 0.6 AST 136 H ALT 66 H Alkaline Phosphatase 92 Lactate Dehydrogenase 638 Total Creatine Kinase 285 H CK-MB (CK-2) 2.6 CK-MB (CK-2) % Cancelled Troponin I < 0.01 Total Protein 8.1 Albumin 4.5 Globulin 3.5 Albumin/Globulin Ratio 1.3 Alcohol, Quantitative 02/17/19 03:10 WBC RBC Hgb Hct MCV MCH MCHC RDW Plt Count MPV PT INR APTT Sodium Potassium Chloride Carbon Dioxide Anion Gap BUN Creatinine Est GFR ( Amer) Est GFR (Non-Af Amer) Random Glucose Calcium Total Bilirubin AST ALT Alkaline Phosphatase Lactate Dehydrogenase Total Creatine Kinase CK-MB (CK-2) CK-MB (CK-2) % Troponin I Total Protein Albumin Globulin Albumin/Globulin Ratio Alcohol, Quantitative 290 H Attending/Attestation - Attestation I have personally seen and examined this patient.: Yes I have fully participated in the care of the patient.: Yes I have reviewed all pertinent clinical information: Yes Notes (Text): 02/17/19 05:25 Pt seen with the resident by the bedside. Case discussed in detail. In addition to documented Physical exam,pt has tenderness on palpation of L lateral chest wall. Agree with rest of documentation,assessment and plan of treatment.
[2019-02-17] MEDS ORDERED: Multivitamin (MVI) 10 ML, Thiamine 100 MG, Folic Acid 1 MG in Sodium Chloride 0.9% 1,00... IV ONE (01:24)
[2019-02-17] MEDS: Pantoprazole 40 mg EC Tab PO SCH (06:10)
[2019-02-17 06:44] LABS: HEMOGLOBIN 9.1 g/dL (14.0-18.0); MEAN CELL VOLUME 82.9 fl (80.0-105.0); MEAN CORPUSCULAR HEMOGLOBIN 24.7 pg (25.0-35.0); MEAN CORPUSCULAR HGB CONC 29.8 g/dl (31.0-37.0); MEAN PLATELET VOLUME 9.6 fl (7.0-11.0); RBC 3.68 10^6/uL (3.5-6.1); RED CELL DISTRIBUTION WIDTH 18.3 % (11.5-14.5); WHITE BLOOD COUNT 2.2 10^3/uL (4.5-11.0)
[2019-02-17 07:09] LABS: TROPONIN I < 0.01 ng/mL
[2019-02-17 07:16] LABS: BARBITURATES, UR NEGATIVE (NEGATIVE); BENZODIAZEPINES, UR NEGATIVE (NEGATIVE); OPIATES, UR NEGATIVE (NEGATIVE); PHENCYCLIDINE, UR NEGATIVE (NEGATIVE)
[2019-02-17 07:21] LABS: ALB/GLOB RATIO 1.2 (1.1-1.8); ALBUMIN 3.9 g/dL (3.0-4.8); ALT/SGPT 56 U/L (7-56); AST/SGOT 108 U/L (17-59); BLOOD UREA NITROGEN 9 mg/dL (7-21); CALCIUM 8.4 mg/dL (8.4-10.5); GFR NON-AFRICAN AMERICAN > 60
[2019-02-17] MEDS: Enoxaparin 40 mg Syringe SC SCH ×2 (09:40→09:49)
--- NOTE | 2019-02-17 10:16 | RAD ---
Date of service: 02/16/2019 HISTORY: chest pain COMPARISON: 01/24/2019 TECHNIQUE: 1 view obtained. FINDINGS: LUNGS: No active pulmonary disease. PLEURA: No significant pleural effusion identified, no pneumothorax apparent. CARDIOVASCULAR: No aortic atherosclerotic calcification present. Normal cardiac size. No pulmonary vascular congestion. OSSEOUS STRUCTURES: No significant abnormalities. VISUALIZED UPPER ABDOMEN: Normal. OTHER FINDINGS: None. IMPRESSION: No active disease.
--- NOTE | 2019-02-17 10:50 | CARD ---
APPROVED REPORT Date of service: 02/16/2019 EKG Measurement Heart [id number] <Conclusion> Normal sinus rhythm Cannot rule out small or absent R waves V1-V3, may be due to lead placement or possible septal infarct age undetermined. Abnormal ECG
--- NOTE | 2019-02-17 17:28 | CARD ---
APPROVED REPORT Date of service: 02/17/2019 EKG Measurement Heart [id number] <Conclusion> Normal sinus rhythm Early reporlarization pattern; a normal variant Normal ECG
[2019-02-17] MEDS ORDERED: Nitroglycerin 0.2 mg/hr Top Patch TD ONE (19:57)
--- NOTE | 2019-02-17 22:03 | CON ---
DATE: 02/17/2019 LOCATION: The patient is in room 366, bed 1. REASON FOR CONSULTATION: Chest pain. HISTORY OF PRESENT ILLNESS: A 58-year-old male, who has history of taking heavy quantity of alcohol, poor compliance, not taking medications, admitted with the chest pain which was on the left side at a localized point and has local tenderness in that area of the pain. The patient denies any exertional chest pain. According to of the patient, patient was in December in [facility] and had a cardiac catheterization and no intervention was done. So apparently, the patient had no significant blockages at that time. The patient's chest pain was sharp and it was at a localized point, and his blood alcohol level is 290. The patient denies any short of breath or palpitation. The patient in the past had stent insertions. PAST MEDICAL HISTORY: Coronary artery disease, history of stent insertion in the past, seizure disorder, and alcohol abuse. The patient had a tonsillectomy and jaw repair in the past. ALLERGIES: NO KNOWN ALLERGIES. PERSONAL HISTORY: He used to smoke in the past, half pack a day. Currently, he smokes maybe two to four cigarettes a day, and he continued to drink very heavy. HOME MEDICATIONS: The patient is supposed to be on thiamine 100 mg daily, metoprolol tartrate 25 mg b.i.d., Keppra 750 mg b.i.d., folic acid 1 mg daily, Plavix 75 mg daily, Lipitor 40 mg daily, and aspirin 81 mg daily, but apparently the patient does not take medicines regularly. REVIEW OF SYSTEMS: All the systems reviewed, positives mentioned in the history, others were negative. PHYSICAL EXAMINATION: VITAL SIGNS: Blood pressure 109/64, respiration 20, pulse 85, and temperature 98.1. HEENT: Head is normocephalic. Eyes; pupils normal. Conjunctivae slightly pale. NECK: JVP low. Carotids equal. THORAX: AP diameter normal. LUNGS: Clear. Chest wall; the patient has tenderness at the area of the pain. CARDIOVASCULAR: S1 and S2. ABDOMEN: Soft. No tenderness. No organomegaly. EXTREMITIES: No clubbing. No cyanosis. LABORATORY DATA: WBC 2.2, hemoglobin 9.1, hematocrit 30.5, and platelet 125. Sodium 144, potassium 4.2, BUN 9, and creatinine 0.7. Calcium, phosphorus, and magnesium are normal. AST 108, ALT 56, and troponin x3 negative. Chest x-ray; no active disease. EKG showed regular sinus rhythm. Poor progression of RVI to V3. ST-T wave changes of early repolarization. Echocardiogram; the patient's echocardiogram on 07/29/2018, normal LV size, LV ejection fraction 50% to 55%, mild mitral regurgitation, and mild tricuspid regurgitation. The patient had stress test on 10/19/2018, showed fixed defect, ejection fraction of about 46%, so it was negative for ischemia. Cardiac cath; according to , the patient had cardiac cath at [facility] in 12/2018 and no intervention was done. So apparently the patient did not have any significant new blockages. DIAGNOSES: Chest pain, musculoskeletal; alcoholic intoxication; coronary artery disease; history of stent insertion; hypertension; anemia; leukopenia; and history of thrombocytopenia. PLAN: Treat the patient's chest pain symptomatically. Anti-inflammatory drugs may be helpful. The patient is on aspirin 81 mg daily, folic acid 1 mg daily, Levitra 750 mg b.i.d., atorvastatin 40 mg daily, metoprolol 25 mg b.i.d., Lovenox 40 mg subcutaneous daily, Plavix 75 mg daily, Protonix 40 mg daily, and thiamine 100 mg p.o. daily. We will continue present therapy. We will follow with you. Chiqui Pisano MD
[2019-02-18 00:18] VITALS: O2SAT 95
[2019-02-18] MEDS: Pantoprazole 40 mg EC Tab PO SCH (05:38)
[2019-02-18 06:46] LABS: BASO # 0.02 K/mm3 (0.0-2.0); BASO % 0.5 % (0.0-3.0); EOS # 0.1 (0.0-0.7); EOS % 1.1 % (1.5-5.0); HEMOGLOBIN 9.9 g/dL (14.0-18.0); LYMPH # 0.7 (1.2-3.4); LYMPH % 15.8 % (22.0-35.0); MEAN CELL VOLUME 83.8 fl (80.0-105.0); MEAN CORPUSCULAR HEMOGLOBIN 24.8 pg (25.0-35.0); MEAN CORPUSCULAR HGB CONC 29.6 g/dl (31.0-37.0); MEAN PLATELET VOLUME 10.2 fl (7.0-11.0); MONO # 0.7 (0.1-0.6); RED CELL DISTRIBUTION WIDTH 18.3 % (11.5-14.5); WHITE BLOOD COUNT 4.4 10^3/uL (4.5-11.0)
[2019-02-18 06:58] LABS: ALB/GLOB RATIO 1.2 (1.1-1.8); ALBUMIN 4.2 g/dL (3.0-4.8); ALT/SGPT 54 U/L (7-56); AST/SGOT 95 U/L (17-59); BLOOD UREA NITROGEN 11 mg/dL (7-21); CALCIUM 9.4 mg/dL (8.4-10.5); GFR NON-AFRICAN AMERICAN > 60
[2019-02-18 08:04] VITALS: BP 162/77; PULSE 62; RESP 18; TEMP 98.1
--- NOTE | 2019-02-18 08:46 | CP.PCM.PN ---
Subjective - Date & Time of Evaluation Date of Evaluation: 02/18/19 Time of Evaluation: 06:52 - Subjective Subjective: Awake, alert, feels okay, denies chest pain, at bedside Reason for consultation and follow up:Cardiac evaluation of chest pain, history of coronary artery disease post stents, seizure disorder, alcohol abuse Seen and examined by me and Dr. August Objective - Vital Signs/Intake and Output Vital Signs (last 24 hours): Temp Pulse Resp BP Pulse Ox 98.1 F 62 18 162/77 H 95 02/18/19 08:03 02/18/19 08:03 02/18/19 08:03 02/18/19 08:03 02/18/19 08:03 Intake and Output: 02/18/19 02/18/19 06:59 18:59 Intake Total 240 Balance 240 - Medications Medications: Current Medications Acetaminophen (Tylenol 325mg Tab) 650 mg PO Q6H PRN PRN Reason: Pain, Mild (1-3) Aspirin (Ecotrin) 81 mg PO DAILY [facility] Last Admin: 02/17/19 09:40 Dose: 81 mg Atorvastatin Calcium (Lipitor) 40 mg PO DAILY [facility] Last Admin: 02/17/19 09:40 Dose: 40 mg Clopidogrel Bisulfate (Plavix) 75 mg PO DAILY [facility] Last Admin: 02/17/19 09:40 Dose: 75 mg Enoxaparin Sodium (Lovenox) 40 mg SC DAILY [facility]; Protocol Last Admin: 02/17/19 09:49 Dose: Not Given Folic Acid (Folic Acid) 1 mg PO DAILY [facility] Levetiracetam (Keppra) 750 mg PO BID [facility] Last Admin: 02/17/19 17:13 Dose: 750 mg Lisinopril (Zestril) 10 mg PO DAILY [facility] Lorazepam (Ativan) 1 mg IVP Q6H PRN; Protocol PRN Reason: Symptoms of alcohol withdrawl Last Admin: 02/18/19 05:42 Dose: 1 mg Metoprolol Tartrate (Lopressor) 25 mg PO BID [facility] Last Admin: 02/17/19 17:13 Dose: 25 mg Multivitamins/Minerals (Therapeutic-M Tab) 1 tab PO DAILY [facility] Nicotine (Nicoderm Cq) 1 patch TD DAILY [facility] Last Admin: 02/17/19 09:39 Dose: 1 patch Ondansetron HCl (Zofran Inj) 4 mg IVP Q4H PRN PRN Reason: Nausea/Vomiting Pantoprazole Sodium (Protonix Ec Tab) 40 mg PO 0600 [facility] Last Admin: 02/18/19 05:38 Dose: 40 mg Thiamine HCl (Vitamin B1 Tab) 100 mg PO DAILY [facility] - Labs Labs: 02/18/19 06:00 02/18/19 06:00 PT 10.9 SECONDS (9.4-12.5) 02/16/19 22:34 INR 0.98 02/16/19 22:34 APTT 36.4 Seconds (26.9-38.3) 02/16/19 22:34 - Constitutional Appears: Non-toxic, No Acute Distress - Head Exam Head Exam: NORMAL INSPECTION, NORMOCEPHALIC - Eye Exam Eye Exam: Normal appearance Pupil Exam: NORMAL ACCOMODATION - ENT Exam ENT Exam: Mucous Membranes Moist, Normal Exam - Neck Exam Neck Exam: Full ROM, Normal Inspection - Respiratory Exam Respiratory Exam: Decreased Breath Sounds, Clear to Ausculation Bilateral, NORMAL BREATHING PATTERN - Cardiovascular Exam Cardiovascular Exam: +S1, +S2 - GI/Abdominal Exam GI & Abdominal Exam: Soft, Normal Bowel Sounds - Extremities Exam Extremities Exam: Full ROM, Normal Capillary Refill - Neurological Exam Neurological Exam: Alert, Awake, Oriented x3 - Psychiatric Exam Psychiatric exam: Normal Affect, Normal Mood - Skin Skin Exam: Dry, Normal Color, Warm Assessment and Plan - Assessment and Plan (Free Text) Assessment: A 58 year old male who came in to the ER due to localized left chest pain with tenderness. Pain is reproducible and non radiating. History of coronary artery disease post stents, anemia, leukopenia, thrombocytopenia, hypertension,alcohol abuse, and seizures,tonsillectomy, jaw repair, current smoker for more than 20 years, drinks 6 large beers per day, denies illicit drug use.Echo done on showed LVEF 50-55%, mild MR/TR. Had stress test on 10/19/2018 and show ed fixed defect, no ischemia, LVEF 46%. Had cardiac cath 01/05 at [facility] with no apparent new blockages according to . EKG normal sinus rhythm, no ischemia, Troponin negative. Alcohol level elevated (290). Alcohol abuse, Rule out acute coronary syndrome. Chest pain ,musculoskeletal in nature. NSAID as needed. Control blood pressure. Plan: No distress, denies chest pain now Heart rate controlled Control blood pressure PRN NSAID for musculoskeletal pain On ASA 81 mg daily, Lipitor 40 mg daily, Plavix 75 mg daily,Lovenox 40 mg daily, Lisinopril 10 mg daily, Lopressor 25m g BID, Nicoderm patch daily Continue current treatment Continue current medications Alcohol abstinence Smoking cessation Seizure precaution Alcohol withdrawal precaution Will follow up Plan and treatment discussed with Dr. August
[2019-02-18] MEDS: Enoxaparin 40 mg Syringe SC SCH ×2 (09:46→09:53)
[2019-02-18] MEDS ORDERED: Multivitamin With Minerals Tab PO SCH (10:00)
--- NOTE | 2019-02-18 12:16 | CP.PCM.DIS ---
<Alvin Tim - Last Filed: 02/18/19 12:11> Provider - Provider Date of Admission: 02/16/19 23:09 Attending physician: Chiqui Rangel MD Primary care physician: Joe Irizarry MD Consults: 02/17/19 01:30 Physician Consult Routine Comment: Consulting Provider: Chiqui Pisano Consulting Physician: Chiqui Pisano Reason for Consult: chest pain 02/17/19 02:05 Transition In Care/Readmission Reduction Routine Comment: Physician Instructions: Reason For Exam: readmissions for ETOH Time Spent in preparation of Discharge (in minutes): 40 Diagnosis - Discharge Diagnosis (1) Chest pain Status: Resolved (2) Alcohol withdrawal Status: Acute (3) Anemia Status: Chronic (4) Smoking cessation education Status: Chronic (5) Seizure Status: Chronic Hospital Course - Lab Results Lab Results: Most Recent Lab Values WBC 4.4 10^3/uL (4.5-11.0) L D 02/18/19 06:00 RBC 4.00 10^6/uL (3.5-6.1) 02/18/19 06:00 Hgb 9.9 g/dL (14.0-18.0) L 02/18/19 06:00 Hct 33.5 % (42.0-52.0) L 02/18/19 06:00 MCV 83.8 fl (80.0-105.0) 02/18/19 06:00 MCH 24.8 pg (25.0-35.0) L 02/18/19 06:00 MCHC 29.6 g/dl (31.0-37.0) L 02/18/19 06:00 RDW 18.3 % (11.5-14.5) H 02/18/19 06:00 Plt Count 126 10^3/uL (120.0-450.0) 02/18/19 06:00 MPV 10.2 fl (7.0-11.0) 02/18/19 06:00 Neut % (Auto) 66.6 % (50.0-68.0) 02/18/19 06:00 Lymph % (Auto) 15.8 % (22.0-35.0) L 02/18/19 06:00 [place] % (Auto) 16.0 % (1.0-6.0) H 02/18/19 06:00 Eos % (Auto) 1.1 % (1.5-5.0) L 02/18/19 06:00 Baso % (Auto) 0.5 % (0.0-3.0) 02/18/19 06:00 Lymph # (Auto) 0.7 (1.2-3.4) L 02/18/19 06:00 [place] # (Auto) 0.7 (0.1-0.6) H 02/18/19 06:00 Eos # (Auto) 0.1 (0.0-0.7) 02/18/19 06:00 Baso # (Auto) 0.02 K/mm3 (0.0-2.0) 02/18/19 06:00 Absolute Neuts (auto) 2.95 (1.4-6.5) 02/18/19 06:00 PT 10.9 SECONDS (9.4-12.5) 02/16/19 22:34 INR 0.98 02/16/19 22:34 APTT 36.4 Seconds (26.9-38.3) 02/16/19 22:34 Sodium 140 mmol/L (132-148) 02/18/19 06:00 Potassium 4.6 mmol/L (3.6-5.0) 02/18/19 06:00 Chloride 105 mmol/L (98-107) 02/18/19 06:00 Carbon Dioxide 29 mmol/L (21-33) 02/18/19 06:00 Anion Gap 10 (10-20) 02/18/19 06:00 BUN 11 mg/dL (7-21) 02/18/19 06:00 Creatinine 0.7 mg/dl (0.8-1.5) L 02/18/19 06:00 Est GFR ( Amer) > 60 02/18/19 06:00 Est GFR (Non-Af Amer) > 60 02/18/19 06:00 POC Glucose (mg/dL) 97 mg/dL (65-110) 02/17/19 16:07 Random Glucose 84 mg/dL (70-110) 02/18/19 06:00 Calcium 9.4 mg/dL (8.4-10.5) 02/18/19 06:00 Phosphorus 3.9 mg/dL (2.5-4.5) 02/17/19 06:10 Magnesium 1.8 mg/dL (1.7-2.2) 02/17/19 06:10 Total Bilirubin 1.4 mg/dL (0.2-1.3) H 02/18/19 06:00 AST 95 U/L (17-59) H 02/18/19 06:00 ALT 54 U/L (7-56) 02/18/19 06:00 Alkaline Phosphatase 84 U/L (38-126) 02/18/19 06:00 Lactate Dehydrogenase 638 U/L (333-699) 02/16/19 22:34 Total Creatine Kinase 285 U/L (35-230) H 02/16/19 22:34 CK-MB (CK-2) 2.6 ng/mL (0.0-3.6) 02/16/19 22:34 CK-MB (CK-2) % Cancelled 02/16/19 22:34 Troponin I < 0.01 ng/mL 02/17/19 10:50 Total Protein 7.9 g/dL (5.8-8.3) 02/18/19 06:00 Albumin 4.2 g/dL (3.0-4.8) 02/18/19 06:00 Globulin 3.6 gm/dL 02/18/19 06:00 Albumin/Globulin Ratio 1.2 (1.1-1.8) 02/18/19 06:00 Urine Opiates Screen Negative (NEGATIVE) 02/17/19 06:14 Urine Methadone Screen Negative (NEGATIVE) 02/17/19 06:14 Ur Barbiturates Screen Negative (NEGATIVE) 02/17/19 06:14 Ur Phencyclidine Scrn Negative (NEGATIVE) 02/17/19 06:14 Ur Amphetamines Screen Negative (NEGATIVE) 02/17/19 06:14 U Benzodiazepines Scrn Negative (NEGATIVE) 02/17/19 06:14 U Oth Cocaine Metabols Negative (NEGATIVE) 02/17/19 06:14 U Cannabinoids Screen Negative (NEGATIVE) 02/17/19 06:14 Alcohol, Quantitative 290 mg/dL (0-10) H 02/17/19 03:10 - Hospital Course Hospital Course: Patient is a 57 year old male with a past medical history of HTN, CAD s/p PTCA with stents, alcohol abuse, and seizures, presented with chest pain. He described the pain to be achy, constant, located on the lateral left chest wall, non-radiating, and reproducible. Patient stated that he had 2 stents placed in in 2017 and 2018. He has poor follow up. Patient is non-compliant with his medications. He admitted to smoking >10 cigarettes daily and drinks 5-6 beers daily. Patient was admitted for evaluation and treatment for chest pain to rule out acute coronary syndrome. Cardiac enzymes were trended and were negative x3. EKG was NSR with T wave changes in anterior leads consistent with past EKG. Patient was evaluated by cardiology who cleared patient for discharge. Patient was monitored for alcohol withdrawal, which required ativan. Today, patient requested to leave AMA. It was explained to the patient that he needed to be monitored and treated for alcohol withdrawal as he was still tremulous. Patient demonstrated understanding and was not suicidal or homicidal. Risks of leaving were explained including further morbidity and possible mortality. Benefits of staying were explained. Patient elected to leave against medical advice. Discharge Exam - Head Exam Head Exam: NORMAL INSPECTION, NORMOCEPHALIC - Additional Findings Additional findings: Deferred as patient left AMA Discharge Plan - Follow Up Plan Condition: STABLE Disposition: AGAINST MEDICAL ADVICE Referrals: Joe Irizarry MD [Primary Care Provider] - <Chiqui Rangel - Last Filed: 02/18/19 14:26> Provider - Provider Date of Admission: 02/16/19 23:09 Attending physician: Chiqui Rangel MD Primary care physician: Joe Irizarry MD Consults: 02/17/19 01:30 Physician Consult Routine Comment: Consulting Provider: Chiqui Pisano Consulting Physician: Chiqui Pisano Reason for Consult: chest pain 02/17/19 02:05 Transition In Care/Readmission Reduction Routine Comment: Physician Instructions: Reason For Exam: readmissions for ETOH Hospital Course - Lab Results Lab Results: Most Recent Lab Values WBC 4.4 10^3/uL (4.5-11.0) L D 02/18/19 06:00 RBC 4.00 10^6/uL (3.5-6.1) 02/18/19 06:00 Hgb 9.9 g/dL (14.0-18.0) L 02/18/19 06:00 Hct 33.5 % (42.0-52.0) L 02/18/19 06:00 MCV 83.8 fl (80.0-105.0) 02/18/19 06:00 MCH 24.8 pg (25.0-35.0) L 02/18/19 06:00 MCHC 29.6 g/dl (31.0-37.0) L 02/18/19 06:00 RDW 18.3 % (11.5-14.5) H 02/18/19 06:00 Plt Count 126 10^3/uL (120.0-450.0) 02/18/19 06:00 MPV 10.2 fl (7.0-11.0) 02/18/19 06:00 Neut % (Auto) 66.6 % (50.0-68.0) 02/18/19 06:00 Lymph % (Auto) 15.8 % (22.0-35.0) L 02/18/19 06:00 [place] % (Auto) 16.0 % (1.0-6.0) H 02/18/19 06:00 Eos % (Auto) 1.1 % (1.5-5.0) L 02/18/19 06:00 Baso % (Auto) 0.5 % (0.0-3.0) 02/18/19 06:00 Lymph # (Auto) 0.7 (1.2-3.4) L 02/18/19 06:00 [place] # (Auto) 0.7 (0.1-0.6) H 02/18/19 06:00 Eos # (Auto) 0.1 (0.0-0.7) 02/18/19 06:00 Baso # (Auto) 0.02 K/mm3 (0.0-2.0) 02/18/19 06:00 Absolute Neuts (auto) 2.95 (1.4-6.5) 02/18/19 06:00 PT 10.9 SECONDS (9.4-12.5) 02/16/19 22:34 INR 0.98 02/16/19 22:34 APTT 36.4 Seconds (26.9-38.3) 02/16/19 22:34 Sodium 140 mmol/L (132-148) 02/18/19 06:00 Potassium 4.6 mmol/L (3.6-5.0) 02/18/19 06:00 Chloride 105 mmol/L (98-107) 02/18/19 06:00 Carbon Dioxide 29 mmol/L (21-33) 02/18/19 06:00 Anion Gap 10 (10-20) 02/18/19 06:00 BUN 11 mg/dL (7-21) 02/18/19 06:00 Creatinine 0.7 mg/dl (0.8-1.5) L 02/18/19 06:00 Est GFR ( Amer) > 60 02/18/19 06:00 Est GFR (Non-Af Amer) > 60 02/18/19 06:00 POC Glucose (mg/dL) 97 mg/dL (65-110) 02/17/19 16:07 Random Glucose 84 mg/dL (70-110) 02/18/19 06:00 Calcium 9.4 mg/dL (8.4-10.5) 02/18/19 06:00 Phosphorus 3.9 mg/dL (2.5-4.5) 02/17/19 06:10 Magnesium 1.8 mg/dL (1.7-2.2) 02/17/19 06:10 Total Bilirubin 1.4 mg/dL (0.2-1.3) H 02/18/19 06:00 AST 95 U/L (17-59) H 02/18/19 06:00 ALT 54 U/L (7-56) 02/18/19 06:00 Alkaline Phosphatase 84 U/L (38-126) 02/18/19 06:00 Lactate Dehydrogenase 638 U/L (333-699) 02/16/19 22:34 Total Creatine Kinase 285 U/L (35-230) H 02/16/19 22:34 CK-MB (CK-2) 2.6 ng/mL (0.0-3.6) 02/16/19 22:34 CK-MB (CK-2) % Cancelled 02/16/19 22:34 Troponin I < 0.01 ng/mL 02/17/19 10:50 Total Protein 7.9 g/dL (5.8-8.3) 02/18/19 06:00 Albumin 4.2 g/dL (3.0-4.8) 02/18/19 06:00 Globulin 3.6 gm/dL 02/18/19 06:00 Albumin/Globulin Ratio 1.2 (1.1-1.8) 02/18/19 06:00 Urine Opiates Screen Negative (NEGATIVE) 02/17/19 06:14 Urine Methadone Screen Negative (NEGATIVE) 02/17/19 06:14 Ur Barbiturates Screen Negative (NEGATIVE) 02/17/19 06:14 Ur Phencyclidine Scrn Negative (NEGATIVE) 02/17/19 06:14 Ur Amphetamines Screen Negative (NEGATIVE) 02/17/19 06:14 U Benzodiazepines Scrn Negative (NEGATIVE) 02/17/19 06:14 U Oth Cocaine Metabols Negative (NEGATIVE) 02/17/19 06:14 U Cannabinoids Screen Negative (NEGATIVE) 02/17/19 06:14 Alcohol, Quantitative 290 mg/dL (0-10) H 02/17/19 03:10 Attending/Attestation - Attestation I have personally seen and examined this patient.: Yes I have fully participated in the care of the patient.: Yes I have reviewed all pertinent clinical information, including history, physical exam and plan: Yes Notes (Text): 02/18/19 14:23 Patient was alert,awake and oriented. The issue of leaving hospital against medical advice was discussed in detail with him. He understood the risk but still decided to signed AMA. Prognosis is guarded.
== END 2019-02-18 11:42 | disposition left against medical advice (07) ==
LOC: ED 21:43 → ERH 23:09 → 3RNO 02-17 00:55
PROVIDERS: ADMIT Internal Medicine; ATTEND Internal Medicine
DX: R07.89 Other chest pain (principal); F10.239 Alcohol dependence with withdrawal, unspecified; F10.229 Alcohol dependence with intoxication, unspecified; Y90.8 Blood alcohol level of 240 mg/100 ml or more; D64.9 Anemia, unspecified; F17.210 Nicotine dependence, cigarettes, uncomplicated; G40.909 Epilepsy, unspecified, not intractable, without status epilepticus; I10 Essential (primary) hypertension; I25.10 Atherosclerotic heart disease of native coronary artery without angina pectoris; J44.9 Chronic obstructive pulmonary disease, unspecified; I25.2 Old myocardial infarction; Z91.14 Patient's other noncompliance with medication regimen; Z79.02 Long term (current) use of antithrombotics/antiplatelets; Z79.82 Long term (current) use of aspirin; Z86.73 Personal history of transient ischemic attack (TIA), and cerebral infarction without residual deficits; Z95.5 Presence of coronary angioplasty implant and graft
CPT/HCPCS: 36415; 71045; 80053; 80320; 80324; 80345; 80346; 80349; 80353; 80358; 80361; 82550; 82553; 82948; 83615; 83735; 83992; 84100; 84484; 85025; 85027; 85610; 85730; 93005; 99285; G0378; J2060; J3411; J7030

== ENCOUNTER 2019-02-28 19:51 | Emergency (ER) | payer MEDICAID ==
[2019-02-28 19:52] VITALS: BMI 23.6
--- NOTE | 2019-02-28 19:56 | ED PDOC ---
Arrival/HPI - General Historian: Patient - History of Present Illness Narrative History of Present Illness (Text): 02/28/19 19:57 Patient is a 58 yo male with HTN, CAD s/p stents, alcohol use, tobacco use, and seizures who presents with chest pain and palpitations. Patient says that the pain has been on and off since around 3 PM. He says that this keeps happening to him, and he was just admitted for the same symptoms about 2 weeks ago. Patient admits to medication noncompliance and drinking 2 beers and smoking 1 cigar tonight. He denies headache, SOB, diaphoresis, and nausea. Time/Duration: 4-6 hours Symptom Onset: Gradual Symptom Course: Unchanged Quality: Pressure Activities at Onset: Rest <Allegra Olson - Last Filed: 02/28/19 21:55> <Antwan Phan - Last Filed: 03/01/19 21:24> - General Chief Complaint: Chest Pain Time Seen by Provider: 02/28/19 19:54 Past Medical History - Provider Review Nursing Documentation Reviewed: Yes Primary Care Provider: Joe Irizarry - Past History Past History: No Previous - Infectious Disease Hx of Infectious Diseases: None - Tetanus Immunization Tetanus Immunization: Unknown - Cardiac Hx Cardiac Disorders: Yes Hx [place]: Yes Hx Hypertension: Yes Other/Comment: 2 cardiac stents - Pulmonary Hx Respiratory Disorders: Yes Hx Chronic Obstructive Pulmonary Disease (COPD): Yes - Neurological Hx Neurological Disorder: Yes Hx Seizures: Yes Hx Transient Ischemic Attacks (TIA): Yes - HEENT Hx HEENT Disorder: No - Renal Hx Renal Disorder: No - Endocrine/Metabolic Hx Endocrine Disorders: No - Hematological/Oncological Hx Blood Disorders: No - Integumentary Hx Dermatological Disorder: No - Musculoskeletal/Rheumatological Hx Musculoskeletal Disorders: Yes Hx Falls: Yes - Gastrointestinal Hx Gastrointestinal Disorders: No - Genitourinary/Gynecological Hx Genitourinary Disorders: No - Psychiatric Hx Psychophysiologic Disorder: No Hx Substance Use: No - Past Surgical History Past Surgical History: No Previous - Surgical History Hx Cardiac Catheterization: Yes (x3 stents 2015) - Anesthesia Hx Anesthesia: Yes Hx Anesthesia Reactions: No Hx Malignant Hyperthermia: No - Suicidal Assessment Feels Threatened In Home Enviroment: No <Allegra Olson - Last Filed: 02/28/19 21:55> Family/Social History - Physician Review Nursing Documentation Reviewed: Yes Family/Social History: Unknown Family HX Smoking Status: Heavy Smoker > 10 Cigarettes Daily Hx Alcohol Use: Yes Hx Substance Use: No Hx Substance Use Treatment: No <Allegra Olson - Last Filed: 02/28/19 21:55> Allergies/Home Meds <Allegra Olson - Last Filed: 02/28/19 21:55> <Antwan Phan - Last Filed: 03/01/19 21:24> Allergies/Adverse Reactions: Allergies No Known Allergies Allergy (Verified 01/18/19 20:42) Home Medications: Home Meds Medication Instructions Recorded Confirmed Lisinopril [Prinivil] 10 mg PO DAILY 02/18/19 02/18/19 Review of Systems - Review of Systems Constitutional: absent: Fatigue, Fevers Eyes: absent: Vision Changes ENT: absent: Hearing Changes, Tinnitus Respiratory: absent: SOB, Cough Cardiovascular: Chest Pain, Palpitations. absent: Edema Gastrointestinal: Abdominal Pain. absent: Constipation, Diarrhea, Nausea, Vomiting Genitourinary Male: absent: Dysuria, Hematuria Skin: absent: Rash, Pruritis, Skin Lesions Neurological: absent: Headache, Dizziness, Focal Weakness Endocrine: absent: Diaphoresis Hemo/Lymphatic: absent: Adenopathy <Allegra Olson - Last Filed: 02/28/19 21:55> Physical Exam Vital Signs Reviewed: Yes Temperature: Afebrile Blood Pressure: Normal Pulse: Regular Respiratory Rate: Normal Appearance: Positive for: Comfortable Pain Distress: Mild Mental Status: Positive for: Alert and Oriented X 3 - Systems Exam Head: Present: Atraumatic, Normocephalic Pupils: Present: PERRL Extroacular Muscles: Present: EOMI Conjunctiva: Present: Normal Mouth: Present: Moist Mucous Membranes Respiratory/Chest: Present: Clear to Auscultation, Good Air Exchange Cardiovascular: Present: Regular Rate and Rhythm, Normal S1, S2 Abdomen: No: Tenderness, Distention Lower Extremity: Present: Normal Inspection. No: Edema Neurological: Present: GCS=15, CN II-XII Intact, Speech Normal Skin: Present: Warm, Dry, Normal Color Psychiatric: Present: Alert, Oriented x 3, Normal Insight, Normal Concentration <Allegra Olson - Last Filed: 02/28/19 21:55> Vital Signs Temp Pulse Resp BP BP Pulse Ox 02/28/19 20:11 98.0 F 90 18 129/88 99 02/28/19 20:00 129/88 <Antwan Phan - Last Filed: 03/01/19 21:24> Medical Decision Making ED Course and Treatment: 02/28/19 21:12 Re-evaluated patient. He is resting comfortably in bed. States he still has L- sided chest pain on and off. 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 Patient seen and evaluated with resident. Came up with plan and treatment together. Pt, whose past medical history includes hypertension, CAD with cardiac stents, alcohol abuse, tobacco abuse, and seizures, presented for chest pain and palpitations. Admits to drinking alcohol today. Plan: -- EKG -- Chest X-ray -- Labs, alcohol level, TSH -- Urine drug screen -- Aspirin 02/28/19 22:00 Patient reevaluated and noted to be in no distress. He is advised to follow up with his PCP. Opportunity for questions given and answered. He is stable for discharge. - Lab Interpretations Lab Results: 02/28/19 20:30 02/28/19 20:47 Lab Results 02/28/19 20:47: Sodium 140, Potassium 4.1, Chloride 101, Carbon Dioxide 26, Anion Gap 17, BUN 8, Creatinine 0.6 L, Est GFR ( Amer) > 60, Est GFR (Non-Af Amer) > 60, Random Glucose 103, Calcium 9.0, Phosphorus 3.7, Magnesium 1.8, Total Bilirubin 0.5, AST 113 H, ALT 64 H, Alkaline Phosphatase 103, Total Creatine Kinase 356 H, CK-MB (CK-2) 3.6, CK-MB (CK-2) % Cancelled, Troponin I < 0.01, Total Protein 8.4 H, Albumin 4.7, Globulin 3.8, Albumin/Globulin Ratio 1.2 02/28/19 20:30: Urine Opiates Screen Negative, Urine Methadone Screen Negative, Ur Barbiturates Screen Negative, Ur Phencyclidine Scrn Negative, Ur Amphetamines Screen Negative, U Benzodiazepines Scrn Negative, U Oth Cocaine Metabols Negative, U Cannabinoids Screen Negative 02/28/19 20:30: Free T4 0.94, TSH 3rd Generation 4.09, Alcohol, Quantitative 396 H* 02/28/19 20:30: WBC 3.2 L D, RBC 4.10, Hgb 10.3 L, Hct 34.1 L, MCV 83.2, MCH 25.1, MCHC 30.2 L, RDW 19.1 H, Plt Count 173, MPV 10.3, Neut % (Auto) 40.7 L, Lymph % (Auto) 40.8 H, [place] % (Auto) 13.8 H, Eos % (Auto) 1.6, Baso % (Auto) 3.1 H, Lymph # (Auto) 1.3, [place] # (Auto) 0.4, Eos # (Auto) 0.1, Baso # (Auto) 0.10, Absolute Neuts (auto) 1.30 L - RAD Interpretation Radiology Orders: 02/28/19 19:59 CXR [CHEST PORTABLE] [RAD] Stat - Medication Orders Current Medication Orders: Discontinued Medications Aspirin (Aspirin Chewable) 81 mg PO STAT STA Stop: 02/28/19 20:30 Last Admin: 02/28/19 20:39 Dose: 81 mg <Antwan Phan - Last Filed: 03/01/19 21:24> Disposition/Present on Arrival - Present on Arrival Any Indicators Present on Arrival: No History of DVT/PE: No History of Uncontrolled Diabetes: No Urinary Catheter: No History of Decub. Ulcer: No History Surgical Site Infection Following: None - Disposition Have Diagnosis and Disposition been Completed?: Yes Disposition Time: 21:57 Patient Plan: Discharge <Allegra Olson - Last Filed: 02/28/19 21:55> <Antwan Phan - Last Filed: 03/01/19 21:24> - Disposition Diagnosis: Alcohol use disorder, Chest pain, Tobacco use disorder Disposition: HOME/ ROUTINE Condition: IMPROVED Discharge Instructions (ExitCare): Quitting Smoking, Alcohol Abuse and Alcoholism (DC), Drugs to Help You Stop Using Tobacco, Chest Pain (ED) Additional Instructions: Follow-up with your primary care physician, Dr. Irizarry within 1 week. Take all of your medications as prescribed. You are highly encouraged to stop drinking and smoking, especially as this can worsen your heart disease. Referrals: Joe Irizarry MD [Primary Care Provider] - Follow up with primary Forms: [employer] (Syrian)
[2019-02-28 20:12] VITALS: BP 129/88; PULSE 90; RESP 18; TEMP 98; O2SAT 99
[2019-02-28 20:37] LABS: BASO # 0.1 K/mm3 (0.0-2.0); BASO % 3.1 % (0.0-3.0); EOS # 0.1 (0.0-0.7); EOS % 1.6 % (1.5-5.0); HEMOGLOBIN 10.3 g/dL (14.0-18.0); LYMPH # 1.3 (1.2-3.4); LYMPH % 40.8 % (22.0-35.0); MEAN CELL VOLUME 83.2 fl (80.0-105.0); MEAN CORPUSCULAR HEMOGLOBIN 25.1 pg (25.0-35.0); MEAN CORPUSCULAR HGB CONC 30.2 g/dl (31.0-37.0); MEAN PLATELET VOLUME 10.3 fl (7.0-11.0); MONO # 0.4 (0.1-0.6); MONO % 13.8 % (1.0-6.0); RBC 4.1 10^6/uL (3.5-6.1); RED CELL DISTRIBUTION WIDTH 19.1 % (11.5-14.5); WHITE BLOOD COUNT 3.2 10^3/uL (4.5-11.0)
[2019-02-28 20:58] LABS: FREE T4 0.94 ng/dL (0.78-2.19)
[2019-02-28 21:10] LABS: BARBITURATES, UR NEGATIVE (NEGATIVE); BENZODIAZEPINES, UR NEGATIVE (NEGATIVE); OPIATES, UR NEGATIVE (NEGATIVE); PHENCYCLIDINE, UR NEGATIVE (NEGATIVE)
[2019-02-28 21:34] LABS: ALB/GLOB RATIO 1.2 (1.1-1.8); ALBUMIN 4.7 g/dL (3.0-4.8); ALT/SGPT 64 U/L (7-56); AST/SGOT 113 U/L (17-59); BLOOD UREA NITROGEN 8 mg/dL (7-21); GFR NON-AFRICAN AMERICAN > 60
[2019-02-28 21:38] LABS: TROPONIN I < 0.01 ng/mL
[2019-02-28 21:49] LABS: CK-MB 3.6 ng/mL (0.0-3.6)
--- NOTE | 2019-03-01 09:17 | CARD ---
APPROVED REPORT Date of service: 02/28/2019 EKG Measurement Heart [id number] <Conclusion> Normal sinus rhythm Normal ECG
--- NOTE | 2019-03-01 10:23 | RAD ---
Date of service: 02/28/2019 HISTORY: palpitations COMPARISON: 02/16/2019 TECHNIQUE: 1 view obtained. FINDINGS: LUNGS: No active pulmonary disease. PLEURA: No significant pleural effusion identified, no pneumothorax apparent. CARDIOVASCULAR: No aortic atherosclerotic calcification present. Normal cardiac size. No pulmonary vascular congestion. OSSEOUS STRUCTURES: No significant abnormalities. VISUALIZED UPPER ABDOMEN: Normal. OTHER FINDINGS: None. IMPRESSION: No active disease.
== END 2019-02-28 22:20 | disposition home or self-care (01) ==
LOC: ED 19:51
DX: R07.9 Chest pain, unspecified (principal); F10.10 Alcohol abuse, uncomplicated; Y90.8 Blood alcohol level of 240 mg/100 ml or more; Z72.0 Tobacco use; I25.10 Atherosclerotic heart disease of native coronary artery without angina pectoris; I10 Essential (primary) hypertension; I25.2 Old myocardial infarction; J44.9 Chronic obstructive pulmonary disease, unspecified; R56.9 Unspecified convulsions; Z86.73 Personal history of transient ischemic attack (TIA), and cerebral infarction without residual deficits; Z95.5 Presence of coronary angioplasty implant and graft